=== PATIENT | female | born 1950 | race Hispanic/Latino ===

== ENCOUNTER 2018-06-26 11:27 | Inpatient (IN) | payer MEDICARE, OTHER ==
[2018-06-26] MEDS ORDERED: Morphine 4 mg/ml ISec IVP STA ×3 (12:26→23:45)
--- NOTE | 2018-06-26 12:38 | ED PDOC ---
Arrival/HPI - General Chief Complaint: Trauma Time Seen by Provider: 06/26/18 12:25 Historian: Patient - History of Present Illness Narrative History of Present Illness (Text): 06/26/18 12:25 68 year old female, whose medical history includes OH, transient hypotension, CHF exacerbation, Hypokalemia, who presents to the emergency department status post mechanical fall in middle of the night onto non-dominant left upper arm. Patient notes she got up to use the bathroom in the middle of the night when she tripped and fell. Patient denies head trauma, LOC, syncope, dizziness, palpitations, SOB, or any other complaints. Patient states she quit smoking about 7 years ago, no EtOH consumption. Time/Duration: Other (mechanical fall in middle of the night (last night)) Symptom Onset: Sudden Symptom Course: Unchanged Quality: Aching Context: Tripped (tripped and fell when she went to use the bathroom ) Associated Symptoms (Text): 06/26/18 14:51 Mechanical fall when she got up to use the bathroom in the middle of the night injuring her nondominant left shoulder. Past Medical History - Provider Review Nursing Documentation Reviewed: Yes - Infectious Disease Hx of Infectious Diseases: None - Tetanus Immunization Tetanus Immunization: Up to Date - Reproductive Menopause: Yes - Cardiac Hx Pacemaker: No - Pulmonary Hx Chronic Obstructive Pulmonary Disease (COPD): Yes - Neurological Hx Paralysis: No - Hematological/Oncological Hx Blood Transfusions: No Hx Blood Transfusion Reaction: Yes (POSSIBLY IN 2014) - Integumentary Hx Dermatological Disorder: No - Musculoskeletal/Rheumatological Hx Musculoskeletal Disorders: Yes - Gastrointestinal Hx Gastrointestinal Disorders: No - Genitourinary/Gynecological Hx Genitourinary Disorders: No Hx Reproductive Disorders: No - Psychiatric Hx Emotional Abuse: No Hx Physical Abuse: No Hx Substance Use: No - Surgical History Other/Comment: surgery for incontinence. L carotid endarterectomy. Surgery for nose,ears. Hysterectomy - Anesthesia Hx Anesthesia Reactions: No Hx Malignant Hyperthermia: No - Suicidal Assessment Feels Threatened In Home Enviroment: No Family/Social History - Physician Review Nursing Documentation Reviewed: Yes Family/Social History: Unknown Family HX Smoking Status: Former Smoker (Quit smoking 7 years ago) Hx Alcohol Use: No Hx Substance Use: No Hx Substance Use Treatment: No Allergies/Home Meds Allergies/Adverse Reactions: Allergies methotrexate Allergy (Verified 06/26/18 12:08) PAIN metronidazole Allergy (Verified 06/26/18 12:08) RASH Home Medications: Home Meds Medication Instructions Recorded Confirmed Alprazolam [Xanax] 0.5 mg PO TID 11/02/16 11/09/16 Lansoprazole [Prevacid] 30 mg PO DAILY 11/02/16 11/09/16 Levalbuterol [Xopenex] 0.63 mg IH TID 11/02/16 11/09/16 Oxycodone HCl/Acetaminophen 1 tab PO Q4H PRN 11/02/16 11/09/16 [Percocet 10-325 mg Tablet] Suvorexant [Belsomra] 40 mg PO HS 11/02/16 11/09/16 Venlafaxine [Effexor-XR] 75 mg PO BID 11/02/16 11/09/16 Acetaminophen [Tylenol 325mg tab] 2 tab PO Q6H PRN 11/09/16 11/09/16 Sucralfate [Carafate] 1 gm PO AC 11/09/16 11/09/16 Review of Systems - Physician Review All systems were reviewed & negative as marked: Yes - Review of Systems Constitutional: Normal Eyes: Normal ENT: Normal Respiratory: Normal. absent: SOB Cardiovascular: Normal. absent: Chest Pain, Palpitations, Syncope Gastrointestinal: absent: Abdominal Pain, Nausea, Vomiting Musculoskeletal: Other (pain at left upper arm). absent: Normal Neurological: Normal. absent: Headache (patient denies any head trauma), Dizziness Physical Exam Vital Signs Reviewed: Yes Vital Signs Temp Pulse Resp BP Pulse Ox 06/26/18 12:20 105 H 20 162/24 H 95 06/26/18 12:01 99.3 F 98 H 20 203/85 H 96 Temperature: Afebrile Blood Pressure: Hypertensive Pulse: Tachycardic Respiratory Rate: Normal Appearance: Positive for: Non-Toxic, Ill-Appearing (chronically ill-appearing), Uncomfortable, Other (pale. thin.) Pain Distress: Severe Mental Status: Positive for: Alert and Oriented X 3 - Systems Exam Head: Present: Atraumatic, Normocephalic Pupils: Present: PERRL Extroacular Muscles: Present: EOMI Conjunctiva: Present: Normal Mouth: Present: Moist Mucous Membranes Pharnyx: No: ERYTHEMA, EXUDATE, TONSILS ENLARGED Neck: Present: Normal Range of Motion Respiratory/Chest: Present: Clear to Auscultation, Good Air Exchange, Decreased Breath Sounds. No: Respiratory Distress, Accessory Muscle Use Cardiovascular: Present: Regular Rate and Rhythm, Normal S1, S2. No: Murmurs Abdomen: No: Tenderness, Distention, Peritoneal Signs Back: Present: Normal Inspection Upper Extremity: Present: NORMAL PULSES, Tenderness (severe pain/tenderness in left upper humerous), Swelling (swelling at left upper humerous ), Neurovascularly Intact, Deformity (at left upper humerous), Other (ecchymosis at left upper humerous ). No: Normal Inspection, Cyanosis, Edema, Normal ROM (limited ROM at left upper humerous), Erythema Lower Extremity: Present: Normal Inspection. No: Edema Neurological: Present: GCS=15, CN II-XII Intact, Speech Normal, Motor Func Grossly Intact Skin: Present: Warm, Dry, Normal Color. No: Rashes Psychiatric: Present: Alert, Oriented x 3, Normal Insight, Normal Concentration Medical Decision Making ED Course and Treatment: 06/26/18 12:25 Impression: 68 year old female who presents to the emergency department status post mechanical fall in middle of the night onto non-dominant left upper arm. Plan: -- Morphine 4 mg IVP -- Zofran Inj. 4 mg IVP -- X-ray of left humerus -- X-ray of left shoulder -- Reassess and disposition Prior Visits: Notes and results from previous visits were reviewed. Progress Notes: 06/26/18 14:56 EKG shows normal sinus rhythm with PACs rate approximately [address] and T-wave changes with no acute changes - RAD Interpretation Radiology Orders: 06/26/18 12:25 SHOULDER LEFT [RAD] Stat 06/26/18 12:26 HUMERUS LEFT [RAD] Stat X-ray left humerus and left shoulder shows a transverse displaced proximal shaft fracture of the humerus. Associate Professor Of Theatre: ED Physician - Medication Orders Current Medication Orders: Discontinued Medications Morphine Sulfate (Morphine) 4 mg IVP STAT STA Stop: 06/26/18 12:27 Ondansetron HCl (Zofran Inj) 4 mg IVP ONCE ONE Stop: 06/26/18 12:27 - Scribe Statement The provider has reviewed the documentation as recorded by the Scribe Glory Bell All medical record entries made by the Scribe were at my direction and personally dictated by me. I have reviewed the chart and agree that the record accurately reflects my personal performance of the history, physical exam, medical decision making, and the department course for this patient. I have also personally directed, reviewed, and agree with the discharge instructions and disposition. Disposition/Present on Arrival - Present on Arrival Any Indicators Present on Arrival: No History of DVT/PE: No History of Uncontrolled Diabetes: No Urinary Catheter: No History of Decub. Ulcer: No History Surgical Site Infection Following: None - Disposition Have Diagnosis and Disposition been Completed?: Yes Diagnosis: Hypokalemia, Fracture, humerus closed, shaft, Hypertension, Elevated troponin Disposition: HOSPITALIZED Disposition Time: 14:53 Patient Plan: Observation Patient Problems: Current Active Problems Problem Status Onset Fracture, humerus closed, shaft Acute Hypertension Acute Hypokalemia Acute Condition: FAIR Referrals: Austin Riley MD [Primary Care Provider] - Follow up with primary Forms: [employer] ([place])
[2018-06-26] MEDS ORDERED: Metoprolol 1 mg/ml Inj IVP ONE (13:28)
--- NOTE | 2018-06-26 13:33 | RAD ---
PROCEDURE: Radiographs of the left humerus. HISTORY: trauma COMPARISON: None. FINDINGS: BONES: There is a displaced obliquely oriented fracture of the proximal femoral shaft SOFT TISSUES: Normal. OTHER FINDINGS: None. IMPRESSION: There is a displaced obliquely oriented fracture of the proximal femoral shaft
--- NOTE | 2018-06-26 13:34 | RAD ---
Date of service: 06/26/2018 PROCEDURE: Radiographs of the Left Shoulder HISTORY: trauma COMPARISON: No prior. FINDINGS: BONES: There is a displaced overlapping obliquely oriented fracture of the proximal femoral shaft JOINTS: Normal. Glenohumeral and acromioclavicular joints preserved. No osteoarthritis. SOFT TISSUES: Normal. OTHER FINDINGS: None. IMPRESSION: There is a displaced obliquely oriented fracture of the proximal femoral shaft
[2018-06-26 13:57] LABS: BASO # 0.02 K/mm3 (0.0-2.0); BASO % 0.1 % (0.0-3.0); EOS % 0.1 % (1.5-5.0); GRAN # 13.79 (1.4-6.5); GRAN % 72.9 % (50.0-68.0); HEMOGLOBIN 12.7 g/dL (12.0-16.0); LYMPH # 3.2 (1.2-3.4); LYMPH % 17.1 % (22.0-35.0); MEAN CELL VOLUME 79.6 fl (80.0-105.0); MEAN CORPUSCULAR HEMOGLOBIN 25.9 pg (25.0-35.0); MEAN CORPUSCULAR HGB CONC 32.6 g/dl (31.0-37.0); MEAN PLATELET VOLUME 11.3 fl (7.0-11.0); MONO # 1.9 (0.1-0.6); MONO % 9.8 % (1.0-6.0); RBC 4.9 10^6/uL (3.5-6.1); RED CELL DISTRIBUTION WIDTH 14.7 % (11.5-14.5); WHITE BLOOD COUNT 18.9 10^3/ul (4.5-11.0)
[2018-06-26 14:05] LABS: INR 1.15; PARTIAL THROMBOPLASTIN TIME 31.5 Seconds (25.1-36.5); PROTHROMBIN TIME 13.1 SECONDS (9.4-12.5)
[2018-06-26 14:28] LABS: BLOOD UREA NITROGEN 13 mg/dL (7-21); GFR NON-AFRICAN AMERICAN > 60
[2018-06-26 14:29] LABS: ALB/GLOB RATIO 1.2 (1.1-1.8); ALBUMIN 3.5 g/dL (3.0-4.8); ALT/SGPT 33 U/L (7-56); AST/SGOT 31 U/L (14-36); CALCIUM 8.7 mg/dL (8.4-10.5)
--- NOTE | 2018-06-26 14:37 | RAD ---
Date of service: 06/26/2018 HISTORY: admit COMPARISON: 05/31/2018 FINDINGS: LUNGS: The lungs are hyperinflated and there is peribronchial thickening with chronic changes in both lungs. No focal consolidation. PLEURA: No significant pleural effusion identified, no pneumothorax apparent. CARDIOVASCULAR: There is mild cardiomegaly. OSSEOUS STRUCTURES: No significant abnormalities. VISUALIZED UPPER ABDOMEN: Normal. OTHER FINDINGS: None. IMPRESSION: No active pulmonary disease. COPD.
[2018-06-26 15:03] LABS: TROPONIN I 0.14 ng/mL
--- NOTE | 2018-06-26 16:17 | CP.PCM.HP ---
<Jojo Hinton - Last Filed: 06/26/18 17:02> History of Present Illness - History of Present Illness History of Present Illness: PGY-1 Jojo Hinton Medicine H&P for Dr. Westfall's service CC: fell at home Patient is a 68 yo female with PMH of COPD, CAD, Abdominal Aortic Aneurysm, HTN, Rotator Cuff Injury, [place], history of CHF (EF-35 in 2016) presents to hospital for evaluation of arm pain s/p fall. Patient states last night she was getting out of bed when she fell. Patient denies loss of consciousness. Patient states she did not feel dizzy prior to the fall. Patient has difficulty seeing from her right eye and has shoulder injury which at times makes it difficult for her to ambulate. Patient states she has had multiple falls in the past but never required hospitalization. Patient states she fell last night at 1:00 am and took percocet for the pain which helped. Patient reports a 10/10 pain even after morphine administration, constant in nature but unspecified quality, and non radiating in nature. Patient states she was at [facility] for surgery of her aneurysm however it was not completed due to elevated blood pressures. Patient was started on labetolol and spironolactone after admission at [facility] for 3 days. Patient states she has had unexplained weight loss for which her outpatient doctors are doing a pancreas workup. Patient denies fevers, cough, chest pain, sob, N/V, constipation or diarrhea, dysuria. Patient admits to arm pain. PMH- COPD, CAD, Abdominal Aortic Aneurysm, HTN, Rotator Cuff Injury, [place], history of CHF PSH- Carotid Endarectomy, Rotator Cuff Surgery Meds- Omeprazole 20mg po bid, reglan 10mg, geodon 80mg bid, xanax 1 po qid prn, Effexor 150mg po bid, Aspirin 81, Topamax 20mg po bid, Venlafaxine 150mg ER daily; Percocet 10-325 5x a day, Mirtazapine 30mg 1 tab; Artnuidity 1 puff, Anovoro 1 puff daily, Spironolactone 25mg po bid, Labetolol 200mg bid Allergies- Methotrextate; Metronidazoel Social- Denies alcohol, tobacco, drug use PMD: Dr. Mutterperl Code: Full Code Present on Admission - Present on Admission Any Indicators Present on Admission: No Review of Systems - Review of Systems Review of Systems: 12 point ROS obtained and noted in HPI Past Patient History - Infectious Disease Hx of Infectious Diseases: None - Tetanus Immunizations Tetanus Immunization: Up to Date - Past Medical History & Family History Past Medical History?: Yes - Past Social History Smoking Status: Former Smoker (Quit smoking 7 years ago) - CARDIAC Hx Pacemaker: No - PULMONARY Hx Chronic Obstructive Pulmonary Disease (COPD): Yes - NEUROLOGICAL Hx Paralysis: No - HEMATOLOGICAL/ONCOLOGICAL Hx Blood Transfusions: No Hx Blood Transfusion Reaction: Yes (POSSIBLY IN 2014) - INTEGUMENTARY Hx Dermatological Problems: No - MUSCULOSKELETAL/RHEUMATOLOGICAL Hx Musculoskeletal Disorders: Yes - GASTROINTESTINAL Hx Gastrointestinal Disorders: No - GENITOURINARY/GYNECOLOGICAL Hx Genitourinary Disorders: No Hx Reproductive Disorders: No - PSYCHIATRIC Hx Emotional Abuse: No Hx Physical Abuse: No Hx Substance Use: No - SURGICAL HISTORY Other/Comment: surgery for incontinence. L carotid endarterectomy. Surgery for nose,ears. Hysterectomy - ANESTHESIA Hx Anesthesia Reactions: No Hx Malignant Hyperthermia: No Meds Allergies/Adverse Reactions: Allergies Allergy/AdvReac Type Severity Reaction Status Date / Time methotrexate Allergy PAIN Verified 06/26/18 12:08 metronidazole Allergy RASH Verified 06/26/18 12:08 Physical Exam - Constitutional Appears: Non-toxic, No Acute Distress - Head Exam Head Exam: NORMAL INSPECTION, NORMOCEPHALIC - Eye Exam Eye Exam: EOMI, Normal appearance. absent: Nystagmus, Scleral icterus - ENT Exam ENT Exam: Mucous Membranes Moist - Respiratory Exam Respiratory Exam: Clear to Auscultation Bilateral, NORMAL BREATHING PATTERN. absent: Rales, Rhonchi, Wheezes - Cardiovascular Exam Cardiovascular Exam: REGULAR RHYTHM, +S1, +S2. absent: Tachycardia - GI/Abdominal Exam GI & Abdominal Exam: Normal Bowel Sounds, Soft. absent: Tenderness - Neurological Exam Neurological exam: Alert, CN II-XII Intact, Oriented x3 - Psychiatric Exam Psychiatric exam: Normal Affect, Normal Mood - Skin Skin Exam: Intact, Normal Color Results - Vital Signs Recent Vital Signs: Last Vital Signs Temp 99.3 F 06/26/18 12:01 Pulse 86 06/26/18 15:52 Resp 20 06/26/18 15:52 BP 135/86 06/26/18 15:52 Pulse Ox 94 L 06/26/18 15:52 - Labs Result Diagrams: 06/26/18 13:10 06/26/18 14:00 Labs: Laboratory Results - last 24 hr 06/26/18 06/26/18 06/26/18 12:50 13:10 14:00 WBC 18.9 H D RBC 4.90 Hgb 12.7 Hct 39.0 MCV 79.6 L MCH 25.9 MCHC 32.6 RDW 14.7 H Plt Count 390 MPV 11.3 H Gran % 72.9 H Lymph % (Auto) 17.1 L [place] % (Auto) 9.8 H Eos % (Auto) 0.1 L Baso % (Auto) 0.1 Gran # 13.79 H Lymph # (Auto) 3.2 [place] # (Auto) 1.9 H Eos # (Auto) 0.0 Baso # (Auto) 0.02 PT 13.1 H INR 1.15 APTT 31.5 Sodium 135 Potassium 3.2 L Chloride 101 Carbon Dioxide 24 Anion Gap 13 BUN 13 Creatinine 0.9 Est GFR ( Amer) > 60 Est GFR (Non-Af Amer) > 60 Random Glucose 101 Calcium 8.7 Magnesium 1.7 Total Bilirubin 0.6 AST 31 ALT 33 Alkaline Phosphatase 249 H Lactate Dehydrogenase 569 Total Creatine Kinase 110 Troponin I 0.14 H* D Total Protein 6.5 Albumin 3.5 Globulin 3.0 Albumin/Globulin Ratio 1.2 Assessment & Plan - Assessment and Plan (Free Text) Assessment: Patient is a 68 yo female with PMH of CHF, CAD, Aneurysm, HTN, [place], Rotator Cuff injury presents to emergency department s/p fall last night; On Xray shows humeral fracture; Ortho Consulted; Cardio Consulted for preop clearance Plan: Humerus Fracture Ortho Consulted: Dr. Wolf- possible OR for tomorrow Cardio Consulted: Dr. Mead- recommendations appreciated 06-26-18 Humerus Xray- displaced obliquely oriented fracture of the proximal humeral shaft Morphine 4mg IVP q6h jennifer; Consider Zofran once new EKG is reviewed NPO starting at midnight Aspirin 81mg held Repeat EKG pending Echo pending HTN Labetolol 200mg bid Spironolactone 25mg bid Elevated Troponin EKG pending Chronic in issue after chart review Patient not complaining of chest pain Hemodynamically stable Anxiety Xanax 1mg po QID Depression Pending EKG will start Mirtazapin 30mg at night and Venlafaxine 150mg ER once daily Headache Topamax 50mg 3 tablets bid Hypokalemia Repeat CMP in AM Repleted with IV 10 KCl and oral 20 KCl COPD Duoneb q6h prn Hx of CHF Echo pending Cardio Consulted- Dr. Mead- recommendations appreciated History of Herniated DIscs Morphine 4mg IVP q6h jennifer Hx of Abdominal Aortic Aneurysm Patient was seen in [facility] 3 weeks prior for possible surgery Surgery was held as patient had very elevated blood pressures >220 Patient was discharged to further manage her blood pressure before surgical intervention 02/2018 CTA shows 4.7cm infrarenal AAA PPx: DVT ppx- Heparin 5000 units sc GI ppx- Protonix 40mg <Deedee Westfall - Last Filed: 06/30/18 16:24> Results - Vital Signs Recent Vital Signs: Last Vital Signs Temp 97.5 F L 06/30/18 14:42 Pulse 54 L 06/30/18 14:42 Resp 20 06/30/18 14:42 BP 124/77 06/30/18 14:42 Pulse Ox 98 06/30/18 14:42 - Labs Result Diagrams: 06/30/18 07:00 06/30/18 07:00 Labs: Laboratory Results - last 24 hr 06/29/18 06/30/18 06/30/18 10:10 07:00 07:00 WBC 16.3 H RBC 3.26 L Hgb 8.2 L Hct 25.4 L MCV 77.9 L MCH 25.2 MCHC 32.3 RDW 14.4 Plt Count 318 MPV 10.1 Gran % 79.7 H Lymph % (Auto) 9.0 L [place] % (Auto) 11.0 H Eos % (Auto) 0.2 L Baso % (Auto) 0.1 Gran # 13.01 H Lymph # (Auto) 1.5 [place] # (Auto) 1.8 H Eos # (Auto) 0.0 Baso # (Auto) 0.01 Sodium 130 L Potassium 3.3 L Chloride 98 Carbon Dioxide 25 Anion Gap 10 BUN 13 Creatinine 0.9 Est GFR ( Amer) > 60 Est GFR (Non-Af Amer) > 60 Random Glucose 98 Calcium 8.1 L Total Bilirubin 0.5 AST 24 ALT 28 Alkaline Phosphatase 191 H D Total Protein 5.2 L Albumin 2.7 L Globulin 2.5 Albumin/Globulin Ratio 1.1 Procalcitonin 0.58 H Attending/Attestation - Attestation I have personally seen and examined this patient.: Yes I have fully participated in the care of the patient.: Yes I have reviewed all pertinent clinical information: Yes Notes (Text): 06/30/18 16:20 Medical record note made by the resident after discussion with my direction and input after the patient was personally seen and examined by me. I have reviewed the chart and agree that the record accurately reflects by personal performance of the history, physical exam, data review, and medical decision-making, in the course for the patient. I have also personally directed the plan of care. 68 yo female with PMH of COPD, CAD, Abdominal Aortic Aneurysm, HTN, Rotator Cuff Injury, [place], CHF with diastolic dysfunction presents to hospital for evaluation of arm pain s/p fall found to have Humeral fracture. Patient EF on last Echo is 35%.She is clinically euvolemic.Patient will need cardiology clearance prior to the surgery, we will get Cardiology evaluation and will also repeat 2 D Echo. COPD is stable, continue Neb, no need of steroid at this time. HTN, Blood pressure was initially high due to pain.Blood pressure is coming down.We will continue home medications and will monitor. Management plan was discussed in detail with patient. Education was provided. 06/30/18 16:21
[2018-06-26] MEDS ORDERED: Potassium Chloride 40 mEq/30 ml LIQ UD PO ONE (16:38)
[2018-06-26 18:51] VITALS: BMI 18.6
[2018-06-26] MEDS: Morphine 4 mg/ml ISec IVP PRN (18:53)
[2018-06-26] MEDS: Albuterol-Ipratrop 3 mg / 0.5 (3 ml) UD IH SCH (19:53)
--- NOTE | 2018-06-26 21:05 | CARD ---
APPROVED REPORT Date of service: 06/26/2018 EKG Measurement Heart [id number] <Conclusion> Sinus rhythm with occasional premature ventricular complexes Minimal voltage criteria for LVH, may be normal variant Prolonged QT Abnormal ECG
[2018-06-27] MEDS: Morphine 4 mg/ml ISec IVP PRN ×4 (07:15→21:39)
[2018-06-27] MEDS: Pantoprazole 40 mg EC Tab PO SCH (07:16)
[2018-06-27 07:19] LABS: BASO # 0.01 K/mm3 (0.0-2.0); BASO % 0.1 % (0.0-3.0); EOS % 0.1 % (1.5-5.0); GRAN # 10.46 (1.4-6.5); GRAN % 76.6 % (50.0-68.0); LYMPH # 1.6 (1.2-3.4); LYMPH % 11.4 % (22.0-35.0); MEAN CELL VOLUME 79.1 fl (80.0-105.0); MEAN CORPUSCULAR HEMOGLOBIN 25.7 pg (25.0-35.0); MEAN CORPUSCULAR HGB CONC 32.5 g/dl (31.0-37.0); MEAN PLATELET VOLUME 10.4 fl (7.0-11.0); MONO # 1.6 (0.1-0.6); MONO % 11.8 % (1.0-6.0); RBC 3.73 10^6/uL (3.5-6.1); RED CELL DISTRIBUTION WIDTH 14.6 % (11.5-14.5); WHITE BLOOD COUNT 13.7 10^3/ul (4.5-11.0)
[2018-06-27 07:22] LABS: HEMOGLOBIN 9.6 g/dL (12.0-16.0)
[2018-06-27 08:19] LABS: TROPONIN I 0.07 ng/mL
[2018-06-27] MEDS: Albuterol-Ipratrop 3 mg / 0.5 (3 ml) UD IH SCH ×3 (08:25→20:10)
[2018-06-27 08:28] LABS: ALB/GLOB RATIO 1.1 (1.1-1.8); ALBUMIN 3.1 g/dL (3.0-4.8); ALT/SGPT 32 U/L (7-56); AST/SGOT 25 U/L (14-36); BLOOD UREA NITROGEN 12 mg/dL (7-21); CALCIUM 8.5 mg/dL (8.4-10.5); GFR NON-AFRICAN AMERICAN > 60
[2018-06-27] MEDS: Oxycodone/Acetaminophen 5/325 mg Tab PO PRN ×2 (09:39→18:00)
--- NOTE | 2018-06-27 10:57 | CP.PCM.PN ---
Subjective - Date & Time of Evaluation Date of Evaluation: 06/27/18 Time of Evaluation: 08:41 - Subjective Subjective: 68 F with a left proximal humerus fracture due to falling out of bed. Patient going to echo within the hour pending cardio clearance. Patient in left upper extremity sling. Patient denies any numbness or tingling but admits to pain. Pat ient given morphine for pain. Left upper extremity: Patient in sling. Skin is intact. No obvious deformity. Severe amount of swelling. Diffuse ecchymosis. +AROM fingers and patient can make a fist. Sensation intact to light touch. Displaced oblique fracture of the proximal 1/3 left humeral shaft Echo today Pending cardio clearance Plan OR for Monday for ORIF Continuous ice Discussed above with Dr. Coburn. agrees with above. Objective - Vital Signs/Intake and Output Vital Signs (last 24 hours): Temp Pulse Resp BP Pulse Ox 99.7 F H 85 20 147/93 H 99 06/27/18 00:01 06/27/18 02:00 06/27/18 00:01 06/27/18 00:01 06/26/18 18:08 Intake and Output: 06/27/18 06/27/18 06:59 18:59 Intake Total 720 Output Total 700 Balance 20 - Medications Medications: Current Medications Albuterol/Ipratropium (Duoneb 3 Mg/0.5 Mg (3 Ml) Ud) 3 ml IH [id number] [facility] Last Admin: 06/27/18 08:25 Dose: 3 ml Alprazolam (Xanax) 1 mg PO QID PRN; Protocol PRN Reason: Anxiety Last Admin: 06/26/18 18:51 Dose: 1 mg Heparin Sodium (Porcine) (Heparin) 5,000 units SC Q8 [facility]; Protocol Last Admin: 06/27/18 07:16 Dose: 5,000 units Labetalol HCl (Trandate) 200 mg PO BID [facility] Last Admin: 06/26/18 18:52 Dose: 200 mg Morphine Sulfate (Morphine) 4 mg IVP Q6H PRN PRN Reason: Pain, moderate (4-7) Last Admin: 06/27/18 07:15 Dose: 4 mg Oxycodone/Acetaminophen (Percocet 5/325 Mg Tab) 1 tab PO Q4H PRN PRN Reason: Pain, Mild (1-3) Stop: 06/30/18 07:39 Pantoprazole Sodium (Protonix Ec Tab) 40 mg PO 0600 [facility] Last Admin: 06/27/18 07:16 Dose: 40 mg Spironolactone (Aldactone) 25 mg PO BID [facility] Last Admin: 06/26/18 18:53 Dose: 25 mg Topiramate (Topamax) 150 mg PO BID [facility]; Protocol Last Admin: 06/26/18 18:52 Dose: 150 mg - Labs Labs: 06/27/18 06:30 06/27/18 06:30 PT 13.1 SECONDS (9.4-12.5) H 06/26/18 12:50 INR 1.15 06/26/18 12:50 APTT 31.5 Seconds (25.1-36.5) 06/26/18 12:50
--- NOTE | 2018-06-27 13:05 | CARD ---
APPROVED REPORT Date of service: 06/27/2018 EXAM: Two-dimensional and M-mode echocardiogram with Doppler and color Doppler. 2D DIMENSIONS Left Atrium (2D)3.5 (1.6-4.0cm)IVSd1.2 (0.7-1.1cm) LVDd4.6 (3.9-5.9cm)PWd1.2 (0.7-1.1cm) LVDs3.1 (2.5-4.0cm)FS (%) 31.6 % LVEF (%)59.6 (>50%) M-Mode DIMENSIONS Aortic Root2.80 (2.2-3.7cm)Aortic Cusp Exc.1.40 (1.5-2.0cm) Aortic Valve AoV Peak Edgngazo684.0cm/Christiano Peak GR.19mmHg Mitral Valve E/A ratio0.0 TDI E/Lateral E'0.0E/Medial E'0.0 Tricuspid Valve TR Peak [id number] Peak Gr.33mmHg [id number] LEFT VENTRICLE The left ventricle is normal size. There is mild concentric left ventricular hypertrophy. The left ventricular function is normal. The left ventricular ejection fraction is within the normal range. LV EJ.Fr: 59%. RIGHT VENTRICLE The right ventricle is normal size. The right ventricular systolic function is normal. ATRIA The left atrium size is normal. The right atrium size is normal. AORTIC VALVE Aortic Valve Calcified and Shows Minimal Narrowing. Max AV Prssure Gradient 19mm Hg. Trace Aortic Regurge. MITRAL VALVE Mitral Annulus Calcified. Mitral Valve Openinf Normal. Moderate Mitral Regurge. TRICUSPID VALVE The tricuspid valve is normal in structure. There is moderate tricuspid regurgitation.RVSP: 43mm Hg. Mild Pulmonary Hypertension. PERICARDIAL EFFUSION There is no pericardial effusion. <Conclusion> The left ventricle is normal size. There is mild concentric left ventricular hypertrophy. The left ventricular ejection fraction is within the normal range. LV EJ.Fr: 59%. The right ventricle is normal size. The right ventricular systolic function is normal. The left atrium size is normal. The right atrium size is normal. Aortic Valve Calcified and Shows Minimal Narrowing. Max AV Prssure Gradient 19mm Hg. Trace Aortic Regurge. Mitral Annulus Calcified. Mitral Valve Openinf Normal. Moderate Mitral Regurge. The tricuspid valve is normal in structure. There is moderate tricuspid regurgitation.RVSP: 43mm Hg. Mild Pulmonary Hypertension. There is no pericardial effusion.
[2018-06-27] MEDS: MethylPREDNISolone 40 mg Vial IVP SCH (13:10)
[2018-06-27] MEDS: Venlafaxine 75 mg ER Cap PO SCH ×2 (13:11→17:22)
--- NOTE | 2018-06-27 15:15 | CP.PCM.PN ---
<Jojo Hinton - Last Filed: 06/27/18 15:12> Subjective - Date & Time of Evaluation Date of Evaluation: 06/27/18 Time of Evaluation: 11:00 - Subjective Subjective: PGY-1 Jojo Hinton Medicine Progress Note for Dr. Westfall's service Patient seen and examined at bedside. Patient reports pain in her left arm. Surgery held pending clearance with Dr. Mead. Patient denies headaches, chest pain, fevers, chills, n/v, constipation or diarrhea, dysuria. Objective - Vital Signs/Intake and Output Vital Signs (last 24 hours): Temp Pulse Resp BP Pulse Ox 99.7 F H 71 20 142/88 99 06/27/18 00:01 06/27/18 13:11 06/27/18 00:01 06/27/18 13:11 06/26/18 18:08 Intake and Output: 06/27/18 06/27/18 06:59 18:59 Intake Total 720 Output Total 700 Balance 20 - Medications Medications: Current Medications Albuterol/Ipratropium (Duoneb 3 Mg/0.5 Mg (3 Ml) Ud) 3 ml IH [id number] [facility] Last Admin: 06/27/18 14:02 Dose: 3 ml Alprazolam (Xanax) 1 mg PO QID PRN; Protocol PRN Reason: Anxiety Last Admin: 06/27/18 09:39 Dose: 1 mg Docusate Sodium (Colace) 100 mg PO BID [facility] Last Admin: 06/27/18 09:41 Dose: 100 mg Furosemide (Lasix) 40 mg PO DAILY [facility] Last Admin: 06/27/18 13:11 Dose: 40 mg Heparin Sodium (Porcine) (Heparin) 5,000 units SC Q8 [facility]; Protocol Last Admin: 06/27/18 07:16 Dose: 5,000 units Hydralazine HCl (Apresoline) 10 mg PO QID PRN PRN Reason: for SBP>160 Lisinopril (Zestril) 20 mg PO DAILY [facility] Last Admin: 06/27/18 13:10 Dose: 20 mg Methylprednisolone (Solu-Medrol) 40 mg IVP DAILY [facility] Last Admin: 06/27/18 13:10 Dose: 40 mg Metoprolol Tartrate (Lopressor) 25 mg PO BID [facility] Last Admin: 06/27/18 13:11 Dose: 25 mg Morphine Sulfate (Morphine) 4 mg IVP Q6H PRN PRN Reason: Pain, moderate (4-7) Last Admin: 06/27/18 13:56 Dose: 4 mg Oxycodone/Acetaminophen (Percocet 5/325 Mg Tab) 1 tab PO Q4H PRN PRN Reason: Pain, Mild (1-3) Stop: 06/30/18 07:39 Last Admin: 06/27/18 09:39 Dose: 1 tab Pantoprazole Sodium (Protonix Ec Tab) 40 mg PO 0600 JENN[facility]ER Last Admin: 06/27/18 07:16 Dose: 40 mg Pramipexole Dihydrochloride (Mirapex) 0.5 mg PO HS [facility] Spironolactone (Aldactone) 25 mg PO DAILY [facility] Topiramate (Topamax) 150 mg PO BID [facility]; Protocol Last Admin: 06/27/18 09:38 Dose: 150 mg Venlafaxine HCl (Effexor Xr) 150 mg PO BID [facility] Last Admin: 06/27/18 13:11 Dose: 150 mg - Labs Labs: 06/27/18 06:30 06/27/18 06:30 PT 13.1 SECONDS (9.4-12.5) H 06/26/18 12:50 INR 1.15 06/26/18 12:50 APTT 31.5 Seconds (25.1-36.5) 06/26/18 12:50 - Constitutional Appears: Non-toxic, No Acute Distress - Head Exam Head Exam: NORMAL INSPECTION, NORMOCEPHALIC - Eye Exam Eye Exam: EOMI, Normal appearance. absent: Nystagmus, Scleral icterus - ENT Exam ENT Exam: Mucous Membranes Moist - Respiratory Exam Respiratory Exam: Wheezes, NORMAL BREATHING PATTERN. absent: Rales, Rhonchi - Cardiovascular Exam Cardiovascular Exam: REGULAR RHYTHM, +S1, +S2 - GI/Abdominal Exam GI & Abdominal Exam: Soft, Normal Bowel Sounds. absent: Distended, Firm, Guarding, Tenderness - Extremities Exam Additional comments: fractured left humerus with sling in place - Neurological Exam Neurological Exam: Alert, Awake, Oriented x3 - Psychiatric Exam Psychiatric exam: Normal Affect, Normal Mood - Skin Skin Exam: Intact, Normal Color Assessment and Plan - Assessment and Plan (Free Text) Assessment: Patient is a 68 yo female with PMH of COPD, CAD, Abdominal Aortic Aneurysm, HTN, Rotator Cuff Injury, [place], history of CHF (EF-35 in 2016) presents to hospital for evaluation of arm pain s/p fall. Patient is a high risk patient which requires clearance prior to orthopedic surgery. Echo ordered; Likely plan for OR on monday; Midline to be placed prior to surgery Plan: Humerus Fracture Ortho Consulted: Dr. Wolf- OR on monday Cardio Consulted: Dr. Mead- risk stratification for patient; TSH, A1C, Lipid panel pending 06-26-18 Humerus Xray- displaced obliquely oriented fracture of the proximal humeral shaft 06-27-18 Echo shows LV normal size; EF of 59; Aortic Valve caclified and shows minimal narrowing. Trace AR; Moderate MR; Moderate TR; Pulm HTN; no pericardial effusion 06-27-18 EKG Sinus rhythm with occasional PVC; Prolonged QTc at 495 Morphine 4mg IVP q6h prn; Percocet 5/325 1 tab po q4h prn Aspirin 81mg held Heart Healthy Diet HTN Lopressor 25mg po bid Lisinopril 20mg po daily Spironolactone 25mg bid Hydralazine 10mg po qid prn sbp>160 Elevated Troponin EKG pending Chronic in issue after chart review Patient not complaining of chest pain Hemodynamically stable Anxiety Xanax 1mg po QID Depression Effexor 150mg daily Headache Topamax 50mg 3 tablets bid Hypokalemia Resolved Repeat CMP in AM COPD Duoneb q6h prn Solumedrol 40mg IVP daily jennifer Hx of CHF Cardio Consulted- Dr. Mead- recommendations appreciated 06-27-18 Echo shows LV normal size; EF of 59; Aortic Valve caclified and shows minimal narrowing. Trace AR; Moderate MR; Moderate TR; Pulm HTN; no pericardial effusion Lasix 40mg po daily jennifer History of Herniated DIscs Morphine 4mg IVP q6h prn Percocet 5/325 1 tab po q4h prn Hx of Abdominal Aortic Aneurysm Patient was seen in [place] 3 weeks prior for possible surgery Surgery was held as patient had very elevated blood pressures >220 Patient was discharged to further manage her blood pressure before surgical intervention 02/2018 CTA shows 4.7cm infrarenal AAA PPx: DVT ppx- Heparin 5000 units sc GI ppx- Protonix 40mg <Deedee Westfall - Last Filed: 06/30/18 16:19> Objective - Vital Signs/Intake and Output Vital Signs (last 24 hours): Temp Pulse Resp BP Pulse Ox 97.5 F L 54 L 20 124/77 98 06/30/18 14:42 06/30/18 14:42 06/30/18 14:42 06/30/18 14:42 06/30/18 14:42 Intake and Output: 06/30/18 06/30/18 06:59 18:59 Intake Total 500 Output Total 580 450 Balance -80 -450 - Medications Medications: Current Medications Albuterol/Ipratropium (Duoneb 3 Mg/0.5 Mg (3 Ml) Ud) 3 ml IH [id number] [facility] Last Admin: 06/30/18 15:51 Dose: 3 ml Alprazolam (Xanax) 1 mg PO QID PRN; Protocol PRN Reason: Anxiety Last Admin: 06/30/18 01:40 Dose: 1 mg Docusate Sodium (Colace) 100 mg PO BID [facility] Last Admin: 06/30/18 11:03 Dose: 100 mg Doxycycline Hyclate (Doryx) 100 mg PO Q12 [facility]ENN[facility]; Protocol Furosemide (Lasix) 40 mg PO DAILY [facility] Last Admin: 06/30/18 11:05 Dose: 40 mg Heparin Sodium (Porcine) (Heparin) 5,000 units SC Q8 [facility]; Protocol Last Admin: 06/30/18 15:31 Dose: 5,000 units Hydralazine HCl (Apresoline) 10 mg PO QID PRN PRN Reason: for SBP>160 Last Admin: 06/29/18 17:59 Dose: 10 mg Hydromorphone HCl (Dilaudid) 0.5 mg IVP Q4H PRN PRN Reason: Pain, moderate (4-7) Last Admin: 06/30/18 15:31 Dose: 0.5 mg Cefepime HCl (Maxipime 2gm) 2 gm in 100 mls @ 100 mls/hr IVPB Q12 [facility]; Protocol Stop: 07/04/18 23:01 Last Admin: 06/30/18 10:43 Dose: 100 mls/hr Vancomycin HCl (Vancomycin 1gm) 1 gm in 250 mls @ 167 mls/hr IVPB Q12 [facility]; Protocol Lisinopril (Zestril) 20 mg PO DAILY [facility] Last Admin: 06/30/18 11:04 Dose: 20 mg Methylprednisolone (Solu-Medrol) 40 mg IVP DAILY [facility] Last Admin: 06/30/18 11:02 Dose: 40 mg Metoprolol Tartrate (Lopressor) 25 mg PO BID [facility] Last Admin: 06/30/18 11:04 Dose: 25 mg Ondansetron HCl (Zofran Inj) 4 mg IVP Q6H PRN PRN Reason: Nausea/Vomiting Last Admin: 06/29/18 23:11 Dose: 4 mg Pantoprazole Sodium (Protonix Ec Tab) 40 mg PO 0600 [facility] Last Admin: 06/30/18 05:11 Dose: 40 mg Potassium Chloride (K-Dur 20 Meq Er Tab) 20 meq PO BRK [facility] Last Admin: 06/30/18 08:24 Dose: 20 meq Pramipexole Dihydrochloride (Mirapex) 0.5 mg PO HS [facility] Last Admin: 06/29/18 21:03 Dose: 0.5 mg Spironolactone (Aldactone) 25 mg PO DAILY [facility] Last Admin: 06/30/18 11:04 Dose: 25 mg Topiramate (Topamax) 150 mg PO BID [facility]; Protocol Last Admin: 06/30/18 11:03 Dose: 150 mg Venlafaxine HCl (Effexor Xr) 150 mg PO BID [facility] Last Admin: 06/30/18 11:03 Dose: 150 mg - Labs Labs: 06/30/18 07:00 06/30/18 07:00 PT 13.5 SECONDS (9.4-12.5) H 06/28/18 06:30 INR 1.17 06/28/18 06:30 APTT 25.6 Seconds (25.1-36.5) 06/28/18 06:30 Attending/Attestation - Attestation I have personally seen and examined this patient.: Yes I have fully participated in the care of the patient.: Yes I have reviewed all pertinent clinical information, including history, physical exam and plan: Yes Notes (Text): 06/30/18 16:19 Medical record note made by the resident after discussion with my direction and input after the patient was personally seen and examined by me. I have reviewed the chart and agree that the record accurately reflects by personal performance of the history, physical exam, data review, and medical decision-making, in the course for the patient. I have also personally directed the plan of care.
--- NOTE | 2018-06-27 20:05 | CON ---
DATE: 06/27/2018 REASON FOR DICTATION: Preop evaluation, risk stratification for left shoulder surgery. BRIEF CLINICAL HISTORY: This is a 68-year-old female with past medical history of COPD, CAD, abdominal aortic aneurysm, being scheduled at [facility] for endovascular stent who fell down from the bed while getting out of the bed and sustained fracture of the left humerus requiring OR internal fixation. Cardiology consult was called for preop evaluation, risk stratification. The patient denies any chest pain, shortness of breath or any palpitation. PAST MEDICAL HISTORY: Significant for coronary artery disease, COPD, abdominal aortic aneurysm, being scheduled for endovascular repair at [facility] on 07/22/2018, hypertension, history of [place], history of CAD. PAST SURGICAL HISTORY: Significant for rotator cuff surgery in the past, history of carotid artery endarterectomy. RECENT CARDIAC WORKUP: As follows: The patient had a cardiac catheterization on 10/14/2015, nonobstructive coronary artery disease, decreased LV function. Cardiac history goes back to [place] 5 years ago, status post [id number] myocardial infarction, 03/14 where the patient underwent cardiac catheterization, nonobstructive coronary artery disease who readmitted on 10/04/2015 with [id number] myocardial infarction, admitted with ST elevation V5, V6 code STEMI and the patient underwent emergent cardiac catheterization by Dr. Coleman, found to be nonobstructive coronary artery disease, ejection fraction at that time was 35%. So, history of cardiac catheterization twice, 02/2015 and again the patient has false STEMI, elevated 10/04/2014, nonobstructive coronary artery disease, ejection fraction 35%. Echo also showed decreased LV function, RV systolic pressure 23, trace MR, [id number] tricuspid regurgitation, RV systolic pressure 23, mild mitral regurgitation, ejection fraction 35%. Later on, the patient had a MUGA scan on 10/07/2015 that shows LV function preserved, ejection fraction back to normal 69%. SOCIAL HISTORY: Denies any smoking. Denies any history of alcohol abuse. ALLERGIES: FLAGYL AND METHOTREXATE. CURRENT MEDICATIONS: The patient is taking at home Geodon, Effexor, Topamax, Mirapex, omeprazole, Reglan, aspirin, acetaminophen. REVIEW OF SYSTEMS: As per HPI. PHYSICAL EXAMINATION: VITAL SIGNS: Height of the patient 5 feet 5 inches, weight of the patient 116 pounds, body mass index 19 kg/m2. LABORATORY DATA: EKG shows normal sinus rhythm. Acute ST-T changes noted. WBC 13.7, hemoglobin 9.7, hematocrit 29.5, platelet count 269. Chemistry shows sodium 135, potassium 3.7, chloride 136, carbon dioxide 20, anion gap of 10, BUN 12, creatinine 0.6. Alkaline phosphatase 187. Troponin 0.07. IMPRESSION: A 68-year-old female, history of chronic obstructive pulmonary disease, history of non-obstructive coronary artery disease, history of cardiac catheterization twice, 09/2014 and then 10/04/2015, non-obstructive coronary artery disease, history of abdominal aortic aneurysm scheduled for endovascular repair at [facility]. Recent stress test was according to the daughter sitting at the bedside says it is normal. It is cleared by chief construction inspector here at [facility], initially scheduled for 07/22/2018, now is probably scheduled for next month who fell down sustained fracture of the shoulder. Denies any chest pain, shortness of breath or any palpitation. RECOMMENDATION: We will do echo to assess LV function. Also, look at the workup recently done at [facility]. We will get in touch with Dr. Riley's office to get more information. Further recommendation depends on hospital course. One troponin 0.14, repeat troponin and the trend. Since the patient has a cardiac catheterization twice, it is nonobstructive coronary artery disease, at one point EF was found to be low, later on by MUGA scan, EF found to be preserved. We will repeat echo, lipid profile, TSH, hemoglobin A1c. Also in the interim, we will get in touch with Dr. Riley to get more information from [facility]. We will follow with you. Thank you, Dr. Westfall, for providing us the opportunity in taking care of the patient, Blossom Fabian. I explained to Dr. Coburn's PA about the patient's condition and workup before the patient goes to surgery. Deedee Mead MD
--- NOTE | 2018-06-27 21:20 | CON ---
DATE: 06/26/2018 INPATIENT CONSULT REASON FOR CONSULT: Left shoulder fracture. CONSULT IS FOLLOWS: This is a 68-year-old female who presented status post fall with complaints of left shoulder pain. According to the patient, she previously felled on evening of 06/25/2018 and had increasing pain and presented to the emergency room following day. In the emergency room, she was noted to have significant amount of swelling and ecchymosis about the left shoulder. X-rays were taken and x-rays were consistent with a left proximal humerus fracture. Today, she denies complaints of any other pain. No areas of other pain. She denies any numbness or tingling going down the arm. PHYSICAL EXAMINATION: GENERAL: This is an elderly female in no apparent distress. She is awake, alert, and oriented x3. EXTREMITIES: She has significant swelling about the left shoulder and ecchymosis, the skin is intact however. She is tolerating passive range of motion of the elbow without any pain and grossly is neurovascularly intact distally and is able to actively move her wrist and hand without any pain. She does have pain with passive range of motion of the left shoulder. Neurovascularly, she is intact distally. X-rays of the left shoulder show a left displaced proximal humerus fracture. No dislocation is appreciated. IMPRESSION: Left proximal humerus fracture. PLAN: We discussed the treatment options. Our recommendations will be for open reduction and internal fixation of the fracture. The timing of the surgery would be based on her obtaining medical clearance as well as letting some of the soft tissue swelling subside. She understands this. The Cardiology service has already been consulted and echocardiogram is pending. For now, I recommended ice and left upper extremity in a sling. Zuhair Coburn MD
[2018-06-28] MEDS: Albuterol-Ipratrop 3 mg / 0.5 (3 ml) UD IH SCH ×4 (01:39→20:25)
[2018-06-28] MEDS: Oxycodone/Acetaminophen 5/325 mg Tab PO PRN ×5 (03:43→21:47)
[2018-06-28] MEDS: Pantoprazole 40 mg EC Tab PO SCH (05:51)
[2018-06-28] MEDS: Morphine 4 mg/ml ISec IVP PRN ×2 (05:51→12:12)
[2018-06-28 07:15] LABS: BASO # 0.02 K/mm3 (0.0-2.0); BASO % 0.1 % (0.0-3.0); GRAN # 17.55 (1.4-6.5); GRAN % 82.3 % (50.0-68.0); LYMPH # 1.4 (1.2-3.4); LYMPH % 6.6 % (22.0-35.0); MEAN CELL VOLUME 78.8 fl (80.0-105.0); MEAN CORPUSCULAR HEMOGLOBIN 25.1 pg (25.0-35.0); MEAN CORPUSCULAR HGB CONC 31.8 g/dl (31.0-37.0); MONO # 2.4 (0.1-0.6); RBC 3.59 10^6/uL (3.5-6.1); RED CELL DISTRIBUTION WIDTH 14.4 % (11.5-14.5); WHITE BLOOD COUNT 21.4 10^3/ul (4.5-11.0)
[2018-06-28 07:16] LABS: INR 1.17; PARTIAL THROMBOPLASTIN TIME 25.6 Seconds (25.1-36.5); PROTHROMBIN TIME 13.5 SECONDS (9.4-12.5)
--- NOTE | 2018-06-28 07:26 | CP.PCM.PN ---
<Jojo Hinotn - Last Filed: 06/28/18 16:55> Subjective - Date & Time of Evaluation Date of Evaluation: 06/28/18 Time of Evaluation: 10:20 - Subjective Subjective: PGY-1 Medicine Progress Note for Dr. Westfall's service Patient seen and examined at bedside. Patient reports increased arm pain that it was difficult for patient to sleep. Patient denies chest pain, sob, n/v, constipation or diarrhea, headaches, fevers or chills. Objective - Vital Signs/Intake and Output Vital Signs (last 24 hours): Temp Pulse Resp BP Pulse Ox 99.1 F 73 20 139/80 94 L 06/28/18 05:55 06/28/18 05:55 06/28/18 05:55 06/28/18 05:55 06/28/18 05:55 Intake and Output: 06/28/18 06/28/18 06:59 18:59 Intake Total 360 Output Total 0 Balance 360 - Medications Medications: Current Medications Albuterol/Ipratropium (Duoneb 3 Mg/0.5 Mg (3 Ml) Ud) 3 ml IH [id number] [facility] Last Admin: 06/28/18 01:39 Dose: 3 ml Alprazolam (Xanax) 1 mg PO QID PRN; Protocol PRN Reason: Anxiety Last Admin: 06/27/18 22:53 Dose: 1 mg Docusate Sodium (Colace) 100 mg PO BID [facility] Last Admin: 06/27/18 17:22 Dose: 100 mg Furosemide (Lasix) 40 mg PO DAILY [facility] Last Admin: 06/27/18 13:11 Dose: 40 mg Heparin Sodium (Porcine) (Heparin) 5,000 units SC Q8 [facility]; Protocol Last Admin: 06/28/18 05:50 Dose: 5,000 units Hydralazine HCl (Apresoline) 10 mg PO QID PRN PRN Reason: for SBP>160 Lisinopril (Zestril) 20 mg PO DAILY [facility] Last Admin: 06/27/18 13:10 Dose: 20 mg Methylprednisolone (Solu-Medrol) 40 mg IVP DAILY [facility] Last Admin: 06/27/18 13:10 Dose: 40 mg Metoprolol Tartrate (Lopressor) 25 mg PO BID [facility] Last Admin: 06/27/18 17:22 Dose: 25 mg Morphine Sulfate (Morphine) 4 mg IVP Q6H PRN PRN Reason: Pain, moderate (4-7) Last Admin: 06/28/18 05:51 Dose: 4 mg Ondansetron HCl (Zofran Inj) 4 mg IVP Q6H PRN PRN Reason: Nausea/Vomiting Last Admin: 06/28/18 05:50 Dose: 4 mg Oxycodone/Acetaminophen (Percocet 5/325 Mg Tab) 2 tab PO Q4H PRN PRN Reason: Pain, Mild (1-3) Stop: 06/30/18 07:39 Pantoprazole Sodium (Protonix Ec Tab) 40 mg PO 0600 [facility] Last Admin: 06/28/18 05:51 Dose: 40 mg Pramipexole Dihydrochloride (Mirapex) 0.5 mg PO HS [facility] Spironolactone (Aldactone) 25 mg PO DAILY [facility] Topiramate (Topamax) 150 mg PO BID [facility]; Protocol Last Admin: 06/27/18 17:27 Dose: 150 mg Venlafaxine HCl (Effexor Xr) 150 mg PO BID [facility] Last Admin: 06/27/18 17:22 Dose: 150 mg - Labs Labs: 06/27/18 06:30 06/27/18 06:30 PT 13.5 SECONDS (9.4-12.5) H 06/28/18 06:30 INR 1.17 06/28/18 06:30 APTT 25.6 Seconds (25.1-36.5) 06/28/18 06:30 - Additional Findings Additional findings: - Constitutional Appears: Non-toxic, No Acute Distress - Head Exam Head Exam: NORMAL INSPECTION, NORMOCEPHALIC - Eye Exam Eye Exam: EOMI, Normal appearance. absent: Nystagmus, Scleral icterus - ENT Exam ENT Exam: Mucous Membranes Moist - Respiratory Exam Respiratory Exam: Wheezes, NORMAL BREATHING PATTERN. absent: Rales, Rhonchi - Cardiovascular Exam Cardiovascular Exam: REGULAR RHYTHM, +S1, +S2 - GI/Abdominal Exam GI & Abdominal Exam: Soft, Normal Bowel Sounds. absent: Distended, Firm, Guarding, Tenderness - Extremities Exam Additional comments: fractured left humerus with sling in place left arm swelling noted - Neurological Exam Neurological Exam: Alert, Awake, Oriented x3 - Psychiatric Exam Psychiatric exam: Normal Affect, Normal Mood - Skin Skin Exam: Intact, Normal Color Assessment and Plan - Assessment and Plan (Free Text) Assessment: Patient is a 68 yo female with PMH of COPD, CAD, Abdominal Aortic Aneurysm, HTN, Rotator Cuff Injury, [place], history of CHF (EF-35 in 2016) presents to hospital for evaluation of arm pain s/p fall. Patient is a high risk patient which requires clearance prior to orthopedic surgery. Echo ordered; Likely plan for OR on monday; Midline placed; Patient pain was increasing switched to dilaudid from morphine; Hyponatremia noted pending workup; Plan: Humerus Fracture Ortho Consulted: Dr. Wolf- OR on monday Cardio Consulted: Dr. Mead- Cleared for surgery from cardiac standpoint, no ab solute contraindications; Moderate to high risk considering comorobidites 06-26-18 Humerus Xray- displaced obliquely oriented fracture of the proximal humeral shaft 06-27-18 Echo shows LV normal size; EF of 59; Aortic Valve caclified and shows minimal narrowing. Trace AR; Moderate MR; Moderate TR; Pulm HTN; no pericardial effusion 06-27-18 EKG Sinus rhythm with occasional PVC; Prolonged QTc at 495 Dilaudid 0.5mg IV q4h prn; Percocet 5/325 2 tab po q4h prn Aspirin 81mg held NPO after midnight Plan for OR tomorrow HTN Lopressor 25mg po bid Lisinopril 20mg po daily Spironolactone 25mg bid Hydralazine 10mg po qid prn sbp>160 COPD 06-28-18 Cxray- airspace disease in the right lower love may represent developing PNA Duoneb q6h prn Solumedrol 40mg IVP daily jennifer Hx of CHF Cardio Consulted- Dr. Mead- recommendations appreciated 06-27-18 Echo shows LV normal size; EF of 59; Aortic Valve caclified and shows minimal narrowing. Trace AR; Moderate MR; Moderate TR; Pulm HTN; no pericardial effusion Lasix 40mg po daily jennifer Hypomagnesemia Mag sulfate 2gm IV Repeat Mag in AM Elevated Troponin EKG pending Chronic in issue after chart review Patient not complaining of chest pain Hemodynamically stable Anxiety Xanax 1mg po QID Depression Effexor 150mg daily Headache Topamax 50mg 3 tablets bid History of Herniated DIscs Dilaudid 0.5mg IV q4h prn Percocet 5/325 2 tab po q4h prn Hx of Abdominal Aortic Aneurysm Patient was seen in [place] 3 weeks prior for possible surgery Surgery was held as patient had very elevated blood pressures >220 Patient was discharged to further manage her blood pressure before surgical intervention 02/2018 CTA shows 4.7cm infrarenal AAA PPx: DVT ppx- Heparin 5000 units sc - held for OR tomrorow GI ppx- Protonix 40mg <Deedee Westfall - Last Filed: 06/30/18 16:18> Objective - Vital Signs/Intake and Output Vital Signs (last 24 hours): Temp Pulse Resp BP Pulse Ox 97.5 F L 54 L 20 124/77 98 06/30/18 14:42 06/30/18 14:42 06/30/18 14:42 06/30/18 14:42 06/30/18 14:42 Intake and Output: 06/30/18 06/30/18 06:59 18:59 Intake Total 500 Output Total 580 450 Balance -80 -450 - Medications Medications: Current Medications Albuterol/Ipratropium (Duoneb 3 Mg/0.5 Mg (3 Ml) Ud) 3 ml IH [id number] [facility] Last Admin: 06/30/18 15:51 Dose: 3 ml Alprazolam (Xanax) 1 mg PO QID PRN; Protocol PRN Reason: Anxiety Last Admin: 06/30/18 01:40 Dose: 1 mg Docusate Sodium (Colace) 100 mg PO BID [facility] Last Admin: 06/30/18 11:03 Dose: 100 mg Doxycycline Hyclate (Doryx) 100 mg PO Q12 [facility]; Protocol Furosemide (Lasix) 40 mg PO DAILY [facility] Last Admin: 06/30/18 11:05 Dose: 40 mg Heparin Sodium (Porcine) (Heparin) 5,000 units SC Q8 [facility]; Protocol Last Admin: 06/30/18 15:31 Dose: 5,000 units Hydralazine HCl (Apresoline) 10 mg PO QID PRN PRN Reason: for SBP>160 Last Admin: 06/29/18 17:59 Dose: 10 mg Hydromorphone HCl (Dilaudid) 0.5 mg IVP Q4H PRN PRN Reason: Pain, moderate (4-7) Last Admin: 06/30/18 15:31 Dose: 0.5 mg Cefepime HCl (Maxipime 2gm) 2 gm in 100 mls @ 100 mls/hr IVPB Q12 [facility]; Protocol Stop: 07/04/18 23:01 Last Admin: 06/30/18 10:43 Dose: 100 mls/hr Vancomycin HCl (Vancomycin 1gm) 1 gm in 250 mls @ 167 mls/hr IVPB Q12 [facility]; Protocol Lisinopril (Zestril) 20 mg PO DAILY [facility] Last Admin: 06/30/18 11:04 Dose: 20 mg Methylprednisolone (Solu-Medrol) 40 mg IVP DAILY [facility] Last Admin: 06/30/18 11:02 Dose: 40 mg Metoprolol Tartrate (Lopressor) 25 mg PO BID [facility] Last Admin: 06/30/18 11:04 Dose: 25 mg Ondansetron HCl (Zofran Inj) 4 mg IVP Q6H PRN PRN Reason: Nausea/Vomiting Last Admin: 06/29/18 23:11 Dose: 4 mg Pantoprazole Sodium (Protonix Ec Tab) 40 mg PO 0600 [facility] Last Admin: 06/30/18 05:11 Dose: 40 mg Potassium Chloride (K-Dur 20 Meq Er Tab) 20 meq PO BRK [facility] Last Admin: 06/30/18 08:24 Dose: 20 meq Pramipexole Dihydrochloride (Mirapex) 0.5 mg PO HS [facility] Last Admin: 06/29/18 21:03 Dose: 0.5 mg Spironolactone (Aldactone) 25 mg PO DAILY [facility] Last Admin: 06/30/18 11:04 Dose: 25 mg Topiramate (Topamax) 150 mg PO BID [facility]; Protocol Last Admin: 06/30/18 11:03 Dose: 150 mg Venlafaxine HCl (Effexor Xr) 150 mg PO BID [facility] Last Admin: 06/30/18 11:03 Dose: 150 mg - Labs Labs: 06/30/18 07:00 06/30/18 07:00 PT 13.5 SECONDS (9.4-12.5) H 06/28/18 06:30 INR 1.17 06/28/18 06:30 APTT 25.6 Seconds (25.1-36.5) 06/28/18 06:30 Attending/Attestation - Attestation I have personally seen and examined this patient.: Yes I have fully participated in the care of the patient.: Yes I have reviewed all pertinent clinical information, including history, physical exam and plan: Yes Notes (Text): 06/30/18 16:18 Medical record note made by the resident after discussion with my direction and input after the patient was personally seen and examined by me. I have reviewed the chart and agree that the record accurately reflects by personal performance of the history, physical exam, data review, and medical decision-making, in the course for the patient. I have also personally directed the plan of care.
[2018-06-28 07:30] LABS: ALB/GLOB RATIO 1.1 (1.1-1.8); CALCIUM 8.3 mg/dL (8.4-10.5)
[2018-06-28 07:32] LABS: PH,URINE 5.5 (4.7-8.0); URINE BILIRUBIN NEGATIVE (NEGATIVE); URINE BLOOD NEGATIVE (NEGATIVE); URINE GLUCOSE (UA) NEGATIVE (NEGATIVE); URINE LEUKOCYTE ESTERASE NEGATIVE Leu/uL (NEGATIVE); URINE PROTEIN 30 mg/dL (<30 mg/dL); URINE UROBILINOGEN 0.2 E.U./dL (<1 E.U./dL)
[2018-06-28 07:35] LABS: URINE APPEARANCE CLEAR (CLEAR); URINE COLOR YELLOW (YELLOW)
[2018-06-28 07:44] LABS: URINE BACTERIA FEW (NEG); URINE RBC 0 - 2 /hpf (0-2); URINE WBC 0 - 2 /hpf (0-6)
[2018-06-28] MEDS ORDERED: Magnesium Sulfate 2 gm/50 ml 2 GM/50 ML BAG IVPB ONE (09:10)
[2018-06-28] MEDS: MethylPREDNISolone 40 mg Vial IVP SCH (09:59)
[2018-06-28] MEDS: Venlafaxine 75 mg ER Cap PO SCH ×2 (10:00→17:52)
[2018-06-28] MEDS: Potassium Chloride 20 mEq ER Tab PO SCH (10:01)
--- NOTE | 2018-06-28 10:12 | CP.PCM.PN ---
Subjective - Date & Time of Evaluation Date of Evaluation: 06/28/18 Time of Evaluation: 06:35 - Subjective Subjective: Awake, alert, anxious, denies chest pain, with left arm sling Reason for consultation and follow up: Cardiac evaluation for pre-op surgery of left shoulder, history of non obstructive coronary artery disease ,Abdominal Aortic Aneurysm, hypertension/ Seen and examined by and Dr. Mead Objective - Vital Signs/Intake and Output Vital Signs (last 24 hours): Temp Pulse Resp BP Pulse Ox 99.1 F 81 20 135/73 94 L 06/28/18 05:55 06/28/18 10:01 06/28/18 05:55 06/28/18 10:01 06/28/18 05:55 Intake and Output: 06/28/18 06/28/18 06:59 18:59 Intake Total 360 Output Total 0 Balance 360 - Medications Medications: Current Medications Albuterol/Ipratropium (Duoneb 3 Mg/0.5 Mg (3 Ml) Ud) 3 ml IH [id number] [facility] Last Admin: 06/28/18 07:30 Dose: 3 ml Alprazolam (Xanax) 1 mg PO QID PRN; Protocol PRN Reason: Anxiety Last Admin: 06/27/18 22:53 Dose: 1 mg Docusate Sodium (Colace) 100 mg PO BID [facility] Last Admin: 06/28/18 10:02 Dose: 100 mg Furosemide (Lasix) 40 mg PO DAILY [facility] Last Admin: 06/28/18 09:59 Dose: 40 mg Heparin Sodium (Porcine) (Heparin) 5,000 units SC Q8 [facility]; Protocol Last Admin: 06/28/18 05:50 Dose: 5,000 units Hydralazine HCl (Apresoline) 10 mg PO QID PRN PRN Reason: for SBP>160 Lisinopril (Zestril) 20 mg PO DAILY [facility] Last Admin: 06/28/18 10:01 Dose: 20 mg Methylprednisolone (Solu-Medrol) 40 mg IVP DAILY [facility] Last Admin: 06/28/18 09:59 Dose: 40 mg Metoprolol Tartrate (Lopressor) 25 mg PO BID [facility] Last Admin: 06/28/18 10:01 Dose: 25 mg Morphine Sulfate (Morphine) 4 mg IVP Q6H PRN PRN Reason: Pain, moderate (4-7) Last Admin: 10/04/18 05:51 Dose: 4 mg Ondansetron HCl (Zofran Inj) 4 mg IVP Q6H PRN PRN Reason: Nausea/Vomiting Last Admin: 06/28/18 05:50 Dose: 4 mg Oxycodone/Acetaminophen (Percocet 5/325 Mg Tab) 2 tab PO Q4H PRN PRN Reason: Pain, Mild (1-3) Stop: 06/30/18 07:39 Last Admin: 06/28/18 10:02 Dose: 2 tab Pantoprazole Sodium (Protonix Ec Tab) 40 mg PO 0600 [facility] Last Admin: 06/28/18 05:51 Dose: 40 mg Potassium Chloride (K-Dur 20 Meq Er Tab) 20 meq PO BRK [facility] Last Admin: 06/28/18 10:01 Dose: 20 meq Pramipexole Dihydrochloride (Mirapex) 0.5 mg PO HS [facility] Spironolactone (Aldactone) 25 mg PO DAILY [facility] Last Admin: 06/28/18 10:02 Dose: 25 mg Topiramate (Topamax) 150 mg PO BID [facility]; Protocol Last Admin: 06/28/18 10:00 Dose: 150 mg Venlafaxine HCl (Effexor Xr) 150 mg PO BID [facility] Last Admin: 06/28/18 10:00 Dose: 150 mg - Labs Labs: 06/28/18 06:30 06/28/18 06:30 PT 13.5 SECONDS (9.4-12.5) H 06/28/18 06:30 INR 1.17 06/28/18 06:30 APTT 25.6 Seconds (25.1-36.5) 06/28/18 06:30 - Constitutional Appears: Non-toxic, No Acute Distress - ENT Exam ENT Exam: Mucous Membranes Moist - Respiratory Exam Respiratory Exam: Decreased Breath Sounds, Clear to Ausculation Bilateral, NORMAL BREATHING PATTERN - Cardiovascular Exam Cardiovascular Exam: REGULAR RHYTHM, +S1, +S2 Additional comments: telemetry NSR 80-90's denies chest pain - GI/Abdominal Exam GI & Abdominal Exam: Soft, Normal Bowel Sounds - Extremities Exam Extremities Exam: Normal Capillary Refill Additional comments: left shoulder fracture with arm sling - Neurological Exam Neurological Exam: Alert, Awake, Oriented x3 - Psychiatric Exam Psychiatric exam: Anxious, Normal Affect - Skin Skin Exam: Dry, Intact, Normal Color, Warm Assessment and Plan - Assessment and Plan (Free Text) Assessment: A 68 year old female wh came in to the ER due post mechanical fall in middle of the night onto non-dominant left upper arm with arm sling. Xray showed left proximal humerus fracture.Patient for surgery thus consult was called to clear and risk stratify for surgery.History includes [place], transient hypotension, CHF ,former smoker,COPD, non obstructive coronary artery disease ,Abdominal Aortic Aneurysm (scheduled for repair at [facility] (June 2018) HTN, Rotator Cuff Injury with surgery, carotid endarterectomy. According to daughter, stress test was done recently and was normal. Cardiac work up was done for scheduled AAA repair surgery at [place]. Will try to get in touch with Dr. Riley's to obtain for information..EKG showed NSR with frequent APC's and VPC's. no ST elevations. Echo done- Mild concentric hypertrophy, LVEF 59%, Trace AR, Aortic valve calcified with minimal narrowing, Mitral annulus calcified and mininmal narrowing, moderate TR- RVSP 43 mmg Hg, Mild pulmonary hypertension No evidence of ischemia, no evidence of heart failure, LVEF form ECHo 59%. stress test from [facility]- normal. Cleared for surgery from cardiac standpoint, no absolute contraindications. Moderate to high risk considering co-morbidities Plan: Tolerable left shoulder pain with arm sling ECHO done- Mild concentric hypertrophy, LVEF 59%, Trace AR, Aortic valve calcified with minimal narrowing, Mitral annulus calcified and mininmal narrowing moderate TR- RVSP 43 mmg Hg Mild pulmonary hypertension Denies chest pain, Initial troponin 0.14, repeat 0.07 indeterminate Stress test from [facility]- normal Heart rate controlled Blood pressure controlled Cleared for surgery from cardiac standpoint, no absolute contraindications Moderate to high risk considering co-morbidities On Lasix 40 mg daily, Hydralazine 10 mg QID PRN, Lisinopril 20 mg daily, Solumedrol 40 mg daily, Lopressor 25 mg BID, Kdur 20 meq daily, Aldactone 25 mg daily, Continue current treatment Continue current medications Chart reviewed Will follow up Plan and treatment discussed with Dr. Mead
--- NOTE | 2018-06-28 10:18 | CARD ---
APPROVED REPORT Date of service: 06/28/2018 EKG Measurement Heart [id number] <Conclusion> NSR with occasional PAC and frequent PVC IVCD Abnormal ECG
[2018-06-28] MEDS: Sodium Chloride 0.9% 1,000 ML IV SCH (12:08)
[2018-06-28] MEDS ORDERED: HYDROmorphone 0.5 mg/0.5 ml ISec IVP PRN (12:30)
--- NOTE | 2018-06-28 15:03 | RAD ---
Date of service: 06/28/2018 HISTORY: wheezing COMPARISON: 06/26/2018. FINDINGS: LUNGS: The lungs are hyperinflated and there is peribronchial thickening with chronic changes in both lungs. There is airspace disease in the right lower lobe. PLEURA: No significant pleural effusion identified, no pneumothorax apparent. CARDIOVASCULAR: Normal. OSSEOUS STRUCTURES: No significant abnormalities. VISUALIZED UPPER ABDOMEN: Normal. OTHER FINDINGS: There is elevation of the left hemidiaphragm. IMPRESSION: Airspace disease in the right lower lobe may represent developing pneumonia. Follow-up after medical management is recommended to ensure complete resolution. COPD.
[2018-06-28] MEDS ORDERED: Magnesium Oxide 400 mg Tab UD PO SCH (17:00)
[2018-06-28] MEDS: HYDROmorphone 1 mg/ml ISec IVP PRN (17:50)
[2018-06-28 20:09] LABS: ALB/GLOB RATIO 1.1 (1.1-1.8); ALT/SGPT 24 U/L (7-56); AST/SGOT 33 U/L (14-36); BLOOD UREA NITROGEN 14 mg/dL (7-21); CALCIUM 8.3 mg/dL (8.4-10.5); GFR NON-AFRICAN AMERICAN 55
[2018-06-28 21:43] LABS: OSMOLALITY,URINE 133 mosm/kg (300-1000)
[2018-06-29] MEDS: Albuterol-Ipratrop 3 mg / 0.5 (3 ml) UD IH SCH ×4 (02:24→20:05)
[2018-06-29] MEDS: HYDROmorphone 1 mg/ml ISec IVP PRN ×2 (02:55→23:11)
[2018-06-29] MEDS: Potassium Chloride 20 mEq ER Tab PO SCH ×2 (07:14→10:13)
[2018-06-29 07:15] LABS: BASO # 0.01 K/mm3 (0.0-2.0); BASO % 0.1 % (0.0-3.0); EOS % 0.1 % (1.5-5.0); GRAN # 15.55 (1.4-6.5); GRAN % 81.7 % (50.0-68.0); HEMOGLOBIN 8.6 g/dL (12.0-16.0); LYMPH # 1.4 (1.2-3.4); LYMPH % 7.3 % (22.0-35.0); MEAN CELL VOLUME 78.6 fl (80.0-105.0); MEAN CORPUSCULAR HEMOGLOBIN 24.9 pg (25.0-35.0); MEAN CORPUSCULAR HGB CONC 31.7 g/dl (31.0-37.0); MEAN PLATELET VOLUME 10.6 fl (7.0-11.0); MONO # 2.1 (0.1-0.6); MONO % 10.8 % (1.0-6.0); RBC 3.45 10^6/uL (3.5-6.1); RED CELL DISTRIBUTION WIDTH 14.6 % (11.5-14.5)
--- NOTE | 2018-06-29 07:26 | CP.PCM.PN ---
Subjective - Date & Time of Evaluation Date of Evaluation: 06/29/18 Time of Evaluation: 06:35 - Subjective Subjective: Awake, alert, anxious, denies chest pain, with left arm sling Reason for consultation and follow up: Cardiac evaluation for pre-op surgery of left shoulder, history of non obstructive coronary artery disease ,Abdominal Aortic Aneurysm, hypertension/ Seen and examined by and Dr. Mead Objective - Vital Signs/Intake and Output Vital Signs (last 24 hours): Temp Pulse Resp BP Pulse Ox 98 F 79 20 125/60 94 L 06/29/18 06:00 06/29/18 06:00 06/29/18 06:00 06/29/18 06:00 06/29/18 06:00 Intake and Output: 06/29/18 06/29/18 06:59 18:59 Intake Total 640 Output Total 200 Balance 440 - Medications Medications: Current Medications Albuterol/Ipratropium (Duoneb 3 Mg/0.5 Mg (3 Ml) Ud) 3 ml IH [id number] [facility] Last Admin: 06/29/18 02:24 Dose: 3 ml Alprazolam (Xanax) 1 mg PO QID PRN; Protocol PRN Reason: Anxiety Last Admin: 06/28/18 21:47 Dose: 1 mg Docusate Sodium (Colace) 100 mg PO BID [facility] Last Admin: 06/28/18 17:52 Dose: 100 mg Furosemide (Lasix) 40 mg PO DAILY [facility] Last Admin: 06/28/18 09:59 Dose: 40 mg Heparin Sodium (Porcine) (Heparin) 5,000 units SC Q8 [facility]; Protocol Last Admin: 06/28/18 05:50 Dose: 5,000 units Hydralazine HCl (Apresoline) 10 mg PO QID PRN PRN Reason: for SBP>160 Hydromorphone HCl (Dilaudid) 0.5 mg IVP Q4H PRN PRN Reason: Pain, moderate (4-7) Last Admin: 06/29/18 02:55 Dose: 0.5 mg Sodium Chloride (Sodium Chloride 0.9%) 1,000 mls @ 50 mls/hr IV .Q20H [facility] Last Admin: 06/28/18 12:08 Dose: 50 mls/hr Lisinopril (Zestril) 20 mg PO DAILY [facility] Last Admin: 06/28/18 10:01 Dose: 20 mg Methylprednisolone (Solu-Medrol) 40 mg IVP DAILY [facility] Last Admin: 06/28/18 09:59 Dose: 40 mg Metoprolol Tartrate (Lopressor) 25 mg PO BID [facility] Last Admin: 06/28/18 17:51 Dose: 25 mg Ondansetron HCl (Zofran Inj) 4 mg IVP Q6H PRN PRN Reason: Nausea/Vomiting Last Admin: 06/29/18 02:56 Dose: 4 mg Oxycodone/Acetaminophen (Percocet 5/325 Mg Tab) 2 tab PO Q4H PRN PRN Reason: Pain, Mild (1-3) Stop: 06/30/18 07:39 Last Admin: 06/28/18 21:47 Dose: 2 tab Pantoprazole Sodium (Protonix Ec Tab) 40 mg PO 0600 [facility] Last Admin: 06/28/18 05:51 Dose: 40 mg Potassium Chloride (K-Dur 20 Meq Er Tab) 20 meq PO BRK [facility] Last Admin: 06/29/18 07:14 Dose: Not Given Pramipexole Dihydrochloride (Mirapex) 0.5 mg PO HS [facility] Last Admin: 06/28/18 21:41 Dose: 0.5 mg Spironolactone (Aldactone) 25 mg PO DAILY [facility] Last Admin: 06/28/18 10:02 Dose: 25 mg Topiramate (Topamax) 150 mg PO BID [facility]; Protocol Last Admin: 06/28/18 17:52 Dose: 150 mg Venlafaxine HCl (Effexor Xr) 150 mg PO BID [facility] Last Admin: 06/28/18 17:52 Dose: 150 mg - Labs Labs: 06/29/18 06:45 06/28/18 19:55 PT 13.5 SECONDS (9.4-12.5) H 06/28/18 06:30 INR 1.17 06/28/18 06:30 APTT 25.6 Seconds (25.1-36.5) 06/28/18 06:30 - Constitutional Appears: Non-toxic, No Acute Distress - Head Exam Head Exam: NORMAL INSPECTION, NORMOCEPHALIC - Eye Exam Eye Exam: Normal appearance - ENT Exam ENT Exam: Mucous Membranes Dry - Respiratory Exam Respiratory Exam: Decreased Breath Sounds, Clear to Ausculation Bilateral, NORMAL BREATHING PATTERN - Cardiovascular Exam Cardiovascular Exam: REGULAR RHYTHM, +S1, +S2 Additional comments: Telemetry NSR 60's - GI/Abdominal Exam GI & Abdominal Exam: Soft, Normal Bowel Sounds Additional comments: NPO - Extremities Exam Additional comments: left shoulder fracture with arm sling - Neurological Exam Neurological Exam: Alert, Awake, Oriented x3 - Psychiatric Exam Psychiatric exam: Anxious, Normal Affect - Skin Skin Exam: Dry, Normal Color, Warm Assessment and Plan - Assessment and Plan (Free Text) Assessment: A 68 year old female wh came in to the ER due post mechanical fall in middle of the night onto non-dominant left upper arm with arm sling. Xray showed left proximal humerus fracture.Patient for surgery thus consult was called to clear and risk stratify for surgery.History includes [place], transient hypotension, CHF ,former smoker,COPD, non obstructive coronary artery disease ,Abdominal Aortic Aneurysm (scheduled for repair at [facility] (June 2018) HTN, Rotator Cuff Injury with surgery, carotid endarterectomy. According to daughter, stress test was done recently and was normal. Cardiac work up was done for scheduled AAA repair surgery at [place]. Will try to get in touch with Dr. Riley's to obtain for information..EKG showed NSR with frequent APC's and VPC's. no ST elevations. Echo done- Mild concentric hypertrophy, LVEF 59%, Trace AR, Aortic valve calcified with minimal narrowing, Mitral annulus calcified and mininmal narrowing, moderate TR- RVSP 43 mmg Hg, Mild pulmonary hypertension No evidence of ischemia, no evidence of heart failure, LVEF form ECHo 59%. stress test from [facility]- normal. Cleared for surgery from cardiac standpoint, no absolute contraindications. Moderate to high risk considering co-morbidities. ECHO done- Mild concentric hypertrophy, LVEF 59%, Trace AR, Aortic valve calcified with minimal narrowing, Mitral annulus calcified and minimal narrowing moderate TR- RVSP 43 mmg Hg, Mild pulmonary hypertension,For left shoulder surgery today. Plan: For left shoulder surgery today Heart rate controlled Blood pressure controlled Cleared for surgery from cardiac standpoint, no absolute contraindications Moderate to high risk considering co-morbidities On Lasix 40 mg daily, Hydralazine 10 mg QID PRN, Lisinopril 20 mg daily, Solumedrol 40 mg daily, Lopressor 25 mg BID, Kdur 20 meq daily, Aldactone 25 mg daily, Continue current treatment Continue current medications Chart reviewed Will follow up postoperatively Plan and treatment discussed with Dr. Mead
[2018-06-29] MEDS: Sodium Chloride 0.9% 1,000 ML IV SCH (07:29)
[2018-06-29] MEDS: Pantoprazole 40 mg EC Tab PO SCH ×2 (07:29→10:12)
[2018-06-29 07:50] LABS: ALB/GLOB RATIO 1.1 (1.1-1.8); ALBUMIN 2.8 g/dL (3.0-4.8); ALT/SGPT 29 U/L (7-56); AST/SGOT 25 U/L (14-36); BLOOD UREA NITROGEN 14 mg/dL (7-21); CALCIUM 8.2 mg/dL (8.4-10.5); GFR NON-AFRICAN AMERICAN 55
--- NOTE | 2018-06-29 08:21 | PN ---
DATE: 06/28/2018 REASON FOR CONSULTATION AND FOLLOWUP: Preop evaluation, risk stratification. This note is additional to our nurse practitioner dictated by this morning. Patient had cardiac catheterization, nonobstructive coronary artery disease, recently patient being evaluated for abdominal aortic aneurysm and had workup done at [facility] for AAA endovascular repair and was scheduled but since the patient has high blood pressure so it was postponed. Patient had a stress test done and was cleared by parking technician, tried to reach [place] [phone] and left the message, but apparently patient had a stress test that is essentially negative and scheduled for endovascular repair last week what is bumped because of uncontrolled hypertension and is scheduled for 28. So in view of above, no recent history of angina, no history of CHF, no history of arrhythmia. We will clear the patient as a moderate risk to go for humerus surgery. Blood pressure is pretty stable on current medication, which is changed to metoprolol 25 mg b.i.d. and started on lisinopril. We will follow with you. Perioperatively, continue beta-adela. Thank you, Dr. Westfall, for providing us the opportunity in taking care of the patient, Blossom Fabian. Deedee Mead MD
--- NOTE | 2018-06-29 09:21 | RAD ---
Date of service: 06/29/2018 HISTORY: OR scheduled and crackles/wheeze heard COMPARISON: 06/28/2018 FINDINGS: LUNGS: There is an increase seen in a infiltrate in the right upper lobe and right lower lobe PLEURA: No significant pleural effusion identified, no pneumothorax apparent. CARDIOVASCULAR: Normal. OSSEOUS STRUCTURES: No significant abnormalities. VISUALIZED UPPER ABDOMEN: Normal. OTHER FINDINGS: None. IMPRESSION: There is an increase seen in a infiltrate in the right upper lobe and right lower lobe . Findings are suspicious for pneumonia.
--- NOTE | 2018-06-29 09:44 | CP.PCM.PN ---
Subjective - Date & Time of Evaluation Date of Evaluation: 06/29/18 Time of Evaluation: 09:42 - Subjective Subjective: Pt seen. Pt has developed an acute pneumonia. Spoke to medical attending, and pt to be started on antibiotics. Will hold off on surgery for now. Will plan for ORIF L humerus in 3-4 days. For now, continue LUE in sling. Objective - Vital Signs/Intake and Output Vital Signs (last 24 hours): Temp Pulse Resp BP Pulse Ox 98 F 125 H 22 176/85 H 90 L 06/29/18 06:00 06/29/18 08:25 06/29/18 08:25 06/29/18 08:46 06/29/18 09:00 Intake and Output: 06/29/18 06/29/18 06:59 18:59 Intake Total 640 Output Total 200 Balance 440 - Medications Medications: Current Medications Albuterol/Ipratropium (Duoneb 3 Mg/0.5 Mg (3 Ml) Ud) 3 ml IH [id number] [facility] Last Admin: 06/29/18 07:28 Dose: 3 ml Alprazolam (Xanax) 1 mg PO QID PRN; Protocol PRN Reason: Anxiety Last Admin: 06/28/18 21:47 Dose: 1 mg Docusate Sodium (Colace) 100 mg PO BID [facility] Last Admin: 06/28/18 17:52 Dose: 100 mg Furosemide (Lasix) 40 mg PO DAILY [facility] Last Admin: 06/28/18 09:59 Dose: 40 mg Heparin Sodium (Porcine) (Heparin) 5,000 units SC Q8 [facility]; Protocol Last Admin: 06/28/18 05:50 Dose: 5,000 units Hydralazine HCl (Apresoline) 10 mg PO QID PRN PRN Reason: for SBP>160 Hydromorphone HCl (Dilaudid) 0.5 mg IVP Q4H PRN PRN Reason: Pain, moderate (4-7) Last Admin: 06/29/18 02:55 Dose: 0.5 mg Sodium Chloride (Sodium Chloride 0.9%) 1,000 mls @ 50 mls/hr IV .Q20H [facility] Last Admin: 06/29/18 07:29 Dose: 50 mls/hr Lisinopril (Zestril) 20 mg PO DAILY [facility] Last Admin: 06/28/18 10:01 Dose: 20 mg Methylprednisolone (Solu-Medrol) 40 mg IVP DAILY [facility] Last Admin: 06/28/18 09:59 Dose: 40 mg Metoprolol Tartrate (Lopressor) 25 mg PO BID [facility] Last Admin: 06/28/18 17:51 Dose: 25 mg Ondansetron HCl (Zofran Inj) 4 mg IVP Q6H PRN PRN Reason: Nausea/Vomiting Last Admin: 06/29/18 02:56 Dose: 4 mg Oxycodone/Acetaminophen (Percocet 5/325 Mg Tab) 2 tab PO Q4H PRN PRN Reason: Pain, Mild (1-3) Stop: 06/30/18 07:39 Last Admin: 06/28/18 21:47 Dose: 2 tab Pantoprazole Sodium (Protonix Ec Tab) 40 mg PO 0600 [facility] Last Admin: 06/29/18 07:29 Dose: Not Given Potassium Chloride (K-Dur 20 Meq Er Tab) 20 meq PO BRK [facility] Last Admin: 06/29/18 07:14 Dose: Not Given Pramipexole Dihydrochloride (Mirapex) 0.5 mg PO HS [facility] Last Admin: 06/28/18 21:41 Dose: 0.5 mg Spironolactone (Aldactone) 25 mg PO DAILY [facility] Last Admin: 06/28/18 10:02 Dose: 25 mg Topiramate (Topamax) 150 mg PO BID [facility]; Protocol Last Admin: 06/28/18 17:52 Dose: 150 mg Venlafaxine HCl (Effexor Xr) 150 mg PO BID [facility] Last Admin: 06/28/18 17:52 Dose: 150 mg - Labs Labs: 06/29/18 06:45 06/29/18 06:45 PT 13.5 SECONDS (9.4-12.5) H 06/28/18 06:30 INR 1.17 06/28/18 06:30 APTT 25.6 Seconds (25.1-36.5) 06/28/18 06:30
[2018-06-29] MEDS: MethylPREDNISolone 40 mg Vial IVP SCH (10:12)
[2018-06-29] MEDS: Venlafaxine 75 mg ER Cap PO SCH ×2 (10:12→18:00)
--- NOTE | 2018-06-29 11:30 | CT ---
Date of service: 06/28/2018 PROCEDURE: CT of the left shoulder HISTORY: proximal humerus fracture COMPARISON: TECHNIQUE: Radiation dose: Total exam DLP = 338 mGy-cm. This CT exam was performed using one or more of the following dose reduction techniques: Automated exposure control, adjustment of the mA and/or kV according to patient size, and/or use of iterative reconstruction technique. FINDINGS: There is an oblique fracture of the proximal left humerus with overriding of the fracture components. The humeral head is intact. There is no dislocation. The acromioclavicular joint is intact. There is soft tissue edema throughout the arm. The report concurs with the preliminary report IMPRESSION: There is an oblique fracture of the proximal left humerus with overriding of the fracture components.
[2018-06-29] MEDS: Piperacillin/Tazobact 3.375 gm 100 ML IVPB SCH ×2 (12:34→17:59)
[2018-06-29] MEDS ORDERED: Barium Sulfate Susp 2.1% w/v, 2.0% w/w 450 mL Bottle PO ONE (12:53)
--- NOTE | 2018-06-29 17:12 | CP.PCM.PN ---
<Jojo Hinton - Last Filed: 06/29/18 16:57> Subjective - Date & Time of Evaluation Date of Evaluation: 06/29/18 Time of Evaluation: 11:00 - Subjective Subjective: PGY-1 Medicine Progress Note for Dr. Westfall's service Patient seen and examined at bedside. Breathing has improved compared to prior. Patient reports diffuse abdominal pain, greatest in the suprapubic region. Pain is unchanged with meals. Patient had a bowel movement one night ago. She denies N/V/D, dysuria, hematuria, chest pain, sob, constipation, headaches, fevers or chills. Objective - Vital Signs/Intake and Output Vital Signs (last 24 hours): Temp Pulse Resp BP Pulse Ox 99.4 F 97 H 18 150/86 92 L 06/29/18 12:00 06/29/18 14:00 06/29/18 12:00 06/29/18 12:00 06/29/18 10:00 Intake and Output: 06/29/18 06/29/18 06:59 18:59 Intake Total 640 Output Total 200 Balance 440 - Medications Medications: Current Medications Albuterol/Ipratropium (Duoneb 3 Mg/0.5 Mg (3 Ml) Ud) 3 ml IH [id number] [facility] Last Admin: 06/29/18 13:36 Dose: 3 ml Alprazolam (Xanax) 1 mg PO QID PRN; Protocol PRN Reason: Anxiety Last Admin: 06/29/18 10:11 Dose: 1 mg Docusate Sodium (Colace) 100 mg PO BID [facility] Last Admin: 06/29/18 10:12 Dose: 100 mg Furosemide (Lasix) 40 mg PO DAILY [facility] Last Admin: 06/29/18 10:14 Dose: Not Given Heparin Sodium (Porcine) (Heparin) 5,000 units SC Q8 [facility]; Protocol Last Admin: 06/28/18 05:50 Dose: 5,000 units Hydralazine HCl (Apresoline) 10 mg PO QID PRN PRN Reason: for SBP>160 Hydromorphone HCl (Dilaudid) 0.5 mg IVP Q4H PRN PRN Reason: Pain, moderate (4-7) Last Admin: 06/29/18 02:55 Dose: 0.5 mg Piperacillin Sod/Tazobactam Sod (Zosyn 3.375 In Ns 100ml) 100 mls @ 25 mls/hr IVPB Q6 [facility]; Protocol Stop: 06/29/18 21:59 Last Admin: 06/29/18 12:34 Dose: 25 mls/hr Lisinopril (Zestril) 20 mg PO DAILY [facility] Last Admin: 06/29/18 10:13 Dose: 20 mg Methylprednisolone (Solu-Medrol) 40 mg IVP DAILY [facility] Last Admin: 06/29/18 10:12 Dose: 40 mg Metoprolol Tartrate (Lopressor) 25 mg PO BID [facility] Last Admin: 06/29/18 10:13 Dose: 25 mg Ondansetron HCl (Zofran Inj) 4 mg IVP Q6H PRN PRN Reason: Nausea/Vomiting Last Admin: 06/29/18 02:56 Dose: 4 mg Oxycodone/Acetaminophen (Percocet 5/325 Mg Tab) 2 tab PO Q4H PRN PRN Reason: Pain, Mild (1-3) Stop: 06/30/18 07:39 Last Admin: 06/28/18 21:47 Dose: 2 tab Pantoprazole Sodium (Protonix Ec Tab) 40 mg PO 0600 [facility] Last Admin: 06/29/18 10:12 Dose: 40 mg Potassium Chloride (K-Dur 20 Meq Er Tab) 20 meq PO BRK [facility] Last Admin: 06/29/18 10:13 Dose: 20 meq Pramipexole Dihydrochloride (Mirapex) 0.5 mg PO HS [facility] Last Admin: 06/28/18 21:41 Dose: 0.5 mg Spironolactone (Aldactone) 25 mg PO DAILY [facility] Last Admin: 06/29/18 10:12 Dose: 25 mg Topiramate (Topamax) 150 mg PO BID [facility]; Protocol Last Admin: 06/29/18 10:11 Dose: 150 mg Venlafaxine HCl (Effexor Xr) 150 mg PO BID [facility] Last Admin: 06/29/18 10:12 Dose: 150 mg - Labs Labs: 06/29/18 06:45 06/29/18 06:45 PT 13.5 SECONDS (9.4-12.5) H 06/28/18 06:30 INR 1.17 06/28/18 06:30 APTT 25.6 Seconds (25.1-36.5) 06/28/18 06:30 - Constitutional Appears: Non-toxic, No Acute Distress - Head Exam Head Exam: NORMAL INSPECTION, NORMOCEPHALIC - Eye Exam Eye Exam: EOMI, Normal appearance. absent: Nystagmus, Scleral icterus - ENT Exam ENT Exam: Mucous Membranes Moist - Respiratory Exam Respiratory Exam: Clear to Ausculation Bilateral, NORMAL BREATHING PATTERN. absent: Rales, Rhonchi Additional comments: slight expiratory wheeze - Cardiovascular Exam Cardiovascular Exam: REGULAR RHYTHM, +S1, +S2 - GI/Abdominal Exam GI & Abdominal Exam: Soft, Tenderness, Normal Bowel Sounds Additional comments: diffuse abdominal tenderness unspecified - Extremities Exam Extremities Exam: Normal Inspection. absent: Calf Tenderness, Pedal Edema Additional comments: sling in place on left upper extremity - Neurological Exam Neurological Exam: Alert, Awake - Skin Skin Exam: Intact, Normal Color Assessment and Plan - Assessment and Plan (Free Text) Assessment: Patient is a 68 yo female with PMH of COPD, CAD, Abdominal Aortic Aneurysm, HTN, Rotator Cuff Injury, MD, history of CHF (EF-35 in 2016) presents to hospital for evaluation of arm pain s/p fall. Patient is a moderate to high risk patient which requires clearance prior to orthopedic surgery. Stable for surgery from cardiac standpoint. Surgery postponed due to acute PNA. Likely plan for OR on Monday07/03/2018; Midline placed. Patient pain is controlled with Dilaudid. Complaining of new onset abdominal pain, bladder scan and CT A/P ordered, patient refusing to drink contrast. Plan: Humerus Fracture Ortho Consulted: Dr. Wolf- surgery rescheduled after CXR resulted, likely to go to OR on 07/03/2018 Cardio Consulted: Dr. Mead- Medically stable for surgery from cardiac standpoint, no absolute contraindications; Moderate to high risk considering comorobidites 06-26-18 Humerus Xray- displaced obliquely oriented fracture of the proximal humeral shaft 06-27-18 Echo shows LV normal size; EF of 59; Aortic Valve caclified and shows minimal narrowing. Trace AR; Moderate MR; Moderate TR; Pulm HTN; no pericardial effusion 06-27-18 EKG Sinus rhythm with occasional PVC; Prolonged QTc at 495 06-28-18 CT humerus- oblique fracture of proximal left humerus with medial and superior overriding of the distal fracture segment, post tendon repair, left lower lobe infiltrate, cardiomegaly, widespread soft tissue contusion of upper arm Dilaudid 0.5mg IV q4h prn; Percocet 5/325 2 tab po q4h prn Aspirin 81mg held Pneumonia 06-29-18 CXR: increase seen in a infiltrate in the right upper lobe and right lower lobe, findings suspicious for pneumonia ID consulted- Dr. Roca-recommendations appreciated Pulmonology consulted- Dr. Neal- recommendations appreciated Started Zosyn- antibiotic day 1 Blood culture- pending Procal pending Intractable abdominal pain Bladder scan- 388cc voided CT A/P- pending. COPD 06-28-18 Cxray- airspace disease in the right lower lobe may represent developing PNA Duoneb q6h prn Solumedrol 40mg IVP daily jennifer Hx of CHF Cardio Consulted- Dr. Mead- recommendations appreciated 06-27-18 Echo shows LV normal size; EF of 59; Aortic Valve caclified and shows minimal narrowing. Trace AR; Moderate MR; Moderate TR; Pulm HTN; no pericardial effusion Lasix 40mg po daily jennifer, Lopressor 25mg po bid; Aldactone 25mg bid; Lisinopril 20mg po daily Hyponatremia Likely secondary to hypervolemia D/C IV fluids Monitor I/O Repeat CMP in AM HTN Hydralazine 10mg po qid prn sbp>160 Elevated Troponin 06-26-18 EKG sinus rhythm with occasional PVC, minimal voltage criteria for LVH, may be variant, prolonged QT, @97 bpm 06-29-18 EKG NSR with occasional PAC and frequent PVC, IVCD @91 bpm Chronic in issue after chart review Patient not complaining of chest pain Hemodynamically stable Anxiety Xanax 1mg po QID Depression Effexor 150mg daily Headache Topamax 50mg 3 tablets bid History of Herniated DIscs Dilaudid 0.5mg IV q4h prn Percocet 5/325 2 tab po q4h prn Hx of Abdominal Aortic Aneurysm Patient was seen in [place] 3 weeks prior for possible surgery Surgery was held as patient had very elevated blood pressures >220 Patient was discharged to further manage her blood pressure before surgical intervention 02/2018 CTA shows 4.7cm infrarenal AAA PPx DVT ppx- Heparin 5000 units sc GI ppx- Protonix 40mg Medical Management discussed with Dr. Westfall <Deedee Westfall - Last Filed: 06/30/18 16:18> Objective - Vital Signs/Intake and Output Vital Signs (last 24 hours): Temp Pulse Resp BP Pulse Ox 97.5 F L 54 L 20 124/77 98 06/30/18 14:42 06/30/18 14:42 06/30/18 14:42 06/30/18 14:42 06/30/18 14:42 Intake and Output: 06/30/18 06/30/18 06:59 18:59 Intake Total 500 Output Total 580 450 Balance -80 -450 - Medications Medications: Current Medications Albuterol/Ipratropium (Duoneb 3 Mg/0.5 Mg (3 Ml) Ud) 3 ml IH [id number] [facility] Last Admin: 06/30/18 15:51 Dose: 3 ml Alprazolam (Xanax) 1 mg PO QID PRN; Protocol PRN Reason: Anxiety Last Admin: 06/30/18 01:40 Dose: 1 mg Docusate Sodium (Colace) 100 mg PO BID [facility] Last Admin: 06/30/18 11:03 Dose: 100 mg Doxycycline Hyclate (Doryx) 100 mg PO Q12 [facility]; Protocol Furosemide (Lasix) 40 mg PO DAILY [facility] Last Admin: 06/30/18 11:05 Dose: 40 mg Heparin Sodium (Porcine) (Heparin) 5,000 units SC Q8 [facility]; Protocol Last Admin: 06/30/18 15:31 Dose: 5,000 units Hydralazine HCl (Apresoline) 10 mg PO QID PRN PRN Reason: for SBP>160 Last Admin: 06/29/18 17:59 Dose: 10 mg Hydromorphone HCl (Dilaudid) 0.5 mg IVP Q4H PRN PRN Reason: Pain, moderate (4-7) Last Admin: 06/30/18 15:31 Dose: 0.5 mg Cefepime HCl (Maxipime 2gm) 2 gm in 100 mls @ 100 mls/hr IVPB Q12 [facility]; Protocol Stop: 07/04/18 23:01 Last Admin: 06/30/18 10:43 Dose: 100 mls/hr Vancomycin HCl (Vancomycin 1gm) 1 gm in 250 mls @ 167 mls/hr IVPB Q12 [facility]; Protocol Lisinopril (Zestril) 20 mg PO DAILY [facility] Last Admin: 06/30/18 11:04 Dose: 20 mg Methylprednisolone (Solu-Medrol) 40 mg IVP DAILY [facility] Last Admin: 06/30/18 11:02 Dose: 40 mg Metoprolol Tartrate (Lopressor) 25 mg PO BID [facility] Last Admin: 06/30/18 11:04 Dose: 25 mg Ondansetron HCl (Zofran Inj) 4 mg IVP Q6H PRN PRN Reason: Nausea/Vomiting Last Admin: 06/29/18 23:11 Dose: 4 mg Pantoprazole Sodium (Protonix Ec Tab) 40 mg PO 0600 [facility] Last Admin: 06/30/18 05:11 Dose: 40 mg Potassium Chloride (K-Dur 20 Meq Er Tab) 20 meq PO BRK [facility] Last Admin: 06/30/18 08:24 Dose: 20 meq Pramipexole Dihydrochloride (Mirapex) 0.5 mg PO HS [facility] Last Admin: 06/29/18 21:03 Dose: 0.5 mg Spironolactone (Aldactone) 25 mg PO DAILY [facility] Last Admin: 06/30/18 11:04 Dose: 25 mg Topiramate (Topamax) 150 mg PO BID [facility]; Protocol Last Admin: 06/30/18 11:03 Dose: 150 mg Venlafaxine HCl (Effexor Xr) 150 mg PO BID [facility] Last Admin: 06/30/18 11:03 Dose: 150 mg - Labs Labs: 06/30/18 07:00 06/30/18 07:00 PT 13.5 SECONDS (9.4-12.5) H 06/28/18 06:30 INR 1.17 06/28/18 06:30 APTT 25.6 Seconds (25.1-36.5) 06/28/18 06:30 Attending/Attestation - Attestation I have personally seen and examined this patient.: Yes I have fully participated in the care of the patient.: Yes I have reviewed all pertinent clinical information, including history, physical exam and plan: Yes Notes (Text): 06/30/18 16:18 Medical record note made by the resident after discussion with my direction and input after the patient was personally seen and examined by me. I have reviewed the chart and agree that the record accurately reflects by personal performance of the history, physical exam, data review, and medical decision-making, in the course for the patient. I have also personally directed the plan of care.
[2018-06-29] MEDS: Cefepime IV 2 gm in NS 2 GM/100 ML BAG IVPB SCH (23:02)
[2018-06-30] MEDS: Albuterol-Ipratrop 3 mg / 0.5 (3 ml) UD IH SCH ×4 (01:20→20:02)
[2018-06-30] MEDS: Oxycodone/Acetaminophen 5/325 mg Tab PO PRN ×2 (01:40→05:21)
[2018-06-30] MEDS: HYDROmorphone 1 mg/ml ISec IVP PRN ×4 (03:02→20:03)
[2018-06-30] MEDS: Pantoprazole 40 mg EC Tab PO SCH (05:11)
--- NOTE | 2018-06-30 07:30 | CP.PCM.PN ---
Subjective - Date & Time of Evaluation Date of Evaluation: 06/30/18 Time of Evaluation: 06:40 - Subjective Subjective: Lying in bed,awake, alert, denies chest pain, with left arm sling Reason for consultation and follow up: Cardiac evaluation for pre-op surgery of left shoulder, history of non obstructive coronary artery disease ,Abdominal Aortic Aneurysm, hypertension. Seen and examined by me and Dr. Mead Objective - Vital Signs/Intake and Output Vital Signs (last 24 hours): Temp Pulse Resp BP Pulse Ox 98.2 F 79 18 132/85 97 06/30/18 06:00 06/30/18 06:00 06/30/18 06:00 06/30/18 06:00 06/30/18 06:00 Intake and Output: 06/30/18 06/30/18 06:59 18:59 Intake Total 500 Output Total 580 Balance -80 - Medications Medications: Current Medications Albuterol/Ipratropium (Duoneb 3 Mg/0.5 Mg (3 Ml) Ud) 3 ml IH [id number] [facility] Last Admin: 06/30/18 01:20 Dose: 3 ml Alprazolam (Xanax) 1 mg PO QID PRN; Protocol PRN Reason: Anxiety Last Admin: 06/30/18 01:40 Dose: 1 mg Docusate Sodium (Colace) 100 mg PO BID [facility] Last Admin: 06/29/18 18:01 Dose: 100 mg Furosemide (Lasix) 40 mg PO DAILY [facility] Last Admin: 06/29/18 10:14 Dose: Not Given Heparin Sodium (Porcine) (Heparin) 5,000 units SC Q8 [facility]; Protocol Last Admin: 06/28/18 05:50 Dose: 5,000 units Hydralazine HCl (Apresoline) 10 mg PO QID PRN PRN Reason: for SBP>160 Last Admin: 06/29/18 17:59 Dose: 10 mg Hydromorphone HCl (Dilaudid) 0.5 mg IVP Q4H PRN PRN Reason: Pain, moderate (4-7) Last Admin: 06/30/18 03:02 Dose: 0.5 mg Cefepime HCl (Maxipime 2gm) 2 gm in 100 mls @ 100 mls/hr IVPB Q12 [facility]; Protocol Stop: 07/04/18 23:01 Last Admin: 06/29/18 23:02 Dose: 100 mls/hr Vancomycin HCl (Vancomycin 1gm) 1 gm in 250 mls @ 167 mls/hr IVPB DAILY [facility]; Protocol Lisinopril (Zestril) 20 mg PO DAILY [facility] Last Admin: 06/29/18 10:13 Dose: 20 mg Methylprednisolone (Solu-Medrol) 40 mg IVP DAILY [facility] Last Admin: 06/29/18 10:12 Dose: 40 mg Metoprolol Tartrate (Lopressor) 25 mg PO BID [facility] Last Admin: 06/29/18 18:01 Dose: 25 mg Ondansetron HCl (Zofran Inj) 4 mg IVP Q6H PRN PRN Reason: Nausea/Vomiting Last Admin: 06/29/18 23:11 Dose: 4 mg Oxycodone/Acetaminophen (Percocet 5/325 Mg Tab) 2 tab PO Q4H PRN PRN Reason: Pain, Mild (1-3) Stop: 06/30/18 07:39 Last Admin: 06/30/18 05:21 Dose: 2 tab Pantoprazole Sodium (Protonix Ec Tab) 40 mg PO 0600 [facility] Last Admin: 06/30/18 05:11 Dose: 40 mg Potassium Chloride (K-Dur 20 Meq Er Tab) 20 meq PO BRK [facility] Last Admin: 06/29/18 10:13 Dose: 20 meq Pramipexole Dihydrochloride (Mirapex) 0.5 mg PO HS [facility] Last Admin: 06/29/18 21:03 Dose: 0.5 mg Spironolactone (Aldactone) 25 mg PO DAILY [facility] Last Admin: 06/29/18 10:12 Dose: 25 mg Topiramate (Topamax) 150 mg PO BID [facility]; Protocol Last Admin: 06/29/18 18:00 Dose: 150 mg Venlafaxine HCl (Effexor Xr) 150 mg PO BID [facility] Last Admin: 06/29/18 18:00 Dose: 150 mg - Labs Labs: 06/29/18 06:45 06/29/18 06:45 PT 13.5 SECONDS (9.4-12.5) H 06/28/18 06:30 INR 1.17 06/28/18 06:30 APTT 25.6 Seconds (25.1-36.5) 06/28/18 06:30 - Constitutional Appears: Non-toxic, No Acute Distress - Head Exam Head Exam: NORMAL INSPECTION, NORMOCEPHALIC - Eye Exam Eye Exam: Normal appearance - ENT Exam ENT Exam: Mucous Membranes Moist - Respiratory Exam Respiratory Exam: Decreased Breath Sounds, Rhonchi, NORMAL BREATHING PATTERN - Cardiovascular Exam Cardiovascular Exam: REGULAR RHYTHM, +S1, +S2 Additional comments: Telemetry NSR 70's - GI/Abdominal Exam GI & Abdominal Exam: Soft, Normal Bowel Sounds - Extremities Exam Extremities Exam: Normal Capillary Refill Additional comments: left shoulder fracture with arm sling - Neurological Exam Neurological Exam: Alert, Awake, Oriented x3 - Psychiatric Exam Psychiatric exam: Normal Affect, Normal Mood - Skin Skin Exam: Dry, Intact, Normal Color, Warm Assessment and Plan - Assessment and Plan (Free Text) Assessment: A 68 year old female wh came in to the ER due post mechanical fall in middle of the night onto non-dominant left upper arm with arm sling. Xray showed left proximal humerus fracture.Patient for surgery thus consult was called to clear and risk stratify for surgery.History includes [place], transient hypotension, CHF ,former smoker,COPD, non obstructive coronary artery disease ,Abdominal Aortic Aneurysm (scheduled for repair at [facility] (June 2018) HTN, Rotator Cuff Injury with surgery, carotid endarterectomy. According to daughter, stress test was done recently and was normal. Cardiac work up was done for scheduled AAA repair surgery at [place]. Will try to get in touch with Dr. Riley's to obtain for information..EKG showed NSR with frequent APC's and VPC's. no ST elevations. Echo done- Mild concentric hypertrophy, LVEF 59%, Trace AR, Aortic valve calcified with minimal narrowing, Mitral annulus calcified and mininmal narrowing, moderate TR- RVSP 43 mmg Hg, Mild pulmonary hypertension No evidence of ischemia, no evidence of heart failure, LVEF form ECHo 59%. stress test from [facility]- normal. Cleared for surgery from cardiac standpoint, no absolute contraindications. Moderate to high risk considering co-morbidities. ECHO done- Mild concentric hypertrophy, LVEF 59%, Trace AR, Aortic valve calcified with minimal narrowing, Mitral annulus calcified and minimal narrowing moderate TR- RVSP 43 mmg Hg, Mild pulmonary hypertension. Plan: Left shoulder surgery rescheduled Chest X ray positive for infiltrates-acute pneumonia Continue IV antibiotics as ordered Heart rate controlled Blood pressure controlled On Lasix 40 mg daily, Hydralazine 10 mg QID PRN, Lisinopril 20 mg daily, Solumedrol 40 mg daily, Lopressor 25 mg BID, Kdur 20 meq daily, Aldactone 25 mg daily, Continue current treatment Continue current medications Chart reviewed Will follow up Plan and treatment discussed with Dr. Mead
[2018-06-30 07:45] LABS: BASO # 0.01 K/mm3 (0.0-2.0); BASO % 0.1 % (0.0-3.0); EOS % 0.2 % (1.5-5.0); GRAN # 13.01 (1.4-6.5); GRAN % 79.7 % (50.0-68.0); HEMOGLOBIN 8.2 g/dL (12.0-16.0); LYMPH # 1.5 (1.2-3.4); MEAN CELL VOLUME 77.9 fl (80.0-105.0); MEAN CORPUSCULAR HEMOGLOBIN 25.2 pg (25.0-35.0); MEAN CORPUSCULAR HGB CONC 32.3 g/dl (31.0-37.0); MEAN PLATELET VOLUME 10.1 fl (7.0-11.0); MONO # 1.8 (0.1-0.6); RBC 3.26 10^6/uL (3.5-6.1); RED CELL DISTRIBUTION WIDTH 14.4 % (11.5-14.5); WHITE BLOOD COUNT 16.3 10^3/ul (4.5-11.0)
[2018-06-30] MEDS: Potassium Chloride 20 mEq ER Tab PO SCH (08:24)
[2018-06-30] MEDS ORDERED: Vancomycin 1gm in NS 250ml 1 GM/250 ML BAG IVPB SCH (10:00)
[2018-06-30 10:07] LABS: ALBUMIN 2.7 g/dL (3.0-4.8); BLOOD UREA NITROGEN 13 mg/dL (7-21); CALCIUM 8.1 mg/dL (8.4-10.5); GFR NON-AFRICAN AMERICAN > 60
[2018-06-30 10:08] LABS: ALB/GLOB RATIO 1.1 (1.1-1.8); ALT/SGPT 28 U/L (7-56); AST/SGOT 24 U/L (14-36)
[2018-06-30] MEDS: Cefepime IV 2 gm in NS 2 GM/100 ML BAG IVPB SCH ×2 (10:43→21:12)
[2018-06-30] MEDS: MethylPREDNISolone 40 mg Vial IVP SCH (11:02)
[2018-06-30] MEDS: Venlafaxine 75 mg ER Cap PO SCH ×2 (11:03→18:37)
--- NOTE | 2018-06-30 12:36 | CP.PCM.PN ---
Addendum entered and electronically signed by Jojo Hinton DO 06/30/18 12:42: Plan should include Hypokalemia Repleted with KCl 20 20meq daily Repeat CMP Original Note: <Jojo Hinton - Last Filed: 06/30/18 12:33> Subjective - Date & Time of Evaluation Date of Evaluation: 06/30/18 Time of Evaluation: 10:40 - Subjective Subjective: PGY-1 Medicine Progress Note for Dr. Westfall's service Patient seen and examined at bedside. Patient offers no acute complaints other than continued left arm pain. Patient denies abdominal pain today. Patient denies fevers, chills, cp, sob, n/v, constipation or diarrhea, dysuria. Objective - Vital Signs/Intake and Output Vital Signs (last 24 hours): Temp Pulse Resp BP Pulse Ox 98.2 F 75 18 144/73 97 06/30/18 06:00 06/30/18 11:04 06/30/18 06:00 06/30/18 11:05 06/30/18 06:00 Intake and Output: 06/30/18 06/30/18 06:59 18:59 Intake Total 500 Output Total 580 Balance -80 - Medications Medications: Current Medications Albuterol/Ipratropium (Duoneb 3 Mg/0.5 Mg (3 Ml) Ud) 3 ml IH [id number] [facility] Last Admin: 06/30/18 08:57 Dose: 3 ml Alprazolam (Xanax) 1 mg PO QID PRN; Protocol PRN Reason: Anxiety Last Admin: 06/30/18 01:40 Dose: 1 mg Docusate Sodium (Colace) 100 mg PO BID [facility] Last Admin: 06/30/18 11:03 Dose: 100 mg Furosemide (Lasix) 40 mg PO DAILY [facility] Last Admin: 06/30/18 11:05 Dose: 40 mg Heparin Sodium (Porcine) (Heparin) 5,000 units SC Q8 [facility]; Protocol Last Admin: 06/28/18 05:50 Dose: 5,000 units Hydralazine HCl (Apresoline) 10 mg PO QID PRN PRN Reason: for SBP>160 Last Admin: 06/29/18 17:59 Dose: 10 mg Hydromorphone HCl (Dilaudid) 0.5 mg IVP Q4H PRN PRN Reason: Pain, moderate (4-7) Last Admin: 06/30/18 10:57 Dose: 0.5 mg Cefepime HCl (Maxipime 2gm) 2 gm in 100 mls @ 100 mls/hr IVPB Q12 [facility]; Protocol Stop: 07/04/18 23:01 Last Admin: 06/30/18 10:43 Dose: 100 mls/hr Vancomycin HCl (Vancomycin 1gm) 1 gm in 250 mls @ 167 mls/hr IVPB Q12 [facility]; Protocol Lisinopril (Zestril) 20 mg PO DAILY [facility] Last Admin: 06/30/18 11:04 Dose: 20 mg Methylprednisolone (Solu-Medrol) 40 mg IVP DAILY [facility] Last Admin: 06/30/18 11:02 Dose: 40 mg Metoprolol Tartrate (Lopressor) 25 mg PO BID [facility] Last Admin: 06/30/18 11:04 Dose: 25 mg Ondansetron HCl (Zofran Inj) 4 mg IVP Q6H PRN PRN Reason: Nausea/Vomiting Last Admin: 06/29/18 23:11 Dose: 4 mg Pantoprazole Sodium (Protonix Ec Tab) 40 mg PO 0600 [facility] Last Admin: 06/30/18 05:11 Dose: 40 mg Potassium Chloride (K-Dur 20 Meq Er Tab) 20 meq PO BRK [facility] Last Admin: 06/30/18 08:24 Dose: 20 meq Pramipexole Dihydrochloride (Mirapex) 0.5 mg PO HS [facility] Last Admin: 06/29/18 21:03 Dose: 0.5 mg Spironolactone (Aldactone) 25 mg PO DAILY [facility] Last Admin: 06/30/18 11:04 Dose: 25 mg Topiramate (Topamax) 150 mg PO BID [facility]; Protocol Last Admin: 06/30/18 11:03 Dose: 150 mg Venlafaxine HCl (Effexor Xr) 150 mg PO BID [facility] Last Admin: 06/30/18 11:03 Dose: 150 mg - Labs Labs: 06/30/18 07:00 06/30/18 07:00 PT 13.5 SECONDS (9.4-12.5) H 06/28/18 06:30 INR 1.17 06/28/18 06:30 APTT 25.6 Seconds (25.1-36.5) 06/28/18 06:30 - Constitutional Appears: Non-toxic, No Acute Distress - Head Exam Head Exam: NORMAL INSPECTION, NORMOCEPHALIC - Eye Exam Eye Exam: EOMI, Normal appearance. absent: Nystagmus, Scleral icterus - ENT Exam ENT Exam: Mucous Membranes Moist - Respiratory Exam Respiratory Exam: Clear to Ausculation Bilateral, NORMAL BREATHING PATTERN. absent: Rales, Rhonchi, Wheezes - Cardiovascular Exam Cardiovascular Exam: REGULAR RHYTHM, +S1, +S2 - GI/Abdominal Exam GI & Abdominal Exam: Soft, Normal Bowel Sounds. absent: Distended, Firm, Guarding, Tenderness - Extremities Exam Extremities Exam: Normal Inspection. absent: Calf Tenderness, Pedal Edema - Neurological Exam Neurological Exam: Alert, Awake, Oriented x3 - Psychiatric Exam Psychiatric exam: Normal Affect, Normal Mood - Skin Skin Exam: Intact, Normal Color Assessment and Plan - Assessment and Plan (Free Text) Assessment: Patient is a 68 yo female with PMH of COPD, CAD, Abdominal Aortic Aneurysm, HTN, Rotator Cuff Injury, NV, history of CHF (EF-35 in 2016) presents to hospital for evaluation of arm pain s/p fall. Patient is a moderate to high risk patient which requires clearance prior to orthopedic surgery. Stable for surgery from cardiac standpoint. Surgery postponed due to Cxray suggestive of PNA. Likely plan for OR on Monday07/03/2018; Midline placed. Patient pain is controlled with Dilaudid. Complaining of new onset abdominal pain which has resolved s/p cardiac cath Plan: Humerus Fracture Ortho Consulted: Dr. Wolf- surgery rescheduled after CXR resulted, likely to go to OR on 07/03/2018 Cardio Consulted: Dr. Mead- Medically stable for surgery from cardiac standpoint, no absolute contraindications; Moderate to high risk considering comorobidites; continue medical management as planned with no changes 06-26-18 Humerus Xray- displaced obliquely oriented fracture of the proximal humeral shaft 06-27-18 Echo shows LV normal size; EF of 59; Aortic Valve caclified and shows minimal narrowing. Trace AR; Moderate MR; Moderate TR; Pulm HTN; no pericardial effusion 06-27-18 EKG Sinus rhythm with occasional PVC; Prolonged QTc at 495 06-28-18 CT humerus- oblique fracture of proximal left humerus with medial and superior overriding of the distal fracture segment, post tendon repair, left lower lobe infiltrate, cardiomegaly, widespread soft tissue contusion of upper arm Dilaudid 0.5mg IV q4h prn; Percocet 5/325 2 tab po q4h prn Aspirin 81mg held Pneumonia 06-29-18 CXR: increase seen in a infiltrate in the right upper lobe and right lower lobe, findings suspicious for pneumonia ID consulted- Dr. Roca-recommendations appreciated Pulmonology consulted- Dr. Neal- recommendations appreciated On Cefepime Day 2 & Vancomycin Day 1 Blood culture- pending Procal 0.58 COPD 06-28-18 Cxray- airspace disease in the right lower lobe may represent developing PNA Duoneb q6h prn Solumedrol 40mg IVP daily jennifer Hx of CHF Cardio Consulted- Dr. Mead- recommendations appreciated 06-27-18 Echo shows LV normal size; EF of 59; Aortic Valve caclified and shows minimal narrowing. Trace AR; Moderate MR; Moderate TR; Pulm HTN; no pericardial effusion Lasix 40mg po daily jennifer, Lopressor 25mg po bid; Aldactone 25mg bid; Lisinopril 20mg po daily Hyponatremia Likely secondary to hypervolemia; Continue diuresis; Na improving Repeat CMP in AM HTN Hydralazine 10mg po qid prn sbp>160 Elevated Troponin 06-26-18 EKG sinus rhythm with occasional PVC, minimal voltage criteria for LVH, may be variant, prolonged QT, @97 bpm 06-29-18 EKG NSR with occasional PAC and frequent PVC, IVCD @91 bpm Chronic in issue after chart review Patient not complaining of chest pain Hemodynamically stable Anxiety Xanax 1mg po QID Depression Effexor 150mg daily Headache Topamax 50mg 3 tablets bid History of Herniated DIscs Dilaudid 0.5mg IV q4h prn Percocet 5/325 2 tab po q4h prn Hx of Abdominal Aortic Aneurysm Patient was seen in [place] 3 weeks prior for possible surgery Surgery was held as patient had very elevated blood pressures >220 Patient was discharged to further manage her blood pressure before surgical intervention 02/2018 CTA shows 4.7cm infrarenal AAA PPx DVT ppx- Heparin 5000 units sc GI ppx- Protonix 40mg Medical Management discussed with Dr. Malou Hinton PGY-1 <Deedee Westfall - Last Filed: 06/30/18 16:17> Objective - Vital Signs/Intake and Output Vital Signs (last 24 hours): Temp Pulse Resp BP Pulse Ox 97.5 F L 54 L 20 124/77 98 06/30/18 14:42 06/30/18 14:42 06/30/18 14:42 06/30/18 14:42 06/30/18 14:42 Intake and Output: 06/30/18 06/30/18 06:59 18:59 Intake Total 500 Output Total 580 450 Balance -80 -450 - Medications Medications: Current Medications Albuterol/Ipratropium (Duoneb 3 Mg/0.5 Mg (3 Ml) Ud) 3 ml IH [id number] [facility] Last Admin: 06/30/18 15:51 Dose: 3 ml Alprazolam (Xanax) 1 mg PO QID PRN; Protocol PRN Reason: Anxiety Last Admin: 06/30/18 01:40 Dose: 1 mg Docusate Sodium (Colace) 100 mg PO BID [facility] Last Admin: 06/30/18 11:03 Dose: 100 mg Furosemide (Lasix) 40 mg PO DAILY [facility] Last Admin: 06/30/18 11:05 Dose: 40 mg Heparin Sodium (Porcine) (Heparin) 5,000 units SC Q8 [facility]; Protocol Last Admin: 06/30/18 15:31 Dose: 5,000 units Hydralazine HCl (Apresoline) 10 mg PO QID PRN PRN Reason: for SBP>160 Last Admin: 06/29/18 17:59 Dose: 10 mg Hydromorphone HCl (Dilaudid) 0.5 mg IVP Q4H PRN PRN Reason: Pain, moderate (4-7) Last Admin: 06/30/18 15:31 Dose: 0.5 mg Cefepime HCl (Maxipime 2gm) 2 gm in 100 mls @ 100 mls/hr IVPB Q12 [facility]; Protocol Stop: 07/04/18 23:01 Last Admin: 06/30/18 10:43 Dose: 100 mls/hr Vancomycin HCl (Vancomycin 1gm) 1 gm in 250 mls @ 167 mls/hr IVPB Q12 [facility]; Protocol Lisinopril (Zestril) 20 mg PO DAILY [facility] Last Admin: 06/30/18 11:04 Dose: 20 mg Methylprednisolone (Solu-Medrol) 40 mg IVP DAILY [facility] Last Admin: 06/30/18 11:02 Dose: 40 mg Metoprolol Tartrate (Lopressor) 25 mg PO BID [facility] Last Admin: 06/30/18 11:04 Dose: 25 mg Ondansetron HCl (Zofran Inj) 4 mg IVP Q6H PRN PRN Reason: Nausea/Vomiting Last Admin: 06/29/18 23:11 Dose: 4 mg Pantoprazole Sodium (Protonix Ec Tab) 40 mg PO 0600 [facility] Last Admin: 06/30/18 05:11 Dose: 40 mg Potassium Chloride (K-Dur 20 Meq Er Tab) 20 meq PO BRK [facility] Last Admin: 06/30/18 08:24 Dose: 20 meq Pramipexole Dihydrochloride (Mirapex) 0.5 mg PO HS [facility] Last Admin: 06/29/18 21:03 Dose: 0.5 mg Spironolactone (Aldactone) 25 mg PO DAILY [facility] Last Admin: 06/30/18 11:04 Dose: 25 mg Topiramate (Topamax) 150 mg PO BID [facility]; Protocol Last Admin: 06/30/18 11:03 Dose: 150 mg Venlafaxine HCl (Effexor Xr) 150 mg PO BID [facility] Last Admin: 06/30/18 11:03 Dose: 150 mg - Labs Labs: 06/30/18 07:00 06/30/18 07:00 PT 13.5 SECONDS (9.4-12.5) H 06/28/18 06:30 INR 1.17 06/28/18 06:30 APTT 25.6 Seconds (25.1-36.5) 06/28/18 06:30 Attending/Attestation - Attestation I have personally seen and examined this patient.: Yes I have fully participated in the care of the patient.: Yes I have reviewed all pertinent clinical information, including history, physical exam and plan: Yes Notes (Text): 06/30/18 16:10 Medical record note made by the resident after discussion with my direction and input after the patient was personally seen and examined by me. I have reviewed the chart and agree that the record accurately reflects by personal performance of the history, physical exam, data review, and medical decision-making, in the course for the patient. I have also personally directed the plan of care. 68 yo female with PMH of COPD, CAD, Abdominal Aortic Aneurysm, HTN, Rotator Cuff Injury, NV, CHF with diastolic dysfunction presents to hospital for evaluation of arm pain s/p fall found to have Humeral fracture. Patient was also found to have COPD exacerbation, Hyponatremia due to increase ADH from pain and diastolic CHF.Patient was dyspnic yesterday and Chest X rays reveals right lower lobe Pneumnia HCAP. COPD is improcing, continue NEB/Steroid. HCAP , afebrile.Procalcitonin is mildly elevated, on IV antibiotics as per ID .Cultures are negative. Hyponatremia is improving. Patient is a moderate to high risk patient which requires clearance prior to orthopedic surgery. Stable for surgery from cardiac standpoint. Surgery postponed due to HCAP Pneumonia. Likely plan for OR on Monday Management plan was discussed in detail with patient. Education was provided. 06/30/18 16:15
--- NOTE | 2018-06-30 16:18 | CP.PCM.CON ---
History of Present Illness - History of Present Illness History of Present Illness: 68 year old female with PMH of COPD, CAD, HTN, history of rotator cuff injury, abdominal aortic aneurysm, chronic CHF, S/P carotid endarterectomy, initially came in to [facility] [place] because of a fall and injured her left arm and she found to have a fracture of the left humerus. She was supposed to get surgery but she was noted to have some hypoxia, coughing 2 days into the admission. She was having phlegm but did not have fever. She also denies headache or dizziness, no chest pain, no rhinorrhea, no sore throat, no abdominal pain, no diarrhea, no dysuria. CXR is showing right sided infiltrate. Infectious diseases consult is requested to further evaluate and manage. Review of Systems - Review of Systems All systems: reviewed and no additional remarkable complaints except (as per HPI) Past Patient History - Infectious Disease Hx of Infectious Diseases: None - Tetanus Immunizations Tetanus Immunization: Up to Date - Past Medical History & Family History Past Medical History?: Yes - Past Social History Smoking Status: Former Smoker - CARDIAC Hx Pacemaker: No - PULMONARY Hx Respiratory Disorders: Yes Hx Asthma: Yes Hx Chronic Obstructive Pulmonary Disease (COPD): Yes Hx Pneumonia: Yes - NEUROLOGICAL Hx Seizures: Yes (2016) Hx Transient Ischemic Attacks (TIA): Yes - HEENT Hx Glaucoma: Yes - HEMATOLOGICAL/ONCOLOGICAL Hx Cancer: No - INTEGUMENTARY Hx Dermatological Problems: No - MUSCULOSKELETAL/RHEUMATOLOGICAL Hx Musculoskeletal Disorders: Yes Hx Falls: Yes (2 in last 6 months) - GASTROINTESTINAL Hx Gastrointestinal Disorders: No - GENITOURINARY/GYNECOLOGICAL Hx Incontinence: Yes - PSYCHIATRIC Hx Anxiety: Yes Hx Depression: Yes Hx Emotional Abuse: No Hx Physical Abuse: No - SURGICAL HISTORY Hx Surgeries: Yes - ANESTHESIA Hx Anesthesia Reactions: No Hx Malignant Hyperthermia: No Meds Allergies/Adverse Reactions: Allergies Allergy/AdvReac Type Severity Reaction Status Date / Time methotrexate Allergy PAIN Verified 06/26/18 12:08 metronidazole Allergy RASH Verified 06/26/18 12:08 - Medications Medications: Current Medications Albuterol/Ipratropium (Duoneb 3 Mg/0.5 Mg (3 Ml) Ud) 3 ml IH [id number] Last Admin: 06/29/18 20:05 Dose: 3 ml Alprazolam (Xanax) 1 mg PO QID PRN; Protocol PRN Reason: Anxiety Last Admin: 06/29/18 10:11 Dose: 1 mg Docusate Sodium (Colace) 100 mg PO BID [facility] Last Admin: 06/29/18 18:01 Dose: 100 mg Furosemide (Lasix) 40 mg PO DAILY [facility] Last Admin: 06/29/18 10:14 Dose: Not Given Heparin Sodium (Porcine) (Heparin) 5,000 units SC Q8 [facility]; Protocol Last Admin: 06/28/18 05:50 Dose: 5,000 units Hydralazine HCl (Apresoline) 10 mg PO QID PRN PRN Reason: for SBP>160 Last Admin: 06/29/18 17:59 Dose: 10 mg Hydromorphone HCl (Dilaudid) 0.5 mg IVP Q4H PRN PRN Reason: Pain, moderate (4-7) Last Admin: 06/29/18 02:55 Dose: 0.5 mg Cefepime HCl (Maxipime 2gm) 2 gm in 100 mls @ 100 mls/hr IVPB Q12 [facility]; Protocol Stop: 07/04/18 23:01 Vancomycin HCl (Vancomycin 1gm) 1 gm in 250 mls @ 167 mls/hr IVPB DAILY [facility]; Protocol Lisinopril (Zestril) 20 mg PO DAILY [facility] Last Admin: 06/29/18 10:13 Dose: 20 mg Methylprednisolone (Solu-Medrol) 40 mg IVP DAILY [facility] Last Admin: 06/29/18 10:12 Dose: 40 mg Metoprolol Tartrate (Lopressor) 25 mg PO BID [facility] Last Admin: 06/29/18 18:01 Dose: 25 mg Ondansetron HCl (Zofran Inj) 4 mg IVP Q6H PRN PRN Reason: Nausea/Vomiting Last Admin: 06/29/18 02:56 Dose: 4 mg Oxycodone/Acetaminophen (Percocet 5/325 Mg Tab) 2 tab PO Q4H PRN PRN Reason: Pain, Mild (1-3) Stop: 06/30/18 07:39 Last Admin: 06/28/18 21:47 Dose: 2 tab Pantoprazole Sodium (Protonix Ec Tab) 40 mg PO 0600 [facility] Last Admin: 06/29/18 10:12 Dose: 40 mg Potassium Chloride (K-Dur 20 Meq Er Tab) 20 meq PO BRK [facility] Last Admin: 06/29/18 10:13 Dose: 20 meq Pramipexole Dihydrochloride (Mirapex) 0.5 mg PO HS [facility] Last Admin: 06/29/18 21:03 Dose: 0.5 mg Spironolactone (Aldactone) 25 mg PO DAILY [facility] Last Admin: 06/29/18 10:12 Dose: 25 mg Topiramate (Topamax) 150 mg PO BID [facility]; Protocol Last Admin: 06/29/18 18:00 Dose: 150 mg Venlafaxine HCl (Effexor Xr) 150 mg PO BID [facility] Last Admin: 06/29/18 18:00 Dose: 150 mg Physical Exam - Constitutional Appears: Chronically Ill - Head Exam Head Exam: NORMAL INSPECTION - ENT Exam ENT Exam: Mucous Membranes Moist - Neck Exam Neck exam: Negative for: Meningismus - Respiratory Exam Respiratory Exam: Decreased Breath Sounds - Cardiovascular Exam Cardiovascular Exam: +S1, +S2 - GI/Abdominal Exam GI & Abdominal Exam: Soft. absent: Tenderness Results - Vital Signs Recent Vital Signs: Last Vital Signs Temp 98.6 F 06/29/18 17:11 Pulse 86 06/29/18 21:49 Resp 20 06/29/18 17:11 BP 177/96 H 06/29/18 18:01 Pulse Ox 94 L 06/29/18 17:11 - Labs Result Diagrams: 06/30/18 07:00 06/30/18 07:00 Labs: Laboratory Results - last 24 hr 06/29/18 06/29/18 06/29/18 06:45 06:45 10:10 WBC 19.0 H RBC 3.45 L Hgb 8.6 L Hct 27.1 L MCV 78.6 L MCH 24.9 L MCHC 31.7 RDW 14.6 H Plt Count 287 MPV 10.6 Gran % 81.7 H Lymph % (Auto) 7.3 L King % (Auto) 10.8 H Eos % (Auto) 0.1 L Baso % (Auto) 0.1 Gran # 15.55 H Lymph # (Auto) 1.4 King # (Auto) 2.1 H Eos # (Auto) 0.0 Baso # (Auto) 0.01 Sodium 127 L Potassium 3.9 Chloride 96 L Carbon Dioxide 22 Anion Gap 13 BUN 14 Creatinine 1.0 Est GFR ( Amer) > 60 Est GFR (Non-Af Amer) 55 Random Glucose 94 Calcium 8.2 L Phosphorus 3.5 Magnesium 2.0 Total Bilirubin 0.5 AST 25 ALT 29 Alkaline Phosphatase 158 H Total Protein 5.4 L Albumin 2.8 L Globulin 2.6 Albumin/Globulin Ratio 1.1 Procalcitonin 0.58 H Assessment & Plan - Assessment and Plan (Free Text) Plan: Assessment sepsis due to right sided HCAP left humerus fracture due to fall COPD CAD HTN history of rotator cuff injury abdominal aortic aneurysm chronic CHF S/P carotid endarterectomy Plan started Vancomycin, Cefepime and Doxycycline pending blood, sputum cx; PCT is elevated at 0.58 will monitor clinically
[2018-06-30] MEDS: Vancomycin 1gm in NS 250ml 1 GM/250 ML BAG IVPB SCH (21:13)
[2018-07-01] MEDS: Albuterol-Ipratrop 3 mg / 0.5 (3 ml) UD IH SCH ×2 (01:11→10:24)
[2018-07-01] MEDS: HYDROmorphone 1 mg/ml ISec IVP PRN ×4 (02:41→21:30)
[2018-07-01] MEDS: Pantoprazole 40 mg EC Tab PO SCH (05:39)
--- NOTE | 2018-07-01 06:28 | CP.PCM.PN ---
Subjective - Date & Time of Evaluation Date of Evaluation: 07/01/18 Time of Evaluation: 11:45 - Subjective Subjective: PGY-1 Medicine Progress Note for Dr. Westfall's service Patient seen and examined at bedside. Patient offers no acute complaints other than continued left arm pain. Patient's blood pressure was elevated this morn ing. Patient denies fevers, chills, cp, sob, n/v, constipation or diarrhea, dysuria. Objective - Vital Signs/Intake and Output Vital Signs (last 24 hours): Temp Pulse Resp BP Pulse Ox 97.5 F L 92 H 20 172/102 H 98 06/30/18 14:42 06/30/18 18:37 06/30/18 14:42 06/30/18 18:37 06/30/18 14:42 Intake and Output: 06/30/18 07/01/18 18:59 06:59 Intake Total 360 Output Total 450 300 Balance -450 60 - Medications Medications: Current Medications Albuterol/Ipratropium (Duoneb 3 Mg/0.5 Mg (3 Ml) Ud) 3 ml IH [id number] [facility] Last Admin: 07/01/18 01:11 Dose: 3 ml Alprazolam (Xanax) 1 mg PO QID PRN; Protocol PRN Reason: Anxiety Last Admin: 06/30/18 18:39 Dose: 1 mg Docusate Sodium (Colace) 100 mg PO BID [facility] Last Admin: 06/30/18 18:37 Dose: 100 mg Doxycycline Hyclate (Doryx) 100 mg PO Q12 [facility]; Protocol Last Admin: 06/30/18 21:13 Dose: 100 mg Furosemide (Lasix) 40 mg PO DAILY [facility] Last Admin: 06/30/18 11:05 Dose: 40 mg Heparin Sodium (Porcine) (Heparin) 5,000 units SC Q8 [facility]; Protocol Last Admin: 07/01/18 05:39 Dose: 5,000 units Hydralazine HCl (Apresoline) 10 mg PO QID PRN PRN Reason: for SBP>160 Last Admin: 06/29/18 17:59 Dose: 10 mg Hydromorphone HCl (Dilaudid) 0.5 mg IVP Q4H PRN PRN Reason: Pain, moderate (4-7) Last Admin: 07/01/18 02:41 Dose: 0.5 mg Cefepime HCl (Maxipime 2gm) 2 gm in 100 mls @ 100 mls/hr IVPB Q12 [facility]; Protocol Stop: 07/04/18 23:01 Last Admin: 06/30/18 21:12 Dose: 100 mls/hr Vancomycin HCl (Vancomycin 1gm) 1 gm in 250 mls @ 167 mls/hr IVPB Q12 [facility]; Protocol Last Admin: 06/30/18 21:13 Dose: 167 mls/hr Lisinopril (Zestril) 20 mg PO DAILY [facility] Last Admin: 06/30/18 11:04 Dose: 20 mg Methylprednisolone (Solu-Medrol) 40 mg IVP DAILY [facility] Last Admin: 06/30/18 11:02 Dose: 40 mg Metoprolol Tartrate (Lopressor) 25 mg PO BID [facility] Last Admin: 06/30/18 18:37 Dose: 25 mg Ondansetron HCl (Zofran Inj) 4 mg IVP Q6H PRN PRN Reason: Nausea/Vomiting Last Admin: 06/29/18 23:11 Dose: 4 mg Pantoprazole Sodium (Protonix Ec Tab) 40 mg PO 0600 [facility] Last Admin: 07/01/18 05:39 Dose: 40 mg Potassium Chloride (K-Dur 20 Meq Er Tab) 20 meq PO BRK [facility] Last Admin: 06/30/18 08:24 Dose: 20 meq Pramipexole Dihydrochloride (Mirapex) 0.5 mg PO HS [facility] Last Admin: 06/30/18 21:13 Dose: 0.5 mg Spironolactone (Aldactone) 25 mg PO DAILY [facility] Last Admin: 06/30/18 11:04 Dose: 25 mg Topiramate (Topamax) 150 mg PO BID [facility]; Protocol Last Admin: 06/30/18 19:36 Dose: 150 mg Venlafaxine HCl (Effexor Xr) 150 mg PO BID [facility] Last Admin: 06/30/18 18:37 Dose: 150 mg - Labs Labs: 06/30/18 07:00 06/30/18 07:00 PT 13.5 SECONDS (9.4-12.5) H 06/28/18 06:30 INR 1.17 06/28/18 06:30 APTT 25.6 Seconds (25.1-36.5) 06/28/18 06:30 - Additional Findings Additional findings: - Constitutional Appears: Non-toxic, No Acute Distress - Head Exam Head Exam: NORMAL INSPECTION, NORMOCEPHALIC - Eye Exam Eye Exam: EOMI, Normal appearance. absent: Nystagmus, Scleral icterus - ENT Exam ENT Exam: Mucous Membranes Moist - Respiratory Exam Respiratory Exam: Clear to Ausculation Bilateral, NORMAL BREATHING PATTERN. abs ent: Rales, Rhonchi, Wheezes - Cardiovascular Exam Cardiovascular Exam: REGULAR RHYTHM, +S1, +S2 - GI/Abdominal Exam GI & Abdominal Exam: Soft, Normal Bowel Sounds. absent: Distended, Firm, Guarding, Tenderness - Extremities Exam Extremities Exam: Normal Inspection. absent: Calf Tenderness, Pedal Edema - Neurological Exam Neurological Exam: Alert, Awake, Oriented x3 - Psychiatric Exam Psychiatric exam: Normal Affect, Normal Mood - Skin Skin Exam: Intact, Normal Color Assessment and Plan - Assessment and Plan (Free Text) Assessment: Patient is a 68 yo female with PMH of COPD, CAD, Abdominal Aortic Aneurysm, HTN, Rotator Cuff Injury, CA, history of CHF (EF-35 in 2016) presents to hospital for evaluation of arm pain s/p fall. Patient is a moderate to high risk patient which requires clearance prior to orthopedic surgery. Stable for surgery from cardiac standpoint. Surgery postponed due to Cxray suggestive of PNA. Likely plan for OR on Monday07/03/2018; Midline placed. Patient pain is controlled with Dilaudid. Complaining of new onset abdominal pain which has resolved s/p straight cath. Elevated blood pressures and pain today in the AM. Plan: Humerus Fracture Ortho Consulted: Dr. Wolf- surgery rescheduled after CXR resulted, likely to go to OR on 07/03/2018 Cardio Consulted: Dr. Mead- Medically stable for surgery from cardiac standpoint, no absolute contraindications; Moderate to high risk considering comorobidites; continue medical management as planned with no changes 06-26-18 Humerus Xray- displaced obliquely oriented fracture of the proximal humeral shaft 06-27-18 Echo shows LV normal size; EF of 59; Aortic Valve caclified and shows minimal narrowing. Trace AR; Moderate MR; Moderate TR; Pulm HTN; no pericardial effusion 06-27-18 EKG Sinus rhythm with occasional PVC; Prolonged QTc at 495 06-28-18 CT humerus- oblique fracture of proximal left humerus with medial and superior overriding of the distal fracture segment, post tendon repair, left lower lobe infiltrate, cardiomegaly, widespread soft tissue contusion of upper arm Dilaudid 1mg IV q4h prn; Percocet 5/325 2 tab po q4h prn Aspirin 81mg held Pneumonia 06-29-18 CXR: increase seen in a infiltrate in the right upper lobe and right lower lobe, findings suspicious for pneumonia ID consulted- Dr. Roca-recommendations as below Pulmonology consulted- Dr. Neal- recs as below On Cefepime (06-29) & Vancomycin (06-30) & Doxy (06-30) Blood culture- pending Procal 0.58 COPD 06-28-18 Cxray- airspace disease in the right lower lobe may represent developing PNA Xopenex 0.63mg IH 16g; Solumedrol 40mg IVP daily jennifer Hx of CHF Cardio Consulted- Dr. Mead- recommendations appreciated 06-27-18 Echo shows LV normal size; EF of 59; Aortic Valve caclified and shows minimal narrowing. Trace AR; Moderate MR; Moderate TR; Pulm HTN; no pericardial effusion Lasix 40mg po daily jennifer, Lopressor 25mg po bid; Aldactone 25mg bid; Lisinopril 20mg po daily Hyponatremia Resolved Repeat CMP in AM HTN Hydralazine 25mg po q6 jennifer Lisinopril 40mg po dialy Lopressor 25mg po daily Clonidine 0.1mg x 1 Elevated Troponin 06-26-18 EKG sinus rhythm with occasional PVC, minimal voltage criteria for LVH, may be variant, prolonged QT, @97 bpm 06-29-18 EKG NSR with occasional PAC and frequent PVC, IVCD @91 bpm Chronic in issue after chart review Patient not complaining of chest pain Hemodynamically stable Anxiety Xanax 1mg po QID Depression Effexor 150mg daily Headache Topamax 50mg 3 tablets bid History of Herniated DIscs Dilaudid 0.5mg IV q4h prn Percocet 5/325 2 tab po q4h prn Hx of Abdominal Aortic Aneurysm Patient was seen in [place] 3 weeks prior for possible surgery Surgery was held as patient had very elevated blood pressures >220 Patient was discharged to further manage her blood pressure before surgical intervention 02/2018 CTA shows 4.7cm infrarenal AAA PPx DVT ppx- Heparin 5000 units sc GI ppx- Protonix 40mg Medical Management discussed with Dr. Malou Hniton PGY-1
[2018-07-01 08:18] LABS: BASO # 0.02 K/mm3 (0.0-2.0); BASO % 0.1 % (0.0-3.0); EOS % 0.1 % (1.5-5.0); GRAN # 18.84 (1.4-6.5); GRAN % 85.1 % (50.0-68.0); HEMOGLOBIN 9.4 g/dL (12.0-16.0); LYMPH # 1.2 (1.2-3.4); LYMPH % 5.2 % (22.0-35.0); MEAN CELL VOLUME 77.3 fl (80.0-105.0); MEAN CORPUSCULAR HEMOGLOBIN 24.8 pg (25.0-35.0); MEAN CORPUSCULAR HGB CONC 32.1 g/dl (31.0-37.0); MEAN PLATELET VOLUME 9.9 fl (7.0-11.0); MONO # 2.1 (0.1-0.6); MONO % 9.5 % (1.0-6.0); RBC 3.79 10^6/uL (3.5-6.1); RED CELL DISTRIBUTION WIDTH 14.6 % (11.5-14.5); WHITE BLOOD COUNT 22.1 10^3/ul (4.5-11.0)
[2018-07-01] MEDS: Potassium Chloride 20 mEq ER Tab PO SCH (08:41)
[2018-07-01 09:06] LABS: ALBUMIN 3.2 g/dL (3.0-4.8); ALT/SGPT 31 U/L (7-56); AST/SGOT 33 U/L (14-36); BLOOD UREA NITROGEN 12 mg/dL (7-21); CALCIUM 8.9 mg/dL (8.4-10.5); GFR NON-AFRICAN AMERICAN > 60
--- NOTE | 2018-07-01 09:21 | CP.PCM.PN ---
Subjective - Date & Time of Evaluation Date of Evaluation: 07/01/18 Time of Evaluation: 06:50 - Subjective Subjective: No distress, Lying in bed,awake, alert, denies chest pain, unable to sleep last night Reason for consultation and follow up: Cardiac evaluation for pre-op surgery of left shoulder, history of non obstructive coronary artery disease ,Abdominal Aortic Aneurysm, hypertension. Seen and examined by me and Dr. Mead Objective - Vital Signs/Intake and Output Vital Signs (last 24 hours): Temp Pulse Resp BP Pulse Ox 97.3 F L 110 H 20 181/110 H 96 07/01/18 08:21 07/01/18 08:41 07/01/18 08:21 07/01/18 08:41 07/01/18 08:21 Intake and Output: 07/01/18 07/01/18 06:59 18:59 Intake Total 360 120 Output Total 300 Balance 60 120 - Medications Medications: Current Medications Albuterol/Ipratropium (Duoneb 3 Mg/0.5 Mg (3 Ml) Ud) 3 ml IH [id number] [facility] Last Admin: 07/01/18 01:11 Dose: 3 ml Alprazolam (Xanax) 1 mg PO QID PRN; Protocol PRN Reason: Anxiety Last Admin: 06/30/18 18:39 Dose: 1 mg Docusate Sodium (Colace) 100 mg PO BID [facility] Last Admin: 06/30/18 18:37 Dose: 100 mg Doxycycline Hyclate (Doryx) 100 mg PO Q12 [facility]; Protocol Last Admin: 06/30/18 21:13 Dose: 100 mg Furosemide (Lasix) 40 mg PO DAILY [facility] Last Admin: 06/30/18 11:05 Dose: 40 mg Heparin Sodium (Porcine) (Heparin) 5,000 units SC Q8 [facility]; Protocol Last Admin: 07/01/18 05:39 Dose: 5,000 units Hydralazine HCl (Apresoline) 10 mg PO QID PRN PRN Reason: for SBP>160 Last Admin: 07/01/18 08:41 Dose: 10 mg Hydromorphone HCl (Dilaudid) 0.5 mg IVP Q4H PRN PRN Reason: Pain, moderate (4-7) Last Admin: 07/01/18 08:17 Dose: 0.5 mg Cefepime HCl (Maxipime 2gm) 2 gm in 100 mls @ 100 mls/hr IVPB Q12 [facility]; Protocol Stop: 07/04/18 23:01 Last Admin: 06/30/18 21:12 Dose: 100 mls/hr Vancomycin HCl (Vancomycin 1gm) 1 gm in 250 mls @ 167 mls/hr IVPB Q12 [facility]; Protocol Last Admin: 06/30/18 21:13 Dose: 167 mls/hr Lisinopril (Zestril) 20 mg PO DAILY [facility] Last Admin: 06/30/18 11:04 Dose: 20 mg Methylprednisolone (Solu-Medrol) 40 mg IVP DAILY [facility] Last Admin: 06/30/18 11:02 Dose: 40 mg Metoprolol Tartrate (Lopressor) 25 mg PO BID [facility] Last Admin: 06/30/18 18:37 Dose: 25 mg Ondansetron HCl (Zofran Inj) 4 mg IVP Q6H PRN PRN Reason: Nausea/Vomiting Last Admin: 06/29/18 23:11 Dose: 4 mg Pantoprazole Sodium (Protonix Ec Tab) 40 mg PO 0600 [facility] Last Admin: 07/01/18 05:39 Dose: 40 mg Potassium Chloride (K-Dur 20 Meq Er Tab) 20 meq PO BRK [facility] Last Admin: 07/01/18 08:41 Dose: 20 meq Pramipexole Dihydrochloride (Mirapex) 0.5 mg PO HS [facility] Last Admin: 06/30/18 21:13 Dose: 0.5 mg Spironolactone (Aldactone) 25 mg PO DAILY [facility] Last Admin: 06/30/18 11:04 Dose: 25 mg Topiramate (Topamax) 150 mg PO BID [facility]; Protocol Last Admin: 06/30/18 19:36 Dose: 150 mg Venlafaxine HCl (Effexor Xr) 150 mg PO BID [facility] Last Admin: 06/30/18 18:37 Dose: 150 mg - Labs Labs: 07/01/18 08:00 07/01/18 08:00 PT 13.5 SECONDS (9.4-12.5) H 06/28/18 06:30 INR 1.17 06/28/18 06:30 APTT 25.6 Seconds (25.1-36.5) 06/28/18 06:30 Assessment and Plan - Assessment and Plan (Free Text) Assessment: A 68 year old female wh came in to the ER due post mechanical fall in middle of the night onto non-dominant left upper arm with arm sling. Xray showed left proximal humerus fracture.Patient for surgery thus consult was called to clear and risk stratify for surgery.History includes MS, transient hypotension, CHF ,former smoker,COPD, non obstructive coronary artery disease ,Abdominal Aortic Aneurysm (scheduled for repair at [facility] (June 2018) HTN, Rotator Cuff Injury with surgery, carotid endarterectomy. According to daughter, stress test was done recently and was normal. Cardiac work up was done for scheduled AAA repair surgery at [place]. Will try to get in touch with Dr. Riley's to obtain for information..EKG showed NSR with frequent APC's and VPC's. no ST elevations. Echo done- Mild concentric hypertrophy, LVEF 59%, Trace AR, Aortic valve calcified with minimal narrowing, Mitral annulus calcified and mininmal narrowing, moderate TR- RVSP 43 mmg Hg, Mild pulmonary hypertension No evidence of ischemia, no evidence of heart failure, LVEF form ECHo 59%. stress test from [facility]- normal. Cleared for surgery from cardiac standpoint, no absolute contraindications. Moderate to high risk considering co-morbidities. ECHO done- Mild concentric hypertrophy, LVEF 59%, Trace AR, Aortic valve calcified with minimal narrowing, Mitral annulus calcified and minimal narrowing moderate TR- RVSP 43 mmg Hg, Mild pulmonary hypertension. Plan: Unable to sleep last night, no distress Awaiting Left shoulder surgery- rescheduled tentatively Monday Acute pneumonia, Continue IV antibiotics as ordered Heart rate controlled Blood pressure uncontrolled today PRN hydralazine Cleared for surgery from cardiac standpoint, no absolute contraindications. Moderate to high risk considering co-morbidities On Lasix 40 mg daily, Hydralazine 10 mg QID PRN, Lisinopril 20 mg daily, Solumedrol 40 mg daily, Lopressor 25 mg BID, Kdur 20 meq daily, Aldactone 25 mg daily, Continue current treatment Continue current medications Chart reviewed Will follow up Plan and treatment discussed with Dr. Mead
[2018-07-01] MEDS: MethylPREDNISolone 40 mg Vial IVP SCH (10:54)
[2018-07-01] MEDS: Venlafaxine 75 mg ER Cap PO SCH ×2 (10:56→17:54)
[2018-07-01] MEDS: Vancomycin 1gm in NS 250ml 1 GM/250 ML BAG IVPB SCH ×2 (11:05→21:29)
[2018-07-01] MEDS ORDERED: Potassium Chloride 20 mEq ER Tab PO ONE (11:28)
[2018-07-01] MEDS: Cefepime IV 2 gm in NS 2 GM/100 ML BAG IVPB SCH ×2 (12:43→23:14)
[2018-07-01] MEDS: Levalbuterol 0.63 MG/3 ML Inhal Soln UD IH PRN (12:56)
--- NOTE | 2018-07-01 15:16 | CP.PCM.PN ---
Subjective - Date & Time of Evaluation Date of Evaluation: 07/01/18 Time of Evaluation: 11:40 - Subjective Subjective: Patient is comfortable in bed, no fevers, still with cough but a little better. Objective - Vital Signs/Intake and Output Vital Signs (last 24 hours): Temp Pulse Resp BP Pulse Ox 97.3 F L 110 H 20 181/110 H 96 07/01/18 08:21 07/01/18 08:41 07/01/18 08:21 07/01/18 08:41 07/01/18 08:21 Intake and Output: 07/01/18 07/01/18 06:59 18:59 Intake Total 360 120 Output Total 300 Balance 60 120 - Medications Medications: Current Medications Albuterol/Ipratropium (Duoneb 3 Mg/0.5 Mg (3 Ml) Ud) 3 ml IH [id number] [facility] Last Admin: 07/01/18 01:11 Dose: 3 ml Alprazolam (Xanax) 1 mg PO QID PRN; Protocol PRN Reason: Anxiety Last Admin: 06/30/18 18:39 Dose: 1 mg Docusate Sodium (Colace) 100 mg PO BID [facility] Last Admin: 06/30/18 18:37 Dose: 100 mg Doxycycline Hyclate (Doryx) 100 mg PO Q12 [facility]; Protocol Last Admin: 06/30/18 21:13 Dose: 100 mg Furosemide (Lasix) 40 mg PO DAILY [facility] Last Admin: 06/30/18 11:05 Dose: 40 mg Heparin Sodium (Porcine) (Heparin) 5,000 units SC Q8 [facility]; Protocol Last Admin: 07/01/18 05:39 Dose: 5,000 units Hydralazine HCl (Apresoline) 10 mg PO QID PRN PRN Reason: for SBP>160 Last Admin: 07/01/18 08:41 Dose: 10 mg Hydromorphone HCl (Dilaudid) 0.5 mg IVP Q4H PRN PRN Reason: Pain, moderate (4-7) Last Admin: 07/01/18 08:17 Dose: 0.5 mg Cefepime HCl (Maxipime 2gm) 2 gm in 100 mls @ 100 mls/hr IVPB Q12 [facility]; Protocol Stop: 07/04/18 23:01 Last Admin: 10/06/18 21:12 Dose: 100 mls/hr Vancomycin HCl (Vancomycin 1gm) 1 gm in 250 mls @ 167 mls/hr IVPB Q12 [facility]; Protocol Last Admin: 06/30/18 21:13 Dose: 167 mls/hr Lisinopril (Zestril) 20 mg PO DAILY [facility] Last Admin: 06/30/18 11:04 Dose: 20 mg Methylprednisolone (Solu-Medrol) 40 mg IVP DAILY [facility] Last Admin: 06/30/18 11:02 Dose: 40 mg Metoprolol Tartrate (Lopressor) 25 mg PO BID [facility] Last Admin: 06/30/18 18:37 Dose: 25 mg Ondansetron HCl (Zofran Inj) 4 mg IVP Q6H PRN PRN Reason: Nausea/Vomiting Last Admin: 06/29/18 23:11 Dose: 4 mg Pantoprazole Sodium (Protonix Ec Tab) 40 mg PO 0600 [facility] Last Admin: 07/01/18 05:39 Dose: 40 mg Potassium Chloride (K-Dur 20 Meq Er Tab) 20 meq PO BRK [facility] Last Admin: 07/01/18 08:41 Dose: 20 meq Pramipexole Dihydrochloride (Mirapex) 0.5 mg PO HS [facility] Last Admin: 06/30/18 21:13 Dose: 0.5 mg Spironolactone (Aldactone) 25 mg PO DAILY [facility] Last Admin: 06/30/18 11:04 Dose: 25 mg Topiramate (Topamax) 150 mg PO BID [facility]; Protocol Last Admin: 06/30/18 19:36 Dose: 150 mg Venlafaxine HCl (Effexor Xr) 150 mg PO BID [facility] Last Admin: 06/30/18 18:37 Dose: 150 mg - Labs Labs: 07/01/18 08:00 06/30/18 07:00 PT 13.5 SECONDS (9.4-12.5) H 06/28/18 06:30 INR 1.17 06/28/18 06:30 APTT 25.6 Seconds (25.1-36.5) 06/28/18 06:30 - Constitutional Appears: No Acute Distress, Chronically Ill - Head Exam Head Exam: NORMAL INSPECTION - Neck Exam Neck Exam: absent: Meningismus - Respiratory Exam Respiratory Exam: Decreased Breath Sounds - Cardiovascular Exam Cardiovascular Exam: +S1, +S2 - GI/Abdominal Exam GI & Abdominal Exam: Soft. absent: Tenderness - Extremities Exam Additional comments: left arm sling in place Assessment and Plan - Assessment and Plan (Free Text) Plan: Assessment sepsis due to right sided HCAP left humerus fracture due to fall COPD CAD HTN history of rotator cuff injury abdominal aortic aneurysm chronic CHF S/P carotid endarterectomy Plan continue Vancomycin, Cefepime and Doxycycline day 2 pending blood, sputum cx; PCT is elevated at 0.58 will continue to monitor clinically
--- NOTE | 2018-07-01 16:43 | PN ---
DATE: 07/01/2018 REASON FOR CONSULTATION AND FOLLOWUP: Preop evaluation, risk stratification for left humeral surgery. SUBJECTIVE: The patient denies any chest pain, shortness of breath, or any palpitation. As mentioned in the previous note, the patient is cleared to go for surgery with moderate to high risk. The patient had cardiac catheterization twice, nonobstructive coronary artery disease. The patient was also seen and evaluated for abdominal aortic aneurysm and is scheduled, but it was postponed because of uncontrolled hypertension, but now, the patient's blood pressure was relatively stable yesterday. Today, pressure was increased, so we will adjust the medications. Continue beta-adela and if remained stable, patient will go for surgery on Monday. We will change Xopenex. We will discontinue albuterol to Xopenex to prevent tachycardia. We will continue metoprolol 25. Continue lisinopril and increase 25 b.i.d. of hydralazine. We will start 25 hydralazine p.o. b.i.d., hold for systolic less than 130. We will supplement potassium. We will check magnesium, phosphorus, and SMA-7 in the morning. Aggressively supplement potassium. Deedee Mead MD
[2018-07-02] MEDS: Levalbuterol 0.63 MG/3 ML Inhal Soln UD IH PRN ×3 (05:48→13:37)
[2018-07-02] MEDS: Pantoprazole 40 mg EC Tab PO SCH (06:02)
[2018-07-02] MEDS: HYDROmorphone 1 mg/ml ISec IVP PRN ×4 (06:12→23:05)
--- NOTE | 2018-07-02 06:43 | CP.PCM.PN ---
Subjective - Date & Time of Evaluation Date of Evaluation: 07/02/18 Time of Evaluation: 06:20 - Subjective Subjective: Lying in bed,mild distress,awake, alert, anxious Reason for consultation and follow up: Cardiac evaluation for pre-op surgery of left shoulder, history of non obstructive coronary artery disease ,Abdominal Aortic Aneurysm, hypertension. Seen and examined by me and Dr. Mead Objective - Vital Signs/Intake and Output Vital Signs (last 24 hours): Temp Pulse Resp BP Pulse Ox 98.7 F 109 H 18 151/118 H 94 L 07/01/18 22:26 07/02/18 06:03 07/01/18 22:26 07/02/18 06:03 07/01/18 22:26 Intake and Output: 07/01/18 07/02/18 18:59 06:59 Intake Total 540 Balance 540 - Medications Medications: Current Medications Alprazolam (Xanax) 1 mg PO QID PRN; Protocol PRN Reason: Anxiety Last Admin: 07/02/18 06:24 Dose: 1 mg Docusate Sodium (Colace) 100 mg PO BID [facility] Last Admin: 07/01/18 17:49 Dose: 100 mg Doxycycline Hyclate (Doryx) 100 mg PO Q12 [facility]; Protocol Last Admin: 07/01/18 21:29 Dose: 100 mg Furosemide (Lasix) 40 mg PO DAILY [facility] Last Admin: 07/01/18 11:01 Dose: 40 mg Heparin Sodium (Porcine) (Heparin) 5,000 units SC Q8 [facility]; Protocol Last Admin: 07/02/18 06:03 Dose: 5,000 units Hydralazine HCl (Apresoline) 25 mg PO Q6 [facility] Last Admin: 07/02/18 06:03 Dose: 25 mg Hydromorphone HCl (Dilaudid) 1 mg IVP Q4H PRN PRN Reason: Pain, severe (8-10) Last Admin: 07/02/18 06:12 Dose: 1 mg Cefepime HCl (Maxipime 2gm) 2 gm in 100 mls @ 100 mls/hr IVPB Q12 [facility]; Protocol Stop: 07/04/18 23:01 Last Admin: 07/01/18 23:14 Dose: 100 mls/hr Vancomycin HCl (Vancomycin 1gm) 1 gm in 250 mls @ 167 mls/hr IVPB Q12 [facility]; Protocol Last Admin: 07/01/18 21:29 Dose: 167 mls/hr Levalbuterol HCl (Xopenex) 0.63 mg IH [id number] PRN PRN Reason: Shortness of Breath Last Admin: 07/02/18 05:48 Dose: 0.63 mg Lisinopril (Zestril) 40 mg PO DAILY [facility] Last Admin: 07/01/18 11:55 Dose: 40 mg Methylprednisolone (Solu-Medrol) 40 mg IVP DAILY [facility] Last Admin: 07/01/18 10:54 Dose: 40 mg Metoprolol Tartrate (Lopressor) 25 mg PO BID [facility] Last Admin: 07/02/18 06:02 Dose: 25 mg Ondansetron HCl (Zofran Inj) 4 mg IVP Q6H PRN PRN Reason: Nausea/Vomiting Last Admin: 06/29/18 23:11 Dose: 4 mg Pantoprazole Sodium (Protonix Ec Tab) 40 mg PO 0600 [facility] Last Admin: 07/02/18 06:02 Dose: 40 mg Potassium Chloride (K-Dur 20 Meq Er Tab) 20 meq PO BRK [facility] Last Admin: 07/01/18 08:41 Dose: 20 meq Potassium Chloride (K-Dur 20 Meq Er Tab) 40 meq PO ONCE ONE Stop: 07/02/18 14:01 Pramipexole Dihydrochloride (Mirapex) 0.5 mg PO HS [facility] Last Admin: 07/01/18 21:29 Dose: 0.5 mg Spironolactone (Aldactone) 25 mg PO DAILY [facility] Last Admin: 07/01/18 11:03 Dose: 25 mg Topiramate (Topamax) 150 mg PO BID [facility]; Protocol Last Admin: 07/01/18 17:48 Dose: 150 mg Venlafaxine HCl (Effexor Xr) 150 mg PO BID [facility] Last Admin: 07/01/18 17:54 Dose: 150 mg - Labs Labs: 07/01/18 08:00 07/01/18 08:00 PT 13.5 SECONDS (9.4-12.5) H 06/28/18 06:30 INR 1.17 06/28/18 06:30 APTT 25.6 Seconds (25.1-36.5) 06/28/18 06:30 - Constitutional Appears: Non-toxic, No Acute Distress - Head Exam Head Exam: NORMAL INSPECTION, NORMOCEPHALIC - ENT Exam ENT Exam: Mucous Membranes Moist - Respiratory Exam Respiratory Exam: Decreased Breath Sounds, Wheezes, NORMAL BREATHING PATTERN - Cardiovascular Exam Cardiovascular Exam: +S1, +S2 - GI/Abdominal Exam GI & Abdominal Exam: Soft, Normal Bowel Sounds - Extremities Exam Additional comments: left shoulder fracture with arm sling - Neurological Exam Neurological Exam: Alert, Awake, Oriented x3 - Psychiatric Exam Psychiatric exam: Anxious - Skin Skin Exam: Dry, Intact, Normal Color, Warm Assessment and Plan - Assessment and Plan (Free Text) Assessment: A 68 year old female wh came in to the ER due post mechanical fall in middle of the night onto non-dominant left upper arm with arm sling. Xray showed left proximal humerus fracture.Patient for surgery thus consult was called to clear and risk stratify for surgery.History includes MN, transient hypotension, CHF ,former smoker,COPD, non obstructive coronary artery disease ,Abdominal Aortic Aneurysm (scheduled for repair at [facility] (June 2018) HTN, Rotator Cuff Injury with surgery, carotid endarterectomy. According to daughter, stress test was done recently and was normal. Cardiac work up was done for scheduled AAA repair surgery at [facility]. Will try to get in touch with Dr. Riley's to obtain for information..EKG showed NSR with frequent APC's and VPC's. no ST elevations. Echo done- Mild concentric hypertrophy, LVEF 59%, Trace AR, Aortic valve calcified with minimal narrowing, Mitral annulus calcified and mininmal narrowing, moderate TR- RVSP 43 mmg Hg, Mild pulmonary hypertension No evidence of ischemia, no evidence of heart failure, LVEF form ECHo 59%. stress test from [facility]- normal. Cleared for surgery from cardiac standpoint, no absolute con traindications. Moderate to high risk considering co-morbidities. ECHO done- Mild concentric hypertrophy, LVEF 59%, Trace AR, Aortic valve calcified with minimal narrowing, Mitral annulus calcified and minimal narrowing moderate TR- RVSP 43 mmg Hg, Mild pulmonary hypertension. Plan: Anxious, wheezing,mild shortness of breath, left shoulder pain Nebulizer treatment given, Dilaudid PRN given by RN Blood pressure uncontrolled PRN hydralazine Awaiting Left shoulder surgery- rescheduled Acute pneumonia, Continue IV antibiotics as ordered Heart rate controlled Cleared for surgery from cardiac standpoint, no absolute contraindications. Moderate to high risk considering co-morbidities On Lasix 40 mg daily, Hydralazine 10 mg QID PRN, Lisinopril 20 mg daily, Solumedrol 40 mg daily, Lopressor 25 mg BID, Kdur 20 meq daily, Aldactone 25 mg daily Replenish potassium Continue current treatment Continue current medications Chart reviewed Will follow up Plan and treatment discussed with Dr. Mead
[2018-07-02 06:46] LABS: BASO # 0.05 K/mm3 (0.0-2.0); BASO % 0.2 % (0.0-3.0); EOS # 0.1 (0.0-0.7); EOS % 0.2 % (1.5-5.0); GRAN # 17.63 (1.4-6.5); GRAN % 79.7 % (50.0-68.0); HEMOGLOBIN 10.3 g/dL (12.0-16.0); LYMPH # 2.3 (1.2-3.4); LYMPH % 10.5 % (22.0-35.0); MEAN CELL VOLUME 78.5 fl (80.0-105.0); MEAN CORPUSCULAR HEMOGLOBIN 24.9 pg (25.0-35.0); MEAN CORPUSCULAR HGB CONC 31.8 g/dl (31.0-37.0); MONO # 2.1 (0.1-0.6); MONO % 9.4 % (1.0-6.0); RBC 4.13 10^6/uL (3.5-6.1); RED CELL DISTRIBUTION WIDTH 14.7 % (11.5-14.5); WHITE BLOOD COUNT 22.1 10^3/ul (4.5-11.0)
[2018-07-02 07:24] LABS: ALBUMIN 3.5 g/dL (3.0-4.8); ALT/SGPT 29 U/L (7-56); AST/SGOT 44 U/L (14-36); BLOOD UREA NITROGEN 13 mg/dL (7-21); CALCIUM 9.3 mg/dL (8.4-10.5); GFR NON-AFRICAN AMERICAN > 60
[2018-07-02] MEDS: Potassium Chloride 20 mEq ER Tab PO SCH (08:12)
--- NOTE | 2018-07-02 08:19 | PN ---
DATE: 06/29/2018 REASON FOR DICTATION: Preop evaluation, risk stratification for surgery. The patient is cleared to go for surgery for the left shoulder. Echo showed preserved LV function, ejection fraction 59%. The patient had a cardiac catheterization twice with nonobstructive coronary artery disease. The patient has recently been scheduled for endovascular stent for AAA 5 cm and was scheduled last week, but was canceled because of uncontrolled blood pressure, but now the blood pressure is stable. Cleared the patient to go for surgery. We will monitor blood pressure. Gave the p.r.n. hydralazine. Further recommendations will depend upon hospital course. We will follow with you. If blood pressure remains elevated, we will increase lisinopril to 40 from tomorrow provided the blood pressure remains elevated. We will follow up postop. The patient is n.p.o. for operation at 10 o'clock. This note is in addition to note dictated by our nurse practitioner, Lucy Lambert. Thank you, Dr. Coburn, for providing us the opportunity in taking care of the patient, Blossom Fabian. Deedee Mead MD
--- NOTE | 2018-07-02 08:25 | PN ---
DATE: 06/30/2018 REASON FOR CONSULTATION AND FOLLOWUP: Preop evaluation, risk stratification, history of abdominal aortic aneurysm, awaiting surgery, supposed to be canceled because of pulmonary infiltrate. I recommended underlying condition. Continue interim antibiotics, continue hydralazine, continue Lasix p.o., continue beta-adela 25 p.o. b.i.d., continue lisinopril. CV status stable. Blood pressure stable. We will follow with you. We will discontinue telemetry. Patient is cleared from cardiology point of view to go for surgery with a moderate risk. No contraindication. Blood pressure is well controlled. Thank you for providing the opportunity in taking care of patient, Blossom Fabian. Deedee Mead MD
--- NOTE | 2018-07-02 09:26 | CP.PCM.PN ---
Subjective - Date & Time of Evaluation Date of Evaluation: 07/02/18 Time of Evaluation: 11:30 - Subjective Subjective: PGY-1 Medicine Progress note for Dr. Cassidy's service Patient seen and examined at bedside. Patient offers no acute complaints other than continued left arm pain. Patient denies fevers, chills, cp, sob, n/v, constipation or diarrhea, dysuria. Objective - Vital Signs/Intake and Output Vital Signs (last 24 hours): Temp Pulse Resp BP Pulse Ox 98 F 100 H 20 151/118 H 97 07/02/18 08:34 07/02/18 08:34 07/02/18 08:34 07/02/18 08:34 07/02/18 08:34 - Medications Medications: Current Medications Alprazolam (Xanax) 1 mg PO QID PRN; Protocol PRN Reason: Anxiety Last Admin: 07/01/18 11:02 Dose: 1 mg Docusate Sodium (Colace) 100 mg PO BID [facility] Last Admin: 07/01/18 17:49 Dose: 100 mg Doxycycline Hyclate (Doryx) 100 mg PO Q12 [facility]; Protocol Last Admin: 07/01/18 21:29 Dose: 100 mg Furosemide (Lasix) 40 mg PO DAILY [facility] Last Admin: 07/01/18 11:01 Dose: 40 mg Heparin Sodium (Porcine) (Heparin) 5,000 units SC Q8 [facility]; Protocol Last Admin: 07/02/18 06:03 Dose: 5,000 units Hydralazine HCl (Apresoline) 25 mg PO Q6 [facility] Last Admin: 07/02/18 06:03 Dose: 25 mg Hydromorphone HCl (Dilaudid) 1 mg IVP Q4H PRN PRN Reason: Pain, severe (8-10) Last Admin: 07/02/18 06:12 Dose: 1 mg Cefepime HCl (Maxipime 2gm) 2 gm in 100 mls @ 100 mls/hr IVPB Q12 [facility]; Protocol Stop: 07/04/18 23:01 Last Admin: 07/01/18 23:14 Dose: 100 mls/hr Vancomycin HCl (Vancomycin 1gm) 1 gm in 250 mls @ 167 mls/hr IVPB Q12 [facility]; Protocol Last Admin: 07/01/18 21:29 Dose: 167 mls/hr Levalbuterol HCl (Xopenex) 0.63 mg IH [id number] PRN PRN Reason: Shortness of Breath Last Admin: 07/02/18 07:14 Dose: 0.63 mg Lisinopril (Zestril) 40 mg PO DAILY [facility] Last Admin: 07/01/18 11:55 Dose: 40 mg Methylprednisolone (Solu-Medrol) 40 mg IVP DAILY [facility] Last Admin: 07/01/18 10:54 Dose: 40 mg Metoprolol Tartrate (Lopressor) 25 mg PO BID [facility] Last Admin: 07/02/18 06:02 Dose: 25 mg Ondansetron HCl (Zofran Inj) 4 mg IVP Q6H PRN PRN Reason: Nausea/Vomiting Last Admin: 06/29/18 23:11 Dose: 4 mg Pantoprazole Sodium (Protonix Ec Tab) 40 mg PO 0600 [facility] Last Admin: 07/02/18 06:02 Dose: 40 mg Potassium Chloride (K-Dur 20 Meq Er Tab) 20 meq PO BRK [facility] Last Admin: 07/02/18 08:12 Dose: 20 meq Potassium Chloride (K-Dur 20 Meq Er Tab) 40 meq PO ONCE ONE Stop: 07/02/18 14:01 Pramipexole Dihydrochloride (Mirapex) 0.5 mg PO HS [facility] Last Admin: 07/01/18 21:29 Dose: 0.5 mg Spironolactone (Aldactone) 25 mg PO DAILY [facility] Last Admin: 07/01/18 11:03 Dose: 25 mg Topiramate (Topamax) 150 mg PO BID [facility]; Protocol Last Admin: 07/01/18 17:48 Dose: 150 mg Venlafaxine HCl (Effexor Xr) 150 mg PO BID [facility] Last Admin: 07/01/18 17:54 Dose: 150 mg - Labs Labs: 07/02/18 06:20 07/02/18 06:20 PT 13.5 SECONDS (9.4-12.5) H 06/28/18 06:30 INR 1.17 06/28/18 06:30 APTT 25.6 Seconds (25.1-36.5) 06/28/18 06:30 - Additional Findings Additional findings: - Additional Findings Additional findings: - Constitutional Appears: Non-toxic, No Acute Distress - Head Exam Head Exam: NORMAL INSPECTION, NORMOCEPHALIC - Eye Exam Eye Exam: EOMI, Normal appearance. absent: Nystagmus, Scleral icterus - ENT Exam ENT Exam: Mucous Membranes Moist - Respiratory Exam Respiratory Exam: Clear to Ausculation Bilateral, NORMAL BREATHING PATTERN. absent: Rales, Rhonchi, Wheezes - Cardiovascular Exam Cardiovascular Exam: REGULAR RHYTHM, +S1, +S2 - GI/Abdominal Exam GI & Abdominal Exam: Soft, Normal Bowel Sounds. absent: Distended, Firm, Guarding, Tenderness - Extremities Exam Extremities Exam: Normal Inspection. absent: Calf Tenderness, Pedal Edema Additional Comments: left upper extremity arm sling - Neurological Exam Neurological Exam: Alert, Awake, Oriented x3 - Psychiatric Exam Psychiatric exam: Normal Affect, Normal Mood - Skin Skin Exam: Intact, Normal Color Assessment and Plan - Assessment and Plan (Free Text) Assessment: Patient is a 68 yo female with PMH of COPD, CAD, Abdominal Aortic Aneurysm, HTN, Rotator Cuff Injury, SD, history of CHF (EF-35 in 2016) presents to hospital for evaluation of arm pain s/p fall. Patient is a moderate to high risk patient which requires clearance prior to orthopedic surgery. Stable for surgery from cardiac standpoint. Surgery postponed due to Cxray suggestive of PNA. Likely plan for OR on Monday07/03/2018; Midline placed. Patient pain is controlled with Dilaudid. Complaining of new onset abdominal pain which has resolved s/p straight cath. Elevated blood pressures and pain today in the AM, resolved with Hydralazine. Plan: Humerus Fracture Ortho Consulted: Dr. Wolf- surgery rescheduled after CXR resulted, likely to go to OR on 07/03/2018 Cardio Consulted: Dr. Mead- Medically stable for surgery from cardiac standpoint, no absolute contraindications; Moderate to high risk considering comorobidites; continue medical management as planned with no changes 06-26-18 Humerus Xray- displaced obliquely oriented fracture of the proximal humeral shaft 06-27-18 Echo shows LV normal size; EF of 59; Aortic Valve caclified and shows minimal narrowing. Trace AR; Moderate MR; Moderate TR; Pulm HTN; no pericardial effusion 06-27-18 EKG Sinus rhythm with occasional PVC; Prolonged QTc at 495 06-28-18 CT humerus- oblique fracture of proximal left humerus with medial and superior overriding of the distal fracture segment, post tendon repair, left lower lobe infiltrate, cardiomegaly, widespread soft tissue contusion of upper arm Dilaudid 1mg IV q4h prn; Percocet 5/325 2 tab po q4h prn Aspirin 81mg held Plan for OR tomorow; Patient will be NPO; AC meds held Pneumonia 06-29-18 CXR: increase seen in a infiltrate in the right upper lobe and right lower lobe, findings suspicious for pneumonia ID consulted- Dr. Roca-recommendations as below Pulmonology consulted- Dr. Neal- recs as below On Cefepime (06-29) & Vancomycin (06-30) & Doxy (06-30) Blood culture- pending Procal 0.58 COPD 06-28-18 Cxray- airspace disease in the right lower lobe may represent developing PNA Xopenex 0.63mg IH 16g; Solumedrol 40mg IVP daily jennifer Hx of CHF Cardio Consulted- Dr. Mead- recommendations appreciated 06-27-18 Echo shows LV normal size; EF of 59; Aortic Valve caclified and shows minimal narrowing. Trace AR; Moderate MR; Moderate TR; Pulm HTN; no pericardial effusion Lasix 40mg po daily jennifer, Lopressor 25mg po bid; Aldactone 25mg bid; Lisinopril 20mg po daily Hyponatremia Resolved Repeat CMP in AM HTN Hydralazine 25mg po q6 jeninfer Lisinopril 40mg po dialy Lopressor 25mg po daily Clonidine 0.1mg x 1 Elevated Troponin 06-26-18 EKG sinus rhythm with occasional PVC, minimal voltage criteria for LVH, may be variant, prolonged QT, @97 bpm 06-29-18 EKG NSR with occasional PAC and frequent PVC, IVCD @91 bpm Chronic in issue after chart review Patient not complaining of chest pain Hemodynamically stable Anxiety Xanax 1mg po QID Depression Effexor 150mg daily Headache Topamax 50mg 3 tablets bid History of Herniated DIscs Dilaudid 0.5mg IV q4h prn Percocet 5/325 2 tab po q4h prn Hx of Abdominal Aortic Aneurysm Patient was seen in [place] 3 weeks prior for possible surgery Surgery was held as patient had very elevated blood pressures >220 Patient was discharged to further manage her blood pressure before surgical intervention 02/2018 CTA shows 4.7cm infrarenal AAA PPx DVT ppx- Heparin 5000 units sc GI ppx- Protonix 40mg Medical Management discussed with Dr. Malou Hinton PGY-1
[2018-07-02] MEDS: Venlafaxine 75 mg ER Cap PO SCH ×2 (10:38→17:43)
[2018-07-02] MEDS: MethylPREDNISolone 40 mg Vial IVP SCH (10:40)
[2018-07-02] MEDS: Cefepime IV 2 gm in NS 2 GM/100 ML BAG IVPB SCH ×2 (10:45→21:12)
[2018-07-02] MEDS: Vancomycin 1gm in NS 250ml 1 GM/250 ML BAG IVPB SCH ×2 (11:55→21:12)
[2018-07-02] MEDS ORDERED: Potassium Chloride 20 mEq ER Tab PO ONE (14:00)
--- NOTE | 2018-07-02 21:09 | CP.PCM.PN ---
Subjective - Date & Time of Evaluation Date of Evaluation: 07/02/18 Time of Evaluation: 15:00 - Subjective Subjective: Patient states she has pain in her left shoulder. Denies numbness/tingling. No new complaints. Objective - Vital Signs/Intake and Output Vital Signs (last 24 hours): Temp Pulse Resp BP Pulse Ox 98.5 F 97 H 20 149/90 94 L 07/02/18 14:00 07/02/18 14:00 07/02/18 14:00 07/02/18 17:44 07/02/18 14:00 Intake and Output: 07/02/18 07/03/18 18:59 06:59 Intake Total 240 480 Output Total 300 Balance 240 180 - Medications Medications: Current Medications Alprazolam (Xanax) 1 mg PO QID PRN; Protocol PRN Reason: Anxiety Last Admin: 07/02/18 14:02 Dose: 1 mg Docusate Sodium (Colace) 100 mg PO BID [facility] Last Admin: 07/02/18 17:44 Dose: 100 mg Doxycycline Hyclate (Doryx) 100 mg PO Q12 [facility]; Protocol Last Admin: 07/02/18 10:38 Dose: 100 mg Furosemide (Lasix) 40 mg PO DAILY [facility] Last Admin: 07/02/18 10:37 Dose: 40 mg Heparin Sodium (Porcine) (Heparin) 5,000 units SC Q8 [facility]; Protocol Last Admin: 07/02/18 14:02 Dose: 5,000 units Hydralazine HCl (Apresoline) 50 mg PO TID [facility] Last Admin: 07/02/18 17:43 Dose: 50 mg Hydromorphone HCl (Dilaudid) 1 mg IVP Q4H PRN PRN Reason: Pain, severe (8-10) Last Admin: 07/02/18 17:42 Dose: 1 mg Cefepime HCl (Maxipime 2gm) 2 gm in 100 mls @ 100 mls/hr IVPB Q12 [facility]; Protocol Stop: 07/04/18 23:01 Last Admin: 07/02/18 10:45 Dose: 100 mls/hr Vancomycin HCl (Vancomycin 1gm) 1 gm in 250 mls @ 167 mls/hr IVPB Q12 [facility]; Protocol Last Admin: 07/02/18 11:55 Dose: 167 mls/hr Levalbuterol HCl (Xopenex) 0.63 mg IH [id number] PRN PRN Reason: Shortness of Breath Last Admin: 07/02/18 13:37 Dose: 0.63 mg Lisinopril (Zestril) 40 mg PO DAILY [facility] Last Admin: 07/02/18 10:39 Dose: 40 mg Methylprednisolone (Solu-Medrol) 40 mg IVP DAILY [facility] Last Admin: 07/02/18 10:40 Dose: 40 mg Metoprolol Tartrate (Lopressor) 25 mg PO BID [facility] Last Admin: 07/02/18 17:44 Dose: 25 mg Ondansetron HCl (Zofran Inj) 4 mg IVP Q6H PRN PRN Reason: Nausea/Vomiting Last Admin: 06/29/18 23:11 Dose: 4 mg Pantoprazole Sodium (Protonix Ec Tab) 40 mg PO 0600 [facility] Last Admin: 07/02/18 06:02 Dose: 40 mg Potassium Chloride (K-Dur 20 Meq Er Tab) 20 meq PO BRK [facility] Last Admin: 07/02/18 08:12 Dose: 20 meq Pramipexole Dihydrochloride (Mirapex) 0.5 mg PO HS [facility] Last Admin: 07/01/18 21:29 Dose: 0.5 mg Spironolactone (Aldactone) 25 mg PO DAILY [facility] Last Admin: 07/02/18 10:39 Dose: 25 mg Topiramate (Topamax) 150 mg PO BID [facility]; Protocol Last Admin: 07/02/18 17:43 Dose: 150 mg Venlafaxine HCl (Effexor Xr) 150 mg PO BID [facility] Last Admin: 07/02/18 17:43 Dose: 150 mg - Labs Labs: 07/02/18 06:20 07/02/18 06:20 PT 13.5 SECONDS (9.4-12.5) H 06/28/18 06:30 INR 1.17 06/28/18 06:30 APTT 25.6 Seconds (25.1-36.5) 06/28/18 06:30 - Extremities Exam Additional comments: sling adjusted. +Rom wrist/fingers, has contracture of fingers at mcp jts aravind due to RA, no change in exam, sensation intact, +radial pulse Assessment and Plan (1) Fracture, humerus closed, shaft Assessment & Plan: for OR 07/03 will f/u repeat CXR WBC still elevated but patient on steroids cardiology noted d/w Dr. Cobunr, agrees withrajesh souza Status: Acute
--- NOTE | 2018-07-02 21:25 | CP.PCM.PN ---
Subjective - Date & Time of Evaluation Date of Evaluation: 07/02/18 Time of Evaluation: 11:15 - Subjective Subjective: Comfortable, no fevers, not in distress. Objective - Vital Signs/Intake and Output Vital Signs (last 24 hours): Temp Pulse Resp BP Pulse Ox 98.5 F 97 H 20 149/90 94 L 07/02/18 14:00 07/02/18 14:00 07/02/18 14:00 07/02/18 17:44 07/02/18 14:00 Intake and Output: 07/02/18 07/03/18 18:59 06:59 Intake Total 240 480 Output Total 300 Balance 240 180 - Medications Medications: Current Medications Alprazolam (Xanax) 1 mg PO QID PRN; Protocol PRN Reason: Anxiety Last Admin: 07/02/18 21:12 Dose: 1 mg Docusate Sodium (Colace) 100 mg PO BID [facility] Last Admin: 07/02/18 17:44 Dose: 100 mg Doxycycline Hyclate (Doryx) 100 mg PO Q12 [facility]; Protocol Last Admin: 07/02/18 21:12 Dose: 100 mg Furosemide (Lasix) 40 mg PO DAILY [facility] Last Admin: 07/02/18 10:37 Dose: 40 mg Heparin Sodium (Porcine) (Heparin) 5,000 units SC Q8 [facility]; Protocol Last Admin: 07/02/18 14:02 Dose: 5,000 units Hydralazine HCl (Apresoline) 50 mg PO TID [facility] Last Admin: 07/02/18 17:43 Dose: 50 mg Hydromorphone HCl (Dilaudid) 1 mg IVP Q4H PRN PRN Reason: Pain, severe (8-10) Last Admin: 07/02/18 17:42 Dose: 1 mg Cefepime HCl (Maxipime 2gm) 2 gm in 100 mls @ 100 mls/hr IVPB Q12 [facility]; Protocol Stop: 07/04/18 23:01 Last Admin: 07/02/18 21:12 Dose: 100 mls/hr Vancomycin HCl (Vancomycin 1gm) 1 gm in 250 mls @ 167 mls/hr IVPB Q12 [facility]; Protocol Last Admin: 07/02/18 21:12 Dose: 167 mls/hr Levalbuterol HCl (Xopenex) 0.63 mg IH [id number] PRN PRN Reason: Shortness of Breath Last Admin: 07/02/18 13:37 Dose: 0.63 mg Lisinopril (Zestril) 40 mg PO DAILY [facility] Last Admin: 07/02/18 10:39 Dose: 40 mg Methylprednisolone (Solu-Medrol) 40 mg IVP DAILY [facility] Last Admin: 07/02/18 10:40 Dose: 40 mg Metoprolol Tartrate (Lopressor) 25 mg PO BID [facility] Last Admin: 07/02/18 17:44 Dose: 25 mg Ondansetron HCl (Zofran Inj) 4 mg IVP Q6H PRN PRN Reason: Nausea/Vomiting Last Admin: 06/29/18 23:11 Dose: 4 mg Pantoprazole Sodium (Protonix Ec Tab) 40 mg PO 0600 [facility] Last Admin: 07/02/18 06:02 Dose: 40 mg Potassium Chloride (K-Dur 20 Meq Er Tab) 20 meq PO BRK [facility] Last Admin: 07/02/18 08:12 Dose: 20 meq Pramipexole Dihydrochloride (Mirapex) 0.5 mg PO HS [facility] Last Admin: 07/02/18 21:12 Dose: 0.5 mg Spironolactone (Aldactone) 25 mg PO DAILY [facility] Last Admin: 07/02/18 10:39 Dose: 25 mg Topiramate (Topamax) 150 mg PO BID [facility]; Protocol Last Admin: 07/02/18 17:43 Dose: 150 mg Venlafaxine HCl (Effexor Xr) 150 mg PO BID [facility] Last Admin: 07/02/18 17:43 Dose: 150 mg - Labs Labs: 07/02/18 06:20 07/02/18 06:20 PT 13.5 SECONDS (9.4-12.5) H 06/28/18 06:30 INR 1.17 06/28/18 06:30 APTT 25.6 Seconds (25.1-36.5) 06/28/18 06:30 - Constitutional Appears: Chronically Ill - Head Exam Head Exam: NORMAL INSPECTION - Neck Exam Neck Exam: absent: Meningismus - Cardiovascular Exam Cardiovascular Exam: +S1, +S2 - GI/Abdominal Exam GI & Abdominal Exam: Soft. absent: Tenderness Assessment and Plan - Assessment and Plan (Free Text) Plan: Assessment sepsis due to right sided HCAP left humerus fracture due to fall COPD CAD HTN history of rotator cuff injury abdominal aortic aneurysm chronic CHF S/P carotid endarterectomy Plan continue Vancomycin, Cefepime and Doxycycline day 3; blood cx have been negative; PCT is elevated at 0.58 - continue to trend WBC count will continue to monitor clinically
[2018-07-03] MEDS: Pantoprazole 40 mg EC Tab PO SCH (05:05)
[2018-07-03] MEDS: HYDROmorphone 1 mg/ml ISec IVP PRN (05:50)
[2018-07-03 07:00] LABS: BASO # 0.08 K/mm3 (0.0-2.0); BASO % 0.4 % (0.0-3.0); EOS % 0.1 % (1.5-5.0); GRAN # 17.39 (1.4-6.5); GRAN % 81.4 % (50.0-68.0); HEMOGLOBIN 9.9 g/dL (12.0-16.0); LYMPH # 1.8 (1.2-3.4); LYMPH % 8.5 % (22.0-35.0); MEAN CORPUSCULAR HEMOGLOBIN 24.5 pg (25.0-35.0); MEAN CORPUSCULAR HGB CONC 31.8 g/dl (31.0-37.0); MEAN PLATELET VOLUME 9.8 fl (7.0-11.0); MONO % 9.6 % (1.0-6.0); RBC 4.04 10^6/uL (3.5-6.1); RED CELL DISTRIBUTION WIDTH 14.6 % (11.5-14.5); WHITE BLOOD COUNT 21.4 10^3/ul (4.5-11.0)
[2018-07-03 07:09] LABS: INR 1.2; PARTIAL THROMBOPLASTIN TIME 26.9 Seconds (25.1-36.5); PROTHROMBIN TIME 13.9 SECONDS (9.4-12.5)
--- NOTE | 2018-07-03 07:14 | CP.PCM.PN ---
Subjective - Date & Time of Evaluation Date of Evaluation: 07/03/18 Time of Evaluation: 06:30 - Subjective Subjective: Awake,Lying in bed, no distress, anxious Reason for consultation and follow up: Cardiac evaluation for pre-op surgery of left shoulder, history of non obstructive coronary artery disease ,Abdominal Aortic Aneurysm, hypertension. Seen and examined by me and Dr. Mead Objective - Vital Signs/Intake and Output Vital Signs (last 24 hours): Temp Pulse Resp BP Pulse Ox 98.8 F 88 18 181/108 H 100 07/02/18 23:19 07/03/18 07:10 07/02/18 23:19 07/03/18 07:10 07/02/18 23:19 Intake and Output: 07/03/18 07/03/18 06:59 18:59 Intake Total 480 Output Total 300 Balance 180 - Medications Medications: Current Medications Alprazolam (Xanax) 1 mg PO QID PRN; Protocol PRN Reason: Anxiety Last Admin: 07/03/18 07:12 Dose: 1 mg Docusate Sodium (Colace) 100 mg PO BID [facility] Last Admin: 07/02/18 17:44 Dose: 100 mg Doxycycline Hyclate (Doryx) 100 mg PO Q12 [facility]; Protocol Last Admin: 07/02/18 21:12 Dose: 100 mg Furosemide (Lasix) 40 mg PO DAILY [facility] Last Admin: 07/02/18 10:37 Dose: 40 mg Heparin Sodium (Porcine) (Heparin) 5,000 units SC Q8 [facility]; Protocol Last Admin: 07/02/18 14:02 Dose: 5,000 units Hydralazine HCl (Apresoline) 50 mg PO TID [facility] Last Admin: 07/03/18 07:10 Dose: 50 mg Hydromorphone HCl (Dilaudid) 1 mg IVP Q4H PRN PRN Reason: Pain, severe (8-10) Last Admin: 07/03/18 05:50 Dose: 1 mg Cefepime HCl (Maxipime 2gm) 2 gm in 100 mls @ 100 mls/hr IVPB Q12 [facility]AT[facility]; Protocol Stop: 07/04/18 23:01 Last Admin: 07/02/18 21:12 Dose: 100 mls/hr Vancomycin HCl (Vancomycin 1gm) 1 gm in 250 mls @ 167 mls/hr IVPB Q12 [facility]; Protocol Last Admin: 10/08/18 21:12 Dose: 167 mls/hr Levalbuterol HCl (Xopenex) 0.63 mg IH [id number] PRN PRN Reason: Shortness of Breath Last Admin: 07/02/18 13:37 Dose: 0.63 mg Lisinopril (Zestril) 40 mg PO DAILY [facility] Last Admin: 07/02/18 10:39 Dose: 40 mg Methylprednisolone (Solu-Medrol) 40 mg IVP DAILY [facility] Last Admin: 07/02/18 10:40 Dose: 40 mg Metoprolol Tartrate (Lopressor) 25 mg PO BID [facility] Last Admin: 07/02/18 17:44 Dose: 25 mg Ondansetron HCl (Zofran Inj) 4 mg IVP Q6H PRN PRN Reason: Nausea/Vomiting Last Admin: 06/29/18 23:11 Dose: 4 mg Pantoprazole Sodium (Protonix Ec Tab) 40 mg PO 0600 [facility] Last Admin: 07/03/18 05:05 Dose: Not Given Potassium Chloride (K-Dur 20 Meq Er Tab) 20 meq PO BRK [facility] Last Admin: 07/02/18 08:12 Dose: 20 meq Pramipexole Dihydrochloride (Mirapex) 0.5 mg PO HS [facility] Last Admin: 07/02/18 21:12 Dose: 0.5 mg Spironolactone (Aldactone) 25 mg PO DAILY [facility] Last Admin: 07/02/18 10:39 Dose: 25 mg Topiramate (Topamax) 150 mg PO BID [facility]; Protocol Last Admin: 07/02/18 17:43 Dose: 150 mg Venlafaxine HCl (Effexor Xr) 150 mg PO BID [facility] Last Admin: 07/02/18 17:43 Dose: 150 mg - Labs Labs: 07/03/18 06:15 07/02/18 06:20 PT 13.9 SECONDS (9.4-12.5) H 07/03/18 06:15 INR 1.20 07/03/18 06:15 APTT 26.9 Seconds (25.1-36.5) 07/03/18 06:15 - Constitutional Appears: Non-toxic, No Acute Distress - Head Exam Head Exam: NORMAL INSPECTION, NORMOCEPHALIC - ENT Exam ENT Exam: Mucous Membranes Dry - Respiratory Exam Respiratory Exam: Decreased Breath Sounds, Clear to Ausculation Bilateral, NORMAL BREATHING PATTERN - Cardiovascular Exam Cardiovascular Exam: +S1, +S2 - GI/Abdominal Exam GI & Abdominal Exam: Soft, Normal Bowel Sounds - Extremities Exam Additional comments: left shoulder fracture with arm sling - Neurological Exam Neurological Exam: Alert, Awake, Oriented x3 - Psychiatric Exam Psychiatric exam: Anxious - Skin Skin Exam: Dry, Normal Color, Warm Assessment and Plan - Assessment and Plan (Free Text) Assessment: A 68 year old female wh came in to the ER due post mechanical fall in middle of the night onto non-dominant left upper arm with arm sling. Xray showed left proximal humerus fracture.Patient for surgery thus consult was called to clear and risk stratify for surgery.History includes AR, transient hypotension, CHF ,former smoker,COPD, non obstructive coronary artery disease ,Abdominal Aortic Aneurysm (scheduled for repair at [facility] (June 2018) HTN, Rotator Cuff Injury with surgery, carotid endarterectomy. According to daughter, stress test was done recently and was normal. Cardiac work up was done for scheduled AAA repair surgery at [facility]. Will try to get in touch with Dr. Riley's to obtain for information..EKG showed NSR with frequent APC's and VPC's. no ST elevations. Echo done- Mild concentric hypertrophy, LVEF 59%, Trace AR, Aortic valve calcified with minimal narrowing, Mitral annulus calcified and mininmal narrowing, moderate TR- RVSP 43 mmg Hg, Mild pulmonary hypertension No evidence of ischemia, no evidence of heart failure, LVEF form ECHo 59%. stress test from [facility]- normal. Cleared for surgery from cardiac standpoint, no absolute contraindications. Moderate to high risk considering co-morbidities. ECHO done- Mild concentric hypertrophy, LVEF 59%, Trace AR, Aortic valve calcified with mi nimal narrowing, Mitral annulus calcified and minimal narrowing moderate TR- RVSP 43 mmg Hg, Mild pulmonary hypertension.Acute pneumonia, Continue IV antibiotics as ordered,Awaiting Left shoulder surgery- rescheduled today. Plan: For Left shoulder surgery today NPO post midnight High Blood pressure this morning PRN hydralazine and pain medication given Heart rate controlled Acute pneumonia,on IV antibiotics Repeat Chest X ray done- result pending On Lasix 40 mg daily, Hydralazine 10 mg QID PRN, Lisinopril 20 mg daily, Solumedrol 40 mg daily, Lopressor 25 mg BID, Kdur 20 meq daily, Aldactone 25 mg daily H/H stable Continue current treatment Continue current medications Chart reviewed Will follow up postoperatively Plan and treatment discussed with Dr. Mead
[2018-07-03] MEDS: Levalbuterol 0.63 MG/3 ML Inhal Soln UD IH PRN (07:19)
[2018-07-03 07:21] LABS: ALB/GLOB RATIO 1.1 (1.1-1.8); ALBUMIN 3.4 g/dL (3.0-4.8); ALT/SGPT 28 U/L (7-56); AST/SGOT 33 U/L (14-36); BLOOD UREA NITROGEN 14 mg/dL (7-21); CALCIUM 9.3 mg/dL (8.4-10.5); GFR NON-AFRICAN AMERICAN > 60
--- NOTE | 2018-07-03 08:20 | RAD ---
Date of service: 07/02/2018 HISTORY: pna COMPARISON: 06/29/2018 FINDINGS: LUNGS: There is improvement in the bilateral infiltrates. PLEURA: No significant pleural effusion identified, no pneumothorax apparent. CARDIOVASCULAR: Normal. OSSEOUS STRUCTURES: No significant abnormalities. VISUALIZED UPPER ABDOMEN: Normal. OTHER FINDINGS: There is a right-sided PICC line that terminates in the right axilla. IMPRESSION: Improved bilateral infiltrates
--- NOTE | 2018-07-03 08:28 | PN ---
DATE: 07/02/2018 This note is in addition to the note dictated by nurse practitioner. The patient is scheduled for left shoulder surgery tomorrow. Denies chest any pain, shortness of breath, or any palpitation. The patient is cleared to go for surgery as a [id number] risk because of underlying comorbidity. Had cardiac catheterization twice, nonobstructive coronary artery disease as mentioned. Scheduled for AAA (abdominal aortic aneurysm) endovascular repair at [facility] but canceled because of uncontrolled hypertension. Plan is to aggressively control high blood pressure and increase to 50 t.i.d. hydralazine and if remain stable, surgery tomorrow. Continue lisinopril and we will increase hydralazine to 50 t.i.d. Further recommendations depending on the hospital course. We will follow with you. No evidence of congestive heart failure, no evidence of arrhythmia, and no evidence of angina. History of prior cardiac catheterization twice, nonobstructive coronary artery disease. We will increase hydralazine to 50 t.i.d. for better control of blood pressure. We will give 40 K-Dur for potassium 3.8. Thank you, Dr. Westfall, for providing us the opportunity in taking care of the patient, Blossom Fabian. Deedee Mead MD
[2018-07-03] MEDS: MethylPREDNISolone 40 mg Vial IVP SCH (10:44)
[2018-07-03] MEDS: Venlafaxine 75 mg ER Cap PO SCH ×2 (12:02→19:50)
[2018-07-03] MEDS: Potassium Chloride 20 mEq ER Tab PO SCH (12:03)
[2018-07-03] MEDS: Cefepime IV 2 gm in NS 2 GM/100 ML BAG IVPB SCH (12:03)
[2018-07-03] MEDS: Vancomycin 1gm in NS 250ml 1 GM/250 ML BAG IVPB SCH (12:04)
--- NOTE | 2018-07-03 16:11 | CP.PCM.PN ---
Subjective - Date & Time of Evaluation Date of Evaluation: 07/03/18 Time of Evaluation: 11:30 - Subjective Subjective: PGY-1 Medicine Progress note for Dr. Cassidy's service Patient seen and examined at bedside. Patient offers no acute complaints other than continued left arm pain. Patient states she has non productive cough at times. Patient denies fevers, chills, cp, sob, n/v, constipation or diarrhea, dysuria. Objective - Vital Signs/Intake and Output Vital Signs (last 24 hours): Temp Pulse Resp BP Pulse Ox 98 F 95 H 20 159/100 H 95 07/03/18 14:00 07/03/18 14:00 07/03/18 14:00 07/03/18 14:00 07/03/18 14:00 Intake and Output: 07/03/18 07/03/18 06:59 18:59 Intake Total 480 Output Total 300 Balance 180 - Medications Medications: Current Medications Alprazolam (Xanax) 1 mg PO QID PRN; Protocol PRN Reason: Anxiety Last Admin: 07/03/18 07:12 Dose: 1 mg Docusate Sodium (Colace) 100 mg PO BID [facility] Last Admin: 07/03/18 12:02 Dose: Not Given Doxycycline Hyclate (Doryx) 100 mg PO Q12 [facility]; Protocol Last Admin: 07/03/18 12:02 Dose: Not Given Furosemide (Lasix) 40 mg PO DAILY [facility] Last Admin: 07/03/18 10:43 Dose: 40 mg Heparin Sodium (Porcine) (Heparin) 5,000 units SC Q8 [facility]; Protocol Last Admin: 07/02/18 14:02 Dose: 5,000 units Hydralazine HCl (Apresoline) 50 mg PO TID [facility] Last Admin: 07/03/18 12:05 Dose: Not Given Hydromorphone HCl (Dilaudid) 1 mg IVP Q4H PRN PRN Reason: Pain, severe (8-10) Last Admin: 07/03/18 05:50 Dose: 1 mg Cefepime HCl (Maxipime 2gm) 2 gm in 100 mls @ 100 mls/hr IVPB Q12 [facility]; Protocol Stop: 07/04/18 23:01 Last Admin: 07/03/18 12:03 Dose: Not Given Vancomycin HCl (Vancomycin 1gm) 1 gm in 250 mls @ 167 mls/hr IVPB Q12 [facility]; Protocol Last Admin: 07/03/18 12:04 Dose: Not Given Levalbuterol HCl (Xopenex) 0.63 mg IH [id number] PRN PRN Reason: Shortness of Breath Last Admin: 07/03/18 07:19 Dose: 0.63 mg Lisinopril (Zestril) 40 mg PO DAILY [facility] Last Admin: 07/03/18 10:43 Dose: 40 mg Methylprednisolone (Solu-Medrol) 40 mg IVP DAILY [facility] Last Admin: 07/03/18 10:44 Dose: 40 mg Metoprolol Tartrate (Lopressor) 25 mg PO BID [facility] Last Admin: 07/03/18 10:45 Dose: 25 mg Ondansetron HCl (Zofran Inj) 4 mg IVP Q6H PRN PRN Reason: Nausea/Vomiting Last Admin: 06/29/18 23:11 Dose: 4 mg Pantoprazole Sodium (Protonix Ec Tab) 40 mg PO 0600 [facility] Last Admin: 07/03/18 05:05 Dose: Not Given Potassium Chloride (K-Dur 20 Meq Er Tab) 20 meq PO BRK [facility] Last Admin: 07/03/18 12:03 Dose: Not Given Pramipexole Dihydrochloride (Mirapex) 0.5 mg PO HS [facility] Last Admin: 07/02/18 21:12 Dose: 0.5 mg Spironolactone (Aldactone) 25 mg PO DAILY [facility] Last Admin: 07/03/18 10:43 Dose: 25 mg Topiramate (Topamax) 150 mg PO BID [facility]; Protocol Last Admin: 07/03/18 12:04 Dose: Not Given Venlafaxine HCl (Effexor Xr) 150 mg PO BID [facility] Last Admin: 07/03/18 12:02 Dose: Not Given - Labs Labs: 07/03/18 06:15 07/03/18 06:15 PT 13.9 SECONDS (9.4-12.5) H 07/03/18 06:15 INR 1.20 07/03/18 06:15 APTT 26.9 Seconds (25.1-36.5) 07/03/18 06:15 - Constitutional Appears: Non-toxic, No Acute Distress - Head Exam Head Exam: NORMAL INSPECTION, NORMOCEPHALIC - Eye Exam Eye Exam: EOMI, Normal appearance. absent: Nystagmus, Scleral icterus - ENT Exam ENT Exam: Mucous Membranes Moist - Respiratory Exam Respiratory Exam: Wheezes, NORMAL BREATHING PATTERN. absent: Decreased Breath Sounds, Rales, Rhonchi - Cardiovascular Exam Cardiovascular Exam: REGULAR RHYTHM, +S1, +S2. absent: Tachycardia - GI/Abdominal Exam GI & Abdominal Exam: Soft, Normal Bowel Sounds. absent: Tenderness - Extremities Exam Extremities Exam: Normal Inspection. absent: Calf Tenderness, Pedal Edema - Neurological Exam Neurological Exam: Alert, Awake, Oriented x3 - Psychiatric Exam Psychiatric exam: Normal Affect, Normal Mood - Skin Skin Exam: Intact, Normal Color Assessment and Plan - Assessment and Plan (Free Text) Assessment: Patient is a 68 yo female with PMH of COPD, CAD, Abdominal Aortic Aneurysm, HTN, Rotator Cuff Injury, CA, history of CHF (EF-35 in 2016) presents to hospital for evaluation of arm pain s/p fall. Patient is a moderate to high risk patient which requires clearance prior to orthopedic surgery. Stable for surgery from cardiac standpoint. Surgery postponed due to Cxray suggestive of PNA. Patient underwent OR procedure for humerus fracture today. Plan: Humerus Fracture Ortho Consulted: Dr. Wolf- surgery rescheduled after CXR resulted, likely to go to OR on 07/03/2018 Cardio Consulted: Dr. Mead- Medically stable for surgery from cardiac standpoint, no absolute contraindications; Moderate to high risk considering comorobidites; continue medical management as planned with no changes 06-26-18 Humerus Xray- displaced obliquely oriented fracture of the proximal humeral shaft 06-27-18 Echo shows LV normal size; EF of 59; Aortic Valve caclified and shows minimal narrowing. Trace AR; Moderate MR; Moderate TR; Pulm HTN; no pericardial effusion 06-27-18 EKG Sinus rhythm with occasional PVC; Prolonged QTc at 495 06-28-18 CT humerus- oblique fracture of proximal left humerus with medial and superior overriding of the distal fracture segment, post tendon repair, left lower lobe infiltrate, cardiomegaly, widespread soft tissue contusion of upper arm Dilaudid 1mg IV q4h prn; Percocet 5/325 2 tab po q4h prn Aspirin 81mg held Orthopedic procedure for today to fix fracture Pneumonia 06-29-18 CXR: increase seen in a infiltrate in the right upper lobe and right lower lobe, findings suspicious for pneumonia 07-02-18 CXR: improved bilateral infiltrates ID consulted- Dr. Roca-recommendations as below Pulmonology consulted- Dr. Neal- recs as below On Cefepime (06-29) & Vancomycin (06-30) & Doxy (06-30) Blood culture- pending Procal 0.58 COPD 06-28-18 Cxray- airspace disease in the right lower lobe may represent developing PNA Xopenex 0.63mg IH 16g; Solumedrol 40mg IVP daily jennifer Hx of CHF Cardio Consulted- Dr. Mead- recommendations appreciated 06-27-18 Echo shows LV normal size; EF of 59; Aortic Valve caclified and shows minimal narrowing. Trace AR; Moderate MR; Moderate TR; Pulm HTN; no pericardial effusion Lasix 40mg po daily jennifer, Lopressor 25mg po bid; Aldactone 25mg bid; Lisinopril 40mg po daily Hypokalemia KCL 40 meq po Kcl 10meq x 2 riders IVPB CMP in AM HTN Hydralazine 25mg po q6 jennifer Lisinopril 40mg po dialy Lopressor 25mg po daily Clonidine 0.1mg x 1 Elevated Troponin 06-26-18 EKG sinus rhythm with occasional PVC, minimal voltage criteria for LVH, may be variant, prolonged QT, @97 bpm 06-29-18 EKG NSR with occasional PAC and frequent PVC, IVCD @91 bpm Chronic in issue after chart review Patient not complaining of chest pain Hemodynamically stable Anxiety Xanax 1mg po QID Depression Effexor 150mg daily Headache Topamax 50mg 3 tablets bid History of Herniated DIscs Dilaudid 0.5mg IV q4h prn Percocet 5/325 2 tab po q4h prn Hx of Abdominal Aortic Aneurysm Patient was seen in [place] 3 weeks prior for possible surgery Surgery was held as patient had very elevated blood pressures >220 Patient was discharged to further manage her blood pressure before surgical intervention 02/2018 CTA shows 4.7cm infrarenal AAA PPx DVT ppx- Heparin 5000 units sc GI ppx- Protonix 40mg Medical Management discussed with Dr. Ange Hinton PGY-1
[2018-07-03] MEDS ORDERED: Potassium Chloride 20 mEq ER Tab PO ONE (16:16)
[2018-07-03 16:42] LABS: BLOOD UREA NITROGEN 15 mg/dL (7-21); CALCIUM 9.6 mg/dL (8.4-10.5); GFR NON-AFRICAN AMERICAN > 60
[2018-07-03] MEDS ORDERED: Bupivacaine 0.5% 50 ML IJ ONE (17:05)
--- NOTE | 2018-07-03 17:07 | CP.PCM.PN ---
Subjective - Date & Time of Evaluation Date of Evaluation: 07/03/18 Time of Evaluation: 11:55 - Subjective Subjective: No fevers, not in distress, still with but improving, still with left shoulder pain. Objective - Vital Signs/Intake and Output Vital Signs (last 24 hours): Temp Pulse Resp BP Pulse Ox 98 F 88 16 141/83 98 07/03/18 06:00 07/03/18 07:10 07/03/18 06:00 07/03/18 09:53 07/03/18 06:00 Intake and Output: 07/03/18 07/03/18 06:59 18:59 Intake Total 480 Output Total 300 Balance 180 - Medications Medications: Current Medications Alprazolam (Xanax) 1 mg PO QID PRN; Protocol PRN Reason: Anxiety Last Admin: 07/03/18 07:12 Dose: 1 mg Docusate Sodium (Colace) 100 mg PO BID [facility] Last Admin: 07/02/18 17:44 Dose: 100 mg Doxycycline Hyclate (Doryx) 100 mg PO Q12 [facility]; Protocol Last Admin: 07/02/18 21:12 Dose: 100 mg Furosemide (Lasix) 40 mg PO DAILY [facility] Last Admin: 07/02/18 10:37 Dose: 40 mg Heparin Sodium (Porcine) (Heparin) 5,000 units SC Q8 [facility]; Protocol Last Admin: 07/02/18 14:02 Dose: 5,000 units Hydralazine HCl (Apresoline) 50 mg PO TID [facility] Last Admin: 07/03/18 07:10 Dose: 50 mg Hydromorphone HCl (Dilaudid) 1 mg IVP Q4H PRN PRN Reason: Pain, severe (8-10) Last Admin: 07/03/18 05:50 Dose: 1 mg Cefepime HCl (Maxipime 2gm) 2 gm in 100 mls @ 100 mls/hr IVPB Q12 [facility]; Protocol Stop: 07/04/18 23:01 Last Admin: 07/02/18 21:12 Dose: 100 mls/hr Vancomycin HCl (Vancomycin 1gm) 1 gm in 250 mls @ 167 mls/hr IVPB Q12 [facility]; Protocol Last Admin: 07/02/18 21:12 Dose: 167 mls/hr Potassium Chloride (Potassium Chloride 20 Meq/100 Ml) 20 meq in 100 mls @ 50 mls/hr IVPB Q2H [facility] Stop: 07/03/18 14:14 Levalbuterol HCl (Xopenex) 0.63 mg IH [id number] PRN PRN Reason: Shortness of Breath Last Admin: 07/03/18 07:19 Dose: 0.63 mg Lisinopril (Zestril) 40 mg PO DAILY [facility] Last Admin: 07/02/18 10:39 Dose: 40 mg Methylprednisolone (Solu-Medrol) 40 mg IVP DAILY [facility] Last Admin: 07/02/18 10:40 Dose: 40 mg Metoprolol Tartrate (Lopressor) 25 mg PO BID [facility] Last Admin: 07/02/18 17:44 Dose: 25 mg Ondansetron HCl (Zofran Inj) 4 mg IVP Q6H PRN PRN Reason: Nausea/Vomiting Last Admin: 06/29/18 23:11 Dose: 4 mg Pantoprazole Sodium (Protonix Ec Tab) 40 mg PO 0600 [facility] Last Admin: 07/03/18 05:05 Dose: Not Given Potassium Chloride (K-Dur 20 Meq Er Tab) 20 meq PO BRK [facility] Last Admin: 07/02/18 08:12 Dose: 20 meq Pramipexole Dihydrochloride (Mirapex) 0.5 mg PO HS [facility] Last Admin: 07/02/18 21:12 Dose: 0.5 mg Spironolactone (Aldactone) 25 mg PO DAILY [facility] Last Admin: 07/02/18 10:39 Dose: 25 mg Topiramate (Topamax) 150 mg PO BID [facility]; Protocol Last Admin: 07/02/18 17:43 Dose: 150 mg Venlafaxine HCl (Effexor Xr) 150 mg PO BID [facility] Last Admin: 07/02/18 17:43 Dose: 150 mg - Labs Labs: 07/03/18 06:15 07/03/18 06:15 PT 13.9 SECONDS (9.4-12.5) H 07/03/18 06:15 INR 1.20 07/03/18 06:15 APTT 26.9 Seconds (25.1-36.5) 07/03/18 06:15 - Constitutional Appears: No Acute Distress, Chronically Ill - Head Exam Head Exam: NORMAL INSPECTION - Respiratory Exam Respiratory Exam: Decreased Breath Sounds - Cardiovascular Exam Cardiovascular Exam: +S1, +S2 - GI/Abdominal Exam GI & Abdominal Exam: Soft. absent: Tenderness Assessment and Plan - Assessment and Plan (Free Text) Plan: Assessment sepsis due to right sided HCAP, slowly improving left humerus fracture due to fall COPD CAD HTN history of rotator cuff injury abdominal aortic aneurysm chronic CHF S/P carotid endarterectomy Plan continue Vancomycin, Cefepime and Doxycycline day 4; blood cx have been negative; PCT is elevated at 0.58 - continue to trend WBC count - complete up to 7 days of therapy follow up plans for surgery on the left humerus will continue to monitor clinically
[2018-07-03] MEDS ORDERED: Succinylcholine 200 mg/10 ml Inj IV ONE (17:15)
[2018-07-03] MEDS ORDERED: Midazolam 2 MG/2 ML VIAL ONE (17:15)
[2018-07-03] MEDS ORDERED: Etomidate 20 mg/10ml Inj IV ONE (17:15)
[2018-07-03] MEDS ORDERED: Phenylephrine 10 mg/ml Inj ONE (17:38)
[2018-07-03] MEDS ORDERED: Rocuronium 10 mg/ml (5 ml) ONE (17:40)
--- NOTE | 2018-07-03 18:08 | PQF ---
PROVIDER RESPONSE TEXT: Provider was unable to determine a response for this query. REVIEWER QUERY TEXT: Rule Out Sepsis Clarification Rule out Sepsis is documented in the Medical Record. Please clarify whether: -- Patient has sepsis - Please document confirmed, suspected or probable causative organism - Please document confirmed, suspected or probable localized infection - Please clarify if sepsis is related to a device - Please clarify if sepsis was present on admission -- Sepsis was ruled out (include corresponding diagnosis for patient?s clinical picture and treatment ) -- Patient had sepsis which is resolved -- Other, please specify The patient's Clinical Indicators include: Patient admitted with fx left humerus, found to have pneumonia while here. ID golf tournament consultant noted patient also with sepsis due to pneumonia. Please clarify and document if you concur with this diagnosis. Query created by: Katty Dunbar on 07/03/2018 9:32 AM Electronically signed by: Srini Majano MD 07/03/2018 6:05 PM
[2018-07-03] MEDS ORDERED: Metoprolol 1 mg/ml Inj ONE (20:45)
[2018-07-03] MEDS ORDERED: Neostigmine Methylsulfate 3mg/3ml Syringe IV ONE (20:57)
[2018-07-03] MEDS ORDERED: HYDROmorphone 0.5 mg/0.5 ml ISec IVP PRN (21:16)
[2018-07-03] MEDS ORDERED: Lactated Ringer's 1,000 ML IV SCH (21:30)
[2018-07-04] MEDS: HYDROmorphone 1 mg/ml ISec IVP PRN ×2 (02:49→11:16)
[2018-07-04] MEDS ORDERED: Labetalol 5 mg/ml Inj 20ML IV ONE (05:03)
[2018-07-04] MEDS ORDERED: HYDROmorphone 1 mg/ml ISec IVP STA (05:39)
[2018-07-04] MEDS: Pantoprazole 40 mg EC Tab PO SCH (05:59)
--- NOTE | 2018-07-04 07:17 | CP.PCM.PN ---
Subjective - Date & Time of Evaluation Date of Evaluation: 07/04/18 Time of Evaluation: 06:15 - Subjective Subjective: Lying in bed, very anxious, moderate pain on shoulder Reason for consultation and follow up: Cardiac evaluation for pre-op surgery of left shoulder, history of non obstructive coronary artery disease ,Abdominal Aortic Aneurysm, hypertension.status post left shoulder surgery Seen and examined by me and Dr. Mead Objective - Vital Signs/Intake and Output Vital Signs (last 24 hours): Temp Pulse Resp BP Pulse Ox 97.9 F 116 H 18 166/112 H 91 L 07/03/18 22:37 07/04/18 06:37 07/03/18 22:37 07/04/18 06:37 07/03/18 22:37 Intake and Output: 07/04/18 07/04/18 06:59 18:59 Intake Total 575 Balance 575 - Medications Medications: Current Medications Alprazolam (Xanax) 1 mg PO QID PRN; Protocol PRN Reason: Anxiety Last Admin: 07/04/18 06:35 Dose: 1 mg Docusate Sodium (Colace) 100 mg PO BID [facility] Last Admin: 07/03/18 19:50 Dose: Not Given Doxycycline Hyclate (Doryx) 100 mg PO Q12 [facility]AT[facility]; Protocol Last Admin: 07/03/18 22:57 Dose: 100 mg Furosemide (Lasix) 40 mg PO DAILY [facility] Last Admin: 07/03/18 10:43 Dose: 40 mg Heparin Sodium (Porcine) (Heparin) 5,000 units SC Q8 KATRIN; Protocol Last Admin: 07/02/18 14:02 Dose: 5,000 units Hydralazine HCl (Apresoline) 50 mg PO TID [facility] Last Admin: 07/03/18 19:49 Dose: Not Given Hydromorphone HCl (Dilaudid) 1 mg IVP Q4H PRN PRN Reason: Pain, severe (8-10) Last Admin: 07/04/18 02:49 Dose: 1 mg Cefepime HCl (Maxipime 2gm) 2 gm in 100 mls @ 100 mls/hr IVPB Q12 KATRIN; Protocol Stop: 07/04/18 23:01 Last Admin: 07/03/18 12:03 Dose: Not Given Vancomycin HCl (Vancomycin 1gm) 1 gm in 250 mls @ 167 mls/hr IVPB Q12 KATRIN; Protocol Last Admin: 07/03/18 12:04 Dose: Not Given Levalbuterol HCl (Xopenex) 0.63 mg IH [id number] PRN PRN Reason: Shortness of Breath Last Admin: 07/03/18 07:19 Dose: 0.63 mg Lisinopril (Zestril) 40 mg PO DAILY [facility] Last Admin: 07/03/18 10:43 Dose: 40 mg Methylprednisolone (Solu-Medrol) 40 mg IVP DAILY [facility] Last Admin: 07/03/18 10:44 Dose: 40 mg Metoclopramide HCl (Reglan) 10 mg IV ONCE PRN PRN Reason: Nausea/Vomiting Metoprolol Tartrate (Lopressor) 25 mg PO BID [facility] Last Admin: 07/04/18 06:35 Dose: 25 mg Ondansetron HCl (Zofran Inj) 4 mg IVP Q6H PRN PRN Reason: Nausea/Vomiting Last Admin: 06/29/18 23:11 Dose: 4 mg Pantoprazole Sodium (Protonix Ec Tab) 40 mg PO 0600 [facility] Last Admin: 07/04/18 05:59 Dose: 40 mg Potassium Chloride (K-Dur 20 Meq Er Tab) 20 meq PO BRK [facility] Last Admin: 07/03/18 12:03 Dose: Not Given Pramipexole Dihydrochloride (Mirapex) 0.5 mg PO HS [facility] Last Admin: 07/03/18 22:57 Dose: 0.5 mg Spironolactone (Aldactone) 25 mg PO DAILY [facility] Last Admin: 07/03/18 10:43 Dose: 25 mg Topiramate (Topamax) 150 mg PO BID [facility]; Protocol Last Admin: 07/03/18 19:51 Dose: Not Given Venlafaxine HCl (Effexor Xr) 150 mg PO BID [facility] Last Admin: 07/03/18 19:50 Dose: Not Given - Labs Labs: 07/03/18 06:15 07/03/18 16:31 PT 13.9 SECONDS (9.4-12.5) H 07/03/18 06:15 INR 1.20 07/03/18 06:15 APTT 26.9 Seconds (25.1-36.5) 07/03/18 06:15 - Eye Exam Eye Exam: Normal appearance - ENT Exam ENT Exam: Mucous Membranes Dry - Respiratory Exam Respiratory Exam: Decreased Breath Sounds, Clear to Ausculation Bilateral Additional comments: mild shortness of breath on nasal cannula - Cardiovascular Exam Cardiovascular Exam: +S1, +S2 Additional comments: sinus trachycardia - GI/Abdominal Exam GI & Abdominal Exam: Soft, Normal Bowel Sounds - Extremities Exam Extremities Exam: Normal Capillary Refill Additional comments: left shoulder surgery with arm sling - Neurological Exam Neurological Exam: Alert, Awake, Oriented x3 - Psychiatric Exam Psychiatric exam: Anxious - Skin Skin Exam: Dry, Normal Color, Warm Assessment and Plan - Assessment and Plan (Free Text) Assessment: A 68 year old female wh came in to the ER due post mechanical fall in middle of the night onto non-dominant left upper arm with arm sling. Xray showed left proximal humerus fracture.Patient for surgery thus consult was called to clear and risk stratify for surgery.History includes AK, transient hypotension, CHF ,former smoker,COPD, non obstructive coronary artery disease ,Abdominal Aortic Aneurysm (scheduled for repair at [facility] (June 2018) HTN, Rotator Cuff Injury with surgery, carotid endarterectomy. According to daughter, stress test was done recently and was normal. Cardiac work up was done for scheduled AAA repair surgery at [place]. Will try to get in touch with Dr. Riley's to obtain for information..EKG showed NSR with frequent APC's and VPC's. no ST elevations. Echo done- Mild concentric hypertrophy, LVEF 59%, Trace AR, Aortic valve calcified with minimal narrowing, Mitral annulus calcified and mininmal narrowing, moderate TR- RVSP 43 mmg Hg, Mild pulmonary hypertension No evidence of ischemia, no evidence of heart failure, LVEF form ECHo 59%. stress test from [facility]- normal. Cleared for surgery from cardiac standpoint, no absolute contraindications. Moderate to high risk considering co-morbidities. ECHO done- Mild concentric hypertrophy, LVEF 59%, Trace AR, Aortic valve calcified with m inimal narrowing, Mitral annulus calcified and minimal narrowing moderate TR- RVSP 43 mmg Hg, Mild pulmonary hypertension.Acute pneumonia, Continue IV antibiotics as ordered,status post ORIF of Left proximal humeral fracture POD#1. Plan: Status post ORIF of Left proximal humeral fracture POD#1. Complaining of moderate shoulder pain PRN Dilaudid given Hypertensive- PRN IV Hydralazine given Repeat BP controlled 166/84 Very anxious-Xanax given Tachycardiac due to pain. On Lasix 40 mg daily, Hydralazine 10 mg QID PRN, Lisinopril 20 mg daily, Solumedrol 40 mg daily, Lopressor 25 mg BID, Kdur 20 meq daily, Aldactone 25 mg daily H/H stable Continue current treatment Continue current medications Chart reviewed Will follow up postoperatively Plan and treatment discussed with Dr. Mead
--- NOTE | 2018-07-04 07:30 | OP ---
PROCEDURE DATE: 07/03/2018 PREOPERATIVE DIAGNOSIS: Left proximal humerus fracture. POSTOPERATIVE DIAGNOSIS: Left proximal humerus fracture. PROCEDURE: Open reduction and internal fixation of left proximal humerus fracture and bone graft. SURGEON: Zuhair Coburn MD CORRECTIONAL OFFICER: Dr. Coburn was assisted by Radha Beck, the physician operational assistant. Ms. Beck was scrubbed and present throughout the entire case and assisted in patient's positioning, retraction and wound closure. ANESTHESIA: General. COMPLICATIONS: None. ESTIMATED BLOOD LOSS: 100 mL. IMPLANTS: Synthes proximal humerus locking plate and also demineralized bone matrix as bone graft. INDICATIONS FOR PROCEDURE: This is a 68-year-old female who presented status post fall with left shoulder pain. Clinical and radiographic examination was consistent with a displaced left proximal humerus fracture. CAT scan also showed some comminution in the region of the surgical neck. Recommendations were for open reduction and internal fixation of the fracture once patient was medically optimized. The risks, benefits and alternatives of the procedure were discussed with the patient including the possibility of hardware failure, symptomatic hardware, nonunion as well as concomitant rotator cuff tear and informed consent was obtained. OPERATIVE PROCEDURE: After the surgical site was signed and verified in the preoperative holding area, the patient was taken to the operating room and placed supine on the operating room table. After administration of general anesthesia, patient received perioperative antibiotics including vancomycin and Maxipime. Patient was positioned in the beach chair position. Care was taken to make sure the head was secured and well padded. Venodyne boots were placed on bilateral lower extremities. Lower extremities were also well padded and left upper extremity was prepped and draped in usual sterile fashion. The bony landmarks are identified about the left shoulder. A deltopectoral approach was done. once the cephalic vein was identified and gently retracted medially and the interval was developed down to the fascia. At this point, the long head of the biceps tendon was well visualized and was noted to be essentially torn. So the remaining portion was tenotomized and tacked to later repair. At this point, patient was noted to have copious hematoma, fracture hematoma and this was all evacuated and the wound was irrigated with antibiotic saline solution. At this point, the patient was evaluated. Patient was noted to have one long fragment laterally, who was noted to have some anteromedial comminution. An open reduction was performed and reduction was provisionally held using multiple K-wires. Reduction was verified using the image intensifier both AP, lateral and axillary planes. 5-hole Synthes proximal humerus locking plate was applied and held in place with the K-wire. Position of the plate was verified and the fracture was then fixed with 3 locking screws distally and 5 locking screws in the humeral head fragment. Position of each of the screws were verified using the image intensifier. Once satisfied, all the K-wires were removed and at this point the wound is copiously irrigated with antibiotic solution and anteromedial defect was packed with demineralized bone matrix. At this point, the biceps tendon was then tenodesed to the anterior cuff and the interval was loosely approximated with 0 Vicryl and 2-0 Vicryl sutures. Subcutaneous tissue was closed using 2-0 Vicryl suture and the skin was closed using 3-0 nylon. A sterile dressing was applied and a shoulder sling was placed. Patient was awakened from the procedure and taken to the recovery room in stable condition. Zuhair Coburn MD
[2018-07-04 07:32] LABS: BASO # 0.14 K/mm3 (0.0-2.0); BASO % 0.4 % (0.0-3.0); EOS % 0.1 % (1.5-5.0); GRAN % 81.9 % (50.0-68.0); LYMPH # 2.4 (1.2-3.4); LYMPH % 7.3 % (22.0-35.0); MEAN CELL VOLUME 77.2 fl (80.0-105.0); MEAN CORPUSCULAR HEMOGLOBIN 24.8 pg (25.0-35.0); MEAN CORPUSCULAR HGB CONC 32.1 g/dl (31.0-37.0); MEAN PLATELET VOLUME 9.8 fl (7.0-11.0); MONO # 3.4 (0.1-0.6); MONO % 10.3 % (1.0-6.0); RBC 4.04 10^6/uL (3.5-6.1); RED CELL DISTRIBUTION WIDTH 15.1 % (11.5-14.5)
[2018-07-04 07:37] LABS: ALBUMIN 3.2 g/dL (3.0-4.8); ALT/SGPT 29 U/L (7-56); AST/SGOT 35 U/L (14-36); BLOOD UREA NITROGEN 23 mg/dL (7-21); CALCIUM 8.8 mg/dL (8.4-10.5); GFR NON-AFRICAN AMERICAN > 60
--- NOTE | 2018-07-04 08:43 | RAD ---
Date of service: 07/03/2018 PROCEDURE: Left humerus HISTORY: s/p ORIF humerus fx COMPARISON: Preoperative study 06/26/2018. TECHNIQUE: Standard protocol for this study/examination. FINDINGS: Postoperative findings include orthopedic hardware traversing the previously identified oblique fracture of the proximal left humerus. Major fracture fragments are anatomically aligned. IMPRESSION: Satisfactory postoperative status.
--- NOTE | 2018-07-04 08:49 | CARD ---
APPROVED REPORT Date of service: 07/04/2018 EKG Measurement Heart [id number] CT [id number] <Conclusion> Sinus tachycardia with premature atrial complexes with aberrant conduction Voltage criteria for left ventricular hypertrophy Abnormal ECG
[2018-07-04] MEDS: Potassium Chloride 20 mEq ER Tab PO SCH (08:53)
--- NOTE | 2018-07-04 08:53 | PN ---
DATE: 07/03/2018 REASON FOR CONSULTATION AND FOLLOWUP: Preop evaluation, risk stratification for left shoulder surgery. This note is an addition to note dictated by nurse practitioner, Lucy Lambert. The patient denies any chest pain, shortness of breath, or any palpitation. The patient is cleared to go for surgery, history of cardiac catheterization twice, nonobstructive coronary artery disease, history of recent schedule for abdominal aortic aneurysm and was cleared by bobbin winder there as well. No further episode of arrhythmia, angina or CHF. Continue perioperative beta-adela. Continue hydralazine, control better blood pressure. Continue Lasix. Continue antibiotic, continue lisinopril. Blood pressure is very well controlled, 140/83, heart rate of 88. We will follow with you. Thank you, Dr. Westfall, for providing us the opportunity in taking care of the patient, Blossom Fabian. Deedee Mead MD
[2018-07-04] MEDS ORDERED: Magnesium Sulfate 1 gm in D5W 1 GM/100 ML BAG IVPB ONE (09:44)
[2018-07-04] MEDS: Venlafaxine 75 mg ER Cap PO SCH ×2 (09:50→17:39)
[2018-07-04] MEDS: Cefepime IV 2 gm in NS 2 GM/100 ML BAG IVPB SCH ×2 (09:52→22:34)
[2018-07-04] MEDS: MethylPREDNISolone 40 mg Vial IVP SCH (09:52)
[2018-07-04] MEDS: Vancomycin 1gm in NS 250ml 1 GM/250 ML BAG IVPB SCH ×2 (09:53→22:34)
--- NOTE | 2018-07-04 10:00 | RAD ---
Date of service: 07/03/2018 PROCEDURE: Fluoroscopy up to 1 hr. HISTORY: O.R.I.F. LEFT HUMERUS FX. COMPARISON: None TECHNIQUE: Standard protocol for this study/examination. FINDINGS: Total fluoroscopic time (continuous mode) utilized during the procedure 149.5 (seconds). Total exam DLP: 6.08 (mGy). IMPRESSION: Less than 1 hr fluoroscopic assistance provided during performance of the procedure.
[2018-07-04] MEDS ORDERED: Potassium Chloride 20 mEq ER Tab PO ONE (10:19)
--- NOTE | 2018-07-04 12:42 | RAD ---
Date of service: 07/04/2018 PROCEDURE: Radiographs of the Left Shoulder HISTORY: ORIF COMPARISON: No prior. FINDINGS: BONES: There is internal fixation of the left humeral fracture with a plate and multiple screws. There is anatomic alignment JOINTS: Normal. Glenohumeral and acromioclavicular joints preserved. No osteoarthritis. SOFT TISSUES: Normal. OTHER FINDINGS: None. IMPRESSION: There is internal fixation of the left humeral fracture with a plate and multiple screws. There is anatomic alignment
--- NOTE | 2018-07-04 13:36 | CP.PCM.PN ---
<JamaalBenashley - Last Filed: 07/04/18 13:33> Subjective - Date & Time of Evaluation Date of Evaluation: 07/04/18 Time of Evaluation: 11:10 - Subjective Subjective: PGY-1 Medicine Progress Note for Dr. Majano's service Patient seen and examined at bedside. Patient POD 1 for ORIF with ortho for humeral fracture. Patient denies pain upon interview. Patient reports increased shortness of breath. Patient denies fevers, chills, cp, n/v, constipation or diarrhea, weakness. Objective - Vital Signs/Intake and Output Vital Signs (last 24 hours): Temp Pulse Resp BP Pulse Ox 98.4 F 78 20 118/75 92 L 07/04/18 06:00 07/04/18 09:48 07/04/18 06:00 07/04/18 09:50 07/04/18 06:00 Intake and Output: 07/04/18 07/04/18 06:59 18:59 Intake Total 575 120 Balance 575 120 - Medications Medications: Current Medications Acetaminophen (Tylenol 325mg Tab) 650 mg PO Q6H PRN PRN Reason: Fever >100.4 F Alprazolam (Xanax) 1 mg PO QID PRN; Protocol PRN Reason: Anxiety Last Admin: 07/04/18 06:35 Dose: 1 mg Docusate Sodium (Colace) 100 mg PO BID [facility] Last Admin: 07/04/18 09:49 Dose: 100 mg Doxycycline Hyclate (Doryx) 100 mg PO Q12 [facility]; Protocol Last Admin: 07/04/18 09:49 Dose: 100 mg Furosemide (Lasix) 40 mg PO DAILY [facility] Last Admin: 07/04/18 09:50 Dose: 40 mg Heparin Sodium (Porcine) (Heparin) 5,000 units SC Q8 [facility]; Protocol Last Admin: 07/02/18 14:02 Dose: 5,000 units Hydralazine HCl (Apresoline) 50 mg PO TID [facility] Last Admin: 07/04/18 09:48 Dose: 50 mg Hydralazine HCl (Apresoline) 10 mg IVP Q6 PRN PRN Reason: hypertension Hydromorphone HCl (Dilaudid) 1 mg IVP Q4H PRN PRN Reason: Pain, severe (8-10) Last Admin: 07/04/18 11:16 Dose: 1 mg Cefepime HCl (Maxipime 2gm) 2 gm in 100 mls @ 100 mls/hr IVPB Q12 [facility]; Protocol Stop: 07/04/18 23:01 Last Admin: 07/04/18 09:52 Dose: 100 mls/hr Vancomycin HCl (Vancomycin 1gm) 1 gm in 250 mls @ 167 mls/hr IVPB Q12 [facility]; Protocol Last Admin: 07/04/18 09:53 Dose: 167 mls/hr Levalbuterol HCl (Xopenex) 0.63 mg IH [id number] PRN PRN Reason: Shortness of Breath Last Admin: 07/03/18 07:19 Dose: 0.63 mg Lisinopril (Zestril) 40 mg PO DAILY [facility] Last Admin: 07/04/18 09:53 Dose: 40 mg Methylprednisolone (Solu-Medrol) 40 mg IVP DAILY [facility] Last Admin: 07/04/18 09:52 Dose: 40 mg Metoclopramide HCl (Reglan) 10 mg IV ONCE PRN PRN Reason: Nausea/Vomiting Metoprolol Tartrate (Lopressor) 25 mg PO BID [facility] Last Admin: 07/04/18 09:51 Dose: Not Given Ondansetron HCl (Zofran Inj) 4 mg IVP Q6H PRN PRN Reason: Nausea/Vomiting Last Admin: 06/29/18 23:11 Dose: 4 mg Oxycodone HCl (Oxycodone Immediate Release Tab) 5 mg PO Q4H PRN PRN Reason: Pain, Mild (1-3) Pantoprazole Sodium (Protonix Ec Tab) 40 mg PO 0600 [facility] Last Admin: 07/04/18 05:59 Dose: 40 mg Potassium Chloride (K-Dur 20 Meq Er Tab) 20 meq PO BRK [facility] Last Admin: 07/04/18 08:53 Dose: 20 meq Pramipexole Dihydrochloride (Mirapex) 0.5 mg PO HS [facility] Last Admin: 07/03/18 22:57 Dose: 0.5 mg Spironolactone (Aldactone) 25 mg PO DAILY [facility] Last Admin: 07/04/18 09:48 Dose: 25 mg Topiramate (Topamax) 150 mg PO BID [facility]; Protocol Last Admin: 07/04/18 09:52 Dose: 150 mg Venlafaxine HCl (Effexor Xr) 150 mg PO BID [facility] Last Admin: 07/04/18 09:50 Dose: 150 mg - Labs Labs: 07/04/18 06:40 07/04/18 06:40 PT 13.9 SECONDS (9.4-12.5) H 07/03/18 06:15 INR 1.20 07/03/18 06:15 APTT 26.9 Seconds (25.1-36.5) 07/03/18 06:15 - Additional Findings Additional findings: - Constitutional Appears: Non-toxic, No Acute Distress - Head Exam Head Exam: NORMAL INSPECTION, NORMOCEPHALIC - Eye Exam Eye Exam: EOMI, Normal appearance. absent: Nystagmus, Scleral icterus - ENT Exam ENT Exam: Mucous Membranes Moist - Respiratory Exam Respiratory Exam: Wheezes, NORMAL BREATHING PATTERN. absent: Decreased Breath Sounds, Rales, Rhonchi - Cardiovascular Exam Cardiovascular Exam: REGULAR RHYTHM, +S1, +S2. absent: Tachycardia - GI/Abdominal Exam GI & Abdominal Exam: Soft, Normal Bowel Sounds. absent: Tenderness - Extremities Exam Extremities Exam: Normal Inspection. absent: Calf Tenderness, Pedal Edema Additional Information: sling in place, left arm swollen with ecchymosis - Neurological Exam Neurological Exam: Alert, Awake, Oriented x3 - Psychiatric Exam Psychiatric exam: Normal Affect, Normal Mood - Skin Skin Exam: Intact, Normal Color Assessment and Plan - Assessment and Plan (Free Text) Assessment: Patient is a 68 yo female with PMH of COPD, CAD, Abdominal Aortic Aneurysm, HTN, Rotator Cuff Injury, [place], history of CHF (EF-35 in 2016) presents to hospital for evaluation of arm pain s/p fall. Patient is a moderate to high risk patient which requires clearance prior to orthopedic surgery. Stable for surgery from cardiac standpoint. Surgery postponed due to Cxray suggestive of PNA. POD 1 from ORIF with ortho surgeons. Plan: Humerus Fracture Ortho Consulted: Dr. Wolf- surgery rescheduled after CXR resulted, likely to go to OR on 07/03/2018 Cardio Consulted: Dr. Mead- Medically stable for surgery from cardiac standpoint, no absolute contraindications; Moderate to high risk considering comorobidites; continue medical management as planned with no changes 06-26-18 Humerus Xray- displaced obliquely oriented fracture of the proximal humeral shaft 06-27-18 Echo shows LV normal size; EF of 59; Aortic Valve caclified and shows minimal narrowing. Trace AR; Moderate MR; Moderate TR; Pulm HTN; no pericardial effusion 06-27-18 EKG Sinus rhythm with occasional PVC; Prolonged QTc at 495 06-28-18 CT humerus- oblique fracture of proximal left humerus with medial and superior overriding of the distal fracture segment, post tendon repair, left lower lobe infiltrate, cardiomegaly, widespread soft tissue contusion of upper arm Dilaudid 1mg IV q4h prn; Percocet 5/325 2 tab po q4h prn Orthopedic procedure ORIF performed: POD 1; Repeat Humeral fracture shows satisfactory procedure Pneumonia 06-29-18 CXR: increase seen in a infiltrate in the right upper lobe and right lower lobe, findings suspicious for pneumonia 07-02-18 CXR: improved bilateral infiltrates ID consulted- Dr. Roca-recommendations as below Pulmonology consulted- Dr. Neal- recs as below On Cefepime (06-29) & Vancomycin (06-30) & Doxy (06-30) need 7 days for complete treatment Blood culture- pending Procal 0.58 COPD 06-28-18 Cxray- airspace disease in the right lower lobe may represent developing PNA Xopenex 0.63mg IH 16g; Solumedrol 40mg IVP daily [facility]ennifer- held Hx of CHF Cardio Consulted- Dr. Mead- recommendations appreciated 06-27-18 Echo shows LV normal size; EF of 59; Aortic Valve caclified and shows minimal narrowing. Trace AR; Moderate MR; Moderate TR; Pulm HTN; no pericardial effusion Lasix 40mg po daily [facility], Lopressor 25mg po bid; Aldactone 25mg bid; Lisinopril 40mg po daily Hypokalemia KCl 20 meq po jennifer CMP in AM HTN Hydralazine 25mg po q6 [facility] Lisinopril 40mg po daily Lopressor 25mg po bid Aldactone 25mg po harley Elevated Troponin 06-26-18 EKG sinus rhythm with occasional PVC, minimal voltage criteria for LVH, may be variant, prolonged QT, @97 bpm 06-29-18 EKG NSR with occasional PAC and frequent PVC, IVCD @91 bpm Chronic in issue after chart review Patient not complaining of chest pain Hemodynamically stable Anxiety Xanax 1mg po QID Depression Effexor 150mg daily Headache Topamax 50mg 3 tablets bid History of Herniated DIscs Dilaudid 0.5mg IV q4h prn Percocet 5/325 2 tab po q4h prn Hx of Abdominal Aortic Aneurysm Patient was seen in [place] 3 weeks prior for possible surgery Surgery was held as patient had very elevated blood pressures >220 Patient was discharged to further manage her blood pressure before surgical intervention 02/2018 CTA shows 4.7cm infrarenal AAA PPx DVT ppx-held for surgery; will restart as per ortho AC recs GI ppx- Protonix 40mg Medical Management discussed with Dr. Ange Hinton PGY-1 <Srini Majano - Last Filed: 07/04/18 17:23> Objective - Vital Signs/Intake and Output Vital Signs (last 24 hours): Temp Pulse Resp BP Pulse Ox 97.8 F 103 H 20 137/93 H 97 07/04/18 14:00 07/04/18 14:00 07/04/18 14:00 07/04/18 14:00 07/04/18 14:00 Intake and Output: 07/04/18 07/04/18 06:59 18:59 Intake Total 575 120 Balance 575 120 - Medications Medications: Current Medications Acetaminophen (Tylenol 325mg Tab) 650 mg PO Q6H PRN PRN Reason: Fever >100.4 F Alprazolam (Xanax) 1 mg PO QID PRN; Protocol PRN Reason: Anxiety Last Admin: 07/04/18 16:32 Dose: 1 mg Docusate Sodium (Colace) 100 mg PO BID [facility] Last Admin: 07/04/18 09:49 Dose: 100 mg Doxycycline Hyclate (Doryx) 100 mg PO Q12 [facility]; Protocol Last Admin: 07/04/18 09:49 Dose: 100 mg Furosemide (Lasix) 40 mg PO DAILY [facility] Last Admin: 07/04/18 09:50 Dose: 40 mg Heparin Sodium (Porcine) (Heparin) 5,000 units SC Q8 [facility]; Protocol Last Admin: 07/02/18 14:02 Dose: 5,000 units Hydralazine HCl (Apresoline) 50 mg PO TID [facility] Last Admin: 07/04/18 13:40 Dose: 50 mg Hydralazine HCl (Apresoline) 10 mg IVP Q6 PRN PRN Reason: hypertension Hydromorphone HCl (Dilaudid) 1 mg IVP Q4H PRN PRN Reason: Pain, severe (8-10) Last Admin: 07/04/18 11:16 Dose: 1 mg Cefepime HCl (Maxipime 2gm) 2 gm in 100 mls @ 100 mls/hr IVPB Q12 [facility]; Protocol Stop: 07/04/18 23:01 Last Admin: 07/04/18 09:52 Dose: 100 mls/hr Vancomycin HCl (Vancomycin 1gm) 1 gm in 250 mls @ 167 mls/hr IVPB Q12 [facility]; Protocol Last Admin: 07/04/18 09:53 Dose: 167 mls/hr Levalbuterol HCl (Xopenex) 0.63 mg IH [id number] PRN PRN Reason: Shortness of Breath Last Admin: 07/03/18 07:19 Dose: 0.63 mg Lisinopril (Zestril) 40 mg PO DAILY [facility] Last Admin: 07/04/18 09:53 Dose: 40 mg Methylprednisolone (Solu-Medrol) 40 mg IVP DAILY [facility] Last Admin: 07/04/18 09:52 Dose: 40 mg Metoclopramide HCl (Reglan) 10 mg IV ONCE PRN PRN Reason: Nausea/Vomiting Metoprolol Tartrate (Lopressor) 25 mg PO BID [facility] Last Admin: 07/04/18 09:51 Dose: Not Given Ondansetron HCl (Zofran Inj) 4 mg IVP Q6H PRN PRN Reason: Nausea/Vomiting Last Admin: 06/29/18 23:11 Dose: 4 mg Oxycodone HCl (Oxycodone Immediate Release Tab) 5 mg PO Q4H PRN PRN Reason: Pain, Mild (1-3) Pantoprazole Sodium (Protonix Ec Tab) 40 mg PO 0600 [facility] Last Admin: 07/04/18 05:59 Dose: 40 mg Potassium Chloride (K-Dur 20 Meq Er Tab) 20 meq PO BRK [facility] Last Admin: 07/04/18 08:53 Dose: 20 meq Pramipexole Dihydrochloride (Mirapex) 0.5 mg PO HS [facility] Last Admin: 07/03/18 22:57 Dose: 0.5 mg Spironolactone (Aldactone) 25 mg PO DAILY [facility] Last Admin: 07/04/18 09:48 Dose: 25 mg Topiramate (Topamax) 150 mg PO BID [facility]; Protocol Last Admin: 07/04/18 09:52 Dose: 150 mg Venlafaxine HCl (Effexor Xr) 150 mg PO BID [facility] Last Admin: 07/04/18 09:50 Dose: 150 mg - Labs Labs: 07/04/18 06:40 07/04/18 06:40 PT 13.9 SECONDS (9.4-12.5) H 07/03/18 06:15 INR 1.20 07/03/18 06:15 APTT 26.9 Seconds (25.1-36.5) 07/03/18 06:15 Attending/Attestation - Attestation I have personally seen and examined this patient.: Yes I have fully participated in the care of the patient.: Yes I have reviewed all pertinent clinical information, including history, physical exam and plan: Yes Notes (Text): 07/04/18 17:17 68 year old female with past medical history of COPD, CAD, hypertension and CHF who presented s/p fall found to have humerus fracture. She is s/p ORIF POD #1. She is going to postop xray today. She is on iv antibiotics for pneumonia and iv steroids for COPD. Continue to monitor leukocytosis closely; likely multifactorial (steroids, reactive). Srini Majano MD Hospitalist.
--- NOTE | 2018-07-04 14:02 | RAD ---
Date of service: 07/04/2018 HISTORY: sob COMPARISON: 07/02/2018 FINDINGS: LUNGS: There is a patchy infiltrate at the right lung base. The lungs are otherwise clear PLEURA: No significant pleural effusion identified, no pneumothorax apparent. CARDIOVASCULAR: Normal. OSSEOUS STRUCTURES: No significant abnormalities. VISUALIZED UPPER ABDOMEN: Normal. OTHER FINDINGS: None. IMPRESSION: Patchy infiltrate at the right lung base
--- NOTE | 2018-07-04 17:10 | CP.PCM.PN ---
Subjective - Date & Time of Evaluation Date of Evaluation: 07/04/18 Time of Evaluation: 12:05 - Subjective Subjective: Patient had surgery yesterday and doing better, cough is less, no fevers. Objective - Vital Signs/Intake and Output Vital Signs (last 24 hours): Temp Pulse Resp BP Pulse Ox 97.9 F 116 H 18 166/112 H 91 L 07/03/18 22:37 07/04/18 06:37 07/03/18 22:37 07/04/18 06:37 07/03/18 22:37 Intake and Output: 07/04/18 07/04/18 06:59 18:59 Intake Total 575 Balance 575 - Medications Medications: Current Medications Alprazolam (Xanax) 1 mg PO QID PRN; Protocol PRN Reason: Anxiety Last Admin: 07/04/18 06:35 Dose: 1 mg Docusate Sodium (Colace) 100 mg PO BID [facility] Last Admin: 07/03/18 19:50 Dose: Not Given Doxycycline Hyclate (Doryx) 100 mg PO Q12 [facility]; Protocol Last Admin: 07/03/18 22:57 Dose: 100 mg Furosemide (Lasix) 40 mg PO DAILY [facility] Last Admin: 07/03/18 10:43 Dose: 40 mg Heparin Sodium (Porcine) (Heparin) 5,000 units SC Q8 [facility]; Protocol Last Admin: 07/02/18 14:02 Dose: 5,000 units Hydralazine HCl (Apresoline) 50 mg PO TID [facility] Last Admin: 07/03/18 19:49 Dose: Not Given Hydralazine HCl (Apresoline) 10 mg IVP Q6 PRN PRN Reason: hypertension Hydromorphone HCl (Dilaudid) 1 mg IVP Q4H PRN PRN Reason: Pain, severe (8-10) Last Admin: 07/04/18 02:49 Dose: 1 mg Cefepime HCl (Maxipime 2gm) 2 gm in 100 mls @ 100 mls/hr IVPB Q12 [facility]; Protocol Stop: 07/04/18 23:01 Last Admin: 07/03/18 12:03 Dose: Not Given Vancomycin HCl (Vancomycin 1gm) 1 gm in 250 mls @ 167 mls/hr IVPB Q12 [facility]; Protocol Last Admin: 07/03/18 12:04 Dose: Not Given Levalbuterol HCl (Xopenex) 0.63 mg IH [id number] PRN PRN Reason: Shortness of Breath Last Admin: 07/03/18 07:19 Dose: 0.63 mg Lisinopril (Zestril) 40 mg PO DAILY [facility] Last Admin: 07/03/18 10:43 Dose: 40 mg Methylprednisolone (Solu-Medrol) 40 mg IVP DAILY [facility] Last Admin: 07/03/18 10:44 Dose: 40 mg Metoclopramide HCl (Reglan) 10 mg IV ONCE PRN PRN Reason: Nausea/Vomiting Metoprolol Tartrate (Lopressor) 25 mg PO BID [facility] Last Admin: 07/04/18 06:35 Dose: 25 mg Ondansetron HCl (Zofran Inj) 4 mg IVP Q6H PRN PRN Reason: Nausea/Vomiting Last Admin: 06/29/18 23:11 Dose: 4 mg Pantoprazole Sodium (Protonix Ec Tab) 40 mg PO 0600 [facility] Last Admin: 07/04/18 05:59 Dose: 40 mg Potassium Chloride (K-Dur 20 Meq Er Tab) 20 meq PO BRK [facility] Last Admin: 07/03/18 12:03 Dose: Not Given Pramipexole Dihydrochloride (Mirapex) 0.5 mg PO HS [facility] Last Admin: 07/03/18 22:57 Dose: 0.5 mg Spironolactone (Aldactone) 25 mg PO DAILY [facility] Last Admin: 07/03/18 10:43 Dose: 25 mg Topiramate (Topamax) 150 mg PO BID [facility]; Protocol Last Admin: 07/03/18 19:51 Dose: Not Given Venlafaxine HCl (Effexor Xr) 150 mg PO BID [facility] Last Admin: 07/03/18 19:50 Dose: Not Given - Labs Labs: 07/04/18 06:40 07/04/18 06:40 PT 13.9 SECONDS (9.4-12.5) H 07/03/18 06:15 INR 1.20 07/03/18 06:15 APTT 26.9 Seconds (25.1-36.5) 07/03/18 06:15 - Constitutional Appears: No Acute Distress, Chronically Ill - Head Exam Head Exam: NORMAL INSPECTION - Respiratory Exam Respiratory Exam: Decreased Breath Sounds - Cardiovascular Exam Cardiovascular Exam: +S1, +S2 - GI/Abdominal Exam GI & Abdominal Exam: Soft. absent: Tenderness - Extremities Exam Additional comments: left arm with dressings in place Assessment and Plan - Assessment and Plan (Free Text) Plan: Assessment sepsis due to right sided HCAP, clinically improving left humerus fracture due to fall S/P surgery POD #1 COPD CAD HTN history of rotator cuff injury abdominal aortic aneurysm chronic CHF S/P carotid endarterectomy Plan continue Vancomycin, Cefepime and Doxycycline day 5 to complete 7 days; blood cx have been negative; PCT is elevated at 0.58 - continue to trend WBC count - complete up to 7 days of therapy will continue to monitor clinically
[2018-07-04] MEDS: oxyCODONE 5 mg Immediate Release Tab PO PRN (17:37)
[2018-07-04] MEDS: Levalbuterol 0.63 MG/3 ML Inhal Soln UD IH PRN (20:05)
[2018-07-05] MEDS: Pantoprazole 40 mg EC Tab PO SCH (05:24)
[2018-07-05 07:03] LABS: BASO # 0.12 K/mm3 (0.0-2.0); BASO % 0.5 % (0.0-3.0); EOS # 0.2 (0.0-0.7); EOS % 0.7 % (1.5-5.0); GRAN # 18.66 (1.4-6.5); GRAN % 77.9 % (50.0-68.0); HEMOGLOBIN 9.1 g/dL (12.0-16.0); LYMPH # 3.1 (1.2-3.4); MEAN CELL VOLUME 76.5 fl (80.0-105.0); MEAN CORPUSCULAR HEMOGLOBIN 24.6 pg (25.0-35.0); MEAN CORPUSCULAR HGB CONC 32.2 g/dl (31.0-37.0); MEAN PLATELET VOLUME 9.9 fl (7.0-11.0); MONO # 1.9 (0.1-0.6); MONO % 7.9 % (1.0-6.0); RBC 3.7 10^6/uL (3.5-6.1); RED CELL DISTRIBUTION WIDTH 15.3 % (11.5-14.5); WHITE BLOOD COUNT 23.9 10^3/ul (4.5-11.0)
[2018-07-05 07:10] LABS: ALBUMIN 2.8 g/dL (3.0-4.8); ALT/SGPT 27 U/L (7-56); AST/SGOT 27 U/L (14-36); BLOOD UREA NITROGEN 26 mg/dL (7-21); CALCIUM 8.2 mg/dL (8.4-10.5); GFR NON-AFRICAN AMERICAN > 60
--- NOTE | 2018-07-05 07:18 | CP.PCM.PN ---
Subjective - Date & Time of Evaluation Date of Evaluation: 07/05/18 Time of Evaluation: 06:30 - Subjective Subjective: Awake, alert, Lying in bed, moderate pain on left shoulder with arm sling elevated pillow Reason for consultation and follow up: Cardiac evaluation for pre-op surgery of left shoulder, history of non obstructive coronary artery disease ,Abdominal Aortic Aneurysm, hypertension.status post left shoulder ORIF Seen and examined by me and Dr. Mead Objective - Vital Signs/Intake and Output Vital Signs (last 24 hours): Temp Pulse Resp BP Pulse Ox 97.7 F 84 20 112/69 94 L 07/04/18 22:00 07/04/18 22:00 07/04/18 22:00 07/04/18 22:00 07/04/18 22:00 Intake and Output: 07/05/18 07/05/18 06:59 18:59 Intake Total 420 Balance 420 - Medications Medications: Current Medications Acetaminophen (Tylenol 325mg Tab) 650 mg PO Q6H PRN PRN Reason: Fever >100.4 F Alprazolam (Xanax) 1 mg PO QID PRN; Protocol PRN Reason: Anxiety Last Admin: 07/04/18 22:50 Dose: 1 mg Docusate Sodium (Colace) 100 mg PO BID [facility] Last Admin: 07/04/18 17:39 Dose: 100 mg Doxycycline Hyclate (Doryx) 100 mg PO Q12 [facility]; Protocol Last Admin: 07/04/18 22:33 Dose: 100 mg Furosemide (Lasix) 40 mg PO DAILY [facility] Last Admin: 07/04/18 09:50 Dose: 40 mg Heparin Sodium (Porcine) (Heparin) 5,000 units SC Q8 [facility]; Protocol Last Admin: 07/05/18 05:24 Dose: 5,000 units Hydralazine HCl (Apresoline) 50 mg PO TID [facility] Last Admin: 07/04/18 17:38 Dose: 50 mg Hydralazine HCl (Apresoline) 10 mg IVP Q6 PRN PRN Reason: hypertension Hydromorphone HCl (Dilaudid) 1 mg IVP Q4H PRN PRN Reason: Pain, severe (8-10) Last Admin: 07/04/18 11:16 Dose: 1 mg Vancomycin HCl (Vancomycin 1gm) 1 gm in 250 mls @ 167 mls/hr IVPB Q12 [facility]; Protocol Last Admin: 07/04/18 22:34 Dose: 167 mls/hr Levalbuterol HCl (Xopenex) 0.63 mg IH [id number] PRN PRN Reason: Shortness of Breath Last Admin: 07/04/18 20:05 Dose: 0.63 mg Lisinopril (Zestril) 40 mg PO DAILY [facility] Last Admin: 07/04/18 09:53 Dose: 40 mg Methylprednisolone (Solu-Medrol) 40 mg IVP DAILY [facility] Last Admin: 07/04/18 09:52 Dose: 40 mg Metoclopramide HCl (Reglan) 10 mg IV ONCE PRN PRN Reason: Nausea/Vomiting Metoprolol Tartrate (Lopressor) 25 mg PO BID [facility] Last Admin: 07/04/18 17:40 Dose: 25 mg Ondansetron HCl (Zofran Inj) 4 mg IVP Q6H PRN PRN Reason: Nausea/Vomiting Last Admin: 07/04/18 20:39 Dose: 4 mg Oxycodone HCl (Oxycodone Immediate Release Tab) 5 mg PO Q4H PRN PRN Reason: Pain, Mild (1-3) Last Admin: 07/04/18 17:37 Dose: 5 mg Pantoprazole Sodium (Protonix Ec Tab) 40 mg PO 0600 [facility] Last Admin: 07/05/18 05:24 Dose: 40 mg Potassium Chloride (K-Dur 20 Meq Er Tab) 20 meq PO BRK [facility] Last Admin: 07/04/18 08:53 Dose: 20 meq Pramipexole Dihydrochloride (Mirapex) 0.5 mg PO HS [facility] Last Admin: 07/04/18 22:33 Dose: 0.5 mg Spironolactone (Aldactone) 25 mg PO DAILY [facility] Last Admin: 07/04/18 09:48 Dose: 25 mg Topiramate (Topamax) 150 mg PO BID [facility]; Protocol Last Admin: 07/04/18 17:37 Dose: 150 mg Venlafaxine HCl (Effexor Xr) 150 mg PO BID [facility] Last Admin: 07/04/18 17:39 Dose: 150 mg - Labs Labs: 07/05/18 06:20 07/05/18 06:20 PT 13.9 SECONDS (9.4-12.5) H 07/03/18 06:15 INR 1.20 07/03/18 06:15 APTT 26.9 Seconds (25.1-36.5) 07/03/18 06:15 - Constitutional Appears: Non-toxic, No Acute Distress - Head Exam Head Exam: NORMAL INSPECTION, NORMOCEPHALIC - Eye Exam Eye Exam: Normal appearance - ENT Exam ENT Exam: Mucous Membranes Dry - Respiratory Exam Respiratory Exam: Decreased Breath Sounds, Clear to Ausculation Bilateral, NORMAL BREATHING PATTERN - Cardiovascular Exam Cardiovascular Exam: +S1, +S2 - GI/Abdominal Exam GI & Abdominal Exam: Soft, Normal Bowel Sounds - Extremities Exam Extremities Exam: Full ROM, Normal Capillary Refill Additional comments: left shoulder with arm sling, arm with swelling elevated with 1 pillow - Neurological Exam Neurological Exam: Alert, Awake, Oriented x3 - Psychiatric Exam Psychiatric exam: Normal Affect, Normal Mood - Skin Skin Exam: Dry, Normal Color, Warm Assessment and Plan - Assessment and Plan (Free Text) Assessment: A 68 year old female wh came in to the ER due post mechanical fall in middle of the night onto non-dominant left upper arm with arm sling. Xray showed left proximal humerus fracture.Patient for surgery thus consult was called to clear and risk stratify for surgery.History includes [place], transient hypotension, CHF ,former smoker,COPD, non obstructive coronary artery disease ,Abdominal Aortic Aneurysm (scheduled for repair at [facility] (June 2018) HTN, Rotator Cuff Injury with surgery, carotid endarterectomy. According to daughter, stress test was done recently and was normal. Cardiac work up was done for scheduled AAA repair surgery at [place]. Will try to get in touch with Dr. Riley's to obtain for information..EKG showed NSR with frequent APC's and VPC's. no ST elevations. Echo done- Mild concentric hypertrophy, LVEF 59%, Trace AR, Aortic valve calcified with minimal narrowing, Mitral annulus calcified and mininmal narrowing, moderate TR- RVSP 43 mmg Hg, Mild pulmonary hypertension No evidence of ischemia, no evidence of heart failure, LVEF form ECHo 59%. stress test from [facility]- normal. Cleared for surgery from cardiac standpoint, no absolute contraindications. Moderate to high risk considering co-morbidities. ECHO done- Mild concentric hypertrophy, LVEF 59%, Trace AR, Aortic valve calcified with minimal narrowing, Mitral annulus calcified and minimal narrowing moderate TR- RVSP 43 mmg Hg, Mild pulmonary hypertension.Acute pneumonia, Continue IV antibiotics as ordered,status post ORIF of Left proximal humeral fracture POD#2.Clinically stable. Plan: Less anxious today,feels better Status post ORIF of Left proximal humeral fracture POD#2 Complaining of moderate shoulder pain PRN Dilaudid given Arm swelling on left hand, elevated with 1 pillow Controlled heart rate and blood pressure today On Lasix 40 mg daily, Hydralazine 10 mg QID PRN, Lisinopril 20 mg daily, Solumedrol 40 mg daily, Lopressor 25 mg BID, Kdur 20 meq daily, Aldactone 25 mg daily Continue current treatment Continue current medications Chart reviewed Physical therapy Will follow up Plan and treatment discussed with Dr. Mead
[2018-07-05] MEDS: HYDROmorphone 1 mg/ml ISec IVP PRN (07:24)
[2018-07-05] MEDS: Potassium Chloride 20 mEq ER Tab PO SCH (08:12)
[2018-07-05] MEDS: oxyCODONE 5 mg Immediate Release Tab PO PRN ×2 (08:13→17:09)
--- NOTE | 2018-07-05 08:25 | CP.PCM.PN ---
Subjective - Date & Time of Evaluation Date of Evaluation: 07/05/18 Time of Evaluation: 08:22 - Subjective Subjective: Patient seen and examined. Pain controlled. Denies any numbness or tingling. Afebrile LUE: Dressings changed. Incision is clean and intact with sutures in place. No erythema or drainage. Incision cleaned and new dressings applied. Sensation intact to light touch. +AROM POD#2 s/p ORIF L proximal humerus fracture Cont Sling Cont NWB LUE Discharge planning Will follow up with patient in Dr. Coburn's office next week. Discussed above with Dr. Coburn, agrees with above. Objective - Vital Signs/Intake and Output Vital Signs (last 24 hours): Temp Pulse Resp BP Pulse Ox 98.4 F 96 H 18 139/87 95 07/05/18 07:41 07/05/18 07:41 07/05/18 07:41 07/05/18 07:41 07/05/18 07:41 Intake and Output: 07/05/18 07/05/18 06:59 18:59 Intake Total 420 Balance 420 - Medications Medications: Current Medications Acetaminophen (Tylenol 325mg Tab) 650 mg PO Q6H PRN PRN Reason: Fever >100.4 F Alprazolam (Xanax) 1 mg PO QID PRN; Protocol PRN Reason: Anxiety Last Admin: 07/04/18 22:50 Dose: 1 mg Docusate Sodium (Colace) 100 mg PO BID [facility] Last Admin: 07/04/18 17:39 Dose: 100 mg Doxycycline Hyclate (Doryx) 100 mg PO Q12 [facility]; Protocol Last Admin: 07/04/18 22:33 Dose: 100 mg Furosemide (Lasix) 40 mg PO DAILY [facility] Last Admin: 07/04/18 09:50 Dose: 40 mg Heparin Sodium (Porcine) (Heparin) 5,000 units SC Q8 [facility]; Protocol Last Admin: 07/05/18 05:24 Dose: 5,000 units Hydralazine HCl (Apresoline) 50 mg PO TID [facility] Last Admin: 07/04/18 17:38 Dose: 50 mg Hydralazine HCl (Apresoline) 10 mg IVP Q6 PRN PRN Reason: hypertension Hydromorphone HCl (Dilaudid) 1 mg IVP Q4H PRN PRN Reason: Pain, severe (8-10) Last Admin: 07/05/18 07:24 Dose: 1 mg Vancomycin HCl (Vancomycin 1gm) 1 gm in 250 mls @ 167 mls/hr IVPB Q12 [facility]; Protocol Last Admin: 07/04/18 22:34 Dose: 167 mls/hr Cefepime HCl (Maxipime 2gm) 2 gm in 100 mls @ 100 mls/hr IVPB Q12 [facility]; Protocol Stop: 07/10/18 10:01 Levalbuterol HCl (Xopenex) 0.63 mg IH [id number] PRN PRN Reason: Shortness of Breath Last Admin: 07/04/18 20:05 Dose: 0.63 mg Lisinopril (Zestril) 40 mg PO DAILY [facility] Last Admin: 07/04/18 09:53 Dose: 40 mg Methylprednisolone (Solu-Medrol) 40 mg IVP DAILY [facility] Last Admin: 07/04/18 09:52 Dose: 40 mg Metoclopramide HCl (Reglan) 10 mg IV ONCE PRN PRN Reason: Nausea/Vomiting Metoprolol Tartrate (Lopressor) 25 mg PO BID [facility] Last Admin: 07/04/18 17:40 Dose: 25 mg Ondansetron HCl (Zofran Inj) 4 mg IVP Q6H PRN PRN Reason: Nausea/Vomiting Last Admin: 07/04/18 20:39 Dose: 4 mg Oxycodone HCl (Oxycodone Immediate Release Tab) 5 mg PO Q4H PRN PRN Reason: Pain, Mild (1-3) Last Admin: 07/05/18 08:13 Dose: 5 mg Pantoprazole Sodium (Protonix Ec Tab) 40 mg PO 0600 [facility] Last Admin: 07/05/18 05:24 Dose: 40 mg Potassium Chloride (K-Dur 20 Meq Er Tab) 20 meq PO BRK [facility] Last Admin: 07/05/18 08:12 Dose: 20 meq Pramipexole Dihydrochloride (Mirapex) 0.5 mg PO HS [facility] Last Admin: 07/04/18 22:33 Dose: 0.5 mg Spironolactone (Aldactone) 25 mg PO DAILY [facility] Last Admin: 07/04/18 09:48 Dose: 25 mg Topiramate (Topamax) 150 mg PO BID [facility]; Protocol Last Admin: 07/04/18 17:37 Dose: 150 mg Venlafaxine HCl (Effexor Xr) 150 mg PO BID [facility] Last Admin: 07/04/18 17:39 Dose: 150 mg - Labs Labs: 07/05/18 06:20 07/05/18 06:20 PT 13.9 SECONDS (9.4-12.5) H 07/03/18 06:15 INR 1.20 07/03/18 06:15 APTT 26.9 Seconds (25.1-36.5) 07/03/18 06:15
--- NOTE | 2018-07-05 09:09 | PN ---
DATE: 07/04/2018 REASON FOR CONSULTATION: Preop evaluation and postop followup. SUBJECTIVE: This note is an addition to the initial note dictated by our nurse practitioner. The patient underwent left shoulder surgery. History of AAA, scheduled for Flom for endovascular repair. Status post yesterday OR and internal fixation of left proximal humerus, postop day 1. RECOMMENDATIONS: Continue adequate analgesia. Initially, the patient had blood pressure of . After adequate pain medication, the patient's blood pressure is just 118/75 x2 and heart rate 78. Needs adequate analgesia and continue blood pressure medication current. No further change in medications required at this time. We will follow with you. Currently, the patient is on hydralazine 50 mg 3 times a day, heparin DVT prophylaxis and metoprolol 25 p.o. b.i.d. and lisinopril 40 mg daily. We will continue to follow up tomorrow. Thank you, Dr. Westfall for providing us the opportunity in taking care of the patient, Blossom Fabian. Deedee Mead MD
[2018-07-05] MEDS ORDERED: Docusate-Senna 50 mg-8.6 mg Tab PO SCH (10:00)
[2018-07-05] MEDS ORDERED: Cefepime IV 2 gm in NS 2 GM/100 ML BAG IVPB SCH (10:00)
[2018-07-05] MEDS: Vancomycin 1gm in NS 250ml 1 GM/250 ML BAG IVPB SCH (10:24)
[2018-07-05] MEDS: Venlafaxine 75 mg ER Cap PO SCH ×2 (10:28→17:07)
[2018-07-05 14:41] VITALS: BP 130/82; PULSE 72
[2018-07-05 15:21] VITALS: RESP 20; TEMP 98; O2SAT 92
--- NOTE | 2018-07-05 16:24 | RAD ---
Date of service: 07/05/2018 HISTORY: R/O pneumonia Vs CHF COMPARISON: 07/04/2018 FINDINGS: LUNGS: Minimal patchy infiltrate at the right lung base. No evidence of vascular congestion PLEURA: No significant pleural effusion identified, no pneumothorax apparent. CARDIOVASCULAR: Normal. OSSEOUS STRUCTURES: No significant abnormalities. VISUALIZED UPPER ABDOMEN: Normal. OTHER FINDINGS: None. IMPRESSION: Minimal patchy infiltrate at the right lung base. No evidence of vascular congestion
--- NOTE | 2018-07-05 18:04 | CP.PCM.DIS ---
<Jojo Hinton - Last Filed: 07/05/18 17:57> Provider - Provider Date of Admission: 06/27/18 07:51 Attending physician: Srini Majano MD Primary care physician: Austin Riley MD Time Spent in preparation of Discharge (in minutes): 45 Hospital Course - Lab Results Lab Results: Micro Results 06/29/18 10:10 Blood-Venous Blood Culture - Final NO GROWTH AFTER 5 DAYS 06/29/18 10:10 Blood-Venous Gram Stain - Final TEST NOT PERFORMED 06/29/18 09:50 Blood-Venous Blood Culture - Final NO GROWTH AFTER 5 DAYS 06/29/18 09:50 Blood-Venous Gram Stain - Final TEST NOT PERFORMED Most Recent Lab Values WBC 23.9 10^3/ul (4.5-11.0) H D 07/05/18 06:20 RBC 3.70 10^6/uL (3.5-6.1) 07/05/18 06:20 Hgb 9.1 g/dL (12.0-16.0) L 07/05/18 06:20 Hct 28.3 % (36.0-48.0) L 07/05/18 06:20 MCV 76.5 fl (80.0-105.0) L 07/05/18 06:20 MCH 24.6 pg (25.0-35.0) L 07/05/18 06:20 MCHC 32.2 g/dl (31.0-37.0) 07/05/18 06:20 RDW 15.3 % (11.5-14.5) H 07/05/18 06:20 Plt Count 433 10^3/uL (120.0-450.0) 07/05/18 06:20 MPV 9.9 fl (7.0-11.0) 07/05/18 06:20 Gran % 77.9 % (50.0-68.0) H 07/05/18 06:20 Lymph % (Auto) 13.0 % (22.0-35.0) L 07/05/18 06:20 Vance % (Auto) 7.9 % (1.0-6.0) H 07/05/18 06:20 Eos % (Auto) 0.7 % (1.5-5.0) L 07/05/18 06:20 Baso % (Auto) 0.5 % (0.0-3.0) 07/05/18 06:20 Gran # 18.66 (1.4-6.5) H 07/05/18 06:20 Lymph # (Auto) 3.1 (1.2-3.4) 07/05/18 06:20 Vance # (Auto) 1.9 (0.1-0.6) H 07/05/18 06:20 Eos # (Auto) 0.2 (0.0-0.7) 07/05/18 06:20 Baso # (Auto) 0.12 K/mm3 (0.0-2.0) 07/05/18 06:20 PT 13.9 SECONDS (9.4-12.5) H 07/03/18 06:15 INR 1.20 07/03/18 06:15 APTT 26.9 Seconds (25.1-36.5) 07/03/18 06:15 Sodium 130 mmol/L (132-148) L 07/05/18 06:20 Potassium 3.8 mmol/L (3.6-5.0) 07/05/18 06:20 Chloride 99 mmol/L (98-107) 07/05/18 06:20 Carbon Dioxide 23 mmol/L (21-33) 07/05/18 06:20 Anion Gap 12 (10-20) 07/05/18 06:20 BUN 26 mg/dL (7-21) H 07/05/18 06:20 Creatinine 0.8 mg/dl (0.7-1.2) 07/05/18 06:20 Est GFR ( Amer) > 60 07/05/18 06:20 Est GFR (Non-Af Amer) > 60 07/05/18 06:20 Random Glucose 95 mg/dL (70-110) 07/05/18 06:20 Hemoglobin A1c 5.1 % (4.2-6.5) 06/28/18 06:30 Serum Osmolality 258 mosm/kg (272-300) L 06/28/18 06:36 Calcium 8.2 mg/dL (8.4-10.5) L 07/05/18 06:20 Phosphorus 3.0 mg/dL (2.5-4.5) 07/02/18 06:20 Magnesium 1.6 mg/dL (1.7-2.2) L 07/04/18 06:40 Total Bilirubin 0.8 mg/dL (0.2-1.3) 07/05/18 06:20 AST 27 U/L (14-36) 07/05/18 06:20 ALT 27 U/L (7-56) 07/05/18 06:20 Alkaline Phosphatase 164 U/L (38-126) H D 07/05/18 06:20 Lactate Dehydrogenase 569 U/L (333-699) 06/26/18 14:00 Total Creatine Kinase 110 U/L (35-230) 06/26/18 14:00 Troponin I 0.07 ng/mL D 06/27/18 06:30 Total Protein 5.8 g/dL (5.8-8.3) 07/05/18 06:20 Albumin 2.8 g/dL (3.0-4.8) L 07/05/18 06:20 Globulin 2.9 gm/dL 07/05/18 06:20 Albumin/Globulin Ratio 1.0 (1.1-1.8) L 07/05/18 06:20 Triglycerides 101 mg/dL (35-160) 06/28/18 06:30 Cholesterol 127 mg/dL (130-200) L 06/28/18 06:30 LDL Cholesterol Direct 51 mg/dL (0-129) 06/28/18 06:30 HDL Cholesterol 42 mg/dL (29-60) 06/28/18 06:30 Amylase 106 U/L (35-125) 07/04/18 06:40 Lipase 160 U/L (23-300) 07/04/18 06:40 25-OH Vitamin D Total 56.1 NG/ML (30.0-100.0) 06/27/18 06:30 Procalcitonin 0.58 NG/ML (0.19-0.49) H 06/29/18 10:10 TSH 3rd Generation 2.53 mIU/mL (0.46-4.68) 06/28/18 06:30 Urine Color Yellow (YELLOW) 06/28/18 07:25 Urine Appearance Clear (CLEAR) 06/28/18 07:25 Urine pH 5.5 (4.7-8.0) 06/28/18 07:25 Ur Specific Wesley 1.010 (1.005-1.035) 06/28/18 07:25 Urine Protein 30 mg/dL (<30 mg/dL) H 06/28/18 07:25 Urine Glucose (UA) Negative mg/dL (NEGATIVE) 06/28/18 07:25 Urine Ketones Negative mg/dL (NEGATIVE) 06/28/18 07:25 Urine Blood Negative (NEGATIVE) 06/28/18 07:25 Urine Nitrate Negative (NEGATIVE) 06/28/18 07:25 Urine Bilirubin Negative (NEGATIVE) 06/28/18 07:25 Urine Urobilinogen 0.2 E.U./dL (<1 E.U./dL) 06/28/18 07:25 Ur Leukocyte Esterase Negative Neyda/uL (NEGATIVE) 06/28/18 07:25 Urine RBC 0 - 2 /hpf (0-2) 06/28/18 07:25 Urine WBC 0 - 2 /hpf (0-6) 06/28/18 07:25 Ur Epithelial Cells 3 - 4 /hpf (0-5) 06/28/18 07:25 Urine Bacteria Few (NEG) 06/28/18 07:25 Urine Osmolality 133 mosm/kg (300-1000) L 06/28/18 19:50 Ur Random Sodium < 5 meq/L 06/28/18 19:50 Blood Type O POSITIVE 07/03/18 06:15 Antibody Screen Negative 07/03/18 06:15 Crossmatch See Detail 07/03/18 06:15 BBK History Checked Patient has bt 07/03/18 06:15 - Hospital Course Hospital Course: Upon admission Patient is a 68 yo female with PMH of COPD, CAD, Abdominal Aortic Aneurysm, HTN, Rotator Cuff Injury, SC, history of CHF (EF-35 in 2016) presents to hospital for evaluation of arm pain s/p fall. Patient states last night she was getting out of bed when she fell. Patient denies loss of consciousness. Patient states she did not feel dizzy prior to the fall. Patient has difficulty seeing from her right eye and has shoulder injury which at times makes it difficult for her to ambulate. Patient states she has had multiple falls in the past but never required hospitalization. Patient states she fell last night at 1:00 am and took percocet for the pain which helped. Patient reports a 10/10 pain even after morphine administration, constant in nature but unspecified quality, and non radiating in nature. Patient states she was at [place] for surgery of her aneurysm however it was not completed due to elevated blood pressures. Patient was started on labetolol and spironolactone after admission at [place] for 3 days. Patient states she has had unexplained weight loss for which her outpatient doctors are doing a pancreas workup. Patient denies fevers, cough, chest pain, sob, N/V, constipation or diarrhea, dysuria. Patient admits to arm pain. Hospital Course 68 year old admitted for left humerus fracture s/p mechanical fall. XR performed in ED resulted displaced obliquely oriented fracture of the proximal humeral shaft. Orthopedic surgery, Dr. Wolf, was consulted and recommended cardiac clearance prior to surgery. Patient given Dilaudid and Percocet for pain. Dr. Mead, cardiology, was consulted for cardiac clearance. Cardiology recommended risk stratification; TSH, A1C, and lipid panel obtained. Patient was cleared from a cardiac standpoint, no absolute contraindications, moderate to high risk due to comorbidities. Audible wheezes were appreciated on exam, continued Duoneb ad solumedrol 40mg IVP daily. Procal elevated (0.58). CXR on 06/28/2018 resulted airspace disease in the right lower lobe may represent developing PNA. Surgery was postponed due to CXR (06/28/2018) findings suggestive of PNA, patient started on Zosyn. ID, Dr. Melendez, and pulmonology, Dr. Neal, consulted. Repeat CXR (06/29/2018) resulted increase seen in a infiltrate in the right upper lobe and right lower lobe, findings suspicious for pneumonia. PICC line placed. Dr. Melendez, ID, recommended vancomycin (started 06/30/2018), cefepime (started 06/29/2018), and doxycycline (started 06/30/2018) for 7 days total of abx therapy. Patient also began having episodes of elevated blood pressure that resolved with Hydralazine and scheduled morning medications. Electrolyte abnormalities were noted which were fixed with medication adjustments and repletion. Repeat CXR (07/02/2018) resulted improved bilateral infiltrates. Patient had ORIF procedure on 07/03/2018. Post-op humerus XR resulted internal fixation of the left humeral fracture with a plate and multiple screws, anatomic alignment. Orthopedic surgery cleared patient for discharge from their standpoint. Cardiology continued following patient, recommended continuing with current treatment plan, and cleared for discharge from cardiac standpoint. Repeat CXR (07/04/2018) resulted patchy infiltrate at the right lung base, otherwise clear. Upon re-evaluation, Dr. Melendez discontinued doxycycline on 07/04/2018; recommended continuing IV vancomycin and cefepime until 07/06/2018. Patient was evaluated by physical therapy, and recommended discharge to [facility]. ID agreed that patient can complete antibiotics at [facility] and they end on 07-07-18. Discharge plan Patient is stable for discharge to sub-acute rehab as per Dr. Majano. She was counseled to return to the emergency department if symptoms return or worsen. Patient is to follow up with primary medical doctor, Dr. Riley, within 3-5 days of discharge. Patient is to continue Vancomycin and Cefepime and Doxycline for 2 more days at rehab facility. Patient is to have PICC line removal upon completion of antibiotic therapy. Patient is to continue Lasix 40 mg PO daily as prescribed and instructed. Patient is to continue home medications: Omeprazole 20mg po bid, reglan 10mg, geodon 80mg bid, xanax 1 po qid prn, Effexor 150mg po bid, Aspirin 81, Topamax 20mg po bid, Venlafaxine 150mg ER daily; Percocet 10-32 5 5x a day, Mirtazapine 30mg 1 tab; Artnuidity 1 puff, Anovoro 1 puff daily, Spironolactone 25mg po bid as prescribed and instructed in discharge instructions. Reviewed all medications with patient, and she understands instructions. Patient understands and agrees with discharge plan. Discharge Exam - Head Exam Head Exam: NORMAL INSPECTION, NORMOCEPHALIC - Eye Exam Eye Exam: EOMI, Normal appearance. absent: Nystagmus, Scleral icterus - ENT Exam ENT Exam: Mucous Membranes Moist - Respiratory Exam Respiratory Exam: NORMAL BREATHING PATTERN. absent: Rales, Rhonchi, Wheezes, Respiratory Distress - Cardiovascular Exam Cardiovascular Exam: REGULAR RHYTHM, +S1, +S2 - GI/Abdominal Exam GI & Abdominal Exam: Normal Bowel Sounds. absent: Distended, Firm, Guarding, Rebound, Rigid, Soft, Tenderness - Extremities Exam Additional comments: left upper extremity with sling in place - Neurological Exam Neurological exam: Alert, Oriented x3 - Psychiatric Exam Psychiatric exam: Normal Affect, Normal Mood - Skin Skin Exam: Intact, Normal Color Discharge Plan - Discharge Medications Prescriptions: Cefepime [Maxipime] 2 gm IV Q12 #4 vial Doxycycline Hyclate [Doryx] 100 mg PO Q12 #4 cap Furosemide [Lasix] 40 mg PO DAILY #30 tab hydrALAZINE [Apresoline] 50 mg PO TID #60 tab Lisinopril [Zestril] 40 mg PO DAILY #30 tab Metoprolol Tartrate [Lopressor] 25 mg PO BID #28 tab Spironolactone [Aldactone] 25 mg PO DAILY #30 tab Topiramate [Topamax] 20 mg PO BID #28 tab Vancomycin [Vancomycin Inj] 1 gm IV Q12 #4 vial - Follow Up Plan Condition: FAIR Disposition: REHAB FACILITY/REHAB UNIT Instructions: High Blood Pressure in Adults, Pressure Sores (DC), How to Prevent Pressure Sores, Preventing Falls, Upper Arm Fracture Additional Instructions: 1. Patient is stable for discharge to [facility] for rehab as per Dr. Majano 2. Patient will need to followup with primary medical doctor Dr. Riley as many medication adjustments were made due to elevated blood pressures in hospital. Patient's blood pressure under control with medication regimen below. Patient will need to followup within 2 weeks of discharge as her new medications are prescribed for a limited amount of days. 3. Patient will take the following medications as follows: Antibiotics: Cefepime 2gm every 12 hours via IV through midline access for next 2 days (4 vials have been provided), Vancomycin 1gm every 12 hours via IV through midline access for next 2 days (4 vials have been provided), Doxycycline 100mg by mouth twice a day for the next 2 days. Upon completion of her antibiotics patient will need midline removed which can be done at [facility]. Blood pressure medications: Lasix 40mg by mouth daily, Hydralazine 50mg by mouth three times a day, Lisinopril 40mg by mouth once daily, Lopressor 25mg by mouth twice a day, Aldactone 25mg by mouth once daily. Patient will no longer take her home labetolol. Pain meds: Oxycodone 10mg/325mg as needed Home meds to continue: topamax 25mg by mouth twice a day. Patient will continue her home oxycodone. Patient will continue her home Effexor, Mirtazapine, Xanax, Geodon. 4. Patient will return to hospital if symptoms worsen or recur. Patient understands that she needs to go to [facility] for strength conditioning. 5. Patient understands the plan as above and agrees. Referrals: Austin Riley MD [Primary Care Provider] - <Srini Majano - Last Filed: 07/05/18 18:39> Provider - Provider Date of Admission: 06/27/18 07:51 Attending physician: Srini Majano MD Primary care physician: Austin Riley MD Hospital Course - Lab Results Lab Results: Micro Results 06/29/18 10:10 Blood-Venous Blood Culture - Final NO GROWTH AFTER 5 DAYS 06/29/18 10:10 Blood-Venous Gram Stain - Final TEST NOT PERFORMED 06/29/18 09:50 Blood-Venous Blood Culture - Final NO GROWTH AFTER 5 DAYS 06/29/18 09:50 Blood-Venous Gram Stain - Final TEST NOT PERFORMED Most Recent Lab Values WBC 23.9 10^3/ul (4.5-11.0) H D 07/05/18 06:20 RBC 3.70 10^6/uL (3.5-6.1) 07/05/18 06:20 Hgb 9.1 g/dL (12.0-16.0) L 07/05/18 06:20 Hct 28.3 % (36.0-48.0) L 07/05/18 06:20 MCV 76.5 fl (80.0-105.0) L 07/05/18 06:20 MCH 24.6 pg (25.0-35.0) L 07/05/18 06:20 MCHC 32.2 g/dl (31.0-37.0) 07/05/18 06:20 RDW 15.3 % (11.5-14.5) H 07/05/18 06:20 Plt Count 433 10^3/uL (120.0-450.0) 07/05/18 06:20 MPV 9.9 fl (7.0-11.0) 07/05/18 06:20 Gran % 77.9 % (50.0-68.0) H 07/05/18 06:20 Lymph % (Auto) 13.0 % (22.0-35.0) L 07/05/18 06:20 Vance % (Auto) 7.9 % (1.0-6.0) H 07/05/18 06:20 Eos % (Auto) 0.7 % (1.5-5.0) L 07/05/18 06:20 Baso % (Auto) 0.5 % (0.0-3.0) 07/05/18 06:20 Gran # 18.66 (1.4-6.5) H 07/05/18 06:20 Lymph # (Auto) 3.1 (1.2-3.4) 07/05/18 06:20 Vance # (Auto) 1.9 (0.1-0.6) H 07/05/18 06:20 Eos # (Auto) 0.2 (0.0-0.7) 07/05/18 06:20 Baso # (Auto) 0.12 K/mm3 (0.0-2.0) 07/05/18 06:20 PT 13.9 SECONDS (9.4-12.5) H 07/03/18 06:15 INR 1.20 07/03/18 06:15 APTT 26.9 Seconds (25.1-36.5) 07/03/18 06:15 Sodium 130 mmol/L (132-148) L 07/05/18 06:20 Potassium 3.8 mmol/L (3.6-5.0) 07/05/18 06:20 Chloride 99 mmol/L (98-107) 07/05/18 06:20 Carbon Dioxide 23 mmol/L (21-33) 07/05/18 06:20 Anion Gap 12 (10-20) 07/05/18 06:20 BUN 26 mg/dL (7-21) H 07/05/18 06:20 Creatinine 0.8 mg/dl (0.7-1.2) 07/05/18 06:20 Est GFR ( Amer) > 60 07/05/18 06:20 Est GFR (Non-Af Amer) > 60 07/05/18 06:20 Random Glucose 95 mg/dL (70-110) 07/05/18 06:20 Hemoglobin A1c 5.1 % (4.2-6.5) 06/28/18 06:30 Serum Osmolality 258 mosm/kg (272-300) L 06/28/18 06:36 Calcium 8.2 mg/dL (8.4-10.5) L 07/05/18 06:20 Phosphorus 3.0 mg/dL (2.5-4.5) 07/02/18 06:20 Magnesium 1.6 mg/dL (1.7-2.2) L 07/04/18 06:40 Total Bilirubin 0.8 mg/dL (0.2-1.3) 07/05/18 06:20 AST 27 U/L (14-36) 07/05/18 06:20 ALT 27 U/L (7-56) 07/05/18 06:20 Alkaline Phosphatase 164 U/L (38-126) H D 07/05/18 06:20 Lactate Dehydrogenase 569 U/L (333-699) 06/26/18 14:00 Total Creatine Kinase 110 U/L (35-230) 06/26/18 14:00 Troponin I 0.07 ng/mL D 06/27/18 06:30 Total Protein 5.8 g/dL (5.8-8.3) 07/05/18 06:20 Albumin 2.8 g/dL (3.0-4.8) L 07/05/18 06:20 Globulin 2.9 gm/dL 07/05/18 06:20 Albumin/Globulin Ratio 1.0 (1.1-1.8) L 07/05/18 06:20 Triglycerides 101 mg/dL (35-160) 06/28/18 06:30 Cholesterol 127 mg/dL (130-200) L 06/28/18 06:30 LDL Cholesterol Direct 51 mg/dL (0-129) 06/28/18 06:30 HDL Cholesterol 42 mg/dL (29-60) 06/28/18 06:30 Amylase 106 U/L (35-125) 07/04/18 06:40 Lipase 160 U/L (23-300) 07/04/18 06:40 25-OH Vitamin D Total 56.1 NG/ML (30.0-100.0) 06/27/18 06:30 Procalcitonin 0.58 NG/ML (0.19-0.49) H 06/29/18 10:10 TSH 3rd Generation 2.53 mIU/mL (0.46-4.68) 06/28/18 06:30 Urine Color Yellow (YELLOW) 06/28/18 07:25 Urine Appearance Clear (CLEAR) 06/28/18 07:25 Urine pH 5.5 (4.7-8.0) 06/28/18 07:25 Ur Specific Wesley 1.010 (1.005-1.035) 06/28/18 07:25 Urine Protein 30 mg/dL (<30 mg/dL) H 06/28/18 07:25 Urine Glucose (UA) Negative mg/dL (NEGATIVE) 06/28/18 07:25 Urine Ketones Negative mg/dL (NEGATIVE) 06/28/18 07:25 Urine Blood Negative (NEGATIVE) 06/28/18 07:25 Urine Nitrate Negative (NEGATIVE) 06/28/18 07:25 Urine Bilirubin Negative (NEGATIVE) 06/28/18 07:25 Urine Urobilinogen 0.2 E.U./dL (<1 E.U./dL) 06/28/18 07:25 Ur Leukocyte Esterase Negative Neyda/uL (NEGATIVE) 06/28/18 07:25 Urine RBC 0 - 2 /hpf (0-2) 06/28/18 07:25 Urine WBC 0 - 2 /hpf (0-6) 06/28/18 07:25 Ur Epithelial Cells 3 - 4 /hpf (0-5) 06/28/18 07:25 Urine Bacteria Few (NEG) 06/28/18 07:25 Urine Osmolality 133 mosm/kg (300-1000) L 06/28/18 19:50 Ur Random Sodium < 5 meq/L 06/28/18 19:50 Blood Type O POSITIVE 07/03/18 06:15 Antibody Screen Negative 07/03/18 06:15 Crossmatch See Detail 07/03/18 06:15 BBK History Checked Patient has bt 07/03/18 06:15 Attending/Attestation - Attestation I have personally seen and examined this patient.: Yes I have fully participated in the care of the patient.: Yes I have reviewed all pertinent clinical information, including history, physical exam and plan: Yes Notes (Text): 07/05/18 18:37 68 year old female with past medical history of COPD, CAD, hypertension and CHF who presented s/p fall found to have humerus fracture. She is s/p ORIF POD #2. She is cleared for discharge by orthopedics with outpatient follow up. She is on iv antibiotics for pneumonia to complete tomorrow per ID. She was on steroids for COPD. Leukocytosis was likely multifactorial (reactive, steroids, pneumonia) and is improving. Patient is discharged to [facility]. Follow up with pmd. Follow up with orthopedics. Fall precautions. Srini Majano MD Hospitalist.
--- NOTE | 2018-07-05 21:12 | CP.PCM.PN ---
Subjective - Date & Time of Evaluation Date of Evaluation: 07/05/18 Time of Evaluation: 12:00 - Subjective Subjective: No fevers, not in distress, still with pain in the left shoulder after surgery, still with cough but a little better. Objective - Vital Signs/Intake and Output Vital Signs (last 24 hours): Temp Pulse Resp BP Pulse Ox 98.4 F 96 H 18 139/87 95 07/05/18 07:41 07/05/18 07:41 07/05/18 07:41 07/05/18 07:41 07/05/18 07:41 Intake and Output: 07/05/18 07/05/18 06:59 18:59 Intake Total 420 Balance 420 - Medications Medications: Current Medications Acetaminophen (Tylenol 325mg Tab) 650 mg PO Q6H PRN PRN Reason: Fever >100.4 F Alprazolam (Xanax) 1 mg PO QID PRN; Protocol PRN Reason: Anxiety Last Admin: 07/04/18 22:50 Dose: 1 mg Docusate Sodium (Colace) 100 mg PO BID [facility] Last Admin: 07/04/18 17:39 Dose: 100 mg Doxycycline Hyclate (Doryx) 100 mg PO Q12 KATRIN; Protocol Last Admin: 07/04/18 22:33 Dose: 100 mg Furosemide (Lasix) 40 mg PO DAILY [facility] Last Admin: 07/04/18 09:50 Dose: 40 mg Heparin Sodium (Porcine) (Heparin) 5,000 units SC Q8 KATRIN; Protocol Last Admin: 07/05/18 05:24 Dose: 5,000 units Hydralazine HCl (Apresoline) 50 mg PO TID [facility] Last Admin: 07/04/18 17:38 Dose: 50 mg Hydralazine HCl (Apresoline) 10 mg IVP Q6 PRN PRN Reason: hypertension Hydromorphone HCl (Dilaudid) 1 mg IVP Q4H PRN PRN Reason: Pain, severe (8-10) Last Admin: 07/05/18 07:24 Dose: 1 mg Vancomycin HCl (Vancomycin 1gm) 1 gm in 250 mls @ 167 mls/hr IVPB Q12 KATRIN; Protocol Last Admin: 07/04/18 22:34 Dose: 167 mls/hr Cefepime HCl (Maxipime 2gm) 2 gm in 100 mls @ 100 mls/hr IVPB Q12 [facility]; Protocol Stop: 07/10/18 10:01 Levalbuterol HCl (Xopenex) 0.63 mg IH [id number] PRN PRN Reason: Shortness of Breath Last Admin: 07/04/18 20:05 Dose: 0.63 mg Lisinopril (Zestril) 40 mg PO DAILY [facility] Last Admin: 07/04/18 09:53 Dose: 40 mg Methylprednisolone (Solu-Medrol) 40 mg IVP DAILY [facility] Last Admin: 07/04/18 09:52 Dose: 40 mg Metoclopramide HCl (Reglan) 10 mg IV ONCE PRN PRN Reason: Nausea/Vomiting Metoprolol Tartrate (Lopressor) 25 mg PO BID [facility] Last Admin: 07/04/18 17:40 Dose: 25 mg Ondansetron HCl (Zofran Inj) 4 mg IVP Q6H PRN PRN Reason: Nausea/Vomiting Last Admin: 07/04/18 20:39 Dose: 4 mg Oxycodone HCl (Oxycodone Immediate Release Tab) 5 mg PO Q4H PRN PRN Reason: Pain, Mild (1-3) Last Admin: 07/04/18 17:37 Dose: 5 mg Pantoprazole Sodium (Protonix Ec Tab) 40 mg PO 0600 [facility] Last Admin: 07/05/18 05:24 Dose: 40 mg Potassium Chloride (K-Dur 20 Meq Er Tab) 20 meq PO BRK [facility] Last Admin: 07/04/18 08:53 Dose: 20 meq Pramipexole Dihydrochloride (Mirapex) 0.5 mg PO HS [facility] Last Admin: 07/04/18 22:33 Dose: 0.5 mg Spironolactone (Aldactone) 25 mg PO DAILY [facility] Last Admin: 07/04/18 09:48 Dose: 25 mg Topiramate (Topamax) 150 mg PO BID [facility]; Protocol Last Admin: 07/04/18 17:37 Dose: 150 mg Venlafaxine HCl (Effexor Xr) 150 mg PO BID [facility] Last Admin: 07/04/18 17:39 Dose: 150 mg - Labs Labs: 07/05/18 06:20 07/05/18 06:20 PT 13.9 SECONDS (9.4-12.5) H 07/03/18 06:15 INR 1.20 07/03/18 06:15 APTT 26.9 Seconds (25.1-36.5) 07/03/18 06:15 - Constitutional Appears: No Acute Distress, Cachectic, Chronically Ill - Head Exam Head Exam: NORMAL INSPECTION - Eye Exam Eye Exam: Normal appearance - Neck Exam Neck Exam: absent: Meningismus - Respiratory Exam Respiratory Exam: Decreased Breath Sounds - Cardiovascular Exam Cardiovascular Exam: +S1, +S2 - GI/Abdominal Exam GI & Abdominal Exam: Soft. absent: Tenderness - Extremities Exam Additional comments: right shoulder with dressings in place Assessment and Plan - Assessment and Plan (Free Text) Plan: Assessment sepsis due to right sided HCAP, clinically improving left humerus fracture due to fall S/P surgery POD #2 COPD CAD HTN history of rotator cuff injury abdominal aortic aneurysm chronic CHF S/P carotid endarterectomy Plan continue Vancomycin, Cefepime and Doxycycline day 6 to complete 7 days; blood cx have been negative; PCT is elevated at 0.58 - continue to trend WBC count - complete up to 7 days of therapy will continue to monitor clinically
--- NOTE | 2018-07-06 09:18 | PN ---
DATE: 07/05/2018 This note is in addition to initial note dictated by our nurse practitioner. The patient is status post OR and interna fixation, complaining of cough. Denies any chest pain, shortness of breath, or any palpitation. RECOMMENDATIONS: We will get chest x-ray to rule out any pneumonia postop. Continue spironolactone, continue hydralazine, continue beta-adela, continue lisinopril. Blood pressure is pretty controlled. We will get chest x-ray portable. Thank you, , for providing us the opportunity in taking care of the patient, Blossom Fabian. Deedee Mead MD
== END 2018-07-05 21:44 | DRG 492 ==
LOC: ED 11:27 → ERH 15:03 → 2RSO 17:03 → OBSVTOIN 06-27 07:51 → 2RSO 06-28 20:09 → 5RNO 06-30 14:19
PROVIDERS: ADMIT Internal Medicine; ATTEND Internal Medicine
PROC: 3E0F7GC Introduction of Other Therapeutic Substance into Respiratory Tract, Via Natural or Artificial Opening (ICD-10-PCS; 2018-06-26)
PROC: 05H533Z Insertion of Infusion Device into Right Subclavian Vein, Percutaneous Approach (ICD-10-PCS; 2018-06-28)
PROC: B546ZZA Ultrasonography of Right Subclavian Vein, Guidance (ICD-10-PCS; 2018-06-28)
PROC: 0PSD04Z Reposition Left Humeral Head with Internal Fixation Device, Open Approach (ICD-10-PCS; principal; 2018-07-03 14:00)
DX: S42.202A Unspecified fracture of upper end of left humerus, initial encounter for closed fracture (principal); J18.9 Pneumonia, unspecified organism; A41.9 Sepsis, unspecified organism; E87.1 Hypo-osmolality and hyponatremia; I50.32 Chronic diastolic (congestive) heart failure; J44.1 Chronic obstructive pulmonary disease with (acute) exacerbation; J44.0 Chronic obstructive pulmonary disease with (acute) lower respiratory infection; W06.XXXA Fall from bed, initial encounter; E87.6 Hypokalemia; R74.8 Abnormal levels of other serum enzymes; I25.10 Atherosclerotic heart disease of native coronary artery without angina pectoris; I71.4 Abdominal aortic aneurysm, without rupture; R29.6 Repeated falls; R63.4 Abnormal weight loss; Z87.891 Personal history of nicotine dependence; I27.20 Pulmonary hypertension, unspecified; I11.0 Hypertensive heart disease with heart failure; R09.02 Hypoxemia; F32.9 Major depressive disorder, single episode, unspecified; F41.9 Anxiety disorder, unspecified; E83.42 Hypomagnesemia; I25.2 Old myocardial infarction; Y92.009 Unspecified place in unspecified non-institutional (private) residence as the place of occurrence of the external cause

== ENCOUNTER 2018-09-12 15:32 | Inpatient (IN) | payer MEDICARE, OTHER ==
[2018-09-12 15:40] VITALS: BMI 16.0
[2018-09-12] MEDS ORDERED: Morphine 4 mg/ml ISec IVP STA ×2 (15:42→16:54)
--- NOTE | 2018-09-12 16:00 | ED PDOC ---
Arrival/HPI - General Chief Complaint: Trauma Time Seen by Provider: 09/12/18 15:34 Historian: Patient, Spouse - Critical Care Critical Care Minutes: 30 minutes - History of Present Illness Time/Duration: Prior to Arrival Symptom Onset: Sudden Symptom Course: Unchanged Quality: Aching Severity Level: Severe Associated Symptoms (Text): 09/12/18 15:57 patient was discharged home from rehabilitation yesterday following surgery for a left proximal humeral fracture. She was at her neurologist office today for a routine exam when she suffered a mechanical fall reinjuring her nondominant left upper extremity. There is a marketed deformity of her left humerus. Patient is in severe distress. She last ate some oatmeal this morning. Past Medical History - Provider Review Nursing Documentation Reviewed: Yes - Travel History Have you recently traveled outside [place] w/in the past 3 mons?: No - Infectious Disease Hx of Infectious Diseases: None - Tetanus Immunization Tetanus Immunization: Up to Date - Cardiac Hx Cardiac Disorders: Yes (CAD) Hx Congestive Heart Failure: Yes (CHF Exacerbation) Hx Hypertension: Yes - Pulmonary Hx Chronic Obstructive Pulmonary Disease (COPD): Yes - Neurological Hx Seizures: Yes (2015) Hx Transient Ischemic Attacks (TIA): Yes - HEENT Hx Glaucoma: Yes - Hematological/Oncological Hx Blood Transfusions: No Hx Blood Transfusion Reaction: Yes (POSSIBLY IN 2014) - Integumentary Hx Dermatological Disorder: No - Musculoskeletal/Rheumatological Hx Arthritis: Yes - Gastrointestinal Hx Gastrointestinal Disorders: No - Genitourinary/Gynecological Hx Incontinence: Yes - Psychiatric Hx Anxiety: Yes Hx Depression: Yes Hx Emotional Abuse: No Hx Physical Abuse: No Hx Substance Use: No - Surgical History Hx Orthopedic Surgery: Yes (shoulder plate) - Anesthesia Hx Anesthesia: Yes Hx Anesthesia Reactions: No Hx Malignant Hyperthermia: No - Suicidal Assessment Feels Threatened In Home Enviroment: No Family/Social History - Physician Review Nursing Documentation Reviewed: Yes Family/Social History: Unknown Family HX Smoking Status: Former Smoker Hx Alcohol Use: No Hx Substance Use: No Hx Substance Use Treatment: No Allergies/Home Meds Allergies/Adverse Reactions: Allergies methotrexate Allergy (Verified 06/26/18 12:08) PAIN metronidazole Allergy (Verified 06/26/18 12:08) RASH Home Medications: Home Meds Medication Instructions Recorded Confirmed Venlafaxine [Effexor XR] 150 mg PO BID 11/02/16 06/26/18 Metoclopramide [Reglan] 10 mg PO DAILY 06/26/18 06/26/18 Omeprazole Magnesium [Prilosec Otc] 20 mg PO DAILY 06/26/18 06/26/18 Oxycodone HCl/Acetaminophen 10 mg PO DAILY 06/26/18 06/26/18 [Percocet 10-325 mg Tablet] Pramipexole [Mirapex] 0.5 mg PO DAILY 06/26/18 06/26/18 Review of Systems - Physician Review All systems were reviewed & negative as marked: Yes - Review of Systems Constitutional: Fatigue. absent: Fevers Respiratory: Normal Cardiovascular: Normal Gastrointestinal: Normal Neurological: Normal Physical Exam Vital Signs Reviewed: Yes Vital Signs Temp BP 09/12/18 15:46 97.5 F L 83/51 L Temperature: Afebrile Blood Pressure: Hypotensive Pulse: Regular Respiratory Rate: Normal Appearance: Positive for: Well-Appearing, Non-Toxic, Uncomfortable, Cachectic, Other (thin cachectic and chronically ill-appearing) Pain Distress: Severe Mental Status: Positive for: Alert and Oriented X 3 - Systems Exam Head: Present: Atraumatic, Normocephalic Neck: Present: Normal Range of Motion. No: MIDLINE TENDERNESS, Paraspinal Tenderness Respiratory/Chest: Present: Clear to Auscultation, Good Air Exchange, Decreased Breath Sounds. No: Respiratory Distress, Accessory Muscle Use Cardiovascular: Present: Regular Rate and Rhythm, Normal S1, S2. No: Murmurs Abdomen: No: Tenderness, Distention, Peritoneal Signs, Rebound, Guarding Back: Present: Normal Inspection. No: Midline Tenderness, Paraspinal Tenderness Upper Extremity: Present: Tenderness, Neurovascularly Intact, Deformity (severe angulated deformity of left humerus.). No: Normal ROM, NORMAL PULSES, Swelling, Erythema Lower Extremity: Present: Normal Inspection. No: Edema Neurological: Present: GCS=15, CN II-XII Intact, Speech Normal, Motor Func Grossly Intact Skin: Present: Warm, Dry, Normal Color. No: Rashes Psychiatric: Present: Alert, Oriented x 3, Normal Insight, Normal Concentration Medical Decision Making ED Course and Treatment: 09/12/18 15:59 EKG shows normal sinus rhythm rate approximately [address] or T-wave changes. 09/12/18 17:07 consultation was obtained with who will see the patient in the emergency department. 09/12/18 17:[address]H Farley who accepts to her service on telemetry for hyperkalemia with dehydration renal failure and indeterminant troponin - RAD Interpretation Radiology Orders: 09/12/18 15:42 CHEST ONE VIEW [RAD] Stat HUMERUS LEFT [RAD] Stat - Medication Orders Current Medication Orders: Discontinued Medications Morphine Sulfate (Morphine) 4 mg IVP STAT STA Stop: 09/12/18 15:43 Ondansetron HCl (Zofran Inj) 4 mg IVP ONCE ONE Stop: 09/12/18 15:43 - Procedure PROCEDURE NOTE (Text): 09/12/18 17:05 left mid shaft humerus fracture just distal to the previous plate angulated approximately 90. With fracture reduction and splinting. With informed consent and moderate sedation using etomidate with the patient on a pulse oximeter oxygen monitoring and nurse present 10 mg of etomidate was IV push by myself. Good sedation was obtained. The fracture was reduced and immobilized using Ortho-Glass. A shoulder immobilizer was placed. Post reduction x-rays reveal improved position. ED Procedural Sedation - Pre Anesthesia Assessment Chief Complaint: Trauma Last Known Meal: 9 am Past Medical History: Medications Reviewed, Allergies Reviewed, Record Review Previous Surgies: Reviewed Family History/Social History: Reviewed - Physical Exam/Review of Systems Vital Signs Reviewed: Yes Cardiovascular: Regular Rate and Rhythm, Normal S1, S2, Peripheal Pulses Present Respiratory/Chest: Clear to Auscultation, Good Air Exchange Neurological: GCS=15, CN II-XII Intact, Speech Normal, Motor Func Grossly Intact, Normal Sensory Function, Normal Cerebellar Funct Abdomen: Normal Bowel Sounds Mental Status: Alert and Oriented X 3 - Pre-Procedure Airway Assessment History of difficult intubation or surgical airway (i.e trach):: No Inability to extend neck:: Yes Mouth opening less than two finger breadth:: No Diagnosis of sleep apnea:: No Less than three finger breadth to hyoid bone:: Yes ASA Criteria: 1 - Healthy, normal. 2 - Mild systemic disease (No functional limitations, mildline obesity, DM withot complications, Hypertention). 3 - Severe systemic disease (Some functional limitation, stable angina, morbid obesity, controlled COPD/Asthma/CHF). 4 - Sever systemic disease constant threat to life (Unstable angina, active symptoms of COPD/Asthma, CHF/Hypertension. 5 - Moribund ASA Clarification: ASA III Mallampati (airway): Class II Nursing ED Procedural Sedation: ER Moderate Sedation Start: 09/12/18 16:06 Freq: Status: Active Protocol: Created 09/12/18 16:06 OCS (Rec: 09/12/18 16:06 [id number] awake and alert - Intra-Procedure (Medications) Medications Given: Discontinued Medications Albuterol Sulfate (Albuterol 0.083% Inhal Magalie (2.5 Mg/3 Ml) Ud) 2.5 mg INH STAT STA Stop: 09/12/18 16:36 Dextrose (Dextrose 50% Inj) 50 ml IVP STAT STA Stop: 09/12/18 16:35 Etomidate (Amidate) 20 mg IVP STAT STA Stop: 09/12/18 16:34 Insulin Human Regular (Humulin R) 10 units IVP ONCE STA Stop: 09/12/18 16:35 Morphine Sulfate (Morphine) 4 mg IVP STAT STA Stop: 09/12/18 15:43 Last Admin: 09/12/18 15:57 Dose: 4 mg MAR Pain Assessment Document 09/12/18 15:57 OCS (Rec: 09/12/18 15:58 [id number] Pain Reassessment Is this a pain reassessment? No Sleep Is patient sleeping during reassessment? 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 Arm Description Description Constant Intensity of Pain at present 10 Pain Behavior Irritability Facial Grimacing Aggravating Factors ADL's Changing Position IVP Administration Document 09/12/18 15:57 OCS (Rec: 09/12/18 15:58 [place] [id number]) Charges for Administration # of IVP Administrations 1 Morphine Sulfate (Morphine) 4 mg IVP STAT STA Stop: 09/12/18 16:55 Ondansetron HCl (Zofran Inj) 4 mg IVP ONCE ONE Stop: 09/12/18 15:43 Last Admin: 09/12/18 15:56 Dose: 4 mg IVP Administration Document 09/12/18 15:56 OCS (Rec: 09/12/18 15:57 [id number] Charges for Administration # of IVP Administrations 1 Ondansetron HCl (Zofran Inj) 4 mg IVP ONCE ONE Stop: 09/12/18 16:55 Physician Pushed Medication: Yes - Post-Procedure Post Procedure Note: patient is awake and alert post procedure. Requiring additional narcotic pain medication for pain control. Disposition/Present on Arrival - Present on Arrival Any Indicators Present on Arrival: No History of DVT/PE: No History of Uncontrolled Diabetes: No Urinary Catheter: No History of Decub. Ulcer: No History Surgical Site Infection Following: None - Disposition Have Diagnosis and Disposition been Completed?: Yes Diagnosis: Fracture, humerus closed, shaft, Elevated troponin, Renal failure, Dehydration, Elevated brain natriuretic peptide (BNP) level, Hyperkalemia Disposition: HOSPITALIZED Disposition Time: 17:16 Patient Plan: Admission, Telemetry Patient Problems: Current Active Problems Problem Status Onset Dehydration Acute Elevated brain natriuretic peptide (BNP) level Acute Elevated troponin Acute Fracture, humerus closed, shaft Acute Hyperkalemia Acute Renal failure Acute Condition: SERIOUS
[2018-09-12 16:04] LABS: BASO # 0.02 K/mm3 (0.0-2.0); BASO % 0.2 % (0.0-3.0); EOS # 0.1 (0.0-0.7); EOS % 1.2 % (1.5-5.0); GRAN # 5.86 (1.4-6.5); GRAN % 62.7 % (50.0-68.0); HEMOGLOBIN 10.4 g/dL (12.0-16.0); LYMPH # 2.6 (1.2-3.4); LYMPH % 28.1 % (22.0-35.0); MEAN CORPUSCULAR HEMOGLOBIN 27.7 pg (25.0-35.0); MEAN CORPUSCULAR HGB CONC 32.9 g/dl (31.0-37.0); MEAN PLATELET VOLUME 9.6 fl (7.0-11.0); MONO # 0.7 (0.1-0.6); MONO % 7.8 % (1.0-6.0); RBC 3.76 10^6/uL (3.5-6.1); RED CELL DISTRIBUTION WIDTH 17.6 % (11.5-14.5); WHITE BLOOD COUNT 9.4 10^3/uL (4.5-11.0)
[2018-09-12 16:12] LABS: INR 0.96; PARTIAL THROMBOPLASTIN TIME 27.9 Seconds (25.1-36.5); PROTHROMBIN TIME 10.9 SECONDS (9.4-12.5)
[2018-09-12 16:31] LABS: ALB/GLOB RATIO 1.3 (1.1-1.8); ALBUMIN 3.7 g/dL (3.0-4.8); CALCIUM 9.6 mg/dL (8.4-10.5)
[2018-09-12 16:32] LABS: TROPONIN I 0.03 ng/mL
[2018-09-12] MEDS ORDERED: Etomidate 20 mg/10ml Inj IVP STA (16:33)
[2018-09-12] MEDS ORDERED: Insulin Regular 1 UNITS/0.01 ML ML IVP STA (16:34)
[2018-09-12] MEDS ORDERED: Dextrose 50% SYRINGE Inj (50 ml) IVP STA (16:34)
[2018-09-12] MEDS ORDERED: Albuterol 0.083% Inhal Sol (2.5 mg/3 mL) UD INH STA (16:35)
[2018-09-12] MEDS ORDERED: Sod Polystyrene Sulf 15 gm/60 ml Susp PO STA (17:59)
[2018-09-12] MEDS ORDERED: Venlafaxine 75 mg ER Cap PO SCH (18:00)
[2018-09-12] MEDS ORDERED: Albuterol-Ipratrop 3 mg / 0.5 (3 ml) UD IH PRN (18:00)
--- NOTE | 2018-09-12 18:14 | CP.PCM.HP ---
<Fabrice Hardy - Last Filed: 09/12/18 19:38> History of Present Illness - History of Present Illness History of Present Illness: Medicine History and Physical for Hospitalist Service Fabrice HardyDO PGY-1 68 y o female with PMhx COPD, CAD, AAA, HTN, rotator cuff injury, [place], CHF (most recent echo in Jun 2018 with EF of 59%) presents to the ED s/p fall c/o L arm pain. Pt was recently discharged yesterday from rehab facility in which she received physical therapy after [facility] discharge for 3 weeks. Has recent hx of ORIF for L humeral fracture performed by Dr. Coburn during last admission at [facility]. States she was in her neurologist's office today when she turned to look at a picture on the wall, felt dizzy, and then lost her balance and fell on her L am. Denies hitting her head or loss of consciousness. Not c/o pain anywhere else in her body currently. Currently in L arm sling, s/p reduction of fracture in the ED. C/o pain 10/10 sharp, localizes it to the upper arm. Unable to move L arm 2/2 to pain. Denies headache, chest pain, sob, n/v/d/c, abd pain, urinary complaints, numbness/tingling, color changes to affected extremity, hx compound fracture, or other symptoms. PMhx: COPD, CAD, AAA, HTN, rotator cuff injury, [place], CHF (most recent echo in Jun 2018 with EF of 59%) PSurgHx: Hysterectomy, tonsillectomy, rotator cuff surgery, carotid endarterectomy x2 (most recent in 1991) Allergies: NKDA Home meds: reviewed as per NOV [facility] hx: denies Soc hx: quit cigarette smoking 7 y ago (smoked 1 ppd x 30 y); denies EtOH or illicit drug use; lives at home with PMD: Dr. Riley Present on Admission - Present on Admission Any Indicators Present on Admission: No History of DVT/PE: No History of Uncontrolled Diabetes: No Urinary Catheter: No Decubitus Ulcer Present: No Review of Systems - Constitutional Constitutional: absent: Chills, Fever, Frequent Falls - EENT Eyes: absent: Change in Vision Ears: absent: Tinnitus - Cardiovascular Cardiovascular: absent: Chest Pain, Chest Pain at Rest, Dyspnea, Dyspnea on Exertion, Edema, Orthopnea, Palpitations - Respiratory Respiratory: absent: Cough, Dyspnea, Wheezing - Gastrointestinal Gastrointestinal: absent: Abdominal Pain, Change in Bowel Habits, Constipation, Diarrhea, Nausea, Vomiting - Musculoskeletal Musculoskeletal: Joint Swelling, Limited Range of Motion, Radiating Pain into Limb Past Patient History - Infectious Disease Hx of Infectious Diseases: None - Tetanus Immunizations Tetanus Immunization: Up to Date - Past Medical History & Family History Past Medical History?: Yes - Past Social History Smoking Status: Former Smoker - CARDIAC Hx Cardiac Disorders: Yes (CAD) Hx Congestive Heart Failure: Yes (CHF Exacerbation) Hx Hypertension: Yes - PULMONARY Hx Chronic Obstructive Pulmonary Disease (COPD): Yes - NEUROLOGICAL Hx Seizures: Yes (2015) Hx Transient Ischemic Attacks (TIA): Yes - HEENT Hx Glaucoma: Yes - HEMATOLOGICAL/ONCOLOGICAL Hx Blood Transfusions: No Hx Blood Transfusion Reaction: Yes (POSSIBLY IN 2014) - INTEGUMENTARY Hx Dermatological Problems: No - MUSCULOSKELETAL/RHEUMATOLOGICAL Hx Arthritis: Yes - GASTROINTESTINAL Hx Gastrointestinal Disorders: No - GENITOURINARY/GYNECOLOGICAL Hx Incontinence: Yes - PSYCHIATRIC Hx Anxiety: Yes Hx Depression: Yes Hx Emotional Abuse: No Hx Physical Abuse: No Hx Substance Use: No - SURGICAL HISTORY Hx Orthopedic Surgery: Yes (shoulder plate) - ANESTHESIA Hx Anesthesia: Yes Hx Anesthesia Reactions: No Hx Malignant Hyperthermia: No Meds Allergies/Adverse Reactions: Allergies Allergy/AdvReac Type Severity Reaction Status Date / Time methotrexate Allergy PAIN Verified 06/26/18 12:08 metronidazole Allergy RASH Verified 06/26/18 12:08 Physical Exam - Constitutional Appears: Non-toxic, No Acute Distress - Head Exam Head Exam: ATRAUMATIC, NORMOCEPHALIC - Eye Exam Eye Exam: EOMI, Normal appearance, PERRL - ENT Exam ENT Exam: Mucous Membranes Moist - Respiratory Exam Respiratory Exam: Clear to Auscultation Bilateral, NORMAL BREATHING PATTERN. absent: Rales, Rhonchi, Wheezes, Respiratory Distress - Cardiovascular Exam Cardiovascular Exam: REGULAR RHYTHM, +S1, +S2. absent: Gallop, Rubs, Systolic Murmur - GI/Abdominal Exam GI & Abdominal Exam: Normal Bowel Sounds, Soft. absent: Distended, Organomegaly, Tenderness - Extremities Exam Additional comments: L arm in sling and dressing c/d/i, no active bleeding noted - Back Exam Back exam: FULL ROM, NORMAL INSPECTION. absent: paraspinal tenderness - Neurological Exam Neurological exam: Alert, CN II-XII Intact, Oriented x3 - Skin Skin Exam: Dry, Intact, Normal Color, Warm Results - Vital Signs Recent Vital Signs: Last Vital Signs Temp 97.7 F 09/12/18 17:05 Pulse 66 09/12/18 17:05 Resp 19 09/12/18 17:05 BP 121/65 09/12/18 17:05 Pulse Ox 100 09/12/18 17:05 - Labs Result Diagrams: 09/12/18 15:50 09/12/18 15:50 Labs: Laboratory Results - last 24 hr 09/12/18 09/12/18 09/12/18 15:50 15:50 15:50 WBC 9.4 RBC 3.76 Hgb 10.4 L Hct 31.6 L MCV 84.0 D MCH 27.7 MCHC 32.9 RDW 17.6 H Plt Count 246 MPV 9.6 Gran % 62.7 Lymph % (Auto) 28.1 [place] % (Auto) 7.8 H Eos % (Auto) 1.2 L Baso % (Auto) 0.2 Gran # 5.86 Lymph # (Auto) 2.6 [place] # (Auto) 0.7 H Eos # (Auto) 0.1 Baso # (Auto) 0.02 PT 10.9 INR 0.96 APTT 27.9 Sodium 128 L Potassium 5.7 H* D Chloride 95 L Carbon Dioxide 21 Anion Gap 18 BUN 47 H Creatinine 1.9 H Est GFR ( Amer) 32 Est GFR (Non-Af Amer) 26 Random Glucose 89 Calcium 9.6 Magnesium 2.1 Total Bilirubin 0.4 AST 31 ALT 25 Alkaline Phosphatase 79 Lactate Dehydrogenase 420 Total Creatine Kinase 37 Troponin I 0.03 D NT-Pro-B Natriuret Pep 1230 H Total Protein 6.6 Albumin 3.7 Globulin 2.9 Albumin/Globulin Ratio 1.3 Assessment & Plan - Assessment and Plan (Free Text) Assessment: 68 y o female with PMhx COPD, CAD, AAA, HTN, rotator cuff injury, [place], CHF (most recent echo in Jun 2018 with EF of 59%) presents to the ED s/p fall c/o L arm pain. Found to have L humeral fracture, s/p reduction in ED. Plan: L humeral fx: S/p reduction in ED Official read of Humeral XRs pending Ortho consulted (Dr. Coburn), recs appreciated Percocet q 6 h prn for moderate pain Morphine 2 q 4 h prn for severe pain NPO after midnight except meds S/p fall - likely 2/2 orthostatic hypotension vs. polypharmacy Home meds appropriately held Will continue to monitor CK wnl Trop 0.03 Hyperkalemia K 5.7 in ED, likely 2/2 rhabdo s/p fall vs. polypharmacy; normal CK on admission S/p insulin, D50 and albuterol in ED Ordered kayexelate x1, repeat CMP in 4 hrs EKG NSR, demonstrates no acute St-T wave changes Hyponatremia Likely 2/2 to polypharmacy Will continue to trend CMP GIOVANNI BUN/Cr 47/1.9 Will continue to monitor Hold IVF hydration at this Hx CHF BNP elevated 1230 Pt not demonstrating overt signs of fluid overload, shortness of breath, or respiratory distress at this time Will continue to monitor Lasix and Spironolactone held at this time due to hyperkalemia Hx CAD C/w ASA daily Cardio consulted (Dr. Mead) for pre-op clearance, recs appreciated Hx HTN C/w home meds metoprolol and hydralazine Hx COPD Duonebs q 6 h prn Need to verify home inhalers with pharmacy Not on home O2 Pt seen, examined with, and plan discussed with Dr. Westfall, attending physician. Fabrice Hardy DO PGY-1, [employer] Pager #[phone] <Deedee Westfall - Last Filed: 09/13/18 16:50> Results - Vital Signs Recent Vital Signs: Last Vital Signs Temp 99.1 F 09/13/18 12:00 Pulse 103 H 09/13/18 15:37 Resp 18 09/13/18 06:00 BP 98/58 L 09/13/18 15:45 Pulse Ox 97 09/13/18 06:00 - Labs Result Diagrams: 09/13/18 06:00 09/13/18 12:00 Labs: Laboratory Results - last 24 hr 09/12/18 09/13/18 09/13/18 21:45 06:00 06:00 WBC 7.6 RBC 3.46 L Hgb 9.5 L Hct 28.9 L MCV 83.5 MCH 27.5 MCHC 32.9 RDW 17.3 H Plt Count 227 MPV 9.5 Gran % 59.6 Lymph % (Auto) 27.7 [place] % (Auto) 11.7 H Eos % (Auto) 0.9 L Baso % (Auto) 0.1 Gran # 4.52 Lymph # (Auto) 2.1 [place] # (Auto) 0.9 H Eos # (Auto) 0.1 Baso # (Auto) 0.01 Sodium 129 L 128 L Potassium 5.2 H 5.2 H Chloride 96 L 101 Carbon Dioxide 21 23 Anion Gap 16 10 BUN 45 H 41 H Creatinine 1.8 H 1.5 H Est GFR ( Amer) 34 42 Est GFR (Non-Af Amer) 28 35 Random Glucose 114 H 91 Calcium 9.4 8.9 Phosphorus 4.9 H Magnesium 1.9 Total Bilirubin 0.4 0.3 AST 24 29 ALT 32 28 Alkaline Phosphatase 74 74 Total Protein 6.1 5.7 L Albumin 3.4 3.1 Globulin 2.7 2.6 Albumin/Globulin Ratio 1.2 1.2 09/13/18 12:00 WBC RBC Hgb Hct MCV MCH MCHC RDW Plt Count MPV Gran % Lymph % (Auto) [place] % (Auto) Eos % (Auto) Baso % (Auto) Gran # Lymph # (Auto) [place] # (Auto) Eos # (Auto) Baso # (Auto) Sodium Potassium 5.1 H Chloride Carbon Dioxide Anion Gap BUN Creatinine Est GFR ( Amer) Est GFR (Non-Af Amer) Random Glucose Calcium Phosphorus Magnesium Total Bilirubin AST ALT Alkaline Phosphatase Total Protein Albumin Globulin Albumin/Globulin Ratio Attending/Attestation - Attestation I have personally seen and examined this patient.: Yes I have fully participated in the care of the patient.: Yes I have reviewed all pertinent clinical information: Yes Notes (Text): 09/13/18 16:44 Medical record note made by the resident after discussion with my direction and input after the patient was personally seen and examined by me. I have reviewed the chart and agree that the record accurately reflects by personal performance of the history, physical exam, data review, and medical decision-making, in the course for the patient. I have also personally directed the plan of care. 68 y o female with PMhx COPD, CAD, AAA, HTN, rotator cuff injury, [place], CHF (most recent echo in Jun 2018 with EF of 59%) presents to the ED with H/O fall c/o L arm pain, found to have L humeral fracture, Patient is s/p reduction in ED. Patient was also found to have hyperkalemia and GIOVANNI. is consulted. Hyperkalmeia. EKG is negative for hyperkalemic changes, We will hold ALEJANDRO and spironolactone We will give Kayexalate and will monotor potassium level, GIOVANNI is due to over diuresis, will hold lasix, will hold lisinopril. COPD is stable. CHF , patient is euvolemic.We will get cardiology evaluation for pre operative clearance. Management plan was discussed in detail with patient. Education was provided.
[2018-09-12 19:22] VITALS: RESP 18
[2018-09-12] MEDS: Oxycodone/Acetaminophen 10/325 mg Tab PO PRN (20:24)
[2018-09-12 22:07] LABS: ALB/GLOB RATIO 1.2 (1.1-1.8); ALBUMIN 3.4 g/dL (3.0-4.8); CALCIUM 9.4 mg/dL (8.4-10.5)
[2018-09-12] MEDS: Morphine 2 mg/ml ISec IVP PRN (23:01)
[2018-09-13 06:28] LABS: BASO # 0.01 K/mm3 (0.0-2.0); BASO % 0.1 % (0.0-3.0); EOS # 0.1 (0.0-0.7); EOS % 0.9 % (1.5-5.0); GRAN # 4.52 (1.4-6.5); GRAN % 59.6 % (50.0-68.0); HEMOGLOBIN 9.5 g/dL (12.0-16.0); LYMPH # 2.1 (1.2-3.4); LYMPH % 27.7 % (22.0-35.0); MEAN CELL VOLUME 83.5 fl (80.0-105.0); MEAN CORPUSCULAR HEMOGLOBIN 27.5 pg (25.0-35.0); MEAN CORPUSCULAR HGB CONC 32.9 g/dl (31.0-37.0); MEAN PLATELET VOLUME 9.5 fl (7.0-11.0); MONO # 0.9 (0.1-0.6); MONO % 11.7 % (1.0-6.0); RBC 3.46 10^6/uL (3.5-6.1); RED CELL DISTRIBUTION WIDTH 17.3 % (11.5-14.5); WHITE BLOOD COUNT 7.6 10^3/uL (4.5-11.0)
[2018-09-13] MEDS: Morphine 2 mg/ml ISec IVP PRN ×3 (06:32→14:31)
[2018-09-13 07:06] LABS: ALB/GLOB RATIO 1.2 (1.1-1.8); ALBUMIN 3.1 g/dL (3.0-4.8); CALCIUM 8.9 mg/dL (8.4-10.5)
[2018-09-13 07:07] VITALS: O2SAT 97
--- NOTE | 2018-09-13 07:09 | CP.PCM.PN ---
Subjective - Date & Time of Evaluation Date of Evaluation: 09/13/18 Time of Evaluation: 07:09 - Subjective Subjective: Resident Progress Note for Hospitalist Service Objective - Vital Signs/Intake and Output Vital Signs (last 24 hours): Temp Pulse Resp BP Pulse Ox 98 F 74 18 100/57 L 97 09/13/18 06:00 09/13/18 06:00 09/13/18 06:00 09/13/18 06:00 09/13/18 06:00 Intake and Output: 09/13/18 09/13/18 06:59 18:59 Intake Total 0 Output Total 1000 Balance -1000 - Medications Medications: Current Medications Albuterol/Ipratropium (Duoneb 3 Mg/0.5 Mg (3 Ml) Ud) 3 ml IH Q6H PRN PRN Reason: Shortness of Breath Aspirin (Ecotrin) 81 mg PO DAILY [facility] Heparin Sodium (Porcine) (Heparin) 5,000 units SC Q8H [facility]; Protocol Hydralazine HCl (Apresoline) 50 mg PO TID [facility] Last Admin: 09/12/18 19:24 Dose: Not Given Metoclopramide HCl (Reglan) 10 mg PO DAILY [facility] Metoprolol Tartrate (Lopressor) 25 mg PO BID [facility] Last Admin: 09/12/18 19:24 Dose: Not Given Morphine Sulfate (Morphine) 2 mg IVP Q4H PRN PRN Reason: Pain, severe (8-10) Last Admin: 09/13/18 06:32 Dose: 2 mg Oxycodone/Acetaminophen (Percocet 10/325 Mg Tab) 1 tab PO DAILY PRN PRN Reason: Pain, moderate (4-7) Last Admin: 09/12/18 20:24 Dose: 1 tab Pantoprazole Sodium (Protonix Ec Tab) 40 mg PO DAILY [facility] Pramipexole Dihydrochloride (Mirapex) 0.5 mg PO DAILY [facility] Topiramate (Topamax) 25 mg PO BID [facility]; Protocol Last Admin: 09/12/18 20:24 Dose: 25 mg Venlafaxine HCl (Effexor Xr) 150 mg PO BID [facility] - Labs Labs: 09/13/18 06:00 09/13/18 06:00 PT 10.9 SECONDS (9.4-12.5) 09/12/18 15:50 INR 0.96 09/12/18 15:50 APTT 27.9 Seconds (25.1-36.5) 09/12/18 15:50
[2018-09-13] MEDS ORDERED: Sodium Chloride 0.9% 1,000 ML IV SCH (09:00)
[2018-09-13] MEDS ORDERED: Sod Polystyrene Sulf 15 gm/60 ml Susp PO ONE (09:03)
--- NOTE | 2018-09-13 09:08 | CARD ---
APPROVED REPORT Date of service: 09/12/2018 EKG Measurement Heart [id number] <Conclusion> Normal sinus rhythm LVH by voltage
--- NOTE | 2018-09-13 09:36 | RAD ---
Date of service: 09/12/2018 PROCEDURE: CHEST RADIOGRAPH, 1 VIEW HISTORY: OR COMPARISON: 07/05/2018 FINDINGS: LUNGS: Clear. PLEURA: No pneumothorax or pleural fluid seen. CARDIOVASCULAR: Aortic calcification normal. OSSEOUS STRUCTURES: No significant abnormalities. VISUALIZED UPPER ABDOMEN: Normal. OTHER FINDINGS: None. IMPRESSION: No active disease.
--- NOTE | 2018-09-13 09:55 | RAD ---
Date of service: 09/12/2018 PROCEDURE: Left humerus HISTORY: trauma COMPARISON: 07/04/2018 TECHNIQUE: Two views FINDINGS: There is a transverse severely angulated fracture of the shaft of the humerus just below the level of the plate IMPRESSION: There is a transverse severely angulated fracture of the shaft of the humerus just below the level of the plate
--- NOTE | 2018-09-13 09:56 | RAD ---
Date of service: 09/12/2018 PROCEDURE: Left humerus HISTORY: post reduction COMPARISON: Earlier same day TECHNIQUE: Two views FINDINGS: There is improvement in the degree of angulation seen previously. However there is now increasing overlap of the humeral shaft measuring 3 cm. IMPRESSION: As above
[2018-09-13] MEDS ORDERED: Pantoprazole 40 mg EC Tab PO SCH (10:00)
--- NOTE | 2018-09-13 10:40 | CP.PCM.APN ---
Subjective - Date & Time of Evaluation Date of Evaluation: 09/13/18 Time of Evaluation: 09:30 - Subjective Subjective: Impressions Chest X-Ray 09/12/18 15:42 IMPRESSION: No active disease. Humerus X-Ray 09/12/18 15:42 IMPRESSION: There is a transverse severely angulated fracture of the shaft of the humerus just below the level of the plate Humerus X-Ray 09/12/18 16:51 IMPRESSION: As above All Active Problems Dehydration (Acute) Elevated brain natriuretic peptide (BNP) level (Acute) Elevated troponin (Acute) Fracture, humerus closed, shaft (Acute) Hyperkalemia (Acute) Renal failure (Acute) CHF exacerbation (Acute) Hypertension (Acute) Hypokalemia (Acute) NSTEMI (non-ST elevated myocardial infarction) (Acute) STEMI (ST elevation myocardial infarction) (Acute) Transient hypotension (Acute) 68 yr old female with pmh sig for copd, cad, AAA, [place], recent left humural ORIF surgery , rotator cuff, CEA x 2 who presented to the ER s/p mechanical fall and was found to have left humurus transverse severely angulated fracture below plate. pt also with noted hyperkalemia 5.7 and hyponatremia. pt is now being evaluated by orthopedic surgeon for further mgmt as well as mgmt for electrolyte imbalance Review of Systems - Constitutional Constitutional: absent: As Per HPI, Anorexia, Chills, Daytime Sleepiness, Excessive Sweating, Fatigue, Fever, Frequent Falls, Headache, Increased Appetite, Lethargy, Malaise, Night Sweats, Snoring, Sleep Apnea, Weight Gain, Weight Loss, Weakness, Other Additional comments: pain left arm Objective - Vital Signs/Intake and Output Vital Signs (last 24 hours): Temp Pulse Resp BP Pulse Ox 98 F 74 18 90/55 L 97 09/13/18 06:00 09/13/18 06:00 09/13/18 06:00 09/13/18 10:01 09/13/18 06:00 Intake and Output: 09/13/18 09/13/18 06:59 18:59 Intake Total 0 Output Total 1000 Balance -1000 - Medications Medications: Current Medications Albuterol/Ipratropium (Duoneb 3 Mg/0.5 Mg (3 Ml) Ud) 3 ml IH Q6H PRN PRN Reason: Shortness of Breath Aspirin (Ecotrin) 81 mg PO DAILY [facility] Last Admin: 09/13/18 09:52 Dose: Not Given Heparin Sodium (Porcine) (Heparin) 5,000 units SC Q8H [facility]; Protocol Last Admin: 09/13/18 09:51 Dose: Not Given Hydralazine HCl (Apresoline) 50 mg PO TID [facility] Last Admin: 09/13/18 10:01 Dose: Not Given Sodium Chloride (Sodium Chloride 0.9%) 1,000 mls @ 75 mls/hr IV .[id number] [facility] Last Admin: 09/13/18 10:02 Dose: 75 mls/hr Metoclopramide HCl (Reglan) 10 mg PO DAILY [facility] Last Admin: 09/13/18 10:01 Dose: 10 mg Metoprolol Tartrate (Lopressor) 25 mg PO BID [facility] Last Admin: 09/13/18 10:01 Dose: Not Given Morphine Sulfate (Morphine) 2 mg IVP Q4H PRN PRN Reason: Pain, severe (8-10) Last Admin: 09/13/18 09:33 Dose: 2 mg Oxycodone/Acetaminophen (Percocet 10/325 Mg Tab) 1 tab PO DAILY PRN PRN Reason: Pain, moderate (4-7) Last Admin: 09/12/18 20:24 Dose: 1 tab Pantoprazole Sodium (Protonix Ec Tab) 40 mg PO DAILY [facility] Last Admin: 09/13/18 10:02 Dose: 40 mg Pramipexole Dihydrochloride (Mirapex) 0.5 mg PO DAILY [facility] Last Admin: 09/13/18 10:00 Dose: 0.5 mg Topiramate (Topamax) 25 mg PO BID [facility]; Protocol Last Admin: 09/13/18 10:28 Dose: 25 mg Venlafaxine HCl (Effexor Xr) 150 mg PO BID [facility] - Labs Labs: 09/13/18 06:00 09/13/18 06:00 PT 10.9 SECONDS (9.4-12.5) 09/12/18 15:50 INR 0.96 09/12/18 15:50 APTT 27.9 Seconds (25.1-36.5) 09/12/18 15:50 - Constitutional Appears: Non-toxic, No Acute Distress - Eye Exam Eye Exam: Normal appearance Pupil Exam: NORMAL ACCOMODATION - Respiratory Exam Respiratory Exam: Decreased Breath Sounds - Cardiovascular Exam Cardiovascular Exam: +S1, +S2 - Extremities Exam Extremities Exam: Tenderness Additional comments: left shoulder sling being placed by orthopedic, nv intact distally to left arm - Neurological Exam Neurological Exam: Alert, Awake - Skin Skin Exam: Dry, Intact BPCI/TIC - BPCIA/TIC Educated pt/family on BPCIA/CIR/Med to Bed Programs: N/A Flyers given, including CMS Beneficiary letter: N/A Pt/family verbalized understanding & agreed to program: N/A
--- NOTE | 2018-09-13 11:23 | RAD ---
Date of service: 09/13/2018 PROCEDURE: Left humerus HISTORY: humeral shaft fx repeat x-ray COMPARISON: 09/12/2018 TECHNIQUE: Two views FINDINGS: The left arm is now on a plaster cast. There is anatomic alignment of the fracture of the midshaft of the humerus. There is no longer overlap or angulation. IMPRESSION: As above
--- NOTE | 2018-09-13 11:25 | RAD ---
Date of service: 09/13/2018 PROCEDURE: Radiographs of the Left Shoulder HISTORY: humeral shaft fx COMPARISON: No prior. FINDINGS: BONES: Successful reduction of humeral shaft fracture JOINTS: Normal. Glenohumeral and acromioclavicular joints preserved. No osteoarthritis. SOFT TISSUES: Normal. OTHER FINDINGS: None. IMPRESSION: Successful reduction of the mid humeral shaft fracture
--- NOTE | 2018-09-13 11:35 | CON ---
DATE: 09/13/2018 REASON FOR CONSULTATION: Left humerus fracture, status post fall. Consult is as follows. HISTORY OF PRESENT ILLNESS: This is a 68-year-old female who yesterday presented to the emergency room status post fall with left arm pain. The patient, approximately on 07/02, underwent open reduction and internal fixation of the left proximal humerus fracture. The patient had recently discharged to home from rehab and was doing well when she fell at her doctor's office. She presented with obvious pain and deformity. PHYSICAL EXAMINATION: GENERAL: This is a female with no apparent distress. She is awake, alert and oriented x3. EXTREMITIES: Evaluation of the left upper extremity, she has what looks like a posterior splint and this was removed. Her skin is intact. She has deformity of the midshaft and questionable anteriorly displaced humeral head. With range of motion, she has obvious crepitus in the midshaft region of the humerus. Grossly, she is neurovascularly intact distally. A coaptation splint was applied and the left upper extremity was in a splint. Post-splinting, again the patient remained neurovascularly intact. DIAGNOSTIC DATA: X-ray showed a significantly displaced midshaft humerus fracture. There are no shoulder films, but there is a questionable high riding humerus versus anterior dislocation. PLAN: At this point, I recommended that we get some shoulder x-rays as well as new set of humerus films. We will follow up. The patient will most likely need surgery for operative fixation of her fracture. Zuhair Coburn MD
--- NOTE | 2018-09-13 13:27 | CP.PCM.DIS ---
Provider - Provider Date of Admission: 09/12/18 17:17 Attending physician: Deedee Westfall MD Primary care physician: Austin Riley MD Consults: 09/12/18 18:06 Cardiology Consult Routine Comment: Consulting Provider: Deedee Mead Consulting Physician: Deedee Mead Reason for Consult: pre-op clearance 09/12/18 18:12 Orthopedic Consult Routine Comment: Consulting Provider: Zuhair Coburn Consulting Physician: Zuhair Coburn Reason for Consult: s/p mechanical fall, humeral fx, pt known to you Time Spent in preparation of Discharge (in minutes): 45 Diagnosis - Discharge Diagnosis (1) Fracture, humerus closed, shaft Status: Acute (2) Renal failure Status: Acute (3) Hyperkalemia Status: Acute (4) CHF (congestive heart failure) Status: Chronic (5) CAD (coronary artery disease) Status: Chronic (6) COPD (chronic obstructive pulmonary disease) Status: Chronic (7) Hypertension Status: Chronic Hospital Course - Lab Results Lab Results: Most Recent Lab Values WBC 7.6 10^3/uL (4.5-11.0) 09/13/18 06:00 RBC 3.46 10^6/uL (3.5-6.1) L 09/13/18 06:00 Hgb 9.5 g/dL (12.0-16.0) L 09/13/18 06:00 Hct 28.9 % (36.0-48.0) L 09/13/18 06:00 MCV 83.5 fl (80.0-105.0) 09/13/18 06:00 MCH 27.5 pg (25.0-35.0) 09/13/18 06:00 MCHC 32.9 g/dl (31.0-37.0) 09/13/18 06:00 RDW 17.3 % (11.5-14.5) H 09/13/18 06:00 Plt Count 227 10^3/uL (120.0-450.0) 09/13/18 06:00 MPV 9.5 fl (7.0-11.0) 09/13/18 06:00 Gran % 59.6 % (50.0-68.0) 09/13/18 06:00 Lymph % (Auto) 27.7 % (22.0-35.0) 09/13/18 06:00 [place] % (Auto) 11.7 % (1.0-6.0) H 09/13/18 06:00 Eos % (Auto) 0.9 % (1.5-5.0) L 09/13/18 06:00 Baso % (Auto) 0.1 % (0.0-3.0) 09/13/18 06:00 Gran # 4.52 (1.4-6.5) 09/13/18 06:00 Lymph # (Auto) 2.1 (1.2-3.4) 09/13/18 06:00 [place] # (Auto) 0.9 (0.1-0.6) H 09/13/18 06:00 Eos # (Auto) 0.1 (0.0-0.7) 09/13/18 06:00 Baso # (Auto) 0.01 K/mm3 (0.0-2.0) 09/13/18 06:00 PT 10.9 SECONDS (9.4-12.5) 09/12/18 15:50 INR 0.96 09/12/18 15:50 APTT 27.9 Seconds (25.1-36.5) 09/12/18 15:50 Sodium 128 mmol/L (132-148) L 09/13/18 06:00 Potassium 5.1 mmol/L (3.6-5.0) H 09/13/18 12:00 Chloride 101 mmol/L (98-107) 09/13/18 06:00 Carbon Dioxide 23 mmol/L (21-33) 09/13/18 06:00 Anion Gap 10 (10-20) 09/13/18 06:00 BUN 41 mg/dL (7-21) H 09/13/18 06:00 Creatinine 1.5 mg/dl (0.7-1.2) H 09/13/18 06:00 Est GFR ( Amer) 42 09/13/18 06:00 Est GFR (Non-Af Amer) 35 09/13/18 06:00 Random Glucose 91 mg/dL (70-110) 09/13/18 06:00 Calcium 8.9 mg/dL (8.4-10.5) 09/13/18 06:00 Phosphorus 4.9 mg/dL (2.5-4.5) H 09/13/18 06:00 Magnesium 1.9 mg/dL (1.7-2.2) 09/13/18 06:00 Total Bilirubin 0.3 mg/dL (0.2-1.3) 09/13/18 06:00 AST 29 U/L (14-36) 09/13/18 06:00 ALT 28 U/L (7-56) 09/13/18 06:00 Alkaline Phosphatase 74 U/L (38-126) 09/13/18 06:00 Lactate Dehydrogenase 420 U/L (333-699) 09/12/18 15:50 Total Creatine Kinase 37 U/L (35-230) 09/12/18 15:50 Troponin I 0.03 ng/mL D 09/12/18 15:50 NT-Pro-B Natriuret Pep 1230 pg/mL (0-450) H 09/12/18 15:50 Total Protein 5.7 g/dL (5.8-8.3) L 09/13/18 06:00 Albumin 3.1 g/dL (3.0-4.8) 09/13/18 06:00 Globulin 2.6 gm/dL 09/13/18 06:00 Albumin/Globulin Ratio 1.2 (1.1-1.8) 09/13/18 06:00 - Hospital Course Hospital Course: On admission: 68 y o female with PMhx COPD, CAD, AAA, HTN, rotator cuff injury, IL, CHF (most recent echo in Jun 2018 with EF of 59%) presents to the ED s/p fall c/o L arm pain. Pt was recently discharged yesterday from rehab facility in which she received physical therapy after [facility] discharge for 3 weeks. Has recent hx of ORIF for L humeral fracture performed by Dr. Coburn during last admission at [facility]. States she was in her neurologist's office today when she turned to look at a picture on the wall, felt dizzy, and then lost her balance and fell on her L am. Denies hitting her head or loss of consciousness. Not c/o pain anywhere else in her body currently. Currently in L arm sling, s/p reduction of fracture in the ED. C/o pain 10/10 sharp, localizes it to the upper arm. Unable to move L arm 2/2 to pain. Denies headache, chest pain, sob, n/v/d/c, abd pain, urinary complaints, numbness/tingling, color changes to affected extremity, hx compound fracture, or other symptoms. During hospital course: Patient had repeat humerus x-ray which showed improvement in degree of angulation seen previously, increasing overlap of humeral shaft measuring 3 cm. Shoulder x-ray showed successful reduction of mid humeral shaft fracture. Dr. Coburn orthopedic surgeon was consulted, recommended for operative fixation of her fracture. Head Loader Dr. Mead was consulted. Patient was cleared as moderate to high risk surgery but no absolute contraindication. Patient was medically optimized for transfer to [facility]. Please see EMR for full summary. - Date & Time of H&P Date of H&P: 09/12/18 Time of H&P: 18:14 Discharge Exam - Additional Findings Additional findings: - Constitutional Appears: Non-toxic, No Acute Distress - Head Exam Head Exam: ATRAUMATIC, NORMOCEPHALIC - Eye Exam Eye Exam: EOMI, Normal appearance - ENT Exam ENT Exam: Mucous Membranes Moist - Respiratory Exam Respiratory Exam: Clear to Auscultation Bilateral, NORMAL BREATHING PATTERN. a bsent: Rales, Rhonchi, Wheezes, Respiratory Distress - Cardiovascular Exam Cardiovascular Exam: REGULAR RHYTHM, +S1, +S2. absent: Gallop, Rubs, Systolic Murmur - GI/Abdominal Exam GI & Abdominal Exam: Normal Bowel Sounds, Soft. absent: Distended, Organomegaly, Tenderness - Extremities Exam Additional comments: L arm in sling and dressing c/d/i, no active bleeding noted - Back Exam Back exam: FULL ROM, NORMAL INSPECTION. absent: paraspinal tenderness - Neurological Exam Neurological exam: Alert, CN II-XII Intact, Oriented x3 - Skin Skin Exam: Dry, Intact, Normal Color, Warm Discharge Plan - Follow Up Plan Condition: SERIOUS Disposition: OTHER INSTITUTION Patient education suggested?: Yes Instructions: Upper Arm Fracture Referrals: Austin Riley MD [Primary Care Provider] -
--- NOTE | 2018-09-13 15:33 | CON ---
DATE: 09/13/2018 REASON FOR CONSULTATION: Preop evaluation and risk stratification for possible fracture on left humeral fracture status post fall, preop evaluation and risk stratification. BRIEF CLINICAL HISTORY: This is a 68-year-old female, with past medical history significant for COPD, CAD, abdominal aortic aneurysm, history of recent rotator cuff injury status post surgery 4 weeks ago, who yesterday fell down again and sustained fracture of the humerus requiring OR internal fixation. Cardiology consult was called for preop evaluation and risk stratification. The patient denies any chest pain. Denies any shortness of breath. Denies any palpitation. PAST MEDICAL HISTORY: Significant for coronary artery disease, history of abdominal aortic aneurysm, supposed to be repaired endovascular at [facility] with the patient had 1 episode of hypertension and later on the patient had a rotator cuff surgery is further postponed. History of CAD, history of COPD, history of UT, and history of congestive heart failure. PAST SURGICAL HISTORY: Significant for hysterectomy, tonsillectomy, rotator cuff surgery 4 weeks ago, history of coronary artery endarterectomy. RECENT CARDIAC WORKUP: As follows; the patient had a cardiac catheterization on 10/14/2015 that shows nonobstructive coronary artery disease, history of cardiac history goes back 5 years ago when the patient had UT status post [id number] myocardial infarction where the patient underwent cardiac catheterization, nonobstructive coronary artery disease who readmitted again with ST elevation V5, V6 code STEMI, underwent emergent cardiac catheterization, was found to be nonobstructive coronary artery disease, ejection fraction 35%. So, the patient had a cardiac catheterization twice 02/2015 as a non-STEMI and then 10/14/2015 for non-STEMI. Echo shows decreased LV function, RV systolic pressure 23, trace MR, [id number] tricuspid regurgitation, RV systolic pressure 23, mild mitral regurgitation, ejection fraction 35%. Later on, the MUGA scan done on 10/07/2015 that shows preserved LV function, ejection fraction 69% was significantly improved. PAST SURGICAL HISTORY: As mentioned, history of rotator cuff surgery in the past, history of carotid artery endarterectomy; and most recently the patient had a surgery of OR internal fixation of left humeral fracture, dated 07/06/[address] Coburn. The patient again fell and probably required another surgery. History of abdominal aortic aneurysm, is scheduled for endovascular repair at [facility] and accordingly recent stress test was done and was found to be negative for ischemia, but is deferred because the patient has a uncontrolled hypertension. Most recent echo shows preserved LV function, ejection fraction 59%. CURRENT MEDICATIONS: The patient is taking Effexor, Topamax, spironolactone, potassium chloride, metoprolol, lisinopril, Lasix, and albuterol. ALLERGIES: METHOTREXATE AND METRONIDAZOLE. REVIEW OF SYSTEMS: As per HPI. PHYSICAL EXAMINATION: As follows; VITAL SIGNS: Height of the patient 5 feet 5 inches, weight of the patient 96 pounds, body mass index 15 kg/m2. Rest of the vitals; temperature afebrile, heart rate 74, and blood pressure 100/57. HEENT: PERRLA. Extraocular muscles intact. NECK: Supple. No carotid bruit or thyromegaly. CHEST: Clear to auscultation. HEART: S1 and S2 regular. ABDOMEN: Soft. EXTREMITIES: Clubbing and cyanosis negative. LABORATORY DATA: Blood workup as follows; WBC 7.6, hemoglobin 9.5, hematocrit 28.9, and platelet count 227. Chemistry shows sodium 120, potassium 5.2, chloride 101, carbon dioxide 23, anion gap of 10, BUN 41, and creatinine 1.5. Total protein 5.6, albumin 3.1, and albumin-globulin ratio 1.2. EKG showed normal sinus LVH by voltage. IMPRESSION AND PLAN: A 68-year-old female with past medical history significant for coronary artery disease, non-obstructive status post cardiac catheterization twice, first after [id number] myocardial infarction in 2015, recently in [address]-elevation myocardial infarction, non-obstructive coronary artery disease; history of cardiomyopathy significantly improved. Most recent echocardiogram shows ejection fraction 59%. History of abdominal aortic aneurysm scheduled at [place] was deferred because of the shoulder surgery and uncontrolled hypertension; history of chronic obstructive pulmonary disease; history of recently fractured 4 weeks ago, the patient fell down, sustained again fracture, probably required to go to OR for an internal fixation. In view of above, the patient from the underlying coronary artery disease and comorbidity, but no absolute contraindication. No evidence of ischemia. No evidence of arrhythmia. We will clear the patient as a moderate to high risk surgery, but has no absolute contraindication. We will follow with you. In the interim, continue metoprolol. Further recommendation depends on hospital course. We will follow with you. We will hold aspirin for now for possible OR today. Continue gentle hydration and repeat potassium in 2 hours. We will give Kayexalate. Thank you Dr. Farley for providing us the opportunity in taking care of the patient, Blossom Fabian. Deedee Mead MD
[2018-09-13] MEDS: Oxycodone/Acetaminophen 10/325 mg Tab PO PRN (16:56)
[2018-09-13 17:46] VITALS: TEMP 101.9
[2018-09-13 18:33] VITALS: BP 133/92; PULSE 133
== END 2018-09-13 18:58 | disposition short-term general hospital (02) | DRG 563 ==
LOC: ED 15:32 → ERH 17:17 → 2RNO 20:41
PROVIDERS: ADMIT Hospitalist; ATTEND Internal Medicine
PROC: 0PSGXZZ Reposition Left Humeral Shaft, External Approach (ICD-10-PCS; principal; 2018-09-12)
DX: S42.322A Displaced transverse fracture of shaft of humerus, left arm, initial encounter for closed fracture (principal); N17.9 Acute kidney failure, unspecified; E87.1 Hypo-osmolality and hyponatremia; R64 Cachexia; Z68.1 Body mass index [BMI] 19.9 or less, adult; I42.9 Cardiomyopathy, unspecified; E87.5 Hyperkalemia; E86.0 Dehydration; I25.10 Atherosclerotic heart disease of native coronary artery without angina pectoris; I11.0 Hypertensive heart disease with heart failure; I50.9 Heart failure, unspecified; J44.9 Chronic obstructive pulmonary disease, unspecified; I25.2 Old myocardial infarction; W01.0XXA Fall on same level from slipping, tripping and stumbling without subsequent striking against object, initial encounter; Y92.531 Health care provider office as the place of occurrence of the external cause; Z86.73 Personal history of transient ischemic attack (TIA), and cerebral infarction without residual deficits; Z87.891 Personal history of nicotine dependence

== ENCOUNTER 2018-12-20 13:06 | Inpatient (IN) | payer MEDICARE ==
--- NOTE | 2018-12-20 13:30 | ED PDOC ---
Arrival/HPI - General Historian: Patient - History of Present Illness Narrative History of Present Illness (Text): 12/20/18 13:23 68 y/o female, pmh including htn/cad/chf/nstemi/humerus fracture, allergic to methotrexate and flagyl, biba c/o rt. hip pain s/p fall last evening while trying to go to the bathroom. Pt. stated that she was trying to go to the bathroom with the help of the , slipped and landed on the rt. hip, been having pain, unable to stand or walk, no numbness or tingling, no head/neck/back/chest/abdominal/other extremity injury, no LOC, able to recall the whole event, no chest pain or shortness of breath, no night sweat, no rash, no dizziness, no change in vision, no other medical or psychological complaints. PMD Dr. Bennett Past Medical History - Provider Review Nursing Documentation Reviewed: Yes - Infectious Disease Hx of Infectious Diseases: None - Tetanus Immunization Tetanus Immunization: Up to Date - Cardiac Hx Cardiac Disorders: Yes (NV X 2) Hx Angina: No Hx Cardiac Arrhythmia: No Hx Circulatory Problems: No Hx Congestive Heart Failure: No Hx Heart Murmur: No Hx Heart Transplant: No Hx Hypertension: Yes Hx Internal Defibrillator: No Hx Mitral Valve Prolapse: No Hx Pacemaker: No Hx Peripheral Edema: No Hx Peripheral Vascular Disease: No - Pulmonary Hx Respiratory Disorders: Yes Hx Asthma: No Hx Bronchitis: No Hx Chronic Obstructive Pulmonary Disease (COPD): Yes Hx Emphysema: No Hx Pneumonia: Yes Hx Respiratory Aspiration: No Hx Respiratory Tract Infection: No Hx Sleep Apnea: No Hx Tuberculosis: No - Neurological Hx Neurological Disorder: Yes Hx Alzheimer's Disease: No HX Cerebrovascular Accident: No Hx Dementia: No Hx Dizziness: Yes Hx Meningitis: No Hx Migraine: No Hx Parkinson's Disease: No Hx Seizures: No Hx Transient Ischemic Attacks (TIA): Yes - HEENT Hx HEENT Disorder: Yes (wears reading glasses, wears top dentures) Hx Blind: No Hx Cataracts: No Hx Deafness: No Hx Difficulty Chewing: No Hx Epistaxis: No Hx Glaucoma: No Hx Macular Degeneration: No - Renal Hx Renal Disorder: No Hx Dialysis: No Hx Kidney Stones: No Hx Neurogenic Bladder: No Hx Pyelonephritis: No Hx Renal Cancer: No Hx Renal Failure: No - Endocrine/Metabolic Hx Endocrine Disorders: No Hx Adrenal Cancer: No Hx Diabetes Insipidus: No Hx Diabetes Mellitus Type 1: No Hx Diabetes Mellitus Type 2: No Hx Hyperthyroidism: No Hx Hypothyroidism: No Hx Systemic Lupus Erythematosus: No - Hematological/Oncological Hx Blood Disorders: No Hx AIDS: No Hx Anemia: No Hx Cancer: No Hx Chemotherapy: No Hx Cirrhosis: No Hx Hemophilia: No Hx Hepatitis A: No Hx Hepatitis B: No Hx Hepatitis C: No Hx Metastasis: No Hx Shingles: No Hx Sickle Cell Disease: No Hx Unexplained Bleeding: No - Integumentary Hx Dermatological Disorder: No Hx Basal Cell Carcinoma: No Hx Eczema: No Hx Melanoma: No Hx Psoriasis: No Hx Squamous Cell Carcinoma: No - Musculoskeletal/Rheumatological Hx Musculoskeletal Disorders: Yes Hx Arthritis: Yes Hx Back Pain: No Hx Degenerative Joint Disease: No Hx Falls: Yes (last fall 09/11/18) Hx Fractures: Yes Hx Gout: No Hx Herniated Disk: No Hx Myasthenia Gravis: No Hx Osteoarthritis: No Hx Osteomyelitis: No Hx Osteoporosis: No Hx Rhabdomyolysis: No Hx Spinal Stenosis: No Hx Unsteady Gait: Yes - Gastrointestinal Hx Gastrointestinal Disorders: No Hx Colostomy: No Hx Crohn's Disease: No Hx Diverticulitis: No Hx Gall Bladder Disease: No Hx Gastroesophageal Reflux: No Hx Gastrointestinal Ulcer: No Hx Ileostomy: No Hx Liver Failure: No Hx Pancreatitis: No HX Swallowing Problems: No - Genitourinary/Gynecological Hx Genitourinary Disorders: Yes Hx Hematuria: No Hx Incontinence: Yes Hx Prostate Problems: No Hx Sexually Transmitted Diseases: No Hx Urinary Tract Infection: No - Psychiatric Hx Psychophysiologic Disorder: No Hx Anxiety: No Hx Bipolar Disorder: No Hx Depression: No Hx Emotional Abuse: No Hx Hallucinations: No Hx Panic Disorder: No Hx Paranoia: No Hx Post Traumatic Stress Disorder: No Hx Psychosis: No Hx Physical Abuse: No Hx Schizophrenia: No Hx Sexual Abuse: No Hx Substance Use: No - Surgical History Hx Amputation: No Hx Appendectomy: No Hx Cardiac Catheterization: Yes Hx Cholecystectomy: No Hx Coronary Stent: No Hx Gastric Bypass Surgery: No Hx Hysterectomy: No Hx Inguinal Hernia Repair: No Hx Joint Replacement: No Hx Kidney Transplant: No Hx Liver Transplant: No Hx Mastectomy: No Hx Musculoskeletal Surgery: No Hx Open Heart Surgery: No Hx Orthopedic Surgery: Yes Hx Splenectomy: No Hx Valve Replacement: No - Anesthesia Hx Anesthesia: Yes Hx Anesthesia Reactions: No Hx Malignant Hyperthermia: No - Suicidal Assessment Feels Threatened In Home Enviroment: No Family/Social History - Physician Review Nursing Documentation Reviewed: Yes Family/Social History: Unknown Family HX Smoking Status: Former Smoker Hx Alcohol Use: No Hx Substance Use: No Hx Substance Use Treatment: No Allergies/Home Meds Allergies/Adverse Reactions: Allergies methotrexate Allergy (Verified 12/20/18 13:13) PAIN metronidazole Allergy (Verified 12/20/18 13:13) RASH Home Medications: Home Meds Medication Instructions Recorded Confirmed Venlafaxine [Effexor XR] 150 mg PO BID 11/02/16 12/20/18 Albuterol HFA [Ventolin HFA 90 2 puff IH TID 09/12/18 12/20/18 mcg/actuation (8 g)] Fluticasone/Vilanterol [Breo 1 each IH DAILY 09/12/18 12/20/18 Ellipta 200-25 Mcg INH] Pantoprazole Sodium [Protonix] 40 mg PO DAILY 09/12/18 09/12/18 ALPRAZolam [Xanax] 1 mg PO QID 12/20/18 12/20/18 Ziprasidone [Geodon Cap] 80 mg PO BID 12/20/18 12/20/18 Review of Systems - Review of Systems Constitutional: absent: Fatigue, Fevers Eyes: absent: Vision Changes ENT: absent: Hearing Changes Respiratory: absent: SOB, Cough Cardiovascular: absent: Chest Pain Gastrointestinal: absent: Abdominal Pain, Nausea, Vomiting Musculoskeletal: Arthralgias. absent: Back Pain, Neck Pain, Joint Swelling, Myalgias Skin: absent: Rash, Pruritis Neurological: absent: Headache, Dizziness Psychiatric: absent: Anxiety, Depression, Suicidal Ideation Physical Exam Vital Signs Reviewed: Yes Vital Signs Temp Pulse Resp BP Pulse Ox 12/20/18 13:19 98.0 F 83 18 180/92 H 98 Temperature: Afebrile Blood Pressure: Hypertensive Pulse: Regular Respiratory Rate: Normal Appearance: Positive for: Well-Appearing, Non-Toxic, Comfortable Pain Distress: Moderate Mental Status: Positive for: Alert and Oriented X 3 - Systems Exam Head: Present: Atraumatic, Normocephalic. No: Tenderness, Contusion, Swelling, Ecchymosis, Abrasion, Laceration, Other Pupils: Present: PERRL Extroacular Muscles: Present: EOMI Conjunctiva: Present: Normal Ears: Present: NORMAL TM, Normal Canal. No: Erythema Mouth: Present: Moist Mucous Membranes Pharnyx: No: ERYTHEMA, EXUDATE, TONSILS ENLARGED Nose (External): Present: Atraumatic. No: Abrasion, Contusion, Laceration Nose (Internal): Present: Normal Inspection, No Active Bleeding. No: Edematous, Rhinorrhea, Septal Deviation, Septal Hematoma, Epistaxis Neck: Present: Normal Range of Motion, Trachea Midline. No: Meningeal Signs, MIDLINE TENDERNESS, Paraspinal Tenderness, Lymphadenopathy Respiratory/Chest: Present: Clear to Auscultation, Good Air Exchange. No: Respiratory Distress, Accessory Muscle Use, Wheezes, Decreased Breath Sounds, Rales, Retracting, Rhonchi, Tachypneic, Tender to Palpation Cardiovascular: Present: Regular Rate and Rhythm, Normal S1, S2. No: Murmurs Abdomen: Present: Normal Bowel Sounds. No: Tenderness, Distention, Peritoneal Signs, Rebound, Guarding, McBurney's Point Tender, Rovsing's Sign Present Back: Present: Normal Inspection. No: CVA Tenderness, Midline Tenderness, Paraspinal Tenderness, Pain with Leg Raise, Decubitus Ulcer Upper Extremity: Present: Normal Inspection, Normal ROM, NORMAL PULSES, Neurovascularly Intact, Capillary Refill < 2s. No: Cyanosis, Edema, Tenderness, Swelling, Deformity Lower Extremity: Present: Normal Inspection, NORMAL PULSES, Neurovascularly Intact, Capillary Refill < 2 s, Other (RLE: +ttp on the rt. lateral hip region and no swelling, no other bony tenderness or swelling, skin intact, no laceration or abrasion, FROM except painful rt. hip movement, sensation intact, motor 5/5, +DPPT pulses, capillary refill< 2 seconds, neurovascular intact. ). No: Edema, Deformity Neurological: Present: GCS=15, CN II-XII Intact, Speech Normal Skin: Present: Warm, Dry, Normal Color. No: Rashes Psychiatric: Present: Alert, Oriented x 3, Normal Insight, Normal Concentration Medical Decision Making ED Course and Treatment: 12/20/18 13:39 -Labs -CT head -Xrays of rt. hip/pelvic/rt. ankle and knee/chest -IV morphine/zofran -Bates catheter as she is unable to stand -sapphire stylus grinder -IVF 70cc/hr -Observe and reassess 12/20/18 14:08 -Benadryl 12.5mg IV ordered as the patient request to add benadryl to the IV morphine for her skin itching. Pt. stated that she has no allergy to the medication. 12/20/18 15:40 -EKG: NSR @ 79 BPM, no ST elevation or depression, no T wave inversion. -CT head No acute findings -Chest xray No active disease. -Rt. hip and pelvis xray: ER wet read: +rt. intertrochanteric fracture. -Rt. knee xray Limited examination. No gross evidence of fracture. Completion of examination is advised when clinically feasible. -Rt. ankle xray: Limited examination. No gross evidence of fracture on the single view. -Labs are non-significant except Na 126 from 128 -BNP 6370 from 1230 -Mg 1.6, mildly low, mgsul IV 1gm ordered -UA show no UTI -Pt. preferred orthopedic Dr. Michel to see her for this rt. hip fracture, paged out to Dr. Michel. -Pt. request more pain med, IV morphine 5mg ordered, BP is stable. 12/20/18 16:17 -I spoke to Dr. Michel, discussed about the case and rt. hip intertrochanteric fracture. He will consult this case and probably scheduled for surgery for tomorrow if the patient can get medical clearance. 12/20/18 16:21 -Pt. request Dr. Mead, workshop manager for cardiology clearance for this surgery. I placed Dr. Mead on this case as consult. -Paging Hospitalist for admission. 12/20/18 16:29 -I spoke to the hospitalist, Dr. Farley, discussed about the case/labs/radiology and consults choice, she agreed to admit to her service and follow up the consult/care. - RAD Interpretation Radiology Orders: -CT head Date of service: 12/20/2018 PROCEDURE: CT HEAD WITHOUT CONTRAST. HISTORY: fall COMPARISON: None available. TECHNIQUE: Axial computed tomography images were obtained through the head/brain without intravenous contrast. Radiation dose: Total exam DLP = 923.7 mGy-cm. This CT exam was performed using one or more of the following dose reduction techniques: Automated exposure control, adjustment of the mA and/or kV according to patient size, and/or use of iterative reconstruction technique. FINDINGS: HEMORRHAGE: No intracranial hemorrhage. BRAIN: No mass effect or edema. Chronic encephalomalacia is seen in the right frontal lobe and the left posterior parietal lobe. Chronic microvascular changes in the basal ganglia bilaterally. VENTRICLES: Unremarkable. No hydrocephalus. CALVARIUM: Unremarkable. PARANASAL SINUSES: Unremarkable as visualized. No significant inflammatory changes. MASTOID AIR CELLS: There is partial opacification of the mastoid air cells bilaterally. OTHER FINDINGS: None. IMPRESSION: No acute findings -Chest xray Date of service: 12/20/2018 HISTORY: preop COMPARISON: 09/12/2018 TECHNIQUE: 1 view obtained. FINDINGS: LUNGS: No active pulmonary disease. PLEURA: No significant pleural effusion identified, no pneumothorax apparent. CARDIOVASCULAR: No aortic atherosclerotic calcification present. Normal cardiac size. No pulmonary vascular congestion. OSSEOUS STRUCTURES: No significant abnormalities. VISUALIZED UPPER ABDOMEN: Normal. OTHER FINDINGS: None. IMPRESSION: No active disease. -Rt. hip and pelvis xray PROCEDURE: Radiographs of the pelvis and bilateral hips HISTORY: rt. hip pain s/p fall COMPARISON: None. TECHNIQUE: 2 views obtained. FINDINGS: BONES: Pelvis: Unremarkable. Right hip:Intertrochanteric fracture with mild varus angulation. No gross comminution. Left hip:Unremarkable. JOINTS: Right hip: Unremarkable. Left hip: Unremarkable. Sacroiliac Joints: Unremarkable. Pubic symphysis: Unremarkable. SOFT TISSUES: Normal. OTHER FINDINGS: None. IMPRESSION: Intertrochanteric fracture of the right hip mild varus angulation. -Rt. knee xray Date of service: 12/20/2018 PROCEDURE: Right Knee Radiographs. HISTORY: fall COMPARISON: None. TECHNIQUE: One views obtained. FINDINGS: BONES: Limited evaluation consists of only a single view. No gross evidence of fracture. JOINTS: Unable to evaluate the joints. JOINT EFFUSION: None. OTHER FINDINGS: None. IMPRESSION: Limited examination. No gross evidence of fracture. Completion of examination is advised when clinically feasible. -Rt. ankle xray Date of service: 12/20/2018 PROCEDURE: Right Ankle Radiographs. HISTORY: fall COMPARISON: None available. TECHNIQUE: One lateral view was obtained. Technically limited examination. FINDINGS: BONES: No evidence of fracture. JOINTS: Normal. No osteoarthritis. Ankle mortise maintained. Talar dome intact SOFT TISSUES: Normal. OTHER FINDINGS: None. IMPRESSION: Limited examination. No gross evidence of fracture on the single view. Performance Improvement Specialist: Radiologist - PA / CHIEF LOCK OPERATOR / Resident Statement / has reviewed & agrees with the documentation as recorded. Disposition/Present on Arrival - Present on Arrival Any Indicators Present on Arrival: No History of DVT/PE: No History of Uncontrolled Diabetes: No Urinary Catheter: No History of Decub. Ulcer: No History Surgical Site Infection Following: None - Disposition Have Diagnosis and Disposition been Completed?: Yes Diagnosis: Hyponatremia, Fall, Intertrochanteric fracture of right hip Disposition: HOSPITALIZED Disposition Time: 15:44 Patient Plan: Admission Patient Problems: Current Active Problems Problem Status Onset Hyponatremia Acute Fall Acute Intertrochanteric fracture of right hip Acute Condition: STABLE Referrals: Austin Riley MD [Primary Care Provider] - Follow up with primary
[2018-12-20] MEDS ORDERED: Morphine 4 mg/ml ISec IVP STA (13:32)
[2018-12-20] MEDS ORDERED: Sodium Chloride 0.9% 500 ML IV SCH (13:45)
[2018-12-20] MEDS ORDERED: DiphenhydrAMINE 50 mg/ml Inj IVP STA (14:08)
[2018-12-20 14:12] LABS: BASO # 0.02 K/mm3 (0.0-2.0); BASO % 0.1 % (0.0-3.0); EOS % 0.1 % (1.5-5.0); HEMOGLOBIN 10.2 g/dL (12.0-16.0); LYMPH # 1.7 (1.2-3.4); LYMPH % 11.3 % (22.0-35.0); MEAN CELL VOLUME 76.7 fl (80.0-105.0); MEAN CORPUSCULAR HEMOGLOBIN 24.8 pg (25.0-35.0); MEAN CORPUSCULAR HGB CONC 32.3 g/dl (31.0-37.0); MEAN PLATELET VOLUME 9.3 fl (7.0-11.0); MONO # 1.7 (0.1-0.6); MONO % 11.8 % (1.0-6.0); RBC 4.12 10^6/uL (3.5-6.1); RED CELL DISTRIBUTION WIDTH 14.9 % (11.5-14.5); WHITE BLOOD COUNT 14.7 10^3/uL (4.5-11.0)
[2018-12-20 14:20] LABS: INR 1.22; PARTIAL THROMBOPLASTIN TIME 32.4 Seconds (26.9-38.3); PROTHROMBIN TIME 13.5 SECONDS (9.4-12.5)
[2018-12-20 14:21] LABS: ALBUMIN 3.6 g/dL (3.0-4.8); CALCIUM 9.4 mg/dL (8.4-10.5)
[2018-12-20 14:58] LABS: URINE BILIRUBIN NEGATIVE (NEGATIVE); URINE BLOOD TRACE-LYSED (NEGATIVE); URINE GLUCOSE (UA) NEGATIVE (NEGATIVE); URINE LEUKOCYTE ESTERASE NEGATIVE Leu/uL (NEGATIVE); URINE PROTEIN NEGATIVE mg/dL (<30 mg/dL); URINE UROBILINOGEN 0.2 E.U./dL (<1 E.U./dL)
[2018-12-20 15:05] LABS: URINE COLOR YELLOW (YELLOW)
[2018-12-20 15:06] LABS: URINE APPEARANCE CLEAR (CLEAR)
[2018-12-20 15:07] LABS: URINE BACTERIA FEW /hpf; URINE WBC 0 - 2 /hpf (0-6)
[2018-12-20] MEDS ORDERED: Magnesium Sulfate 1 gm in D5W 1 GM/100 ML BAG IVPB ONE (15:11)
--- NOTE | 2018-12-20 15:44 | RAD ---
PROCEDURE: Radiographs of the pelvis and bilateral hips HISTORY: rt. hip pain s/p fall COMPARISON: None. TECHNIQUE: 2 views obtained. FINDINGS: BONES: Pelvis: Unremarkable. Right hip:Intertrochanteric fracture with mild varus angulation. No gross comminution. Left hip:Unremarkable. JOINTS: Right hip: Unremarkable. Left hip: Unremarkable. Sacroiliac Joints: Unremarkable. Pubic symphysis: Unremarkable. SOFT TISSUES: Normal. OTHER FINDINGS: None. IMPRESSION: Intertrochanteric fracture of the right hip mild varus angulation.
--- NOTE | 2018-12-20 15:45 | RAD ---
Date of service: 12/20/2018 PROCEDURE: Right Ankle Radiographs. HISTORY: fall COMPARISON: None available. TECHNIQUE: One lateral view was obtained. Technically limited examination. FINDINGS: BONES: No evidence of fracture. JOINTS: Normal. No osteoarthritis. Ankle mortise maintained. Talar dome intact SOFT TISSUES: Normal. OTHER FINDINGS: None. IMPRESSION: Limited examination. No gross evidence of fracture on the single view.
--- NOTE | 2018-12-20 15:47 | RAD ---
Date of service: 12/20/2018 HISTORY: preop COMPARISON: 09/12/2018 TECHNIQUE: 1 view obtained. FINDINGS: LUNGS: No active pulmonary disease. PLEURA: No significant pleural effusion identified, no pneumothorax apparent. CARDIOVASCULAR: No aortic atherosclerotic calcification present. Normal cardiac size. No pulmonary vascular congestion. OSSEOUS STRUCTURES: No significant abnormalities. VISUALIZED UPPER ABDOMEN: Normal. OTHER FINDINGS: None. IMPRESSION: No active disease.
--- NOTE | 2018-12-20 15:48 | CT ---
Date of service: 12/20/2018 PROCEDURE: CT HEAD WITHOUT CONTRAST. HISTORY: fall COMPARISON: None available. TECHNIQUE: Axial computed tomography images were obtained through the head/brain without intravenous contrast. Radiation dose: Total exam DLP = 923.7 mGy-cm. This CT exam was performed using one or more of the following dose reduction techniques: Automated exposure control, adjustment of the mA and/or kV according to patient size, and/or use of iterative reconstruction technique. FINDINGS: HEMORRHAGE: No intracranial hemorrhage. BRAIN: No mass effect or edema. Chronic encephalomalacia is seen in the right frontal lobe and the left posterior parietal lobe. Chronic microvascular changes in the basal ganglia bilaterally. VENTRICLES: Unremarkable. No hydrocephalus. CALVARIUM: Unremarkable. PARANASAL SINUSES: Unremarkable as visualized. No significant inflammatory changes. MASTOID AIR CELLS: There is partial opacification of the mastoid air cells bilaterally. OTHER FINDINGS: None. IMPRESSION: No acute findings
--- NOTE | 2018-12-20 16:02 | CARD ---
APPROVED REPORT Date of service: 12/20/2018 EKG Measurement Heart [id number] <Conclusion> Normal sinus rhythm Normal ECG
--- NOTE | 2018-12-20 16:16 | RAD ---
Date of service: 12/20/2018 PROCEDURE: Right Knee Radiographs. HISTORY: fall COMPARISON: None. TECHNIQUE: One views obtained. FINDINGS: BONES: Limited evaluation consists of only a single view. No gross evidence of fracture. JOINTS: Unable to evaluate the joints. JOINT EFFUSION: None. OTHER FINDINGS: None. IMPRESSION: Limited examination. No gross evidence of fracture. Completion of examination is advised when clinically feasible.
[2018-12-20] MEDS ORDERED: Albuterol-Ipratrop 3 mg / 0.5 (3 ml) UD IH PRN (18:04)
--- NOTE | 2018-12-20 18:11 | CP.PCM.HP ---
<Stepan Whittaker - Last Filed: 12/21/18 06:50> History of Present Illness - History of Present Illness History of Present Illness: Medicine H/P: [facility] PGY - 2 Chief Complaint: Fall 68 F with PMhx COPD, CAD, AAA, HTN, rotator cuff injury, ID, CHF (most recent echo in Jun 2018 with EF of 59%) presents to the ED s/p fall. Of note, patient had an admission in August for a fall as well, after which she broke her humerus; she was admitted in June for a fracture as well. In addition, patient has been hyponatremic since her last visit, with unknown etiology. On this admission, patient states she was standing by her bed, waiting for her to take her to the bathroom (she is not ambulatory at home; does not use a wheelchair or cane, her takes her everywhere), when she got dizzy and lost her balance. She denies hitting her head or loss of consciousness. She is complaining of R hip pain and R hand pain, but denies any other complaints at this time. ROS: 12 point ROS obtained and negative except as per HPI Surg Hx: Hysterectomy, tonsillectomy, rotator cuff surgery, carotid endarterectomy x2 Med Hx: COPD, CAD, AAA, HTN, multiple frx, ID, CHF (most recent echo in Jun 2018 with EF of 59%) Allergies: Methotrexate, Flagyl Soc Hx: Smoked 1 ppd x 30 y, quit; denies EtOH or illicit drug use; lives at home with Home meds: Ventolin, Xanax 1 QID, Zestril 40, Reglan 10 bid, Lopressor 25 bid, Fluticasone, Protonix 40, Mirapex .5 daily, Effexor 150 BID, Geodon 80 HS, Trazodone 150 HS (HOLD), Perc 5 QID (HOLD), Aldactone 25 daily, Topamax 150 BID. Confirmed with Jerry'kayla Modi Hx: Denies PMD: Dr. Riley Present on Admission - Present on Admission Any Indicators Present on Admission: No Past Patient History - Infectious Disease Hx of Infectious Diseases: None - Tetanus Immunizations Tetanus Immunization: Up to Date - Past Medical History & Family History Past Medical History?: Yes - Past Social History Smoking Status: Former Smoker - CARDIAC Hx Cardiac Disorders: Yes (ID X 2) Hx Angina: No Hx Cardia Arrhythmia: No Hx Circulatory Problems: No Hx Congestive Heart Failure: No Hx Heart Murmur: No Hx Heart Transplant: No Hx Hypertension: Yes Hx Internal Defibrillator: No Hx Mitral Valve Prolapse: No Hx Pacemaker: No Hx Peripheral Edema: No Hx Peripheral Vascular Disease: No - PULMONARY Hx Respiratory Disorders: Yes Hx Asthma: No Hx Bronchitis: No Hx Chronic Obstructive Pulmonary Disease (COPD): Yes Hx Emphysema: No Hx Pneumonia: Yes Hx Respiratory Aspiration: No Hx Respiratory Tract Infection: No Hx Sleep Apnea: No Hx Tuberculosis: No - NEUROLOGICAL Hx Neurological Disorder: Yes Hx Alzheimer's Disease: No HX Cerebrovascular Accident: No Hx Dementia: No Hx Dizziness: Yes Hx Meningitis: No Hx Migraine: No Hx Parkinson's Disease: No Hx Seizures: No Hx Transient Ischemic Attacks (TIA): Yes - HEENT Hx HEENT Problems: Yes (wears reading glasses, wears top dentures) Hx Blind: No Hx Cataracts: No Hx Deafness: No Hx Difficulty Chewing: No Hx Epistaxis: No Hx Glaucoma: No Hx Macular Degeneration: No - RENAL Hx Chronic Kidney Disease: No Hx Dialysis: No Hx Kidney Stones: No Hx Neurogenic Bladder: No Hx Pyelonephritis: No Hx Renal (Kidney) Cancer: No Hx Renal Failure: No - ENDOCRINE/METABOLIC Hx Endocrine Disorders: No Hx Adrenal Cancer: No Hx Diabetes Insipidus: No Hx Diabetes Mellitus Type 1: No Hx Diabetes Mellitus Type 2: No Hx Hyperthyroidism: No Hx Hypothyroidism: No Hx Systemic Lupus Erythematosus: No - HEMATOLOGICAL/ONCOLOGICAL Hx Blood Disorders: No Hx AIDS: No Hx Anemia: No Hx Cancer: No Hx Chemotherapy: No Hx Cirrhosis: No Hx Hemophilia: No Hx Hepatitis A: No Hx Hepatitis B: No Hx Hepatitis C: No Hx Metastesis: No Hx Shingles: No Hx Sickle Cell Disease: No Hx Unexplained Bleeding: No - INTEGUMENTARY Hx Dermatological Problems: No Hx Basil Cell: No Hx Eczema: No Hx Melanoma: No Hx Psoriasis: No Hx Squamous Cell: No - MUSCULOSKELETAL/RHEUMATOLOGICAL Hx Musculoskeletal Disorders: Yes Hx Arthritis: Yes Hx Back Pain: No Hx Degenerative Joint Disease: No Hx Falls: Yes (last fall 09/11/18) Hx Fractures: Yes Hx Gout: No Hx Herniated Disk: No Hx Myasthenia Gravis: No Hx Osteoarthritis: No Hx Osteomyelitis: No Hx Osteoporosis: No Hx Rhabdomyolysis: No Hx Spinal Stenosis: No Hx Unsteady Gait: Yes - GASTROINTESTINAL Hx Gastrointestinal Disorders: No Hx Colostomy: No Hx Crohn's Disease: No Hx Diverticulitis: No Hx Gall Bladder Disease: No Hx Gastroesophageal Reflux: No Hx Ileostomy: No Hx Liver Failure: No Hx Pancreatitis: No HX Swallowing Problems: No - GENITOURINARY/GYNECOLOGICAL Hx Genitourinary Disorders: Yes Hx Hematuria: No Hx Incontinence: Yes Hx Sexually Transmitted Disorders: No Hx Urinary Tract Infection: No - PSYCHIATRIC Hx Psychophysiologic Disorder: No Hx Anxiety: No Hx Bipolar Disorder: No Hx Depression: No Hx Emotional Abuse: No Hx Hallucinations: No Hx Panic Symptoms: No Hx Paranoia: No Hx Post Traumatic Stress Disorder: No Hx Psychosis: No Hx Physical Abuse: No Hx Schizophrenia: No Hx Sexual Abuse: No Hx Substance Use: No - SURGICAL HISTORY Hx Amputation: No Hx Appendectomy: No Hx Cardiac Catheterization: Yes Hx Cholecystectomy: No Hx Coronary Stent: No Hx Gastric Bypass Surgery: No Hx Hysterectomy: No Hx Joint Replacement: No Hx Kidney Transplant: No Hx Liver Transplant: No Hx Mastectomy: No Hx Musculoskeletal Surgery: No Hx Open Heart Surgery: No Hx Orthopedic Surgery: Yes Hx Splenectomy: No Hx Valve Replacement: No - ANESTHESIA Hx Anesthesia: Yes Hx Anesthesia Reactions: No Hx Malignant Hyperthermia: No Meds Home Medications: Home Medication List Medication Instructions Recorded Confirmed Type Topiramate [Topamax] 150 mg PO BID #1 tab 12/20/18 Rx Allergies/Adverse Reactions: Allergies Allergy/AdvReac Type Severity Reaction Status Date / Time methotrexate Allergy PAIN Verified 12/20/18 13:13 metronidazole Allergy RASH Verified 12/20/18 13:13 cefazolin [From Ancef] AdvReac RASH Verified 12/21/18 16:26 Physical Exam - Constitutional Appears: Well - Head Exam Head Exam: ATRAUMATIC, NORMAL INSPECTION, NORMOCEPHALIC - Eye Exam Eye Exam: EOMI, Normal appearance, PERRL Pupil Exam: NORMAL ACCOMODATION, PERRL - ENT Exam ENT Exam: Mucous Membranes Moist, Normal Exam - Neck Exam Neck exam: Positive for: Normal Inspection - Respiratory Exam Respiratory Exam: Clear to Auscultation Bilateral, NORMAL BREATHING PATTERN - Cardiovascular Exam Cardiovascular Exam: REGULAR RHYTHM - GI/Abdominal Exam GI & Abdominal Exam: Normal Bowel Sounds, Soft. absent: Tenderness - Extremities Exam Extremities exam: Negative for: normal inspection Additional comments: R LE externally rotated - Back Exam Back exam: NORMAL INSPECTION - Neurological Exam Neurological exam: Alert, CN II-XII Intact, Normal Gait, Oriented x3, Reflexes Normal - Psychiatric Exam Psychiatric exam: Normal Affect, Normal Mood - Skin Skin Exam: Dry, Intact, Normal Color, Warm Results - Vital Signs Recent Vital Signs: Last Vital Signs Temp 99.2 F 12/20/18 17:58 Pulse 79 12/20/18 17:58 Resp 18 12/20/18 17:58 BP 160/86 H 12/20/18 17:58 Pulse Ox 100 12/20/18 17:58 - Labs Result Diagrams: 12/20/18 14:02 12/20/18 14:02 Labs: Laboratory Results - last 24 hr 12/20/18 12/20/18 12/20/18 14:02 14:02 14:02 WBC 14.7 H D RBC 4.12 Hgb 10.2 L Hct 31.6 L MCV 76.7 L D MCH 24.8 L MCHC 32.3 RDW 14.9 H Plt Count 246 MPV 9.3 Neut % (Auto) 76.7 H Lymph % (Auto) 11.3 L Elk % (Auto) 11.8 H Eos % (Auto) 0.1 L Baso % (Auto) 0.1 Lymph # (Auto) 1.7 Elk # (Auto) 1.7 H Eos # (Auto) 0.0 Baso # (Auto) 0.02 Absolute Neuts (auto) 11.23 H PT 13.5 H INR 1.22 APTT 32.4 Sodium 126 L Potassium 4.6 Chloride 93 L Carbon Dioxide 22 Anion Gap 16 BUN 20 Creatinine 1.1 Est GFR ( Amer) 60 Est GFR (Non-Af Amer) 50 Random Glucose 109 Calcium 9.4 Magnesium 1.6 L Total Bilirubin 0.5 AST 25 ALT 14 Alkaline Phosphatase 98 NT-Pro-B Natriuret Pep 6370 H Total Protein 7.1 Albumin 3.6 Globulin 3.5 Albumin/Globulin Ratio 1.0 L Urine Color Urine Appearance Urine pH Ur Specific [place] Urine Protein Urine Glucose (UA) Urine Ketones Urine Blood Urine Nitrate Urine Bilirubin Urine Urobilinogen Ur Leukocyte Esterase Urine RBC Urine WBC Ur Epithelial Cells Urine Bacteria Blood Type Antibody Screen BBK History Checked 12/20/18 12/20/18 14:02 14:30 WBC RBC Hgb Hct MCV MCH MCHC RDW Plt Count MPV Neut % (Auto) Lymph % (Auto) Elk % (Auto) Eos % (Auto) Baso % (Auto) Lymph # (Auto) Elk # (Auto) Eos # (Auto) Baso # (Auto) Absolute Neuts (auto) PT INR APTT Sodium Potassium Chloride Carbon Dioxide Anion Gap BUN Creatinine Est GFR ( Amer) Est GFR (Non-Af Amer) Random Glucose Calcium Magnesium Total Bilirubin AST ALT Alkaline Phosphatase NT-Pro-B Natriuret Pep Total Protein Albumin Globulin Albumin/Globulin Ratio Urine Color Yellow Urine Appearance Clear Urine pH 6.0 Ur Specific [place] 1.010 Urine Protein Negative Urine Glucose (UA) Negative Urine Ketones Negative Urine Blood Trace-lysed H Urine Nitrate Negative Urine Bilirubin Negative Urine Urobilinogen 0.2 Ur Leukocyte Esterase Negative Urine RBC 1 - 3 H Urine WBC 0 - 2 Ur Epithelial Cells 3 - 4 Urine Bacteria Few Blood Type O POSITIVE Antibody Screen Negative BBK History Checked Patient has bt Assessment & Plan - Assessment and Plan (Free Text) Assessment: 68 F with pertinent hx of multiple falls, CHF, CAD, HTN, COPD presents s/p fall with R hip fracture. Laboratory review revealed chronic hyponatremia Plan R Hip Fracture - Admit to Med/Surg - Ortho consulted: Dr. Coburn - Morphine 2 q 4 h prn for severe pain - Home Percocet held - NPO after MN S/p fall - possibly 2/2 polypharmacy vs orthostatics - Mild hydration - Hold home Trazodone, reduce home Xanax from 1 to .5, hold home Aldactone Hyponatremia, possibly 2/2 home meds VS poor po intake - Mild hydration - May choose to work up after surgery Hx CHF - Hold home aldactone 2/2 hypovolemic hyponatremia - Will continue to monitor Hx CAD - Continue Lopressor, Zestril, Lopressor - Cardio consulted for pre-op risk stratification: Dr. Mead Hx HTN - C/w home medication Zestril, Lopressor Hx COPD not on O2 - Duonebs q 6 h prn <Sagrario Farley R - Last Filed: 12/21/18 16:37> Results - Vital Signs Recent Vital Signs: Last Vital Signs Temp 97.5 F L 12/21/18 16:01 Pulse 116 H 12/21/18 16:01 Resp 28 H 12/21/18 16:01 BP 182/108 H 12/21/18 16:01 Pulse Ox 97 12/21/18 16:01 - Labs Result Diagrams: 12/21/18 07:20 12/21/18 07:20 Labs: Laboratory Results - last 24 hr 12/20/18 12/21/18 12/21/18 14:02 07:20 07:20 WBC 9.9 D RBC 4.10 Hgb 9.9 L Hct 31.2 L MCV 76.1 L MCH 24.1 L MCHC 31.7 RDW 14.8 H Plt Count 247 MPV 9.3 Neut % (Auto) 72.6 H Lymph % (Auto) 14.8 L Elk % (Auto) 12.3 H Eos % (Auto) 0.1 L Baso % (Auto) 0.2 Lymph # (Auto) 1.5 Elk # (Auto) 1.2 H Eos # (Auto) 0.0 Baso # (Auto) 0.02 Absolute Neuts (auto) 7.17 H Sodium 127 L Potassium 4.3 Chloride 97 L Carbon Dioxide 20 L Anion Gap 14 BUN 19 Creatinine 0.9 Est GFR ( Amer) > 60 Est GFR (Non-Af Amer) > 60 Random Glucose 100 Calcium 9.2 Phosphorus 3.8 Magnesium 1.8 Total Bilirubin 0.3 AST 21 ALT 15 Alkaline Phosphatase 91 Total Protein 6.8 Albumin 3.5 Globulin 3.3 Albumin/Globulin Ratio 1.1 Blood Type O POSITIVE Antibody Screen Negative Crossmatch See Detail BBK History Checked Patient has bt Attending/Attestation - Attestation I have personally seen and examined this patient.: Yes I have fully participated in the care of the patient.: Yes I have reviewed all pertinent clinical information: Yes Notes (Text): Patient seen and examined by me with resident at approximately 4:50PM on 12/20/18 in the emergency room. Case including HPI, physical exam, and assessment and plan discussed with resident. Agree with above with following additions/corrections. Patient is a 68-year-old female past medical history significant for COPD, coronary artery disease, AAA, hypertension, rotator cuff injury, chronic diastolic CHF, multiple falls and fractures, psychiatric disorder, hyponatremia, and history of tobacco abuse that presented to the emergency room after having a fall. Patient states that she was standing in her bedroom waiting for her to help her when she felt dizzy and fell on her right side. Patient states that she fell on hardwood floor. She denies any loss of consciousness or head trauma. Patient states she fell on her right hand as well and complains of right hand pain. Patient states that she does not normally ambulate at home. She states that she normally stays in bed. Patient is also complaining of right hip pain and states she cannot move the leg. Pain is worse with movement and sharp in nature. Patient denies any chest pain or shortness of breath. No fevers or chills. No current headaches or dizziness. No dysuria. Patient denies any diarrhea or constipation. No nausea, vomiting, or abdominal pain. 12 point review of systems reviewed by me. Please see above HPI, all other sys tems negative. Family history: Mother from heart disease. Father from heart heart disease. Physical exam: General: Awake and alert lying in bed in no acute distress. HEENT: Normocephalic, atraumatic. Extraocular muscles intact, pupils equal and reactive, no scleral icterus. Oropharynx is pink and moist. No pharyngeal erythema or exudate appreciated. Neck is supple. Hearing grossly intact. Ears and nose externally unremarkable. Cardiovascular: Regular rhythm. Normal S1, S2. No murmurs, rubs, or gallops appreciated Pulmonary: Normal respiratory effort. No rhonchi, rales, or wheezing appreciated. Gastrointestinal: Soft. Nontender. Nodistended. Positive bowel sounds all 4 quadrants. No guarding. Musculoskeletal: Decreased range of motion right lower extremity, right upper extremity, left upper extremity (chronic from a previous fracture). Right lower extremity externally rotated. No calf tenderness. No edema appreciated. Positive tenderness right hip. Right 4th and 5th hand digits with ecchymosis. Central nervous system: AAOx3 Dermatologic: Skin warm and dry. Assessment and plan: Patient is a 68-year-old female past medical history significant for COPD, coronary artery disease, AAA, hypertension, rotator cuff injury, chronic diastolic CHF, multiple falls and fractures, psychiatric disorder, hyponatremia, and history of tobacco abuse that presented to the emergency room after having a fall. 1. Right hip pain. Right hand pain. Intertrochanteric fracture of the right hip status post fall. Pelvic and bilateral hip x-ray per radiologist showed intertrochanteric fracture of the right hip, mild varus angulation. Head CT per radiologist showed no acute findings. Right ankle x-ray per radiologist showed limited examination, no gross evidence of fracture on the single view. Right knee x-ray per radiologist showed limited examination, no gross evidence of fracture. Right hand x-ray per radiologist showed no evidence of fracture. Orthopedic consulted, follow-up recommendations. For possible OR tomorrow. Cardiology consulted for clearance. 2. Hyponatremia. May be secondary to medication side effect vs dehydration. Will slowly hydrate. Follow up repeat labs in AM. 3. Chronic diastolic CHF. CAD. No acute issues. Aldactone held for now secondary to hyponatremia. Cardiology consulted for cardiac clearance for surgery. 2-D echo per manager media relations showed left ventricle is normal size, EF 59%, right ventricular systolic function is normal, right ventricle is normal size. Continue home lisinopril and metoprolol. No ASA secondary to patient going to OR. 4. Hypertension. Continue home lisinopril and metoprolol 5. Psychiatric disorder. Continue home Effexor and Geodon. Placed on Xanax prn. 6. COPD. Not in acute exacerbation. Placed on nebulizer treatments as need. 7. Multiple falls and fractures. Will need PT/OT eval post surgery. 8. Patient is a full code. Case was discussed in detail with the patient regarding current diagnosis and treatment plan. All questions answered.
[2018-12-20] MEDS: Venlafaxine 75 mg ER Cap PO SCH (19:47)
[2018-12-20] MEDS ORDERED: Albuterol-Ipratrop 3 mg / 0.5 (3 ml) UD IH SCH (20:00)
[2018-12-20] MEDS: Sodium Chloride 0.9% 500 ML IV SCH (20:50)
[2018-12-20] MEDS: Morphine 4 mg/ml ISec IVP PRN (21:04)
[2018-12-20 23:15] VITALS: BMI 17.6
[2018-12-21] MEDS: Morphine 4 mg/ml ISec IVP PRN ×4 (01:56→18:54)
[2018-12-21] MEDS: Sodium Chloride 0.9% 500 ML IV SCH (06:17)
[2018-12-21 07:46] LABS: BASO # 0.02 K/mm3 (0.0-2.0); BASO % 0.2 % (0.0-3.0); EOS % 0.1 % (1.5-5.0); HEMOGLOBIN 9.9 g/dL (12.0-16.0); LYMPH # 1.5 (1.2-3.4); LYMPH % 14.8 % (22.0-35.0); MEAN CELL VOLUME 76.1 fl (80.0-105.0); MEAN CORPUSCULAR HEMOGLOBIN 24.1 pg (25.0-35.0); MEAN CORPUSCULAR HGB CONC 31.7 g/dl (31.0-37.0); MEAN PLATELET VOLUME 9.3 fl (7.0-11.0); MONO # 1.2 (0.1-0.6); MONO % 12.3 % (1.0-6.0); RBC 4.1 10^6/uL (3.5-6.1); RED CELL DISTRIBUTION WIDTH 14.8 % (11.5-14.5); WHITE BLOOD COUNT 9.9 10^3/uL (4.5-11.0)
[2018-12-21 07:59] LABS: ALB/GLOB RATIO 1.1 (1.1-1.8); ALBUMIN 3.5 g/dL (3.0-4.8); ALT/SGPT 15 U/L (7-56); AST/SGOT 21 U/L (14-36); BLOOD UREA NITROGEN 19 mg/dL (7-21); CALCIUM 9.2 mg/dL (8.4-10.5); GFR NON-AFRICAN AMERICAN > 60
--- NOTE | 2018-12-21 08:40 | CP.PCM.CON ---
History of Present Illness - History of Present Illness History of Present Illness: Awake, alert, no distress, complaining of hip pain Reason for consultation: Cardiac evaluation and pre-op risk stratification and clearance for right hip surgery Brief history of present illness: A 68 year old female who came in to the ER due to right hip pain due to fall. Consult was called for pre-op risk stratification and clearance for right hip surgery. History of COPD, HI, congestive heart failure, hypertension, coronary artery disease, abdominal aortic aneursym, post rotator cuff injury with repair, fracture of left humerus with surgery, former smoker. She was standing by her bed, waiting for her to take her to the bathroom when she got dizzy and lost her balance. She is not ambulatory at home and does not use a wheelchair or cane, her takes her everywhere. Admitted for right hip surgery. Seen and examined by me and Dr. Winchester Review of Systems - Review of Systems All systems: reviewed and no additional remarkable complaints except Review of Systems: as per HPI Past Patient History - Infectious Disease Hx of Infectious Diseases: None - Tetanus Immunizations Tetanus Immunization: Up to Date - Past Medical History & Family History Past Medical History?: Yes - Past Social History Smoking Status: Former Smoker - CARDIAC Hx Cardiac Disorders: Yes (HI X 2) Hx Angina: No Hx Cardia Arrhythmia: No Hx Circulatory Problems: No Hx Congestive Heart Failure: No Hx Heart Murmur: No Hx Heart Transplant: No Hx Hypertension: Yes Hx Internal Defibrillator: No Hx Mitral Valve Prolapse: No Hx Pacemaker: No Hx Peripheral Edema: No Hx Peripheral Vascular Disease: No - PULMONARY Hx Respiratory Disorders: Yes Hx Asthma: No Hx Bronchitis: No Hx Chronic Obstructive Pulmonary Disease (COPD): Yes Hx Emphysema: No Hx Pneumonia: Yes Hx Respiratory Aspiration: No Hx Respiratory Tract Infection: No Hx Sleep Apnea: No Hx Tuberculosis: No - NEUROLOGICAL Hx Neurological Disorder: Yes Hx Alzheimer's Disease: No HX Cerebrovascular Accident: No Hx Dementia: No Hx Dizziness: Yes Hx Meningitis: No Hx Migraine: No Hx Parkinson's Disease: No Hx Seizures: No Hx Transient Ischemic Attacks (TIA): Yes - HEENT Hx HEENT Problems: Yes (wears reading glasses, wears top dentures) Hx Blind: No Hx Cataracts: No Hx Deafness: No Hx Difficulty Chewing: No Hx Epistaxis: No Hx Glaucoma: No Hx Macular Degeneration: No - RENAL Hx Chronic Kidney Disease: No Hx Dialysis: No Hx Kidney Stones: No Hx Neurogenic Bladder: No Hx Pyelonephritis: No Hx Renal (Kidney) Cancer: No Hx Renal Failure: No - ENDOCRINE/METABOLIC Hx Endocrine Disorders: No Hx Adrenal Cancer: No Hx Diabetes Insipidus: No Hx Diabetes Mellitus Type 1: No Hx Diabetes Mellitus Type 2: No Hx Hyperthyroidism: No Hx Hypothyroidism: No Hx Systemic Lupus Erythematosus: No - HEMATOLOGICAL/ONCOLOGICAL Hx Blood Disorders: No Hx AIDS: No Hx Anemia: No Hx Cancer: No Hx Chemotherapy: No Hx Cirrhosis: No Hx Hemophilia: No Hx Hepatitis A: No Hx Hepatitis B: No Hx Hepatitis C: No Hx Metastesis: No Hx Shingles: No Hx Sickle Cell Disease: No Hx Unexplained Bleeding: No - INTEGUMENTARY Hx Dermatological Problems: No Hx Basil Cell: No Hx Eczema: No Hx Melanoma: No Hx Psoriasis: No Hx Squamous Cell: No - MUSCULOSKELETAL/RHEUMATOLOGICAL Hx Musculoskeletal Disorders: Yes Hx Arthritis: Yes Hx Back Pain: No Hx Degenerative Joint Disease: No Hx Falls: Yes (last fall 09/11/18) Hx Fractures: Yes Hx Gout: No Hx Herniated Disk: No Hx Myasthenia Gravis: No Hx Osteoarthritis: No Hx Osteomyelitis: No Hx Osteoporosis: No Hx Rhabdomyolysis: No Hx Spinal Stenosis: No Hx Unsteady Gait: Yes - GASTROINTESTINAL Hx Gastrointestinal Disorders: No Hx Colostomy: No Hx Crohn's Disease: No Hx Diverticulitis: No Hx Gall Bladder Disease: No Hx Gastroesophageal Reflux: No Hx Ileostomy: No Hx Liver Failure: No Hx Pancreatitis: No HX Swallowing Problems: No - GENITOURINARY/GYNECOLOGICAL Hx Genitourinary Disorders: Yes Hx Hematuria: No Hx Incontinence: Yes Hx Sexually Transmitted Disorders: No Hx Urinary Tract Infection: No - PSYCHIATRIC Hx Psychophysiologic Disorder: No Hx Anxiety: No Hx Bipolar Disorder: No Hx Depression: No Hx Emotional Abuse: No Hx Hallucinations: No Hx Panic Symptoms: No Hx Paranoia: No Hx Post Traumatic Stress Disorder: No Hx Psychosis: No Hx Physical Abuse: No Hx Schizophrenia: No Hx Sexual Abuse: No Hx Substance Use: No - SURGICAL HISTORY Hx Amputation: No Hx Appendectomy: No Hx Cardiac Catheterization: Yes Hx Cholecystectomy: No Hx Coronary Stent: No Hx Gastric Bypass Surgery: No Hx Hysterectomy: No Hx Joint Replacement: No Hx Kidney Transplant: No Hx Liver Transplant: No Hx Mastectomy: No Hx Musculoskeletal Surgery: No Hx Open Heart Surgery: No Hx Orthopedic Surgery: Yes Hx Splenectomy: No Hx Valve Replacement: No - ANESTHESIA Hx Anesthesia: Yes Hx Anesthesia Reactions: No Hx Malignant Hyperthermia: No Meds Home Medications: Home Medication List Medication Instructions Recorded Confirmed Type Topiramate [Topamax] 150 mg PO BID #1 tab 12/20/18 Rx Allergies/Adverse Reactions: Allergies Allergy/AdvReac Type Severity Reaction Status Date / Time methotrexate Allergy PAIN Verified 12/20/18 13:13 metronidazole Allergy RASH Verified 12/20/18 13:13 - Medications Medications: Current Medications Albuterol/Ipratropium (Duoneb 3 Mg/0.5 Mg (3 Ml) Ud) 3 ml IH Q2H PRN PRN Reason: Shortness of Breath Alprazolam (Xanax) 0.5 mg PO Q8H PRN; Protocol PRN Reason: anxiety severe Sodium Chloride (Sodium Chloride 0.9%) 500 mls @ 50 mls/hr IV .Q10H [facility] Last Admin: 12/21/18 06:17 Dose: 50 mls/hr Lisinopril (Zestril) 40 mg PO DAILY [facility] Metoclopramide HCl (Reglan) 10 mg PO DAILY [facility] Last Admin: 12/20/18 18:29 Dose: 10 mg Metoprolol Tartrate (Lopressor) 25 mg PO BID [facility] Last Admin: 12/20/18 18:29 Dose: 25 mg Morphine Sulfate (Morphine) 4 mg IVP Q4H PRN PRN Reason: Pain, severe (8-10) Last Admin: 12/21/18 06:10 Dose: 4 mg Non-Formulary Medication (Fluticasone/Vilanterol [Breo Ellipta 200-25 Mcg Inh]) 1 each IH DAILY [facility] Pantoprazole Sodium (Protonix Ec Tab) 40 mg PO DAILY [facility] Pramipexole Dihydrochloride (Mirapex) 0.5 mg PO DAILY [facility] Venlafaxine HCl (Effexor Xr) 150 mg PO BID [facility] Last Admin: 12/20/18 19:47 Dose: 150 mg Ziprasidone (Geodon Cap) 80 mg PO BID [facility] Last Admin: 12/20/18 19:46 Dose: 80 mg Physical Exam - Constitutional Appears: Non-toxic, No Acute Distress - Head Exam Head Exam: NORMAL INSPECTION, NORMOCEPHALIC - Eye Exam Eye Exam: Normal appearance Pupil Exam: NORMAL ACCOMODATION - ENT Exam ENT Exam: Mucous Membranes Moist, Normal Exam - Respiratory Exam Respiratory Exam: Decreased Breath Sounds, Clear to Auscultation Bilateral, NORMAL BREATHING PATTERN - Cardiovascular Exam Cardiovascular Exam: +S1, +S2 - GI/Abdominal Exam GI & Abdominal Exam: Normal Bowel Sounds, Soft - Extremities Exam Additional comments: right hip pain - Neurological Exam Neurological exam: Alert, Oriented x3 - Psychiatric Exam Psychiatric exam: Normal Affect, Normal Mood - Skin Skin Exam: Dry, Normal Color, Warm Results - Vital Signs Recent Vital Signs: Last Vital Signs Temp 98.8 F 12/21/18 06:00 Pulse 88 12/21/18 06:00 Resp 18 12/21/18 06:00 BP 160/84 H 12/21/18 06:00 Pulse Ox 95 12/21/18 06:00 - Labs Result Diagrams: 12/21/18 07:20 12/21/18 07:20 Labs: Laboratory Results - last 24 hr 12/20/18 12/20/18 12/20/18 14:02 14:02 14:02 WBC 14.7 H D RBC 4.12 Hgb 10.2 L Hct 31.6 L MCV 76.7 L D MCH 24.8 L MCHC 32.3 RDW 14.9 H Plt Count 246 MPV 9.3 Neut % (Auto) 76.7 H Lymph % (Auto) 11.3 L [place] % (Auto) 11.8 H Eos % (Auto) 0.1 L Baso % (Auto) 0.1 Lymph # (Auto) 1.7 [place] # (Auto) 1.7 H Eos # (Auto) 0.0 Baso # (Auto) 0.02 Absolute Neuts (auto) 11.23 H PT 13.5 H INR 1.22 APTT 32.4 Sodium 126 L Potassium 4.6 Chloride 93 L Carbon Dioxide 22 Anion Gap 16 BUN 20 Creatinine 1.1 Est GFR ( Amer) 60 Est GFR (Non-Af Amer) 50 Random Glucose 109 Calcium 9.4 Phosphorus Magnesium 1.6 L Total Bilirubin 0.5 AST 25 ALT 14 Alkaline Phosphatase 98 NT-Pro-B Natriuret Pep 6370 H Total Protein 7.1 Albumin 3.6 Globulin 3.5 Albumin/Globulin Ratio 1.0 L Urine Color Urine Appearance Urine pH Ur Specific [place] Urine Protein Urine Glucose (UA) Urine Ketones Urine Blood Urine Nitrate Urine Bilirubin Urine Urobilinogen Ur Leukocyte Esterase Urine RBC Urine WBC Ur Epithelial Cells Urine Bacteria Blood Type Antibody Screen BBK History Checked 12/20/18 12/20/18 12/21/18 14:02 14:30 07:20 WBC 9.9 D RBC 4.10 Hgb 9.9 L Hct 31.2 L MCV 76.1 L MCH 24.1 L MCHC 31.7 RDW 14.8 H Plt Count 247 MPV 9.3 Neut % (Auto) 72.6 H Lymph % (Auto) 14.8 L [place] % (Auto) 12.3 H Eos % (Auto) 0.1 L Baso % (Auto) 0.2 Lymph # (Auto) 1.5 [place] # (Auto) 1.2 H Eos # (Auto) 0.0 Baso # (Auto) 0.02 Absolute Neuts (auto) 7.17 H PT INR APTT Sodium Potassium Chloride Carbon Dioxide Anion Gap BUN Creatinine Est GFR ( Amer) Est GFR (Non-Af Amer) Random Glucose Calcium Phosphorus Magnesium Total Bilirubin AST ALT Alkaline Phosphatase NT-Pro-B Natriuret Pep Total Protein Albumin Globulin Albumin/Globulin Ratio Urine Color Yellow Urine Appearance Clear Urine pH 6.0 Ur Specific [place] 1.010 Urine Protein Negative Urine Glucose (UA) Negative Urine Ketones Negative Urine Blood Trace-lysed H Urine Nitrate Negative Urine Bilirubin Negative Urine Urobilinogen 0.2 Ur Leukocyte Esterase Negative Urine RBC 1 - 3 H Urine WBC 0 - 2 Ur Epithelial Cells 3 - 4 Urine Bacteria Few Blood Type O POSITIVE Antibody Screen Negative BBK History Checked Patient has bt 12/21/18 07:20 WBC RBC Hgb Hct MCV MCH MCHC RDW Plt Count MPV Neut % (Auto) Lymph % (Auto) [place] % (Auto) Eos % (Auto) Baso % (Auto) Lymph # (Auto) [place] # (Auto) Eos # (Auto) Baso # (Auto) Absolute Neuts (auto) PT INR APTT Sodium 127 L Potassium 4.3 Chloride 97 L Carbon Dioxide 20 L Anion Gap 14 BUN 19 Creatinine 0.9 Est GFR ( Amer) > 60 Est GFR (Non-Af Amer) > 60 Random Glucose 100 Calcium 9.2 Phosphorus 3.8 Magnesium 1.8 Total Bilirubin 0.3 AST 21 ALT 15 Alkaline Phosphatase 91 NT-Pro-B Natriuret Pep Total Protein 6.8 Albumin 3.5 Globulin 3.3 Albumin/Globulin Ratio 1.1 Urine Color Urine Appearance Urine pH Ur Specific [place] Urine Protein Urine Glucose (UA) Urine Ketones Urine Blood Urine Nitrate Urine Bilirubin Urine Urobilinogen Ur Leukocyte Esterase Urine RBC Urine WBC Ur Epithelial Cells Urine Bacteria Blood Type Antibody Screen BBK History Checked Assessment & Plan - Assessment and Plan (Free Text) Assessment: A 68 year old female who came in to the ER due to right hip pain due to fall. Consult was called for pre-op risk stratification and clearance for right hip surgery. History of COPD, HI, congestive heart failure, hypertension, coronary artery disease, abdominal aortic aneursym, post rotator cuff injury with repair, fracture of left humerus with surgery, former smoker, multiple falls, pneumonia, TIA, dizziness, unsteady gait, incontinence. She was standing by her bed, waiting for her to take her to the bathroom when she got dizzy and lost her balance. Cardiac cath on 10/06/15 showed normal coronaries LVEF 45-50%. Echo done on 06/27/18 showed LVEF 59%, aortic valve stenosis AV gradient 19 mmHg, trace AR, moderate mitral and tricuspid regurgitation, RVSP 43 mmHg mild pulmonary hypertension. EKG showed normal sinus rhythm, no ischemia. Denies chest pain.Denies shortness of breath. No absolute contraindication for surgery. Cleared for hip surgery with moderate risk. Control blood pressure. PRN Hydralazine. Plan: For right hip surgery today Cleared for procedure with moderate risk Heart rate controlled Control Blood pressure, PRN Hydralazine Cardiac status stable On Lisinopril 40 mg daily,Lopressor 25 mg BID PRN Morphine for pain management Continue current treatment Continue current medications Will follow up postoperatively Plan and treatment discussed with Dr. Winchester Thank you Dr. Farley for the opportunity of taking care Blossom Fabian - Date & Time Date: 12/21/18 Time: 06:35
[2018-12-21] MEDS ORDERED: Morphine 2 mg/ml ISec IVP ONE (09:05)
--- NOTE | 2018-12-21 09:52 | RAD ---
PROCEDURE: Right Hand Radiographs. HISTORY: s/p fall, bruising COMPARISON: None. TECHNIQUE: Three views obtained. FINDINGS: BONES: Normal. No fracture. JOINTS: Degenerative changes throughout the hand and wrist SOFT TISSUES: Normal. OTHER FINDINGS: None. IMPRESSION: No evidence of fracture
--- NOTE | 2018-12-21 10:39 | CP.PCM.PN ---
<Amber Cooley - Last Filed: 12/21/18 10:28> Subjective - Date & Time of Evaluation Date of Evaluation: 12/21/18 Time of Evaluation: 10:00 - Subjective Subjective: Amber Cooley PGY1 Medicine Progress Note Patient seen and examined at bedside this morning. No acute events reported overnight. Patient endorses right hip pain and chest pain this morning. Plan for surgery today. Objective - Vital Signs/Intake and Output Vital Signs (last 24 hours): Temp Pulse Resp BP Pulse Ox 98.8 F 88 18 160/84 H 95 12/21/18 06:00 12/21/18 06:00 12/21/18 06:00 12/21/18 06:00 12/21/18 06:00 Intake and Output: 12/21/18 12/21/18 06:59 18:59 Intake Total 400 Balance 400 - Medications Medications: Current Medications Albuterol/Ipratropium (Duoneb 3 Mg/0.5 Mg (3 Ml) Ud) 3 ml IH Q2H PRN PRN Reason: Shortness of Breath Alprazolam (Xanax) 0.5 mg PO Q8H PRN; Protocol PRN Reason: anxiety severe Hydralazine HCl (Apresoline) 10 mg IVP Q6 PRN PRN Reason: hypertension Sodium Chloride (Sodium Chloride 0.9%) 500 mls @ 50 mls/hr IV .Q10H [facility] Last Admin: 12/21/18 06:17 Dose: 50 mls/hr Lisinopril (Zestril) 40 mg PO DAILY [facility] Metoclopramide HCl (Reglan) 10 mg PO DAILY [facility] Last Admin: 12/20/18 18:29 Dose: 10 mg Metoprolol Tartrate (Lopressor) 25 mg PO BID [facility] Last Admin: 12/20/18 18:29 Dose: 25 mg Morphine Sulfate (Morphine) 4 mg IVP Q4H PRN PRN Reason: Pain, severe (8-10) Last Admin: 12/21/18 06:10 Dose: 4 mg Non-Formulary Medication (Fluticasone/Vilanterol [Breo Ellipta 200-25 Mcg Inh]) 1 each IH DAILY [facility] Pantoprazole Sodium (Protonix Ec Tab) 40 mg PO DAILY [facility] Pramipexole Dihydrochloride (Mirapex) 0.5 mg PO DAILY [facility] Venlafaxine HCl (Effexor Xr) 150 mg PO BID [facility] Last Admin: 12/20/18 19:47 Dose: 150 mg Ziprasidone (Geodon Cap) 80 mg PO BID [facility] Last Admin: 12/20/18 19:46 Dose: 80 mg - Labs Labs: 12/21/18 07:20 12/21/18 07:20 PT 13.5 SECONDS (9.4-12.5) H 12/20/18 14:02 INR 1.22 12/20/18 14:02 APTT 32.4 Seconds (26.9-38.3) 12/20/18 14:02 Physical Exam - Constitutional Appears: Well - Head Exam Head Exam: ATRAUMATIC, NORMAL INSPECTION, NORMOCEPHALIC - Eye Exam Eye Exam: EOMI, Normal appearance, PERRL Pupil Exam: NORMAL ACCOMODATION, PERRL - ENT Exam ENT Exam: Mucous Membranes Moist, Normal Exam - Neck Exam Neck exam: Positive for: Normal Inspection - Respiratory Exam Respiratory Exam: Clear to Auscultation Bilateral, NORMAL BREATHING PATTERN - Cardiovascular Exam Cardiovascular Exam: REGULAR RHYTHM - GI/Abdominal Exam GI & Abdominal Exam: Normal Bowel Sounds, Soft. absent: Tenderness - Extremities Exam Extremities exam: Negative for: normal inspection Additional comments: R LE externally rotated, DP +2 B/L, no focal sensory/motor deificts appreciated - Back Exam Back exam: NORMAL INSPECTION - Neurological Exam Neurological exam: Alert, CN II-XII Intact, Normal Gait, Oriented x3, Reflexes Normal - Skin Skin Exam: Dry, Intact, Normal Color, Warm Assessment and Plan - Assessment and Plan (Free Text) Assessment: 68 F with pertinent hx of multiple falls, CHF, CAD, HTN, COPD presents s/p fall with R hip fracture and admitted for right hip surgery and hyponatremia. Plan: R Hip Fracture s/p fall - Ortho consulted: Dr. Coburn - plan for surgery today - Morphine 2 q 4 h prn for severe pain - Home Percocet held - fall 2/2 possible polypharmacy - holding home trazodone, and aldactone. Reduced home xanax from 1 to 0.5mg. - Cardio consulted for pre-op risk stratification: Dr. Mead Hyponatremia - improving - possibly 2/2 home meds VS poor po intake - Na is 127 from 126 yesterday - Mild hydration with NS @ 50cc/hr - holding home aldactone Hx CHF - Hold home aldactone 2/2 hypovolemic hyponatremia - elevated BNP on admission Hx COPD not on O2 - Duonebs q 6 h prn Hx CAD - Continue Lopressor, Zestril Hx HTN - C/w home medication Zestril, Lopressor Patient seen and case discussed with attending, Gillian Carney <Sagrario Farley R - Last Filed: 12/22/18 08:24> Objective - Vital Signs/Intake and Output Vital Signs (last 24 hours): Temp Pulse Resp BP Pulse Ox 97.9 F 88 18 163/101 H 97 12/21/18 21:34 12/21/18 21:34 12/21/18 21:34 12/21/18 21:34 12/21/18 21:34 Intake and Output: 12/22/18 12/22/18 06:59 18:59 Intake Total 600 Output Total 600 Balance 0 - Medications Medications: Current Medications Albuterol/Ipratropium (Duoneb 3 Mg/0.5 Mg (3 Ml) Ud) 3 ml IH Q2H PRN PRN Reason: Shortness of Breath Last Admin: 12/22/18 08:09 Dose: 3 ml Alprazolam (Xanax) 0.5 mg PO Q8H PRN; Protocol PRN Reason: anxiety severe Last Admin: 12/21/18 23:05 Dose: 0.5 mg Enoxaparin Sodium (Lovenox) 40 mg SC DAILY [facility]; Protocol Hydralazine HCl (Apresoline) 10 mg IVP Q6 PRN PRN Reason: hypertension Last Admin: 12/21/18 11:16 Dose: 10 mg Hydromorphone HCl (Dilaudid) 0.5 mg IVP Q15M PRN PRN Reason: Other Sodium Chloride (Sodium Chloride 0.9%) 500 mls @ 50 mls/hr IV .Q10H [facility] Last Admin: 12/21/18 06:17 Dose: 50 mls/hr Lisinopril (Zestril) 40 mg PO DAILY [facility] Metoclopramide HCl (Reglan) 10 mg PO DAILY [facility] Last Admin: 12/21/18 11:53 Dose: Not Given Metoprolol Tartrate (Lopressor) 25 mg PO BID [facility] Last Admin: 12/21/18 19:34 Dose: 25 mg Morphine Sulfate (Morphine) 4 mg IVP Q4H PRN PRN Reason: Pain, severe (8-10) Last Admin: 12/22/18 00:47 Dose: 4 mg Non-Formulary Medication (Fluticasone/Vilanterol [Breo Ellipta 200-25 Mcg Inh]) 1 each IH DAILY [facility] Last Admin: 12/21/18 11:50 Dose: Not Given Oxycodone HCl (Oxycodone Immediate Release Tab) 5 mg PO Q4H PRN PRN Reason: Pain, Mild (1-3) Oxycodone HCl (Oxycodone Immediate Release Tab) 10 mg PO Q4H PRN PRN Reason: Pain, moderate (4-7) Last Admin: 12/21/18 20:39 Dose: 10 mg Pantoprazole Sodium (Protonix Ec Tab) 40 mg PO DAILY [facility] Last Admin: 12/21/18 11:53 Dose: Not Given Pramipexole Dihydrochloride (Mirapex) 0.5 mg PO DAILY [facility] Last Admin: 12/21/18 11:52 Dose: Not Given Venlafaxine HCl (Effexor Xr) 150 mg PO BID [facility] Last Admin: 12/21/18 18:38 Dose: 150 mg Ziprasidone (Geodon Cap) 80 mg PO BID [facility] Last Admin: 12/21/18 18:39 Dose: 80 mg - Labs Labs: 12/22/18 07:20 12/22/18 07:20 PT 13.5 SECONDS (9.4-12.5) H 12/20/18 14:02 INR 1.22 12/20/18 14:02 APTT 32.4 Seconds (26.9-38.3) 12/20/18 14:02 Attending/Attestation - Attestation I have personally seen and examined this patient.: Yes I have fully participated in the care of the patient.: Yes I have reviewed all pertinent clinical information, including history, physical exam and plan: Yes Notes (Text): Patient seen and examined by me with resident at approximately 10:55AM on 12/21/18 in the emergency room. Case including HPI, physical exam, and assessment and plan discussed with resident. Agree with above with following additions/corrections. Patient is a 68-year-old female past medical history significant for COPD, coronary artery disease, AAA, hypertension, rotator cuff injury, chronic diastolic CHF, multiple falls and fractures, psychiatric disorder, hyponatremia, and history of tobacco abuse that presented to the emergency room after having a fall. Patient states she is having a lot of pain. Complains of pain in her left arm (chronic) and right hip. Patient for OR today. She denies any chest pain or s hortness of breath. No nausea, vomiting, or abdominal pain. No headaches or dizziness. Bates catheter in place. Physical exam: General: Awake and alert lying in bed in no acute distress. HEENT: Normocephalic, atraumatic. Extraocular muscles intact, pupils equal and reactive, no scleral icterus. Oropharynx is pink and moist. No pharyngeal erythema or exudate appreciated. Neck is supple. Cardiovascular: Regular rhythm. Normal S1, S2. No murmurs, rubs, or gallops appreciated Pulmonary: Normal respiratory effort. No rhonchi, rales, or wheezing appreciated. Gastrointestinal: Soft. Nontender. Nodistended. Positive bowel sounds all 4 quadrants. No guarding. Musculoskeletal: Decreased range of motion right lower extremity, right upper extremity, left upper extremity (chronic from a previous fracture). Right lower extremity externally rotated. No calf tenderness. No edema appreciated. Positive tenderness right hip. Right 4th and 5th hand digits with ecchymosis. Central nervous system: AAOx3 Dermatologic: Skin warm and dry. Assessment and plan: Patient is a 68-year-old female past medical history significant for COPD, coronary artery disease, AAA, hypertension, rotator cuff injury, chronic diastolic CHF, multiple falls and fractures, psychiatric disorder, hyponatremia, and history of tobacco abuse that presented to the emergency room after having a fall. 1. Right hip pain. Right hand pain. Intertrochanteric fracture of the right hip status post fall. Orthopedics following. Patient for OR today for repair. Continue with pain management. Pelvic and bilateral hip x-ray per radiologist showed intertrochanteric fracture of the right hip, mild varus angulation. Head CT per radiologist showed no acute findings. Right ankle x-ray per radiologist showed limited examination, no gross evidence of fracture on the single view. Right knee x-ray per radiologist showed limited examination, no gross evidence of fracture. Right hand x-ray per radiologist showed no evidence of fracture. 2. Hyponatremia. May be secondary to medication side effect vs dehydration. Slightly improved. Continue with slow hydration. Follow up repeat labs in AM. 3. Chronic diastolic CHF. CAD. No acute issues. Aldactone held for now secondary to hyponatremia. Cardiology following. 2-D echo per embroidery worker showed left ventricle is normal size, EF 59%, right ventricular systolic function is normal, right ventricle is normal size. Continue home lisinopril and metoprolol. No ASA secondary to patient going to OR. 4. Hypertension. Continue home lisinopril and metoprolol 5. Psychiatric disorder. Continue home Effexor and Geodon. Continue Xanax prn. 6. COPD. Not in acute exacerbation. Continue nebulizer treatments as neeed. 7. Multiple falls and fractures. Will need PT/OT eval post surgery. 8. Patient is a full code. Case was discussed in detail with the patient regarding current diagnosis and treatment plan. All questions answered.
--- NOTE | 2018-12-21 11:20 | CP.PCM.APN ---
Subjective - Date & Time of Evaluation Date of Evaluation: 12/21/18 Time of Evaluation: 09:00 - Subjective Subjective: Pt seen and examined at bedside. C/O R hip pain. Objective - Vital Signs/Intake and Output Vital Signs (last 24 hours): Temp Pulse Resp BP Pulse Ox 98.8 F 88 18 160/84 H 95 12/21/18 06:00 12/21/18 06:00 12/21/18 06:00 12/21/18 06:00 12/21/18 06:00 Intake and Output: 12/21/18 12/21/18 06:59 18:59 Intake Total 400 Balance 400 - Medications Medications: Current Medications Albuterol/Ipratropium (Duoneb 3 Mg/0.5 Mg (3 Ml) Ud) 3 ml IH Q2H PRN PRN Reason: Shortness of Breath Alprazolam (Xanax) 0.5 mg PO Q8H PRN; Protocol PRN Reason: anxiety severe Hydralazine HCl (Apresoline) 10 mg IVP Q6 PRN PRN Reason: hypertension Sodium Chloride (Sodium Chloride 0.9%) 500 mls @ 50 mls/hr IV .Q10H [facility] Last Admin: 12/21/18 06:17 Dose: 50 mls/hr Lisinopril (Zestril) 40 mg PO DAILY [facility] Metoclopramide HCl (Reglan) 10 mg PO DAILY [facility] Last Admin: 12/20/18 18:29 Dose: 10 mg Metoprolol Tartrate (Lopressor) 25 mg PO BID [facility] Last Admin: 12/20/18 18:29 Dose: 25 mg Morphine Sulfate (Morphine) 4 mg IVP Q4H PRN PRN Reason: Pain, severe (8-10) Last Admin: 12/21/18 06:10 Dose: 4 mg Non-Formulary Medication (Fluticasone/Vilanterol [Breo Ellipta 200-25 Mcg Inh]) 1 each IH DAILY [facility] Pantoprazole Sodium (Protonix Ec Tab) 40 mg PO DAILY [facility] Pramipexole Dihydrochloride (Mirapex) 0.5 mg PO DAILY [facility] Venlafaxine HCl (Effexor Xr) 150 mg PO BID [facility] Last Admin: 12/20/18 19:47 Dose: 150 mg Ziprasidone (Geodon Cap) 80 mg PO BID [facility] Last Admin: 12/20/18 19:46 Dose: 80 mg - Labs Labs: 12/21/18 07:20 12/21/18 07:20 PT 13.5 SECONDS (9.4-12.5) H 12/20/18 14:02 INR 1.22 12/20/18 14:02 APTT 32.4 Seconds (26.9-38.3) 12/20/18 14:02 - Constitutional Appears: No Acute Distress - Extremities Exam Additional comments: limited R hip range of motion 2/2 pain - Neurological Exam Neurological Exam: Alert, Awake, Oriented x3 Assessment and Plan - Assessment and Plan (Free Text) Assessment: Pt is a 68 y.o. female with pmhx of COPD, CAD, AAA, HTN, rotator cuff injury, [place], CHF (most recent echo in Jun 2018 with EF of 59%) who presented to ED s/p fall. Impressions Ankle X-Ray 12/20/18 13:32 IMPRESSION: Limited examination. No gross evidence of fracture on the single view. Chest X-Ray 12/20/18 13:32 IMPRESSION: No active disease. Head CT 12/20/18 13:32 IMPRESSION: No acute findings Hip/Pelvis X-Ray 12/20/18 13:32 IMPRESSION: Intertrochanteric fracture of the right hip mild varus angulation. Knee X-Ray 12/20/18 15:35 IMPRESSION: Limited examination. No gross evidence of fracture. Completion of examination is advised when clinically feasible. Hand X-Ray 12/20/18 17:51 IMPRESSION: No evidence of fracture Plan: Possible OR today for R intertrochanteric hip fx Ortho and Cardio on consult Pain management Meds per MAR Will continue to follow
[2018-12-21] MEDS: Venlafaxine 75 mg ER Cap PO SCH ×2 (11:49→18:38)
[2018-12-21] MEDS: Non Formulary Medication (Fluticasone/Vilanterol [Breo Ellipta 200-25 Mcg Inh] 1 EACH) IH SCH (11:50)
[2018-12-21] MEDS: Pantoprazole 40 mg EC Tab PO SCH (11:53)
[2018-12-21] MEDS ORDERED: oxyCODONE 5 mg Immediate Release Tab PO PRN (13:27)
[2018-12-21] MEDS ORDERED: Propofol 10 mg/ml Inj (20 ML) ONE (13:41)
[2018-12-21] MEDS ORDERED: Phenylephrine 10 mg/ml Inj ONE (13:41)
[2018-12-21] MEDS ORDERED: ePHEDrine 50 mg/ml Inj ONE (13:41)
[2018-12-21] MEDS ORDERED: Etomidate 20 mg/10ml Inj IV ONE (13:42)
[2018-12-21] MEDS ORDERED: Rocuronium 10 mg/ml (5 ml) ONE (13:42)
[2018-12-21] MEDS ORDERED: Succinylcholine 200 mg/10 ml Inj IV ONE (13:42)
[2018-12-21] MEDS ORDERED: Metoprolol 1 mg/ml Inj ONE (14:10)
[2018-12-21] MEDS: Bupivacaine 0.5% 50 ML IJ ONE ×2 (14:44→15:40)
[2018-12-21] MEDS ORDERED: Neostigmine Methylsulfate 3mg/3ml Syringe IV ONE (15:42)
[2018-12-21] MEDS ORDERED: HYDROmorphone 0.5 mg/0.5 ml ISec IVP PRN (16:13)
[2018-12-21] MEDS ORDERED: Lactated Ringer's 1,000 ML IV SCH (16:15)
[2018-12-21] MEDS ORDERED: HYDROmorphone 0.5 mg/0.5 ml ISec IVP ONE (16:15)
[2018-12-21] MEDS ORDERED: HYDROmorphone 0.5 mg/0.5 ml ISec ONE (16:15)
--- NOTE | 2018-12-21 16:36 | RAD ---
Indication: s/p ORIF hip fx. 2 view min Right hip with pelvis Comparison: Radiographs of the pelvis and bilateral hips performed 12/20/18 Findings: Intramedullary cayla and screw fixation of the right hip intratrochanteric fracture. Osseous demineralization limits evaluation for acute fracture lines. Subcutaneous emphysema and soft tissue swelling consistent with recent postsurgical status. Screw surgical skin haeys at the right hip. Remainder the visualized osseous structures appear intact. Vascular calcifications. Moderate to severe constipation. Impression: Postoperative ORIF right hip as above. Moderate to severe constipation.
[2018-12-21] MEDS: oxyCODONE 10 mg Immediate Release Tab PO PRN (20:39)
--- NOTE | 2018-12-21 20:46 | CARD ---
APPROVED REPORT Date of service: 12/21/2018 EKG Measurement Heart [id number] <Conclusion> Normal sinus rhythm Minimal voltage criteria for LVH, may be normal variant Borderline ECG
[2018-12-21] MEDS: Clindamycin 600mg/50ml D5W 600 MG/50 ML VIAL IVPB SCH (21:29)
[2018-12-21] MEDS ORDERED: ceFAZolin IV 2 gm in Dextrose 2 GM/50 ML BAG IVPB SCH (22:00)
[2018-12-22] MEDS: Morphine 4 mg/ml ISec IVP PRN ×3 (00:47→19:44)
--- NOTE | 2018-12-22 01:31 | OP ---
PROCEDURE DATE: 12/21/2018 PREOPERATIVE DIAGNOSIS: Right hip intertrochanteric fracture. POSTOPERATIVE DIAGNOSIS: Right hip intertrochanteric fracture. PROCEDURE: Open reduction and internal fixation of right hip fracture. SURGEON: Zuhair Coburn MD BAKERY MACHINE MECHANIC: Dr. Coburn was assisted by Radha Chatterjee, physician registrar assistant. Ms. Chatterjee was scrubbed and present throughout the entire case and assisted in the patient's positioning, retraction, and closure. TYPE OF ANESTHESIA: General. IMPLANT: A Biomet trochanteric entry hip nail. ESTIMATED BLOOD LOSS: 100 ml. INDICATIONS OF PROCEDURE: This is a 68-year-old female who presented status post fall with right lower extremity pain and an inability to ambulate. Clinical and radiographic examination was consistent with displaced right intratrochanteric fracture. Recommendation was for open reduction and internal fixation of the fracture once the patient was medically optimized. The risks, benefits, and alternatives of the procedure were discussed with the patient and informed consent was obtained. DESCRIPTION OF PROCEDURE: After the surgical site was signed and verified in the preoperative holding area, the patient was taken to the operating room and placed supine on the fracture table. After administration of general anesthesia, the patient received 2 g of Ancef IV. After the administration, the patient was noted to have some urticaria and was given 50 mg of Benadryl IV which resolved. The patient's right lower extremity was then placed in a traction boot. The left lower extremity was then gently extended away from the operative field and a closed reduction was performed. The imagine intensifier was brought in to check for provision of closed reduction in both the AP and lateral planes. Satisfied, the right lower extremity was prepped and draped in the usual sterile fashion. An approximately 3 cm incision was made proximal to the tip of the greater trochanter. Soft tissues were dissected bluntly down to the tip of the trochanter. The guide pin for our entry hole was placed on the tip of the trochanter. Position of the plate was confirmed using image intensifier and the guide pin was then inserted into the medullary canal of the proximal femur. Position of the guide pin was confirmed using C-arm in both the AP and lateral plains. Satisfied, a step drill was used to ream our entry hole and the guide pin was exchanged for a smooth tip guide wire. At this point, the canal was reamed sequentially up to 12.5 mm and a 22 cm nail was inserted over the guidewire recess to the appropriate depth. Position of the nail as well as the fracture reduction was confirmed using the C-arm. Satisfied, using the outrigger jig, the guide pin for our hip screw was placed on the lateral cortex of the proximal femur through a small incision. Guide pin for our hip screw was then inserted roughly at the center-center position of the femoral head and this was confirmed using the C-arm. The length of our screw was measured and a hole for our hip screw was then drilled. At this point, the appropriate length screw was inserted over the guide pin and again a reduction and position of our hardware was confirmed using the C-arm. The screw was then locked to the nail by screwing down on the set screw on the proximal aspect of the nail. The guide pin was then removed and finally the nail was locked distally through the outrigger jig. At this point, our jig was removed and final C-arm imaging was taken confirming excellent reduction and good placement of the hardware. All our incisions were irrigated with antibiotic saline solution and closed in a layered fashion. A sterile dressing was applied. The patient was awakened from the procedure and taken to the recovery room in stable condition. Zuhair Coburn MD
[2018-12-22] MEDS: Clindamycin 600mg/50ml D5W 600 MG/50 ML VIAL IVPB SCH (05:49)
--- NOTE | 2018-12-22 07:36 | CP.PCM.PN ---
<Karyna Murray - Last Filed: 12/22/18 15:42> Subjective - Date & Time of Evaluation Date of Evaluation: 12/22/18 Time of Evaluation: 15:27 - Subjective Subjective: Pgy3 IM Progress note for Dr. Farley Patient seen and examined at bedside. Overnight patient complained of some pain at her right hip and was anxious as per nursing. Patient is POD#1 open reduction and internal fixation of R hip s/p fracture. Patient was tearful during encounter because of an argument she had with her the night prior. She has been using incentive spirometer at bedside. Patient denied other acute complaints of fever, chills, headache, dizziness, chest pain, SOB, cough, abd pain, nausea, vomiting, bowel/bladder complaints. Objective - Vital Signs/Intake and Output Vital Signs (last 24 hours): Temp Pulse Resp BP Pulse Ox 97.9 F 88 18 163/101 H 97 12/21/18 21:34 12/21/18 21:34 12/21/18 21:34 12/21/18 21:34 12/21/18 21:34 Intake and Output: 12/22/18 12/22/18 06:59 18:59 Intake Total 600 Output Total 600 Balance 0 - Medications Medications: Current Medications Albuterol/Ipratropium (Duoneb 3 Mg/0.5 Mg (3 Ml) Ud) 3 ml IH Q2H PRN PRN Reason: Shortness of Breath Alprazolam (Xanax) 0.5 mg PO Q8H PRN; Protocol PRN Reason: anxiety severe Last Admin: 12/21/18 23:05 Dose: 0.5 mg Enoxaparin Sodium (Lovenox) 40 mg SC DAILY [facility]; Protocol Hydralazine HCl (Apresoline) 10 mg IVP Q6 PRN PRN Reason: hypertension Last Admin: 12/21/18 11:16 Dose: 10 mg Hydromorphone HCl (Dilaudid) 0.5 mg IVP Q15M PRN PRN Reason: Other Sodium Chloride (Sodium Chloride 0.9%) 500 mls @ 50 mls/hr IV .Q10H [facility] Last Admin: 12/21/18 06:17 Dose: 50 mls/hr Lisinopril (Zestril) 40 mg PO DAILY [facility] Metoclopramide HCl (Reglan) 10 mg PO DAILY [facility] Last Admin: 12/21/18 11:53 Dose: Not Given Metoprolol Tartrate (Lopressor) 25 mg PO BID [facility] Last Admin: 12/21/18 19:34 Dose: 25 mg Morphine Sulfate (Morphine) 4 mg IVP Q4H PRN PRN Reason: Pain, severe (8-10) Last Admin: 12/22/18 00:47 Dose: 4 mg Non-Formulary Medication (Fluticasone/Vilanterol [Breo Ellipta 200-25 Mcg Inh]) 1 each IH DAILY [facility] Last Admin: 12/21/18 11:50 Dose: Not Given Oxycodone HCl (Oxycodone Immediate Release Tab) 5 mg PO Q4H PRN PRN Reason: Pain, Mild (1-3) Oxycodone HCl (Oxycodone Immediate Release Tab) 10 mg PO Q4H PRN PRN Reason: Pain, moderate (4-7) Last Admin: 12/21/18 20:39 Dose: 10 mg Pantoprazole Sodium (Protonix Ec Tab) 40 mg PO DAILY [facility] Last Admin: 12/21/18 11:53 Dose: Not Given Pramipexole Dihydrochloride (Mirapex) 0.5 mg PO DAILY [facility] Last Admin: 12/21/18 11:52 Dose: Not Given Venlafaxine HCl (Effexor Xr) 150 mg PO BID [facility] Last Admin: 12/21/18 18:38 Dose: 150 mg Ziprasidone (Geodon Cap) 80 mg PO BID [facility] Last Admin: 12/21/18 18:39 Dose: 80 mg - Labs Labs: 12/21/18 07:20 12/21/18 07:20 PT 13.5 SECONDS (9.4-12.5) H 12/20/18 14:02 INR 1.22 12/20/18 14:02 APTT 32.4 Seconds (26.9-38.3) 12/20/18 14:02 - Constitutional Appears: Non-toxic, No Acute Distress, Unkempt - Head Exam Head Exam: ATRAUMATIC, NORMAL INSPECTION, NORMOCEPHALIC - Eye Exam Eye Exam: EOMI, Normal appearance. absent: Conjunctival injection, Scleral icterus - ENT Exam ENT Exam: Mucous Membranes Moist - Neck Exam Neck Exam: Full ROM, Normal Inspection - Respiratory Exam Respiratory Exam: Wheezes (faint b/l), NORMAL BREATHING PATTERN. absent: Accessory Muscle Use, Rales, Rhonchi, Respiratory Distress - Cardiovascular Exam Cardiovascular Exam: +S1, +S2. absent: Murmur - GI/Abdominal Exam GI & Abdominal Exam: Soft, Normal Bowel Sounds. absent: Firm, Guarding, Rigid, Tenderness - Extremities Exam Extremities Exam: Normal Capillary Refill. absent: Calf Tenderness, Pedal Edema - Neurological Exam Neurological Exam: Alert, Awake, Oriented x3 - Psychiatric Exam Psychiatric exam: Anxious (and tearful) - Skin Skin Exam: Dry, Intact, Normal Color, Warm Assessment and Plan - Assessment and Plan (Free Text) Assessment: 68 F with pertinent hx of multiple falls, CHF, CAD, HTN, COPD presents s/p fall with R hip fracture and admitted for right hip surgery and hyponatremia. Plan: R Hip Fracture s/p fall - Ortho consulted: Dr. Coburn - patient is POD#1 open reduction and internal fixation of R hip fracture - Pain controlled with regimen: Oxy 5q4 mild pain, Oxy 10q4 moderate pain, Morphine 4q4 severe pain - will deescalate during hospital course - fall 2/2 possible polypharmacy - holding home trazodone, and aldactone. Reduced home xanax from 1 to 0.5mg. - Cardio consulted for pre-op risk stratification: Dr. Mead - PT/OT on board Hyponatremia - improving - possibly 2/2 home meds VS poor po intake - Na is 127 this AM - Mild hydration with NS @ 50cc/hr - holding home aldactone - Nephrology consulted Hx CHF - Hold home aldactone 2/2 hypovolemic hyponatremia - elevated BNP on admission Hx COPD not on O2 - Duonebs q 6 h prn and Breo 1 inh qd Hx CAD - Continue Lopressor, Zestril Hx HTN - C/w home medication Zestril, Lopressor - Hydralazine prn on board Hx of anxiety - Psych consulted for review of medication and management as patient reports anxiety is uncontrolled - Geodon 80bid, Effexor 150bid GI and DVT ppx on board Patient on HHD Discussed with Dr. Miguelito Murray PGY3 <Sagrario Farley - Last Filed: 12/23/18 06:43> Objective - Vital Signs/Intake and Output Vital Signs (last 24 hours): Temp Pulse Resp BP Pulse Ox 99 F 112 H 20 179/92 H 96 12/22/18 22:00 12/23/18 05:05 12/22/18 22:00 12/23/18 05:05 12/22/18 22:00 Intake and Output: 12/22/18 12/23/18 18:59 06:59 Intake Total 480 Balance 480 - Medications Medications: Current Medications Albuterol/Ipratropium (Duoneb 3 Mg/0.5 Mg (3 Ml) Ud) 3 ml IH Q6H PRN PRN Reason: Shortness of Breath Last Admin: 12/22/18 20:45 Dose: 3 ml Alprazolam (Xanax) 0.5 mg PO Q8H PRN; Protocol PRN Reason: anxiety severe Last Admin: 12/22/18 16:29 Dose: 0.5 mg Enoxaparin Sodium (Lovenox) 40 mg SC DAILY [facility]; Protocol Last Admin: 12/22/18 09:19 Dose: 40 mg Hydralazine HCl (Apresoline) 10 mg IVP Q6 PRN PRN Reason: hypertension Last Admin: 12/23/18 05:05 Dose: 10 mg Hydromorphone HCl (Dilaudid) 0.5 mg IVP Q15M PRN PRN Reason: Other Sodium Chloride (Sodium Chloride 0.9%) 500 mls @ 50 mls/hr IV .Q10H [facility] Last Admin: 12/23/18 04:59 Dose: 50 mls/hr Lisinopril (Zestril) 40 mg PO DAILY [facility] Last Admin: 12/22/18 09:23 Dose: 40 mg Metoclopramide HCl (Reglan) 10 mg PO DAILY [facility] Last Admin: 12/22/18 09:23 Dose: 10 mg Metoprolol Tartrate (Lopressor) 25 mg PO BID [facility] Last Admin: 12/22/18 18:09 Dose: 25 mg Morphine Sulfate (Morphine) 4 mg IVP Q4H PRN PRN Reason: Pain, severe (8-10) Last Admin: 12/22/18 08:44 Dose: 4 mg Non-Formulary Medication (Fluticasone/Vilanterol [Breo Ellipta 200-25 Mcg Inh]) 1 each IH DAILY [facility] Last Admin: 12/22/18 09:19 Dose: Not Given Oxycodone HCl (Oxycodone Immediate Release Tab) 5 mg PO Q4H PRN PRN Reason: Pain, Mild (1-3) Oxycodone HCl (Oxycodone Immediate Release Tab) 10 mg PO Q4H PRN PRN Reason: Pain, moderate (4-7) Last Admin: 12/23/18 04:58 Dose: 10 mg Pantoprazole Sodium (Protonix Ec Tab) 40 mg PO DAILY [facility] Last Admin: 12/22/18 09:22 Dose: 40 mg Pramipexole Dihydrochloride (Mirapex) 0.5 mg PO DAILY [facility] Last Admin: 12/22/18 09:24 Dose: 0.5 mg Venlafaxine HCl (Effexor Xr) 150 mg PO BID [facility] Last Admin: 12/22/18 18:09 Dose: 150 mg Ziprasidone (Geodon Cap) 80 mg PO BID [facility] Last Admin: 12/22/18 18:09 Dose: 80 mg - Labs Labs: 12/22/18 07:20 12/22/18 07:20 PT 13.5 SECONDS (9.4-12.5) H 12/20/18 14:02 INR 1.22 12/20/18 14:02 APTT 32.4 Seconds (26.9-38.3) 12/20/18 14:02 Attending/Attestation - Attestation I have personally seen and examined this patient.: Yes I have fully participated in the care of the patient.: Yes I have reviewed all pertinent clinical information, including history, physical exam and plan: Yes Notes (Text): Patient seen and examined by me with resident at approximately 10:05AM on 12/22/18 in the emergency room. Case including HPI, physical exam, and assessment and plan discussed with resident. Agree with above with following additions/corrections. Patient is a 68-year-old female past medical history significant for COPD, coronary artery disease, AAA, hypertension, rotator cuff injury, chronic diastolic CHF, multiple falls and fractures, psychiatric disorder, hyponatremia, and history of tobacco abuse that presented to the emergency room after having a fall. Patient states she has been cryig a lot and has been very upset because of an argument she had with her . However, that has resolved and she feels better now. Patient states she is having pain in her right hip but it is better from admission. She denies chest pain or shortness of breath. No nausea, vomiting, or abdominal pain. No headaches or dizziness. Bates catheter in place. Physical exam: General: Awake and alert lying in bed in no acute distress. HEENT: Normocephalic, atraumatic. Extraocular muscles intact, pupils equal and reactive, no scleral icterus. Oropharynx is pink and moist. No pharyngeal erythema or exudate appreciated. Neck is supple. Cardiovascular: Regular rhythm. Normal S1, S2. No murmurs, rubs, or gallops appreciated Pulmonary: Normal respiratory effort. No rhonchi, rales, or wheezing a ppreciated. Gastrointestinal: Soft. Nontender. Nodistended. Positive bowel sounds all 4 quadrants. No guarding. Musculoskeletal: Decreased range of motion right lower extremity. No calf tenderness. No edema appreciated. Positive tenderness right hip. Dressing right hip clean, dry, and intact. Right 4th and 5th hand digits with ecchymosis. Central nervous system: AAOx3 Dermatologic: Skin warm and dry. Assessment and plan: Patient is a 68-year-old female past medical history significant for COPD, coronary artery disease, AAA, hypertension, rotator cuff injury, chronic diastolic CHF, multiple falls and fractures, psychiatric disorder, hyponatremia, and history of tobacco abuse that presented to the emergency room after having a fall. 1. Right hip pain. Right hand pain. Intertrochanteric fracture of the right hip status post fall. S/P ORIF 12/21/17. Orthopedics recommendations appreciated. Continue with pain management. PT/OT. Encourage incentive spirometer. Pain management. Pelvic and bilateral hip x-ray per radiologist showed intertrochanteric fracture of the right hip, mild varus angulation. Head CT per radiologist showed no acute findings. Right ankle x-ray per radiologist showed limited examination, no gross evidence of fracture on the single view. Right knee x-ray per radiologist showed limited examination, no gross evidence of fracture. Right hand x-ray per radiologist showed no evidence of fracture. 2. Hyponatremia. Stable. Nephrology consulted, pending recommendations. 3. Chronic diastolic CHF. CAD. No acute issues. Aldactone held for now secondary to hyponatremia. Cardiology following. 2-D echo per composition tile layer showed left ventricle is normal size, EF 59%, right ventricular systolic function is normal, right ventricle is normal size. Continue home lisinopril and metoprolol. 4. Hypertension. Continue home lisinopril and metoprolol 5. Psychiatric disorder. Continue home Effexor and Geodon. Continue Xanax prn. Psychiatry consulted, pending recommendations 6. COPD. Not in acute exacerbation. Continue nebulizer treatments as neeed. 7. Multiple falls and fractures. PT/OT eval and treat 8. Patient is a full code. 9. DVT prophylaxis. Lovenox Case was discussed in detail with the patient regarding current diagnosis and treatment plan. All questions answered.
[2018-12-22 07:49] LABS: BASO # 0.02 K/mm3 (0.0-2.0); BASO % 0.2 % (0.0-3.0); EOS % 0.2 % (1.5-5.0); HEMOGLOBIN 8.8 g/dL (12.0-16.0); LYMPH # 1.5 (1.2-3.4); LYMPH % 14.4 % (22.0-35.0); MEAN CELL VOLUME 74.9 fl (80.0-105.0); MEAN CORPUSCULAR HEMOGLOBIN 24.5 pg (25.0-35.0); MEAN CORPUSCULAR HGB CONC 32.7 g/dl (31.0-37.0); MEAN PLATELET VOLUME 9.1 fl (7.0-11.0); MONO # 1.6 (0.1-0.6); MONO % 15.2 % (1.0-6.0); RBC 3.59 10^6/uL (3.5-6.1); RED CELL DISTRIBUTION WIDTH 14.7 % (11.5-14.5); WHITE BLOOD COUNT 10.5 10^3/uL (4.5-11.0)
[2018-12-22 08:08] LABS: ALB/GLOB RATIO 1.1 (1.1-1.8); ALT/SGPT 17 U/L (7-56); AST/SGOT 32 U/L (14-36); BLOOD UREA NITROGEN 16 mg/dL (7-21); CALCIUM 8.5 mg/dL (8.4-10.5); GFR NON-AFRICAN AMERICAN > 60
--- NOTE | 2018-12-22 08:52 | RAD ---
Date of service: 12/21/2018 PROCEDURE: Fluoroscopy up to 1 hr HISTORY: Right Hip fx COMPARISON: TECHNIQUE: 118.9 sec of fluoro time. Cumulative dose 12.38 mGy. 6 views were obtained FINDINGS: There is placement of a compression screw and cayla in the right hip. There is anatomic alignment IMPRESSION: As above
[2018-12-22] MEDS: Venlafaxine 75 mg ER Cap PO SCH ×2 (09:18→18:09)
[2018-12-22] MEDS: Non Formulary Medication (Fluticasone/Vilanterol [Breo Ellipta 200-25 Mcg Inh] 1 EACH) IH SCH (09:19)
[2018-12-22] MEDS: Enoxaparin 40 mg Syringe SC SCH (09:19)
[2018-12-22] MEDS: Pantoprazole 40 mg EC Tab PO SCH (09:22)
[2018-12-22] MEDS: oxyCODONE 10 mg Immediate Release Tab PO PRN ×3 (14:50→23:16)
[2018-12-22] MEDS: Sodium Chloride 0.9% 500 ML IV SCH (18:10)
[2018-12-22] MEDS: Albuterol-Ipratrop 3 mg / 0.5 (3 ml) UD IH PRN (20:45)
[2018-12-23] MEDS: oxyCODONE 10 mg Immediate Release Tab PO PRN ×4 (04:58→19:16)
[2018-12-23] MEDS: Sodium Chloride 0.9% 500 ML IV SCH ×2 (04:59→12:03)
[2018-12-23 07:29] LABS: BASO # 0.01 K/mm3 (0.0-2.0); BASO % 0.1 % (0.0-3.0); EOS % 0.2 % (1.5-5.0); HEMOGLOBIN 8.6 g/dL (12.0-16.0); LYMPH # 1.5 (1.2-3.4); LYMPH % 17.9 % (22.0-35.0); MEAN CELL VOLUME 75.5 fl (80.0-105.0); MEAN CORPUSCULAR HEMOGLOBIN 24.5 pg (25.0-35.0); MEAN CORPUSCULAR HGB CONC 32.5 g/dl (31.0-37.0); MEAN PLATELET VOLUME 9.3 fl (7.0-11.0); MONO # 1.1 (0.1-0.6); RBC 3.51 10^6/uL (3.5-6.1); RED CELL DISTRIBUTION WIDTH 14.8 % (11.5-14.5); WHITE BLOOD COUNT 8.6 10^3/uL (4.5-11.0)
[2018-12-23] MEDS: Albuterol-Ipratrop 3 mg / 0.5 (3 ml) UD IH PRN ×2 (07:46→23:30)
[2018-12-23 08:00] LABS: ALB/GLOB RATIO 0.9 (1.1-1.8); ALBUMIN 2.6 g/dL (3.0-4.8); ALT/SGPT 11 U/L (7-56); AST/SGOT 21 U/L (14-36); BLOOD UREA NITROGEN 15 mg/dL (7-21); CALCIUM 8.2 mg/dL (8.4-10.5); GFR NON-AFRICAN AMERICAN > 60
[2018-12-23] MEDS: Venlafaxine 75 mg ER Cap PO SCH ×2 (09:21→17:21)
[2018-12-23] MEDS: Enoxaparin 40 mg Syringe SC SCH (09:21)
[2018-12-23] MEDS: Pantoprazole 40 mg EC Tab PO SCH (09:25)
--- NOTE | 2018-12-23 10:16 | CP.PCM.PN ---
Subjective - Date & Time of Evaluation Date of Evaluation: 12/23/18 Time of Evaluation: 10:14 - Subjective Subjective: Pt awake, alert. Doing well. Denies significant pain. Pt got up today with PT. Afebrile, VSS RLE: dressings clean and dry thigh soft, NT NVI distally Hg 8.6 POD#2 cont PT, DVT prophylaxis D/c planning for GAEL Objective - Vital Signs/Intake and Output Vital Signs (last 24 hours): Temp Pulse Resp BP Pulse Ox 98.4 F 100 H 18 161/99 H 93 L 12/23/18 06:00 12/23/18 09:29 12/23/18 06:00 12/23/18 09:29 12/23/18 06:00 Intake and Output: 12/23/18 12/23/18 06:59 18:59 Intake Total 480 Balance 480 - Medications Medications: Current Medications Albuterol/Ipratropium (Duoneb 3 Mg/0.5 Mg (3 Ml) Ud) 3 ml IH Q6H PRN PRN Reason: Shortness of Breath Last Admin: 12/23/18 07:46 Dose: 3 ml Alprazolam (Xanax) 0.5 mg PO Q8H PRN; Protocol PRN Reason: anxiety severe Last Admin: 12/22/18 16:29 Dose: 0.5 mg Enoxaparin Sodium (Lovenox) 40 mg SC DAILY [facility]; Protocol Last Admin: 12/23/18 09:21 Dose: 40 mg Hydralazine HCl (Apresoline) 10 mg IVP Q6 PRN PRN Reason: hypertension Last Admin: 12/23/18 05:05 Dose: 10 mg Hydromorphone HCl (Dilaudid) 0.5 mg IVP Q15M PRN PRN Reason: Other Sodium Chloride (Sodium Chloride 0.9%) 500 mls @ 50 mls/hr IV .Q10H [facility] Last Admin: 12/23/18 04:59 Dose: 50 mls/hr Lisinopril (Zestril) 40 mg PO DAILY [facility] Last Admin: 12/23/18 09:28 Dose: 40 mg Metoclopramide HCl (Reglan) 10 mg PO DAILY [facility] Last Admin: 12/23/18 09:22 Dose: 10 mg Metoprolol Tartrate (Lopressor) 25 mg PO BID [facility] Last Admin: 12/23/18 09:29 Dose: 25 mg Morphine Sulfate (Morphine) 4 mg IVP Q4H PRN PRN Reason: Pain, severe (8-10) Last Admin: 12/22/18 08:44 Dose: 4 mg Non-Formulary Medication (Fluticasone/Vilanterol [Breo Ellipta 200-25 Mcg Inh]) 1 each IH DAILY [facility] Last Admin: 12/22/18 09:19 Dose: Not Given Oxycodone HCl (Oxycodone Immediate Release Tab) 5 mg PO Q4H PRN PRN Reason: Pain, Mild (1-3) Oxycodone HCl (Oxycodone Immediate Release Tab) 10 mg PO Q4H PRN PRN Reason: Pain, moderate (4-7) Last Admin: 12/23/18 09:23 Dose: 10 mg Pantoprazole Sodium (Protonix Ec Tab) 40 mg PO DAILY [facility] Last Admin: 12/23/18 09:25 Dose: 40 mg Pramipexole Dihydrochloride (Mirapex) 0.5 mg PO DAILY [facility] Last Admin: 12/23/18 09:22 Dose: 0.5 mg Venlafaxine HCl (Effexor Xr) 150 mg PO BID [facility] Last Admin: 12/23/18 09:21 Dose: 150 mg Ziprasidone (Geodon Cap) 80 mg PO BID [facility] Last Admin: 12/23/18 09:20 Dose: 80 mg - Labs Labs: 12/23/18 06:30 12/23/18 06:30 PT 13.5 SECONDS (9.4-12.5) H 12/20/18 14:02 INR 1.22 12/20/18 14:02 APTT 32.4 Seconds (26.9-38.3) 12/20/18 14:02
[2018-12-23] MEDS: Non Formulary Medication (Fluticasone/Vilanterol [Breo Ellipta 200-25 Mcg Inh] 1 EACH) IH SCH (10:19)
[2018-12-23 14:06] LABS: IRON < 10 ug/dL (45-180); TOTAL IRON BINDING CAPACITY 239 ug/dL (265-497)
--- NOTE | 2018-12-23 18:29 | CP.PCM.PN ---
<Jorden Farley - Last Filed: 12/23/18 20:17> Subjective - Date & Time of Evaluation Date of Evaluation: 12/23/18 Time of Evaluation: 09:00 - Subjective Subjective: Jorden Farley DO PGY1 - Internal Medicine [facility] - Hospitalist Progress Note Patient was seen and evaluated at bedside this morning No acute events reported overnight; POD#2 ORIF R hip fx; Appears well this AM; Appropriate Mood/Affect Denies fevers, chills, sob, palp, chest pain, abd pain, n/v/d/c, urinary discomfort Objective - Vital Signs/Intake and Output Vital Signs (last 24 hours): Temp Pulse Resp BP Pulse Ox 97.3 F L 71 16 156/61 H 96 12/23/18 14:00 12/23/18 17:21 12/23/18 14:00 12/23/18 17:21 12/23/18 14:00 Intake and Output: 12/23/18 12/23/18 06:59 18:59 Intake Total 480 Balance 480 - Medications Medications: Current Medications Albuterol/Ipratropium (Duoneb 3 Mg/0.5 Mg (3 Ml) Ud) 3 ml IH Q6H PRN PRN Reason: Shortness of Breath Last Admin: 12/23/18 07:46 Dose: 3 ml Alprazolam (Xanax) 0.5 mg PO Q8H PRN; Protocol PRN Reason: anxiety severe Last Admin: 12/23/18 16:18 Dose: 0.5 mg Enoxaparin Sodium (Lovenox) 40 mg SC DAILY [facility]; Protocol Last Admin: 12/23/18 09:21 Dose: 40 mg Hydralazine HCl (Apresoline) 10 mg IVP Q6 PRN PRN Reason: hypertension Last Admin: 12/23/18 05:05 Dose: 10 mg Hydromorphone HCl (Dilaudid) 0.5 mg IVP Q15M PRN PRN Reason: Other Lisinopril (Zestril) 40 mg PO DAILY [facility] Last Admin: 12/23/18 09:28 Dose: 40 mg Metoclopramide HCl (Reglan) 10 mg PO DAILY [facility] Last Admin: 12/23/18 09:22 Dose: 10 mg Metoprolol Tartrate (Lopressor) 25 mg PO BID [facility] Last Admin: 12/23/18 17:21 Dose: 25 mg Morphine Sulfate (Morphine) 4 mg IVP Q4H PRN PRN Reason: Pain, severe (8-10) Last Admin: 12/22/18 08:44 Dose: 4 mg Non-Formulary Medication (Fluticasone/Vilanterol [Breo Ellipta 200-25 Mcg Inh]) 1 each IH DAILY [facility] Last Admin: 12/23/18 10:19 Dose: Not Given Oxycodone HCl (Oxycodone Immediate Release Tab) 5 mg PO Q4H PRN PRN Reason: Pain, Mild (1-3) Oxycodone HCl (Oxycodone Immediate Release Tab) 10 mg PO Q4H PRN PRN Reason: Pain, moderate (4-7) Last Admin: 12/23/18 14:22 Dose: 10 mg Pantoprazole Sodium (Protonix Ec Tab) 40 mg PO DAILY [facility] Last Admin: 12/23/18 09:25 Dose: 40 mg Pramipexole Dihydrochloride (Mirapex) 0.5 mg PO DAILY [facility] Last Admin: 12/23/18 09:22 Dose: 0.5 mg Spironolactone (Aldactone) 25 mg PO DAILY [facility] Venlafaxine HCl (Effexor Xr) 150 mg PO BID [facility] Last Admin: 12/23/18 17:21 Dose: 150 mg Ziprasidone (Geodon Cap) 80 mg PO BID [facility] Last Admin: 12/23/18 17:21 Dose: 80 mg - Labs Labs: 12/23/18 06:30 12/23/18 06:30 PT 13.5 SECONDS (9.4-12.5) H 12/20/18 14:02 INR 1.22 12/20/18 14:02 APTT 32.4 Seconds (26.9-38.3) 12/20/18 14:02 - Constitutional Appears: Non-toxic, No Acute Distress, - Head Exam Head Exam: ATRAUMATIC, NORMAL INSPECTION, NORMOCEPHALIC - Eye Exam Eye Exam: EOMI, Normal appearance. absent: Conjunctival injection, Scleral icterus - ENT Exam ENT Exam: Mucous Membranes Moist - Neck Exam Neck Exam: Full ROM, Normal Inspection - Respiratory Exam Respiratory Exam: CTABL - Cardiovascular Exam Cardiovascular Exam: RRR no murmur - GI/Abdominal Exam GI & Abdominal Exam: Soft, Normal Bowel Sounds. absent: Firm, Guarding, Rigid, Tenderness - Extremities Exam Extremities Exam: Normal Capillary Refill. absent: Calf Tenderness, Pedal Edema - Neurological Exam Neurological Exam: Alert, Awake, Oriented x3 - Psychiatric Exam Psychiatric exam: Appropriate mood/affect - Skin Skin Exam: Dry, Intact, Normal Color, Warm Assessment and Plan - Assessment and Plan (Free Text) Assessment: 68F PMH multiple falls, CHF, CAD, HTN, COPD; [place] [facility] [place] found to have R hip fracture. Patient is s/p ORIF of R hip on 12/21 Plan: Right Hip Fracture s/p ORIF on 12/21 - POD #2 - Ortho consulted: Dr. Coburn - Fall 2/2 possible polypharmacy - holding home trazodone, and aldactone. Reduced home xanax from 1 to 0.5mg. - Cardio consulted for pre-op risk stratification: Dr. Mead - PT/OT on board Analgesia: Oxycodone HCl (Oxycodone Immediate Release Tab) 5 mg PO Q4H PRN PRN Reason: Pain, Mild (1-3) Oxycodone HCl (Oxycodone Immediate Release Tab) 10 mg PO Q4H PRN PRN Reason: Pain, moderate (4-7) Morphine Sulfate (Morphine) 4 mg IVP Q4H PRN PRN Reason: Pain, severe (8-10) Hyponatremia - improving -Per nephrology 2/2 increased water intake - holding home aldactone - Nephrology consulted Hx of anxiety / Labile Moods - Psych consulted for review of medication and management as patient reports anxiety is uncontrolled - Alprazolam (Xanax) 0.5 mg PO Q8H PRN; Protocol PRN Reason: anxiety severe Venlafaxine HCl (Effexor Xr) 150 mg PO BID [facility] Ziprasidone (Geodon Cap) 80 mg PO BID [facility] Hx CHF - Hold home aldactone 2/2 hypovolemic hyponatremia - elevated BNP on admission Hx COPD not on O2 - Duonebs q 6 h prn and Breo 1 inh qd Hx CAD - Continue Lopressor, Zestril Hx HTN - C/w home medication Zestril, Lopressor - Hydralazine prn on board Patient was seen, evaluated and discussed w/ attending physician Dr. Sagrario Farley DO PGY1 - Internal Medicine [facility] Hospitalist Progress Note <MiguelitoSagrario R - Last Filed: 12/24/18 12:07> Objective - Vital Signs/Intake and Output Vital Signs (last 24 hours): Temp Pulse Resp BP Pulse Ox 98.5 F 107 H 18 170/80 H 94 L 12/24/18 08:25 12/24/18 08:25 12/24/18 08:25 12/24/18 09:12 12/24/18 08:25 Intake and Output: 12/24/18 12/24/18 06:59 18:59 Intake Total 660 Balance 660 - Medications Medications: Current Medications Albuterol/Ipratropium (Duoneb 3 Mg/0.5 Mg (3 Ml) Ud) 3 ml IH Q6H PRN PRN Reason: Shortness of Breath Last Admin: 12/23/18 23:30 Dose: 3 ml Alprazolam (Xanax) 0.5 mg PO Q8H PRN; Protocol PRN Reason: anxiety severe Last Admin: 12/24/18 07:04 Dose: 0.5 mg Amlodipine Besylate (Norvasc) 10 mg PO DAILY [facility] Last Admin: 12/24/18 09:12 Dose: 10 mg Calcium/Vitamin D (Oscal-D 250 Mg-125 Units Tab) 1 tab PO DAILY [facility] Last Admin: 12/24/18 09:12 Dose: 1 tab Enoxaparin Sodium (Lovenox) 40 mg SC DAILY [facility]; Protocol Last Admin: 12/24/18 09:13 Dose: 40 mg Hydralazine HCl (Apresoline) 10 mg IVP Q6 PRN PRN Reason: hypertension Last Admin: 12/23/18 05:05 Dose: 10 mg Hydromorphone HCl (Dilaudid) 0.5 mg IVP Q15M PRN PRN Reason: Other Iron Sucrose 200 mg/ Sodium (Chloride) 110 mls @ 110 mls/hr IVPB DAILY [facility] Stop: 12/28/18 21:16 Last Admin: 12/24/18 11:26 Dose: 110 mls/hr Lisinopril (Zestril) 40 mg PO DAILY [facility] Last Admin: 12/24/18 09:12 Dose: 40 mg Metoclopramide HCl (Reglan) 10 mg PO DAILY [facility] Last Admin: 12/24/18 09:11 Dose: 10 mg Metoprolol Tartrate (Lopressor) 25 mg PO BID [facility] Morphine Sulfate (Morphine) 4 mg IVP Q4H PRN PRN Reason: Pain, severe (8-10) Last Admin: 12/24/18 09:10 Dose: 4 mg Non-Formulary Medication (Fluticasone/Vilanterol [Breo Ellipta 200-25 Mcg Inh]) 1 each IH DAILY [facility] Last Admin: 12/24/18 09:13 Dose: Not Given Oxycodone HCl (Oxycodone Immediate Release Tab) 5 mg PO Q4H PRN PRN Reason: Pain, Mild (1-3) Oxycodone HCl (Oxycodone Immediate Release Tab) 10 mg PO Q4H PRN PRN Reason: Pain, moderate (4-7) Last Admin: 12/24/18 04:17 Dose: 10 mg Pantoprazole Sodium (Protonix Ec Tab) 40 mg PO DAILY [facility] Last Admin: 12/24/18 09:10 Dose: 40 mg Pramipexole Dihydrochloride (Mirapex) 0.5 mg PO DAILY [facility] Last Admin: 12/24/18 09:14 Dose: 0.5 mg Spironolactone (Aldactone) 25 mg PO DAILY [facility] Last Admin: 12/24/18 09:11 Dose: 25 mg Venlafaxine HCl (Effexor Xr) 150 mg PO BID [facility] Last Admin: 12/24/18 09:12 Dose: 150 mg Ziprasidone (Geodon Cap) 80 mg PO BID [facility] Last Admin: 12/24/18 09:13 Dose: 80 mg - Labs Labs: 12/24/18 07:00 12/24/18 07:00 PT 13.5 SECONDS (9.4-12.5) H 12/20/18 14:02 INR 1.22 12/20/18 14:02 APTT 32.4 Seconds (26.9-38.3) 12/20/18 14:02 Attending/Attestation - Attestation I have personally seen and examined this patient.: Yes I have fully participated in the care of the patient.: Yes I have reviewed all pertinent clinical information, including history, physical exam and plan: Yes Notes (Text): Patient seen and examined by me with resident at approximately 9:55AM on 12/23/18 in the emergency room. Case including HPI, physical exam, and assessment and plan discussed with resident. Agree with above with following additions/corrections. Patient is a 68-year-old female past medical history significant for COPD, coronary artery disease, AAA, hypertension, rotator cuff injury, chronic diastolic CHF, multiple falls and fractures, psychiatric disorder, hyponatremia, and history of tobacco abuse that presented to the emergency room after having a fall. Patient states she is feeling better. Patient now states that she does ambulate at home and must have been somewhat confused on admission. Patient states she was able to sit in a chair and is waiting for physical therapy to see her so she can walk. She denies chest pain or shortness of breath. No nausea, vomiting, or abdominal pain. No headaches or dizziness. No dysuria. Physical exam: General: Awake and alert lying in bed in no acute distress. HEENT: Normocephalic, atraumatic. Extraocular muscles intact, pupils equal and reactive, no scleral icterus. Oropharynx is pink and moist. No pharyngeal erythema or exudate appreciated. Neck is supple. Cardiovascular: Regular rhythm. Normal S1, S2. No murmurs, rubs, or gallops appreciated Pulmonary: Normal respiratory effort. No rhonchi, rales, or wheezing appreciate d. Gastrointestinal: Soft. Nontender. Nodistended. Positive bowel sounds all 4 quadrants. No guarding. Musculoskeletal: Decreased range of motion right lower extremity. Positive tenderness right hip. Dressing right hip clean, dry, and intact. Right 4th and 5th hand digits with improving ecchymosis. No calf tenderness. No edema appreciated. Central nervous system: AAOx3 Dermatologic: Skin warm and dry. Assessment and plan: Patient is a 68-year-old female past medical history significant for COPD, coronary artery disease, AAA, hypertension, rotator cuff injury, chronic diastolic CHF, multiple falls and fractures, psychiatric disorder, hyponatremia, and history of tobacco abuse that presented to the emergency room after having a fall. 1. Right hip pain. Right hand pain. Intertrochanteric fracture of the right hip status post fall. S/P ORIF 12/21/17. Orthopedics recommendations appreciated. Continue with pain management. Continue physical therapy. GAEL recommended. Continue to encourage use of incentive spirometer. Continue with pain management. Pelvic and bilateral hip x-ray per radiologist showed intertrochanteric fracture of the right hip, mild varus angulation. Head CT per radiologist showed no acute findings. Right ankle x-ray per radiologist showed limited examination, no gross evidence of fracture on the single view. Right knee x-ray per radiologist showed limited examination, no gross evidence of fracture. Right hand x-ray per radiologist showed no evidence of fracture. 2. Hyponatremia. Improved. Nephrology recommendations appreciated. Fluid restriction discussed with patient. 3. Chronic diastolic CHF. CAD. No acute issues. Continue home lisinopril and metoprolol. Aldactone restarted. Cardiology following. 2-D echo per county administrator showed left ventricle is normal size, EF 59%, right ventricular systolic function is normal, right ventricle is normal size. 4. Hypertension. Continue home lisinopril and metoprolol 5. Psychiatric disorder. Continue home Effexor and Geodon. Continue Xanax prn. Psychiatry consulted, pending recommendations 6. COPD. Not in acute exacerbation. Continue nebulizer treatments as needed. 7. Multiple falls and fractures. Continue PT. GAEL recommeded, follow up with case management and social worker clinical. 8. Patient is a full code. 9. DVT prophylaxis. Lovenox Case was discussed in detail with the patient regarding current diagnosis and treatment plan. All questions answered.
--- NOTE | 2018-12-23 21:41 | CON ---
DATE: 12/23/2018 HISTORY OF PRESENT ILLNESS: Patient is a 68-year-old female with a history of depression and anxiety. No psychiatric admissions. No suicide attempts. Had prior treatment with Dr. Stafford, then transferred to Dr. Roper's outpatient care as Dr. Stafford retired, who was admitted to the medical floor after she presented to the ER after falling on the way to the bathroom. Patient was admitted for a right hip surgery. The Psychiatry was called to evaluate for patient's anxiety. I met with patient at bedside and she is alert and oriented to most of the patient's circumstances and reported she is fairly comfortable right now. Endorsed she has a history of depression. However, she denies having any depressing symptoms at this time. Her anxiety is related to her current medical condition. She defers on any changes to her medication regimen. Patient reports that she will continue to see Dr. Roper as an outpatient psychiatrist after she is medically stabilized and then discharged. Patient is coherent. She is not hallucinating. She denies any hallucinations and then has been in therapy. She is well controlled in the unit. She denies any side effects from her medications and would like to continue at current doses. PSYCHIATRIC HISTORY: Please refer to HPI. Patient did have consultations with Dr. Stafford while she was medically admitted in 02/2013 and 09/2014 for anxiety. Right now she is in outpatient care with Dr. Roper, who prescribed Effexor and Geodon as well as trazodone. SOCIAL HISTORY: Patient has been for the last 47 years. She lives with her . She has two children, who are 48 and 49. She denies any drug or alcohol issues. IMPRESSION: Adjustment disorder with anxiety, depression by history, noncontributory at this time. RECOMMENDATIONS: We will continue with current medications on the unit including Xanax 0.5 mg every 8 hours, Effexor XR 150 mg b.i.d., Geodon 80 mg b.i.d. Patient defers on any medication changes and she defers on any further psychiatric interventions or psychiatrist diagnosis at this time. Please reconsult if there is any acute changes in patient's presentation. Frankie Burton MD
--- NOTE | 2018-12-23 23:14 | CON ---
DATE: 12/23/2018 REFERRING PHYSICIAN: Sagrario Farley DO. REASON FOR CONSULTATION: Evaluation for hyponatremia. HISTORY OF PRESENT ILLNESS: This is a 68-year-old female who came into the hospital and had a fall. The patient was found to have a right hip fracture. The patient had been taken to the OR for surgery. The initial sodium on the patient was 126. She has a history of having hyponatremia. Her last sodium in 08/2018 was 128. She said she has been drinking significant amount of water. She drinks two 16-ounces of water at minimum every day. She denies any chest pain. No shortness of breath. No headaches. No dizziness. No fevers. No chills. No abdominal pain. No back pain. She said that she does have some pain after her procedure, but the pain is controlled with pain medications. She is postop day #1 from her surgery. She was able to get sleep last night. She denies any dizziness. She denies NSAID use. She has no fevers or chills. REVIEW OF SYSTEMS: All of review of symptoms are within normal limits except as mentioned. PAST MEDICAL HISTORY 1. Coronary artery disease. 2. Triple A. 3. Hypertension. 4. COPD. 5. DE. 6. CHF. 7. Diastolic dysfunction with EF of 59%. HOME MEDICATIONS: Have been reviewed. She was taking at home Ventolin, Xanax, Reglan, Lopressor, fluticasone, Protonix, Effexor, trazodone, Geodon as well as Aldactone, and Topamax. HOSPITAL MEDICATIONS: Have been reviewed from in the chart. PAST SURGICAL HISTORY: Hysterectomy, rotator cuff surgery, carotid endarterectomy, and tonsillectomy. SOCIAL HISTORY: She smoked one pack per day for 30 years. She is not smoking anymore. She lives at home with her . She denies alcohol or drugs. PHYSICAL EXAMINATION VITAL SIGNS: Temperature is 98.4, pulse of 113, blood pressure is 142/87, respirations 18, and O2 saturation is 93%. Height is 5 feet 5 inches, weight is 106 pounds, and BMI is 17. GENERAL: The patient is lying in bed, comfortable, and in no acute distress. HEENT: Atraumatic and normocephalic. Anicteric sclerae. Moist mucosa. [place] conjunctivae. No oral lesions. NECK: No JVD, anterior and posterior adenopathy, thyromegaly, or bruits. CARDIOVASCULAR: S1 and S2 regular. No murmurs, rubs or gallops. LUNGS: Clear to auscultation bilaterally. No wheezes, rales, or rhonchi. ABDOMEN: Bowel sounds are positive. Soft, nontender and nondistended. No hepatosplenomegaly. No rebound and no guarding EXTREMITIES: No cyanosis, clubbing, or edema. In the right leg, there is decreased range of motion secondary to pain. NEUROLOGIC: No facial asymmetry. Tongue is midline. No uvula deviation. Power is 5/5 upper extremities and lower extremities. Sensation intact in upper extremities and lower extremities. PSYCHIATRIC: She is awake, alert and oriented x3. No anxiety or depression. She has normal affect. GENITOURINARY: No CVA tenderness. VASCULAR: 2+ pulses in the carotid pulses and pedal pulses. SKIN: No erythema or nodules. SPINE: Shows normal curvature. LABORATORY DATA: Sodium was 130 this morning and yesterday it was 127. Creatinine is 0.7. Albumin is 2.6. TSH is 2. She had a white count of 8.6, hemoglobin is 8.6, and platelet count is 233. INR is 1.2. Right hip x-ray done postop shows ORIF in the right hip with [id number] constipation. She had EKG that showed a heart rate of 80, sinus rhythm. QTc is 419. She had a chest x-ray that shows no active disease. ASSESSMENT 1. Hyponatremia. 2. Right hip fracture status post open reduction and internal fixation. 3. Coronary artery disease. 4. Hypertension. 5. Chronic obstructive pulmonary disease. 6. Osteoporosis. 7. Anxiety. PLAN: Patient is currently comfortable. She was having pain initially. She had hyponatremia. The patient's serum osmolality is 271, which is borderline low. She was having pain as well as postop she was drinking significant amount of water. She has a urine specific gravity of 1.010. Most likely she had excessive ADH in the setting of excess free water intake with being postop and having pain. She is hyponatremic. The patient has a urine study that were ordered by me this morning, has not been collected. The patient is advised to decrease her water intake. I will place her on a 1500 mL fluid restriction. I also spoke with Dr. Farley, the patient's primary care doctor to let her know about my findings. She is on psychiatric medications such as Geodon, Effexor, that may also contribute to her hyponatremia. She should have good pain control. She is going to continue with her metoprolol for her coronary artery disease. She is on Lovenox for DVT prophylaxis. The patient's pain is being managed with morphine and oxycodone. She is on IV fluids. I will discontinue her IV fluids. Her blood pressure is currently controlled. She does have anemia. I will have order iron studies to evaluate further. I suspect that she may be iron deficient given that she had a low MCV and an elevated RDW. I will also order a retic count to it. We will continue to follow. The patient most likely has osteoporosis. She had a fall from a standing position. A fragility fracture is any fall from a standing height or less than that results in a fracture. The patient will also get her vitamin D levels checked. I will order her vitamin D level. I will place her on calcium and vitamin D as well to help with osteoporosis. Most likely, she will need bisphosphonates, but it should be delayed currently as the patient is postop and this may theoretically delay bone healing, at least 2 weeks delay should be done before starting the patient on bisphosphonate. Thank you for allowing me to participate in taking care of the patient. Diego Whitehead MD
[2018-12-24] MEDS: oxyCODONE 10 mg Immediate Release Tab PO PRN ×3 (00:02→13:23)
--- NOTE | 2018-12-24 05:19 | CP.PCM.PN ---
Subjective - Date & Time of Evaluation Date of Evaluation: 12/24/18 Time of Evaluation: 05:18 - Subjective Subjective: Co-signed order for hydralazine 10 mg IV. It was ordered for BP 185/106.----->175/99. Patient is asymptomatic. Objective - Vital Signs/Intake and Output Vital Signs (last 24 hours): Temp Pulse Resp BP Pulse Ox 98 F 106 H 20 178/99 H 94 L 12/23/18 22:00 12/24/18 04:59 12/23/18 22:00 12/24/18 04:59 12/23/18 22:00 Intake and Output: 12/23/18 12/24/18 18:59 06:59 Intake Total 660 Balance 660 - Medications Medications: Current Medications Albuterol/Ipratropium (Duoneb 3 Mg/0.5 Mg (3 Ml) Ud) 3 ml IH Q6H PRN PRN Reason: Shortness of Breath Last Admin: 12/23/18 23:30 Dose: 3 ml Alprazolam (Xanax) 0.5 mg PO Q8H PRN; Protocol PRN Reason: anxiety severe Last Admin: 12/23/18 16:18 Dose: 0.5 mg Enoxaparin Sodium (Lovenox) 40 mg SC DAILY [facility]; Protocol Last Admin: 12/23/18 09:21 Dose: 40 mg Hydralazine HCl (Apresoline) 10 mg IVP Q6 PRN PRN Reason: hypertension Last Admin: 12/23/18 05:05 Dose: 10 mg Hydromorphone HCl (Dilaudid) 0.5 mg IVP Q15M PRN PRN Reason: Other Iron Sucrose 200 mg/ Sodium (Chloride) 110 mls @ 110 mls/hr IVPB DAILY [facility] Stop: 12/28/18 21:16 Last Admin: 12/23/18 22:29 Dose: 110 mls/hr Lisinopril (Zestril) 40 mg PO DAILY [facility] Last Admin: 12/23/18 09:28 Dose: 40 mg Metoclopramide HCl (Reglan) 10 mg PO DAILY [facility] Last Admin: 12/23/18 09:22 Dose: 10 mg Metoprolol Tartrate (Lopressor) 25 mg PO BID [facility] Last Admin: 12/23/18 17:21 Dose: 25 mg Morphine Sulfate (Morphine) 4 mg IVP Q4H PRN PRN Reason: Pain, severe (8-10) Last Admin: 12/22/18 08:44 Dose: 4 mg Non-Formulary Medication (Fluticasone/Vilanterol [Breo Ellipta 200-25 Mcg Inh]) 1 each IH DAILY [facility] Last Admin: 12/23/18 10:19 Dose: Not Given Oxycodone HCl (Oxycodone Immediate Release Tab) 5 mg PO Q4H PRN PRN Reason: Pain, Mild (1-3) Oxycodone HCl (Oxycodone Immediate Release Tab) 10 mg PO Q4H PRN PRN Reason: Pain, moderate (4-7) Last Admin: 12/24/18 04:17 Dose: 10 mg Pantoprazole Sodium (Protonix Ec Tab) 40 mg PO DAILY [facility] Last Admin: 12/23/18 09:25 Dose: 40 mg Pramipexole Dihydrochloride (Mirapex) 0.5 mg PO DAILY [facility] Last Admin: 12/23/18 09:22 Dose: 0.5 mg Spironolactone (Aldactone) 25 mg PO DAILY [facility] Venlafaxine HCl (Effexor Xr) 150 mg PO BID [facility] Last Admin: 12/23/18 17:21 Dose: 150 mg Ziprasidone (Geodon Cap) 80 mg PO BID [facility] Last Admin: 12/23/18 17:21 Dose: 80 mg - Labs Labs: 12/23/18 06:30 12/23/18 06:30 PT 13.5 SECONDS (9.4-12.5) H 12/20/18 14:02 INR 1.22 12/20/18 14:02 APTT 32.4 Seconds (26.9-38.3) 12/20/18 14:02
--- NOTE | 2018-12-24 06:04 | CP.PCM.PN ---
Subjective - Date & Time of Evaluation Date of Evaluation: 12/24/18 Time of Evaluation: 06:25 - Subjective Subjective: Awake, alert, no distress, feels okay Reason for consultation and follow up: Cardiac evaluation, post op follow up post right hip surgery, History of COPD, GA, congestive heart failure, hypertension, coronary artery disease, abdominal aortic aneursym, post rotator cuff injury with repair, fracture of left humerus with surgery, former smoker. Seen and examined by me and Dr. Winchester Objective - Vital Signs/Intake and Output Vital Signs (last 24 hours): Temp Pulse Resp BP Pulse Ox 98 F 106 H 20 175/99 H 94 L 12/23/18 22:00 12/24/18 05:42 12/23/18 22:00 12/24/18 05:42 12/23/18 22:00 Intake and Output: 12/23/18 12/24/18 18:59 06:59 Intake Total 660 Balance 660 - Medications Medications: Current Medications Albuterol/Ipratropium (Duoneb 3 Mg/0.5 Mg (3 Ml) Ud) 3 ml IH Q6H PRN PRN Reason: Shortness of Breath Last Admin: 12/23/18 23:30 Dose: 3 ml Alprazolam (Xanax) 0.5 mg PO Q8H PRN; Protocol PRN Reason: anxiety severe Last Admin: 12/23/18 16:18 Dose: 0.5 mg Calcium/Vitamin D (Oscal-D 250 Mg-125 Units Tab) 1 tab PO DAILY [facility] Enoxaparin Sodium (Lovenox) 40 mg SC DAILY [facility]; Protocol Last Admin: 12/23/18 09:21 Dose: 40 mg Hydralazine HCl (Apresoline) 10 mg IVP Q6 PRN PRN Reason: hypertension Last Admin: 12/23/18 05:05 Dose: 10 mg Hydromorphone HCl (Dilaudid) 0.5 mg IVP Q15M PRN PRN Reason: Other Iron Sucrose 200 mg/ Sodium (Chloride) 110 mls @ 110 mls/hr IVPB DAILY [facility] Stop: 12/28/18 21:16 Last Admin: 12/23/18 22:29 Dose: 110 mls/hr Lisinopril (Zestril) 40 mg PO DAILY [facility] Last Admin: 12/23/18 09:28 Dose: 40 mg Metoclopramide HCl (Reglan) 10 mg PO DAILY [facility] Last Admin: 12/23/18 09:22 Dose: 10 mg Metoprolol Tartrate (Lopressor) 25 mg PO BID [facility] Last Admin: 12/23/18 17:21 Dose: 25 mg Morphine Sulfate (Morphine) 4 mg IVP Q4H PRN PRN Reason: Pain, severe (8-10) Last Admin: 12/22/18 08:44 Dose: 4 mg Non-Formulary Medication (Fluticasone/Vilanterol [Breo Ellipta 200-25 Mcg Inh]) 1 each IH DAILY [facility] Last Admin: 12/23/18 10:19 Dose: Not Given Oxycodone HCl (Oxycodone Immediate Release Tab) 5 mg PO Q4H PRN PRN Reason: Pain, Mild (1-3) Oxycodone HCl (Oxycodone Immediate Release Tab) 10 mg PO Q4H PRN PRN Reason: Pain, moderate (4-7) Last Admin: 12/24/18 04:17 Dose: 10 mg Pantoprazole Sodium (Protonix Ec Tab) 40 mg PO DAILY [facility] Last Admin: 12/23/18 09:25 Dose: 40 mg Pramipexole Dihydrochloride (Mirapex) 0.5 mg PO DAILY [facility] Last Admin: 12/23/18 09:22 Dose: 0.5 mg Spironolactone (Aldactone) 25 mg PO DAILY [facility] Venlafaxine HCl (Effexor Xr) 150 mg PO BID [facility] Last Admin: 12/23/18 17:21 Dose: 150 mg Ziprasidone (Geodon Cap) 80 mg PO BID [facility] Last Admin: 12/23/18 17:21 Dose: 80 mg - Labs Labs: 12/23/18 06:30 12/23/18 06:30 PT 13.5 SECONDS (9.4-12.5) H 12/20/18 14:02 INR 1.22 12/20/18 14:02 APTT 32.4 Seconds (26.9-38.3) 12/20/18 14:02 - Constitutional Appears: Non-toxic, No Acute Distress - Head Exam Head Exam: NORMAL INSPECTION, NORMOCEPHALIC - Eye Exam Eye Exam: Normal appearance Pupil Exam: NORMAL ACCOMODATION - ENT Exam ENT Exam: Mucous Membranes Moist, Normal Exam - Respiratory Exam Respiratory Exam: Decreased Breath Sounds, Clear to Ausculation Bilateral, NORMAL BREATHING PATTERN - Cardiovascular Exam Cardiovascular Exam: +S1, +S2 - GI/Abdominal Exam GI & Abdominal Exam: Soft, Normal Bowel Sounds - Extremities Exam Additional comments: right hip dressing - Neurological Exam Neurological Exam: Alert, Awake, Oriented x3 - Psychiatric Exam Psychiatric exam: Normal Affect, Normal Mood - Skin Skin Exam: Dry, Normal Color, Warm Assessment and Plan - Assessment and Plan (Free Text) Assessment: A 68 year old female who came in to the ER due to right hip pain due to fall. Consult was called for pre-op risk stratification and clearance for right hip surgery. History of COPD, GA, congestive heart failure, hypertension, coronary artery disease, abdominal aortic aneursym, post rotator cuff injury with repair, fracture of left humerus with surgery, former smoker, multiple falls, pneumonia, TIA, dizziness, unsteady gait, incontinence. She was standing by her bed, waiting for her to take her to the bathroom when she got dizzy and lost her balance. Cardiac cath on 10/06/15 showed normal coronaries LVEF 45-50%. Echo done on 06/27/18 showed LVEF 59%, aortic valve stenosis AV gradient 19 mmHg, trace AR, moderate mitral and tricuspid regurgitation, RVSP 43 mmHg mild pulmonary hypertension. EKG showed normal sinus rhythm, no ischemia. Denies chest pain.Denies shortness of breath. Status post right hip surgery POD#3. Doing well.Physical therapy. Cardiac status stable. Uncontrolled blood pressure. Will add Norvasc. Plan: Status post right hip surgery POD#3. Cardiac status stable. Heart rate controlled Uncontrol Blood pressure, PRN Hydralazine , Norvasc 10 mg daily On Lisinopril 40 mg daily,Lopressor 25 mg BID Aldactone 25 mg daily PRN Morphine for pain management Continue current treatment Continue current medications Physical therapy Discharge planning Will follow up Plan and treatment discussed with Dr. Winchester
--- NOTE | 2018-12-24 07:25 | CP.PCM.PN ---
<Jones Farley - Last Filed: 12/24/18 09:17> Subjective - Date & Time of Evaluation Date of Evaluation: 12/24/18 Time of Evaluation: 07:40 - Subjective Subjective: Jones Farley- Internal Medicine Resident- Progress Note Behalf of Dr. Whitehead Subjective: Patient seen and examined at bedside. No acute events overnight. Admits to bilateral chest wall pain when coughing. Denies fever, chills, SOB, abdominal pain, N/V, diarrhea, constipation, and urinary symptoms. 12 Point ROS negative except as indicated in the HPI Physical Examination: - Constitutional Appears: no acute distress - Head Exam Head Exam: ATRAUMATIC, NORMOCEPHALIC - Eye Exam Eye Exam: PERRL - ENT Exam ENT Exam: Mucous Membranes Moist - Respiratory Exam Respiratory Exam: CTA bilaterally - Cardiovascular Exam Cardiovascular Exam: +S1, +S2. absent: Systolic Murmur - GI/Abdominal Exam GI & Abdominal Exam: soft, non- distended - Neurological Exam Neurological exam: awake, responds to verbal stimuli - Extremities Extremities Exam: no cyanosis, no clubbing - Skin Skin Exam: dry, warm Assessment and Plan: Hyponatremia- improving Chest Wall pain Right Hip Fracture s/p ORIF on 12/21 - POD #4 Analgesia Hx of Anxiety Hx of chronic diastolic CHF Hx COPD not on O2 Hx CAD Hx HTN Sodium level improving towards ekri range. Urine studies reviewed. Continue free water restriction to 1500cc per day. Continue oscal for suspected osteoperosis. Continue venofer for tx of iron def anemia. Continue metoprolol, aldactone, and lisinopril for HTN control. Increase amlodipine to 10mg PO daily. Continue hydralazine PRN. Elevated blood pressure and tachycardia likely secondary to pain.We will continue to follow with you. Patient case reviewed with and plan approved by attending physician, Dr. Whitehead. Objective - Vital Signs/Intake and Output Vital Signs (last 24 hours): Temp Pulse Resp BP Pulse Ox 98 F 106 H 20 175/99 H 94 L 12/23/18 22:00 12/24/18 05:42 12/23/18 22:00 12/24/18 05:42 12/23/18 22:00 Intake and Output: 12/24/18 12/24/18 06:59 18:59 Intake Total 660 Balance 660 - Medications Medications: Current Medications Albuterol/Ipratropium (Duoneb 3 Mg/0.5 Mg (3 Ml) Ud) 3 ml IH Q6H PRN PRN Reason: Shortness of Breath Last Admin: 12/23/18 23:30 Dose: 3 ml Alprazolam (Xanax) 0.5 mg PO Q8H PRN; Protocol PRN Reason: anxiety severe Last Admin: 12/24/18 07:04 Dose: 0.5 mg Amlodipine Besylate (Norvasc) 5 mg PO DAILY [facility] Calcium/Vitamin D (Oscal-D 250 Mg-125 Units Tab) 1 tab PO DAILY [facility] Enoxaparin Sodium (Lovenox) 40 mg SC DAILY [facility]; Protocol Last Admin: 12/23/18 09:21 Dose: 40 mg Hydralazine HCl (Apresoline) 10 mg IVP Q6 PRN PRN Reason: hypertension Last Admin: 12/23/18 05:05 Dose: 10 mg Hydromorphone HCl (Dilaudid) 0.5 mg IVP Q15M PRN PRN Reason: Other Iron Sucrose 200 mg/ Sodium (Chloride) 110 mls @ 110 mls/hr IVPB DAILY [facility] Stop: 12/28/18 21:16 Last Admin: 12/23/18 22:29 Dose: 110 mls/hr Lisinopril (Zestril) 40 mg PO DAILY [facility] Last Admin: 12/23/18 09:28 Dose: 40 mg Metoclopramide HCl (Reglan) 10 mg PO DAILY [facility] Last Admin: 12/23/18 09:22 Dose: 10 mg Metoprolol Tartrate (Lopressor) 25 mg PO BID [facility] Last Admin: 12/23/18 17:21 Dose: 25 mg Morphine Sulfate (Morphine) 4 mg IVP Q4H PRN PRN Reason: Pain, severe (8-10) Last Admin: 12/22/18 08:44 Dose: 4 mg Non-Formulary Medication (Fluticasone/Vilanterol [Breo Ellipta 200-25 Mcg Inh]) 1 each IH DAILY [facility] Last Admin: 12/23/18 10:19 Dose: Not Given Oxycodone HCl (Oxycodone Immediate Release Tab) 5 mg PO Q4H PRN PRN Reason: Pain, Mild (1-3) Oxycodone HCl (Oxycodone Immediate Release Tab) 10 mg PO Q4H PRN PRN Reason: Pain, moderate (4-7) Last Admin: 12/24/18 04:17 Dose: 10 mg Pantoprazole Sodium (Protonix Ec Tab) 40 mg PO DAILY [facility] Last Admin: 12/23/18 09:25 Dose: 40 mg Pramipexole Dihydrochloride (Mirapex) 0.5 mg PO DAILY [facility] Last Admin: 12/23/18 09:22 Dose: 0.5 mg Spironolactone (Aldactone) 25 mg PO DAILY [facility] Venlafaxine HCl (Effexor Xr) 150 mg PO BID [facility] Last Admin: 12/23/18 17:21 Dose: 150 mg Ziprasidone (Geodon Cap) 80 mg PO BID [facility] Last Admin: 12/23/18 17:21 Dose: 80 mg - Labs Labs: 12/23/18 06:30 12/23/18 06:30 PT 13.5 SECONDS (9.4-12.5) H 12/20/18 14:02 INR 1.22 12/20/18 14:02 APTT 32.4 Seconds (26.9-38.3) 12/20/18 14:02 <Diego Whitehead S - Last Filed: 12/24/18 17:49> Subjective - Subjective Subjective: Pt seen and examined by me. I have reviewed the note of the medical lab specialist and I agree with it. I have discussed the assessment and plan with the resident. I have reviewed the medications and the last labs. Objective - Vital Signs/Intake and Output Vital Signs (last 24 hours): Temp Pulse Resp BP Pulse Ox 98 F 82 20 96/63 L 98 12/24/18 15:09 12/24/18 15:09 12/24/18 15:09 12/24/18 15:09 12/24/18 15:09 Intake and Output: 12/24/18 12/24/18 06:59 18:59 Intake Total 660 Balance 660 - Labs Labs: 12/24/18 07:00 12/24/18 07:00 PT 13.5 SECONDS (9.4-12.5) H 12/20/18 14:02 INR 1.22 12/20/18 14:02 APTT 32.4 Seconds (26.9-38.3) 12/20/18 14:02
[2018-12-24 07:46] LABS: BASO # 0.01 K/mm3 (0.0-2.0); BASO % 0.1 % (0.0-3.0); EOS % 0.1 % (1.5-5.0); HEMOGLOBIN 8.7 g/dL (12.0-16.0); LYMPH # 1.4 (1.2-3.4); LYMPH % 9.5 % (22.0-35.0); MEAN CORPUSCULAR HEMOGLOBIN 24.3 pg (25.0-35.0); MEAN PLATELET VOLUME 9.6 fl (7.0-11.0); MONO # 1.3 (0.1-0.6); RBC 3.58 10^6/uL (3.5-6.1); RED CELL DISTRIBUTION WIDTH 14.9 % (11.5-14.5); WHITE BLOOD COUNT 14.7 10^3/uL (4.5-11.0)
[2018-12-24 08:10] LABS: ALBUMIN 2.9 g/dL (3.0-4.8); ALT/SGPT 23 U/L (7-56); AST/SGOT 23 U/L (14-36); BLOOD UREA NITROGEN 11 mg/dL (7-21); CALCIUM 8.6 mg/dL (8.4-10.5); GFR NON-AFRICAN AMERICAN > 60
--- NOTE | 2018-12-24 08:20 | CP.PCM.PN ---
Subjective - Date & Time of Evaluation Date of Evaluation: 12/24/18 Time of Evaluation: 08:15 - Subjective Subjective: Pt awake, alert. Doing well. Denies significant pain. Patient tolerating PT well. Afebrile, VSS WBC 14.7 Hgb 8.7 RLE: dressings changed. Incision sites clean dry and intact with hayes in place. There is no erythema or drainage. No signs of cellulitis or infection. +AROM foot and ankle. Sensation intact to light touch. Calf and thigh are soft and NTTP. Grossly NVI distally POD#3 s/p ORIF right hip fx cont PT, DVT prophylaxis Cont incentive spirometer D/c planning for GA[facility] Discussed above with Dr. Coburn, agrees with above. Objective - Vital Signs/Intake and Output Vital Signs (last 24 hours): Temp Pulse Resp BP Pulse Ox 98 F 106 H 20 175/99 H 94 L 12/23/18 22:00 12/24/18 05:42 12/23/18 22:00 12/24/18 05:42 12/23/18 22:00 Intake and Output: 12/24/18 12/24/18 06:59 18:59 Intake Total 660 Balance 660 - Medications Medications: Current Medications Albuterol/Ipratropium (Duoneb 3 Mg/0.5 Mg (3 Ml) Ud) 3 ml IH Q6H PRN PRN Reason: Shortness of Breath Last Admin: 12/23/18 23:30 Dose: 3 ml Alprazolam (Xanax) 0.5 mg PO Q8H PRN; Protocol PRN Reason: anxiety severe Last Admin: 12/24/18 07:04 Dose: 0.5 mg Amlodipine Besylate (Norvasc) 10 mg PO DAILY [facility] Calcium/Vitamin D (Oscal-D 250 Mg-125 Units Tab) 1 tab PO DAILY [facility] Enoxaparin Sodium (Lovenox) 40 mg SC DAILY [facility]; Protocol Last Admin: 12/23/18 09:21 Dose: 40 mg Hydralazine HCl (Apresoline) 10 mg IVP Q6 PRN PRN Reason: hypertension Last Admin: 12/23/18 05:05 Dose: 10 mg Hydromorphone HCl (Dilaudid) 0.5 mg IVP Q15M PRN PRN Reason: Other Iron Sucrose 200 mg/ Sodium (Chloride) 110 mls @ 110 mls/hr IVPB DAILY [facility] Stop: 12/28/18 21:16 Last Admin: 12/23/18 22:29 Dose: 110 mls/hr Lisinopril (Zestril) 40 mg PO DAILY [facility] Last Admin: 12/23/18 09:28 Dose: 40 mg Metoclopramide HCl (Reglan) 10 mg PO DAILY [facility] Last Admin: 12/23/18 09:22 Dose: 10 mg Metoprolol Tartrate (Lopressor) 25 mg PO BID [facility] Last Admin: 12/23/18 17:21 Dose: 25 mg Morphine Sulfate (Morphine) 4 mg IVP Q4H PRN PRN Reason: Pain, severe (8-10) Last Admin: 12/22/18 08:44 Dose: 4 mg Non-Formulary Medication (Fluticasone/Vilanterol [Breo Ellipta 200-25 Mcg Inh]) 1 each IH DAILY [facility] Last Admin: 12/23/18 10:19 Dose: Not Given Oxycodone HCl (Oxycodone Immediate Release Tab) 5 mg PO Q4H PRN PRN Reason: Pain, Mild (1-3) Oxycodone HCl (Oxycodone Immediate Release Tab) 10 mg PO Q4H PRN PRN Reason: Pain, moderate (4-7) Last Admin: 12/24/18 04:17 Dose: 10 mg Pantoprazole Sodium (Protonix Ec Tab) 40 mg PO DAILY [facility] Last Admin: 12/23/18 09:25 Dose: 40 mg Pramipexole Dihydrochloride (Mirapex) 0.5 mg PO DAILY [facility] Last Admin: 12/23/18 09:22 Dose: 0.5 mg Spironolactone (Aldactone) 25 mg PO DAILY [facility] Venlafaxine HCl (Effexor Xr) 150 mg PO BID [facility] Last Admin: 12/23/18 17:21 Dose: 150 mg Ziprasidone (Geodon Cap) 80 mg PO BID [facility] Last Admin: 12/23/18 17:21 Dose: 80 mg - Labs Labs: 12/24/18 07:00 12/24/18 07:00 PT 13.5 SECONDS (9.4-12.5) H 12/20/18 14:02 INR 1.22 12/20/18 14:02 APTT 32.4 Seconds (26.9-38.3) 12/20/18 14:02
[2018-12-24] MEDS: Pantoprazole 40 mg EC Tab PO SCH (09:10)
[2018-12-24] MEDS: Morphine 4 mg/ml ISec IVP PRN (09:10)
[2018-12-24] MEDS: Venlafaxine 75 mg ER Cap PO SCH (09:12)
[2018-12-24] MEDS: Non Formulary Medication (Fluticasone/Vilanterol [Breo Ellipta 200-25 Mcg Inh] 1 EACH) IH SCH (09:13)
[2018-12-24] MEDS: Enoxaparin 40 mg Syringe SC SCH (09:13)
[2018-12-24] MEDS ORDERED: Calcium-Vit D 250 mg-125 Units Tab UD PO SCH (10:00)
--- NOTE | 2018-12-24 11:22 | CP.PCM.PN ---
Subjective - Date & Time of Evaluation Date of Evaluation: 12/24/18 Time of Evaluation: 09:30 Objective - Vital Signs/Intake and Output Vital Signs (last 24 hours): Temp Pulse Resp BP Pulse Ox 98.5 F 107 H 18 170/80 H 94 L 12/24/18 08:25 12/24/18 08:25 12/24/18 08:25 12/24/18 09:12 12/24/18 08:25 Intake and Output: 12/24/18 12/24/18 06:59 18:59 Intake Total 660 Balance 660 - Medications Medications: Current Medications Albuterol/Ipratropium (Duoneb 3 Mg/0.5 Mg (3 Ml) Ud) 3 ml IH Q6H PRN PRN Reason: Shortness of Breath Last Admin: 12/23/18 23:30 Dose: 3 ml Alprazolam (Xanax) 0.5 mg PO Q8H PRN; Protocol PRN Reason: anxiety severe Last Admin: 12/24/18 07:04 Dose: 0.5 mg Amlodipine Besylate (Norvasc) 10 mg PO DAILY [facility] Last Admin: 12/24/18 09:12 Dose: 10 mg Calcium/Vitamin D (Oscal-D 250 Mg-125 Units Tab) 1 tab PO DAILY [facility] Last Admin: 12/24/18 09:12 Dose: 1 tab Enoxaparin Sodium (Lovenox) 40 mg SC DAILY [facility]; Protocol Last Admin: 12/24/18 09:13 Dose: 40 mg Hydralazine HCl (Apresoline) 10 mg IVP Q6 PRN PRN Reason: hypertension Last Admin: 12/23/18 05:05 Dose: 10 mg Hydromorphone HCl (Dilaudid) 0.5 mg IVP Q15M PRN PRN Reason: Other Iron Sucrose 200 mg/ Sodium (Chloride) 110 mls @ 110 mls/hr IVPB DAILY [facility] Stop: 12/28/18 21:16 Last Admin: 12/23/18 22:29 Dose: 110 mls/hr Lisinopril (Zestril) 40 mg PO DAILY [facility] Last Admin: 12/24/18 09:12 Dose: 40 mg Metoclopramide HCl (Reglan) 10 mg PO DAILY [facility] Last Admin: 12/24/18 09:11 Dose: 10 mg Metoprolol Tartrate (Lopressor) 25 mg PO BID [facility] Morphine Sulfate (Morphine) 4 mg IVP Q4H PRN PRN Reason: Pain, severe (8-10) Last Admin: 12/24/18 09:10 Dose: 4 mg Non-Formulary Medication (Fluticasone/Vilanterol [Breo Ellipta 200-25 Mcg Inh]) 1 each IH DAILY [facility] Last Admin: 12/24/18 09:13 Dose: Not Given Oxycodone HCl (Oxycodone Immediate Release Tab) 5 mg PO Q4H PRN PRN Reason: Pain, Mild (1-3) Oxycodone HCl (Oxycodone Immediate Release Tab) 10 mg PO Q4H PRN PRN Reason: Pain, moderate (4-7) Last Admin: 12/24/18 04:17 Dose: 10 mg Pantoprazole Sodium (Protonix Ec Tab) 40 mg PO DAILY [facility] Last Admin: 12/24/18 09:10 Dose: 40 mg Pramipexole Dihydrochloride (Mirapex) 0.5 mg PO DAILY [facility] Last Admin: 12/24/18 09:14 Dose: 0.5 mg Spironolactone (Aldactone) 25 mg PO DAILY [facility] Last Admin: 12/24/18 09:11 Dose: 25 mg Venlafaxine HCl (Effexor Xr) 150 mg PO BID [facility] Last Admin: 12/24/18 09:12 Dose: 150 mg Ziprasidone (Geodon Cap) 80 mg PO BID [facility] Last Admin: 12/24/18 09:13 Dose: 80 mg - Labs Labs: 12/24/18 07:00 12/24/18 07:00 PT 13.5 SECONDS (9.4-12.5) H 12/20/18 14:02 INR 1.22 12/20/18 14:02 APTT 32.4 Seconds (26.9-38.3) 12/20/18 14:02
[2018-12-24 15:10] VITALS: BP 96/63; PULSE 82; RESP 20; TEMP 98; O2SAT 98
--- NOTE | 2018-12-24 16:15 | CP.PCM.DIS ---
<Amber Cooley - Last Filed: 12/24/18 16:09> Provider - Provider Date of Admission: 12/20/18 16:28 Attending physician: Suzan Thomas MD Primary care physician: Austin Riley MD Consults: 12/20/18 15:37 Orthopedic Consult Stat Comment: rt. hip fracture, intertrochanteric Consulting Provider: Zuhair Coburn Consulting Physician: Zuhair Coburn Reason for Consult: rt. hip fracture, intertrochanteric 12/20/18 16:20 Cardiology Consult Routine Comment: Rt. hip fracture, need clearance, pt. request Consulting Provider: Deedee Mead Consulting Physician: Deedee Mead Reason for Consult: Rt. hip fracture, need clearance, pt. request 12/22/18 15:43 Psychiatry Consult Routine Comment: Consulting Provider: Frankie Burton Consulting Physician: Frankie Burton Reason for Consult: worsening anxiety 12/22/18 15:49 Nephrology Consult Routine Comment: Consulting Provider: Diego Whitehead Consulting Physician: Diego Whitehead Reason for Consult: hyponatremia Time Spent in preparation of Discharge (in minutes): 35 Hospital Course - Lab Results Lab Results: Most Recent Lab Values WBC 14.7 10^3/uL (4.5-11.0) H D 12/24/18 07:00 RBC 3.58 10^6/uL (3.5-6.1) 12/24/18 07:00 Hgb 8.7 g/dL (12.0-16.0) L 12/24/18 07:00 Hct 27.2 % (36.0-48.0) L 12/24/18 07:00 MCV 76.0 fl (80.0-105.0) L 12/24/18 07:00 MCH 24.3 pg (25.0-35.0) L 12/24/18 07:00 MCHC 32.0 g/dl (31.0-37.0) 12/24/18 07:00 RDW 14.9 % (11.5-14.5) H 12/24/18 07:00 Plt Count 278 10^3/uL (120.0-450.0) 12/24/18 07:00 MPV 9.6 fl (7.0-11.0) 12/24/18 07:00 Neut % (Auto) 81.3 % (50.0-68.0) H 12/24/18 07:00 Lymph % (Auto) 9.5 % (22.0-35.0) L 12/24/18 07:00 Bledsoe % (Auto) 9.0 % (1.0-6.0) H 12/24/18 07:00 Eos % (Auto) 0.1 % (1.5-5.0) L 12/24/18 07:00 Baso % (Auto) 0.1 % (0.0-3.0) 12/24/18 07:00 Lymph # (Auto) 1.4 (1.2-3.4) 12/24/18 07:00 Bledsoe # (Auto) 1.3 (0.1-0.6) H 12/24/18 07:00 Eos # (Auto) 0.0 (0.0-0.7) 12/24/18 07:00 Baso # (Auto) 0.01 K/mm3 (0.0-2.0) 12/24/18 07:00 Absolute Neuts (auto) 11.95 (1.4-6.5) H 12/24/18 07:00 Retic Count 1.24 % (0.5-1.5) 12/23/18 06:00 PT 13.5 SECONDS (9.4-12.5) H 12/20/18 14:02 INR 1.22 12/20/18 14:02 APTT 32.4 Seconds (26.9-38.3) 12/20/18 14:02 Sodium 131 mmol/L (132-148) L 12/24/18 07:00 Potassium 3.6 mmol/L (3.6-5.0) 12/24/18 07:00 Chloride 100 mmol/L (98-107) 12/24/18 07:00 Carbon Dioxide 23 mmol/L (21-33) 12/24/18 07:00 Anion Gap 11 (10-20) 12/24/18 07:00 BUN 11 mg/dL (7-21) 12/24/18 07:00 Creatinine 0.7 mg/dl (0.7-1.2) 12/24/18 07:00 Est GFR ( Amer) > 60 12/24/18 07:00 Est GFR (Non-Af Amer) > 60 12/24/18 07:00 Random Glucose 112 mg/dL (70-110) H 12/24/18 07:00 Serum Osmolality 271 mosm/kg (272-300) L 12/23/18 07:00 Calcium 8.6 mg/dL (8.4-10.5) 12/24/18 07:00 Phosphorus 3.0 mg/dL (2.5-4.5) 12/24/18 07:00 Magnesium 1.7 mg/dL (1.7-2.2) 12/24/18 07:00 Iron < 10 ug/dL (45-180) L 12/23/18 06:00 TIBC 239 ug/dL (265-497) L 12/23/18 06:00 % Saturation TNP 12/23/18 06:00 Ferritin 404.0 ng/mL 12/23/18 06:00 Total Bilirubin 0.4 mg/dL (0.2-1.3) 12/24/18 07:00 AST 23 U/L (14-36) 12/24/18 07:00 ALT 23 U/L (7-56) 12/24/18 07:00 Alkaline Phosphatase 85 U/L (38-126) 12/24/18 07:00 NT-Pro-B Natriuret Pep 6370 pg/mL (0-450) H 12/20/18 14:02 Total Protein 5.8 g/dL (5.8-8.3) 12/24/18 07:00 Albumin 2.9 g/dL (3.0-4.8) L 12/24/18 07:00 Globulin 2.8 gm/dL 12/24/18 07:00 Albumin/Globulin Ratio 1.0 (1.1-1.8) L 12/24/18 07:00 Vitamin B12 501 pg/mL (239-931) 12/23/18 06:00 25-OH Vitamin D Total 36.8 NG/ML (30.0-100.0) 12/22/18 07:20 Folate 10.0 ng/mL 12/23/18 06:00 TSH 3rd Generation 2.00 mIU/mL (0.46-4.68) 12/23/18 07:00 Urine Color Yellow (YELLOW) 12/20/18 14:30 Urine Appearance Clear (CLEAR) 12/20/18 14:30 Urine pH 6.0 (4.7-8.0) 12/20/18 14:30 Ur Specific [place] 1.010 (1.005-1.035) 12/20/18 14:30 Urine Protein Negative mg/dL (<30 mg/dL) 12/20/18 14:30 Urine Glucose (UA) Negative mg/dL (NEGATIVE) 12/20/18 14:30 Urine Ketones Negative mg/dL (NEGATIVE) 12/20/18 14:30 Urine Blood Trace-lysed (NEGATIVE) H 12/20/18 14:30 Urine Nitrate Negative (NEGATIVE) 12/20/18 14:30 Urine Bilirubin Negative (NEGATIVE) 12/20/18 14:30 Urine Urobilinogen 0.2 E.U./dL (<1 E.U./dL) 12/20/18 14:30 Ur Leukocyte Esterase Negative Neyda/uL (NEGATIVE) 12/20/18 14:30 Urine RBC 1 - 3 /hpf (0-2) H 12/20/18 14:30 Urine WBC 0 - 2 /hpf (0-6) 12/20/18 14:30 Ur Epithelial Cells 3 - 4 /hpf (0-5) 12/20/18 14:30 Urine Bacteria Few /hpf (NONE) 12/20/18 14:30 Urine Osmolality 217 mosm/kg (300-1000) L 12/23/18 17:00 Ur Random Creatinine 35 mg/dL 12/23/18 17:00 U Random Total Protein 22 mg/L 12/23/18 14:50 Ur Random Sodium 11 meq/L 12/23/18 17:00 Blood Type O POSITIVE 12/20/18 14:02 Antibody Screen Negative 12/20/18 14:02 Crossmatch See Detail 12/20/18 14:02 BBK History Checked Patient has bt 12/20/18 14:02 - Constitutional Appears: Non-toxic, No Acute Distress, - Head Exam Head Exam: ATRAUMATIC, NORMAL INSPECTION, NORMOCEPHALIC - Eye Exam Eye Exam: EOMI, Normal appearance. absent: Conjunctival injection, Scleral icterus - ENT Exam ENT Exam: Mucous Membranes Moist - Neck Exam Neck Exam: Full ROM, Normal Inspection - Respiratory Exam Respiratory Exam: CTABL, no respiratory distress - Cardiovascular Exam Cardiovascular Exam: RRR no murmur, no tachycardia - GI/Abdominal Exam GI & Abdominal Exam: Soft, Normal Bowel Sounds. absent: Firm, Guarding, Rigid, Tenderness - Extremities Exam Extremities Exam: Normal Capillary Refill. absent: Calf Tenderness, Pedal Edema - Neurological Exam Neurological Exam: Alert, Awake, Oriented x3 - Skin Skin Exam: Dry, Intact, Normal Color, Warm - Hospital Course Hospital Course: Upon admission, 68 F with PMhx COPD, CAD, AAA, HTN, rotator cuff injury, [place], CHF (most recent echo in Jun 2018 with EF of 59%) presents to the ED s/p fall. Of note, patient had an admission in August for a fall as well, after which she broke her humerus; she was admitted in June for a fracture as well. In addition, patient has been hyponatremic since her last visit, with unknown etiology.On this admission, patient states she was standing by her bed, waiting for her to take her to the bathroom (she is not ambulatory at home; does not use a wheelchair or cane, her takes her everywhere), when she got dizzy and lost her balance. She denies hitting her head or loss of consciou sness. She is complaining of R hip pain and R hand pain, but denies any other complaints at this time. During hospital course, patient found to have right hip fracture on xray and ortho was consulted and patient subsequently had open reduction internal fixation procedure for right hip fracture. Patient possibly had polypharmacy as cause of frequent falls and xanax was decreased from 1 to 0.5mg. Patient given morphine and oxycodone for analgesia control. Patient also noted to have low sodium likely from increased water intake and patient put on fluid restriction and held home aldactone with improvement in sodium. Psych was consulted for patient's anxiety and patient was given xanax, effexor and geodon during hospital stay. Patient agreed with discharge today and all questions were answer ed to patient's satisfaction. Patient agreed to follow up with her primary care doctor and orthopedic surgery. Discharge Plan - Follow Up Plan Condition: STABLE Disposition: REHAB FACILITY/REHAB UNIT Instructions: Chronic Obstructive Pulmonary Disease (COPD), Including Emphysema, High Blood Pressure in Adults, Preventing Falls in the Older Adult, Open Reduction and Internal Fixation Surgery Additional Instructions: You are being discharged to rehab. Please continue all inpatient medications as per medical reconciliation in hospital chart. Please follow up with your primary care doctor, Dr. Huitron within 5-7 days of discharge. Please follow up with your set up worker, Dr. Whitehead within 5-7 days of discharge. Please follow up with your orthopedic surgeon, Dr. Coburn within 2 weeks of discharge. Your lopressor (metoprolol) has been increased to 50mg twice daily. Your amlodipine has been increased to 10mg daily. Please obtain refills from your primary care doctor. Please return to the ED for any new or worsening symptoms. Referrals: Zuhair Coburn MD [Staff Provider] - Diego Whitehead MD [Staff Provider] - Austin Riley MD [Primary Care Provider] - <Suzan Thomas - Last Filed: 12/24/18 16:34> Provider - Provider Date of Admission: 12/20/18 16:28 Attending physician: Suzan Thomas MD Primary care physician: Austin Riley MD Consults: 12/20/18 15:37 Orthopedic Consult Stat Comment: rt. hip fracture, intertrochanteric Consulting Provider: Zuhair Coburn Consulting Physician: Zuhair Coburn Reason for Consult: rt. hip fracture, intertrochanteric 12/20/18 16:20 Cardiology Consult Routine Comment: Rt. hip fracture, need clearance, pt. request Consulting Provider: Deedee Mead Consulting Physician: Deedee Mead Reason for Consult: Rt. hip fracture, need clearance, pt. request 12/22/18 15:43 Psychiatry Consult Routine Comment: Consulting Provider: Frankie Burton Consulting Physician: Frankie Burton Reason for Consult: worsening anxiety 12/22/18 15:49 Nephrology Consult Routine Comment: Consulting Provider: Diego Whitehead Consulting Physician: Diego Whitehead Reason for Consult: hyponatremia Hospital Course - Lab Results Lab Results: Most Recent Lab Values WBC 14.7 10^3/uL (4.5-11.0) H D 12/24/18 07:00 RBC 3.58 10^6/uL (3.5-6.1) 12/24/18 07:00 Hgb 8.7 g/dL (12.0-16.0) L 12/24/18 07:00 Hct 27.2 % (36.0-48.0) L 12/24/18 07:00 MCV 76.0 fl (80.0-105.0) L 12/24/18 07:00 MCH 24.3 pg (25.0-35.0) L 12/24/18 07:00 MCHC 32.0 g/dl (31.0-37.0) 12/24/18 07:00 RDW 14.9 % (11.5-14.5) H 12/24/18 07:00 Plt Count 278 10^3/uL (120.0-450.0) 12/24/18 07:00 MPV 9.6 fl (7.0-11.0) 12/24/18 07:00 Neut % (Auto) 81.3 % (50.0-68.0) H 12/24/18 07:00 Lymph % (Auto) 9.5 % (22.0-35.0) L 12/24/18 07:00 Bledsoe % (Auto) 9.0 % (1.0-6.0) H 12/24/18 07:00 Eos % (Auto) 0.1 % (1.5-5.0) L 12/24/18 07:00 Baso % (Auto) 0.1 % (0.0-3.0) 12/24/18 07:00 Lymph # (Auto) 1.4 (1.2-3.4) 12/24/18 07:00 Bledsoe # (Auto) 1.3 (0.1-0.6) H 12/24/18 07:00 Eos # (Auto) 0.0 (0.0-0.7) 12/24/18 07:00 Baso # (Auto) 0.01 K/mm3 (0.0-2.0) 12/24/18 07:00 Absolute Neuts (auto) 11.95 (1.4-6.5) H 12/24/18 07:00 Retic Count 1.24 % (0.5-1.5) 12/23/18 06:00 PT 13.5 SECONDS (9.4-12.5) H 12/20/18 14:02 INR 1.22 12/20/18 14:02 APTT 32.4 Seconds (26.9-38.3) 12/20/18 14:02 Sodium 131 mmol/L (132-148) L 12/24/18 07:00 Potassium 3.6 mmol/L (3.6-5.0) 12/24/18 07:00 Chloride 100 mmol/L (98-107) 12/24/18 07:00 Carbon Dioxide 23 mmol/L (21-33) 12/24/18 07:00 Anion Gap 11 (10-20) 12/24/18 07:00 BUN 11 mg/dL (7-21) 12/24/18 07:00 Creatinine 0.7 mg/dl (0.7-1.2) 12/24/18 07:00 Est GFR ( Amer) > 60 12/24/18 07:00 Est GFR (Non-Af Amer) > 60 12/24/18 07:00 Random Glucose 112 mg/dL (70-110) H 12/24/18 07:00 Serum Osmolality 271 mosm/kg (272-300) L 12/23/18 07:00 Calcium 8.6 mg/dL (8.4-10.5) 12/24/18 07:00 Phosphorus 3.0 mg/dL (2.5-4.5) 12/24/18 07:00 Magnesium 1.7 mg/dL (1.7-2.2) 12/24/18 07:00 Iron < 10 ug/dL (45-180) L 12/23/18 06:00 TIBC 239 ug/dL (265-497) L 12/23/18 06:00 % Saturation TNP 12/23/18 06:00 Ferritin 404.0 ng/mL 12/23/18 06:00 Total Bilirubin 0.4 mg/dL (0.2-1.3) 12/24/18 07:00 AST 23 U/L (14-36) 12/24/18 07:00 ALT 23 U/L (7-56) 12/24/18 07:00 Alkaline Phosphatase 85 U/L (38-126) 12/24/18 07:00 NT-Pro-B Natriuret Pep 6370 pg/mL (0-450) H 12/20/18 14:02 Total Protein 5.8 g/dL (5.8-8.3) 12/24/18 07:00 Albumin 2.9 g/dL (3.0-4.8) L 12/24/18 07:00 Globulin 2.8 gm/dL 12/24/18 07:00 Albumin/Globulin Ratio 1.0 (1.1-1.8) L 12/24/18 07:00 Vitamin B12 501 pg/mL (239-931) 12/23/18 06:00 25-OH Vitamin D Total 36.8 NG/ML (30.0-100.0) 12/22/18 07:20 Folate 10.0 ng/mL 12/23/18 06:00 TSH 3rd Generation 2.00 mIU/mL (0.46-4.68) 12/23/18 07:00 Urine Color Yellow (YELLOW) 12/20/18 14:30 Urine Appearance Clear (CLEAR) 12/20/18 14:30 Urine pH 6.0 (4.7-8.0) 12/20/18 14:30 Ur Specific [place] 1.010 (1.005-1.035) 12/20/18 14:30 Urine Protein Negative mg/dL (<30 mg/dL) 12/20/18 14:30 Urine Glucose (UA) Negative mg/dL (NEGATIVE) 12/20/18 14:30 Urine Ketones Negative mg/dL (NEGATIVE) 12/20/18 14:30 Urine Blood Trace-lysed (NEGATIVE) H 12/20/18 14:30 Urine Nitrate Negative (NEGATIVE) 12/20/18 14:30 Urine Bilirubin Negative (NEGATIVE) 12/20/18 14:30 Urine Urobilinogen 0.2 E.U./dL (<1 E.U./dL) 12/20/18 14:30 Ur Leukocyte Esterase Negative Neyda/uL (NEGATIVE) 12/20/18 14:30 Urine RBC 1 - 3 /hpf (0-2) H 12/20/18 14:30 Urine WBC 0 - 2 /hpf (0-6) 12/20/18 14:30 Ur Epithelial Cells 3 - 4 /hpf (0-5) 12/20/18 14:30 Urine Bacteria Few /hpf (NONE) 12/20/18 14:30 Urine Osmolality 217 mosm/kg (300-1000) L 12/23/18 17:00 Ur Random Creatinine 35 mg/dL 12/23/18 17:00 U Random Total Protein 22 mg/L 12/23/18 14:50 Ur Random Sodium 11 meq/L 12/23/18 17:00 Blood Type O POSITIVE 12/20/18 14:02 Antibody Screen Negative 12/20/18 14:02 Crossmatch See Detail 12/20/18 14:02 BBK History Checked Patient has bt 12/20/18 14:02 Attending/Attestation - Attestation I have personally seen and examined this patient.: Yes I have fully participated in the care of the patient.: Yes I have reviewed all pertinent clinical information, including history, physical exam and plan: Yes Notes (Text): 12/24/18 16:31 Attending note; Patient seen and examined with resident. Patient is alert and awake. Sitting in the chair. Not in any acute distress. Denies any chest pain, shortness of breath. Denies any fevers, chills. Patient is a 68-year-old female past medical history significant for COPD, dorene nary artery disease, AAA, hypertension, rotator cuff injury, chronic diastolic CHF, multiple falls and fractures, psychiatric disorder, hyponatremia, and history of tobacco abuse that presented to the emergency room after having a fall. 1. Intertrochanteric fracture of the right hip status post fall. S/P ORIF 12/21/17. Orthopedics recommendations appreciated. Continue with pain management. Continue physical therapy. GAEL recommended. Continue to encourage use of incentive spirometer. 2. Hyponatremia. Improved. Nephrology recommendations appreciated. Fluid restriction discussed with patient. 3. Chronic diastolic CHF. CAD. No acute issues. Continue home lisinopril and metoprolol. Aldactone restarted. Cardiology following. 2-D echo per proposal review analyst showed left ventricle is normal size, EF 59%, right ventricular systolic function is normal, right ventricle is normal size. 4. Hypertension. Continue home lisinopril, norvasc and metoprolol 5. Psychiatric disorder. Continue home Effexor and Geodon. Continue Xanax prn. 6. COPD. Continue nebulizer treatments as needed. Physical therapy evaluation appreciated. Case discussed with heel caser/clinical social work therapist in detail. Patient will be discharged to rehab today. Upon discharge the patient will follow up with PMD .
--- NOTE | 2018-12-24 22:32 | PN ---
DATE: 12/24/2018 The patient was seen and examined. I do agree with the note of the medical surgical tech. I was involved in the plan of care. The patient has hyponatremia that is improving. She had a right hip fracture and ORIF. She is on Venofer for her iron deficiency. She is receiving lisinopril for her hypertension as well as amlodipine. The patient is going to be discharged today. She was advised to decrease her free water intake, so that she does not become hyponatremic again, have issues with drinking significant amount of water which is causing her sodium to go down. The sodium has improved. Diego Whitehead MD
== END 2018-12-24 17:44 | DRG 481 ==
LOC: ED 13:06 → ERH 16:28 → 5RSO 20:25
PROVIDERS: ADMIT Hospitalist; ATTEND Internal Medicine
PROC: 0QS604Z Reposition Right Upper Femur with Internal Fixation Device, Open Approach (ICD-10-PCS; principal; 2018-12-21 13:00)
DX: S72.141A Displaced intertrochanteric fracture of right femur, initial encounter for closed fracture (principal); E87.1 Hypo-osmolality and hyponatremia; I50.32 Chronic diastolic (congestive) heart failure; Z68.1 Body mass index [BMI] 19.9 or less, adult; W19.XXXA Unspecified fall, initial encounter; I25.2 Old myocardial infarction; I25.10 Atherosclerotic heart disease of native coronary artery without angina pectoris; Z79.899 Other long term (current) drug therapy; J44.9 Chronic obstructive pulmonary disease, unspecified; I11.0 Hypertensive heart disease with heart failure; Z87.891 Personal history of nicotine dependence; Z91.81 History of falling; D50.9 Iron deficiency anemia, unspecified; F41.9 Anxiety disorder, unspecified; M81.0 Age-related osteoporosis without current pathological fracture; R29.6 Repeated falls; Z86.73 Personal history of transient ischemic attack (TIA), and cerebral infarction without residual deficits; Z87.01 Personal history of pneumonia (recurrent); Z90.710 Acquired absence of both cervix and uterus; M19.90 Unspecified osteoarthritis, unspecified site; Z88.3 Allergy status to other anti-infective agents; Z88.8 Allergy status to other drugs, medicaments and biological substances; I08.3 Combined rheumatic disorders of mitral, aortic and tricuspid valves; I27.20 Pulmonary hypertension, unspecified; R07.89 Other chest pain